=== PATIENT | male | born 1960 | race Hispanic/Latino ===

== ENCOUNTER 2016-06-16 10:34 | Outpatient (CLI) | payer MEDICARE, MEDICAID ==
[2016-06-16] MEDS ORDERED: XYLOCAINE TOPICAL 2% TP ONE ×2 (12:08→15:34)
== END 2016-06-16 10:35 | disposition home or self-care (01) ==
LOC: WOUND 10:34
PROVIDERS: ATTEND Internal Medicine
DX: I87.2 Venous insufficiency (chronic) (peripheral) (principal); L97.912 Non-pressure chronic ulcer of unspecified part of right lower leg with fat layer exposed; L97.312 Non-pressure chronic ulcer of right ankle with fat layer exposed; L89.892 Pressure ulcer of other site, stage 2; I10 Essential (primary) hypertension; D50.8 Other iron deficiency anemias; F41.9 Anxiety disorder, unspecified; L40.9 Psoriasis, unspecified
CPT/HCPCS: 11055

== ENCOUNTER 2016-06-23 10:49 | Outpatient (CLI) | payer MEDICARE, MEDICAID ==
[2016-06-23] MEDS ORDERED: XYLOCAINE TOPICAL 2% TP ONE (11:03)
== END 2016-06-23 10:50 | disposition home or self-care (01) ==
LOC: WOUND 10:49
PROVIDERS: ATTEND Podiatrist
DX: I87.311 Chronic venous hypertension (idiopathic) with ulcer of right lower extremity (principal); L97.912 Non-pressure chronic ulcer of unspecified part of right lower leg with fat layer exposed; L97.312 Non-pressure chronic ulcer of right ankle with fat layer exposed; D50.8 Other iron deficiency anemias; F41.9 Anxiety disorder, unspecified
CPT/HCPCS: 29581

== ENCOUNTER 2016-06-30 11:09 | Outpatient (CLI) | payer MEDICARE, MEDICAID ==
[2016-06-30] MEDS ORDERED: XYLOCAINE TOPICAL 2% TP ONE ×2 (11:26→14:27)
== END 2016-06-30 11:10 | disposition home or self-care (01) ==
LOC: WOUND 11:09
PROVIDERS: ATTEND Podiatrist
DX: I87.311 Chronic venous hypertension (idiopathic) with ulcer of right lower extremity (principal); L97.811 Non-pressure chronic ulcer of other part of right lower leg limited to breakdown of skin; L97.311 Non-pressure chronic ulcer of right ankle limited to breakdown of skin; D50.8 Other iron deficiency anemias; I10 Essential (primary) hypertension; F41.9 Anxiety disorder, unspecified

== ENCOUNTER 2016-07-07 11:04 | Outpatient (CLI) | payer MEDICARE, MEDICAID ==
[2016-07-07] MEDS ORDERED: XYLOCAINE TOPICAL 2% TP ONE ×2 (11:36→14:18)
== END 2016-07-07 11:05 | disposition home or self-care (01) ==
LOC: WOUND 11:04
PROVIDERS: ATTEND Podiatrist
DX: I87.311 Chronic venous hypertension (idiopathic) with ulcer of right lower extremity (principal); L97.511 Non-pressure chronic ulcer of other part of right foot limited to breakdown of skin; L97.811 Non-pressure chronic ulcer of other part of right lower leg limited to breakdown of skin; L97.311 Non-pressure chronic ulcer of right ankle limited to breakdown of skin; D50.8 Other iron deficiency anemias; I10 Essential (primary) hypertension; F41.9 Anxiety disorder, unspecified

== ENCOUNTER 2016-07-14 10:53 | Outpatient (CLI) | payer MEDICARE, MEDICAID ==
[2016-07-14] MEDS ORDERED: XYLOCAINE TOPICAL 4% TP ONE ×2 (11:40→12:32)
== END 2016-07-14 10:54 | disposition home or self-care (01) ==
LOC: WOUND 10:53
PROVIDERS: ATTEND Podiatrist
DX: I87.311 Chronic venous hypertension (idiopathic) with ulcer of right lower extremity (principal); L97.912 Non-pressure chronic ulcer of unspecified part of right lower leg with fat layer exposed; L97.312 Non-pressure chronic ulcer of right ankle with fat layer exposed; L97.512 Non-pressure chronic ulcer of other part of right foot with fat layer exposed; F41.9 Anxiety disorder, unspecified; D50.8 Other iron deficiency anemias

== ENCOUNTER 2016-07-28 10:37 | Outpatient (CLI) | payer MEDICARE, MEDICAID ==
[2016-07-28] MEDS ORDERED: XYLOCAINE TOPICAL 4% TP ONE (11:18)
[2016-07-28] MEDS ORDERED: SILVER NITRATE TP ONE ×2 (12:12→16:06)
== END 2016-07-28 10:38 | disposition home or self-care (01) ==
LOC: WOUND 10:37
PROVIDERS: ATTEND Podiatrist
DX: I87.311 Chronic venous hypertension (idiopathic) with ulcer of right lower extremity (principal); L97.811 Non-pressure chronic ulcer of other part of right lower leg limited to breakdown of skin; L97.311 Non-pressure chronic ulcer of right ankle limited to breakdown of skin; L97.511 Non-pressure chronic ulcer of other part of right foot limited to breakdown of skin; L84 Corns and callosities; M79.671 Pain in right foot; D50.8 Other iron deficiency anemias; I10 Essential (primary) hypertension; F41.9 Anxiety disorder, unspecified
CPT/HCPCS: 11055

== ENCOUNTER 2016-08-11 10:05 | Outpatient (CLI) | payer MEDICARE, MEDICAID ==
[2016-08-11] MEDS ORDERED: XYLOCAINE TOPICAL 4% TP ONE ×2 (12:28→13:53)
== END 2016-08-11 10:06 | disposition home or self-care (01) ==
LOC: WOUND 10:05
PROVIDERS: ATTEND Podiatrist
DX: I87.311 Chronic venous hypertension (idiopathic) with ulcer of right lower extremity (principal); L97.812 Non-pressure chronic ulcer of other part of right lower leg with fat layer exposed; L97.312 Non-pressure chronic ulcer of right ankle with fat layer exposed; L97.512 Non-pressure chronic ulcer of other part of right foot with fat layer exposed; D50.8 Other iron deficiency anemias; F41.9 Anxiety disorder, unspecified; L40.9 Psoriasis, unspecified

== ENCOUNTER 2016-09-01 11:08 | Outpatient (CLI) | payer MEDICARE, MEDICAID ==
[2016-09-01] MEDS ORDERED: XYLOCAINE TOPICAL 2% TP ONE ×2 (11:40→12:10)
== END 2016-09-01 11:09 | disposition home or self-care (01) ==
LOC: WOUND 11:08
PROVIDERS: ATTEND Podiatrist
DX: I87.313 Chronic venous hypertension (idiopathic) with ulcer of bilateral lower extremity (principal); L97.812 Non-pressure chronic ulcer of other part of right lower leg with fat layer exposed; L97.312 Non-pressure chronic ulcer of right ankle with fat layer exposed; L97.512 Non-pressure chronic ulcer of other part of right foot with fat layer exposed; L97.522 Non-pressure chronic ulcer of other part of left foot with fat layer exposed; D50.8 Other iron deficiency anemias; F41.9 Anxiety disorder, unspecified
CPT/HCPCS: 87075; 87076; 87116; 87186

== ENCOUNTER 2016-09-22 10:12 | Outpatient (CLI) | payer MEDICARE ==
[2016-09-22] MEDS ORDERED: XYLOCAINE TOPICAL 4% TP ONE ×2 (11:10→11:25)
== END 2016-09-22 10:13 | disposition home or self-care (01) ==
LOC: WOUND 10:12
PROVIDERS: ATTEND Podiatrist
DX: I87.313 Chronic venous hypertension (idiopathic) with ulcer of bilateral lower extremity (principal); L97.811 Non-pressure chronic ulcer of other part of right lower leg limited to breakdown of skin; L97.821 Non-pressure chronic ulcer of other part of left lower leg limited to breakdown of skin; L97.311 Non-pressure chronic ulcer of right ankle limited to breakdown of skin; L97.511 Non-pressure chronic ulcer of other part of right foot limited to breakdown of skin; L97.521 Non-pressure chronic ulcer of other part of left foot limited to breakdown of skin; D50.8 Other iron deficiency anemias; F41.9 Anxiety disorder, unspecified

== ENCOUNTER 2016-09-29 10:42 | Outpatient (CLI) | payer MEDICARE ==
[2016-09-29] MEDS ORDERED: XYLOCAINE TOPICAL 4% TP ONE ×2 (10:54→10:59)
== END 2016-09-29 10:43 | disposition home or self-care (01) ==
LOC: WOUND 10:42
PROVIDERS: ATTEND Podiatrist
DX: I87.313 Chronic venous hypertension (idiopathic) with ulcer of bilateral lower extremity (principal); L97.522 Non-pressure chronic ulcer of other part of left foot with fat layer exposed; L97.312 Non-pressure chronic ulcer of right ankle with fat layer exposed; L97.812 Non-pressure chronic ulcer of other part of right lower leg with fat layer exposed; L89.892 Pressure ulcer of other site, stage 2; D50.8 Other iron deficiency anemias; F41.9 Anxiety disorder, unspecified; L84 Corns and callosities; M79.672 Pain in left foot
CPT/HCPCS: 11055; 29581

== ENCOUNTER 2016-10-03 10:38 | Outpatient (CLI) | payer MEDICARE | END 2016-10-03 10:39 | disposition home or self-care (01) | LOC: WOUND 10:38 | PROVIDERS: ATTEND Surgery | DX: I87.313 Chronic venous hypertension (idiopathic) with ulcer of bilateral lower extremity (principal); L97.812 Non-pressure chronic ulcer of other part of right lower leg with fat layer exposed; L97.312 Non-pressure chronic ulcer of right ankle with fat layer exposed; L97.522 Non-pressure chronic ulcer of other part of left foot with fat layer exposed; D50.8 Other iron deficiency anemias; F41.9 Anxiety disorder, unspecified; L40.9 Psoriasis, unspecified | CPT/HCPCS: 29581 ==

== ENCOUNTER 2016-10-10 12:51 | Outpatient (CLI) | payer MEDICARE ==
[2016-10-10] MEDS ORDERED: XYLOCAINE TOPICAL 4% TP ONE (13:41)
[2016-10-10] MEDS ORDERED: SILVER NITRATE TP ONE ×2 (14:10→15:01)
== END 2016-10-10 12:52 | disposition home or self-care (01) ==
LOC: WOUND 12:51
PROVIDERS: ATTEND Surgery
DX: I87.313 Chronic venous hypertension (idiopathic) with ulcer of bilateral lower extremity (principal); L97.312 Non-pressure chronic ulcer of right ankle with fat layer exposed; L97.522 Non-pressure chronic ulcer of other part of left foot with fat layer exposed; D50.8 Other iron deficiency anemias; F41.9 Anxiety disorder, unspecified
CPT/HCPCS: 97597; 97598

== ENCOUNTER 2016-10-13 11:47 | Outpatient (CLI) | payer MEDICARE | END 2016-10-13 11:48 | disposition home or self-care (01) | LOC: WOUND 11:47 | PROVIDERS: ATTEND Podiatrist | DX: I87.313 Chronic venous hypertension (idiopathic) with ulcer of bilateral lower extremity (principal); L97.812 Non-pressure chronic ulcer of other part of right lower leg with fat layer exposed; L97.312 Non-pressure chronic ulcer of right ankle with fat layer exposed; L97.522 Non-pressure chronic ulcer of other part of left foot with fat layer exposed; I10 Essential (primary) hypertension; F41.9 Anxiety disorder, unspecified; L40.9 Psoriasis, unspecified | CPT/HCPCS: 29581 ==

== ENCOUNTER 2016-10-17 10:41 | Outpatient (CLI) | payer MEDICARE ==
[2016-10-17] MEDS ORDERED: XYLOCAINE TOPICAL 4% TP ONE ×2 (11:09→13:00)
[2016-10-17] MEDS ORDERED: DAKIN'S FULL STRENGTH TP ONE (12:00)
== END 2016-10-17 10:42 | disposition home or self-care (01) ==
LOC: WOUND 10:41
PROVIDERS: ATTEND Surgery
DX: I87.313 Chronic venous hypertension (idiopathic) with ulcer of bilateral lower extremity (principal); L97.812 Non-pressure chronic ulcer of other part of right lower leg with fat layer exposed; L97.312 Non-pressure chronic ulcer of right ankle with fat layer exposed; L97.522 Non-pressure chronic ulcer of other part of left foot with fat layer exposed; D50.8 Other iron deficiency anemias; F41.9 Anxiety disorder, unspecified; L40.9 Psoriasis, unspecified

== ENCOUNTER 2016-11-03 10:38 | Outpatient (CLI) | payer MEDICARE ==
[2016-11-03] MEDS ORDERED: XYLOCAINE TOPICAL 4% TP ONE ×2 (11:05→11:33)
[2016-11-03] MEDS ORDERED: SANTYL TP ONE ×2 (12:05→15:30)
== END 2016-11-03 10:39 | disposition home or self-care (01) ==
LOC: WOUND 10:38
PROVIDERS: ATTEND Podiatrist
DX: I87.313 Chronic venous hypertension (idiopathic) with ulcer of bilateral lower extremity (principal); L97.512 Non-pressure chronic ulcer of other part of right foot with fat layer exposed; L97.522 Non-pressure chronic ulcer of other part of left foot with fat layer exposed; L97.312 Non-pressure chronic ulcer of right ankle with fat layer exposed; L97.812 Non-pressure chronic ulcer of other part of right lower leg with fat layer exposed; D50.8 Other iron deficiency anemias; F41.9 Anxiety disorder, unspecified

== ENCOUNTER 2016-11-10 10:45 | Outpatient (CLI) | payer MEDICARE ==
[2016-11-10] MEDS ORDERED: XYLOCAINE TOPICAL 4% TP ONE (11:21)
[2016-11-10] MEDS ORDERED: XYLOCAINE 2%/ EPI 1:200,000 INFILTRATI ONE (11:56)
[2016-11-10] MEDS ORDERED: XYLOCAINE 2%/EPI 1:100,000 INFILTRATI ONE (15:46)
== END 2016-11-10 10:46 | disposition home or self-care (01) ==
LOC: WOUND 10:45
PROVIDERS: ATTEND Podiatrist
DX: I87.313 Chronic venous hypertension (idiopathic) with ulcer of bilateral lower extremity (principal); L97.312 Non-pressure chronic ulcer of right ankle with fat layer exposed; L97.822 Non-pressure chronic ulcer of other part of left lower leg with fat layer exposed; L97.512 Non-pressure chronic ulcer of other part of right foot with fat layer exposed; L97.522 Non-pressure chronic ulcer of other part of left foot with fat layer exposed; D50.8 Other iron deficiency anemias; F41.9 Anxiety disorder, unspecified; L40.9 Psoriasis, unspecified
CPT/HCPCS: 88305

== ENCOUNTER 2016-11-24 10:16 | Outpatient (CLI) | payer MEDICARE ==
[2016-11-24] MEDS ORDERED: XYLOCAINE TOPICAL 4% TP ONE (10:45)
[2016-11-24] MEDS ORDERED: NACL 0.9% IR PRN (10:46)
== END 2016-11-24 10:17 | disposition home or self-care (01) ==
LOC: WOUND 10:16
PROVIDERS: ATTEND Podiatrist
DX: I87.313 Chronic venous hypertension (idiopathic) with ulcer of bilateral lower extremity (principal); L97.812 Non-pressure chronic ulcer of other part of right lower leg with fat layer exposed; L97.312 Non-pressure chronic ulcer of right ankle with fat layer exposed; L97.522 Non-pressure chronic ulcer of other part of left foot with fat layer exposed; D50.8 Other iron deficiency anemias; F41.9 Anxiety disorder, unspecified
CPT/HCPCS: 29581

== ENCOUNTER 2016-12-01 11:11 | Outpatient (CLI) | payer MEDICARE ==
[2016-12-01] MEDS ORDERED: XYLOCAINE TOPICAL 4% TP ONE ×2 (11:44→12:05)
[2016-12-01] MEDS ORDERED: AD OINTMENT TP ONE (13:07)
[2016-12-01] MEDS ORDERED: AD OINTMENT TP PRN (14:13)
== END 2016-12-01 11:12 | disposition home or self-care (01) ==
LOC: WOUND 11:11
PROVIDERS: ATTEND Podiatrist
DX: I87.313 Chronic venous hypertension (idiopathic) with ulcer of bilateral lower extremity (principal); L97.812 Non-pressure chronic ulcer of other part of right lower leg with fat layer exposed; L97.312 Non-pressure chronic ulcer of right ankle with fat layer exposed; L97.522 Non-pressure chronic ulcer of other part of left foot with fat layer exposed; F41.9 Anxiety disorder, unspecified
CPT/HCPCS: A6250

== ENCOUNTER 2016-12-22 10:44 | Outpatient (CLI) | payer MEDICARE ==
[2016-12-22] MEDS ORDERED: XYLOCAINE TOPICAL 4% TP ONE (11:33)
== END 2016-12-22 10:45 | disposition home or self-care (01) ==
LOC: WOUND 10:44
PROVIDERS: ATTEND Podiatrist
DX: I87.313 Chronic venous hypertension (idiopathic) with ulcer of bilateral lower extremity (principal); L97.812 Non-pressure chronic ulcer of other part of right lower leg with fat layer exposed; L97.312 Non-pressure chronic ulcer of right ankle with fat layer exposed; L97.512 Non-pressure chronic ulcer of other part of right foot with fat layer exposed; L97.522 Non-pressure chronic ulcer of other part of left foot with fat layer exposed; F41.9 Anxiety disorder, unspecified

== ENCOUNTER 2017-01-05 10:53 | Outpatient (CLI) | payer MEDICARE ==
[2017-01-05] MEDS ORDERED: XYLOCAINE TOPICAL 4% TP ONE (11:49)
== END 2017-01-05 10:54 | disposition home or self-care (01) ==
LOC: WOUND 10:53
PROVIDERS: ATTEND Podiatrist
DX: I87.313 Chronic venous hypertension (idiopathic) with ulcer of bilateral lower extremity (principal); L97.812 Non-pressure chronic ulcer of other part of right lower leg with fat layer exposed; L97.312 Non-pressure chronic ulcer of right ankle with fat layer exposed; L97.522 Non-pressure chronic ulcer of other part of left foot with fat layer exposed; L97.512 Non-pressure chronic ulcer of other part of right foot with fat layer exposed; L84 Corns and callosities; F41.9 Anxiety disorder, unspecified
CPT/HCPCS: 97597

== ENCOUNTER 2017-01-12 10:48 | Outpatient (CLI) | payer MEDICARE ==
[2017-01-12] MEDS ORDERED: XYLOCAINE TOPICAL 4% TP ONE (11:28)
== END 2017-01-12 10:49 | disposition home or self-care (01) ==
LOC: WOUND 10:48
PROVIDERS: ATTEND Podiatrist
DX: I87.313 Chronic venous hypertension (idiopathic) with ulcer of bilateral lower extremity (principal); L97.812 Non-pressure chronic ulcer of other part of right lower leg with fat layer exposed; L97.312 Non-pressure chronic ulcer of right ankle with fat layer exposed; L97.522 Non-pressure chronic ulcer of other part of left foot with fat layer exposed; D50.8 Other iron deficiency anemias; F41.9 Anxiety disorder, unspecified

== ENCOUNTER 2017-01-19 10:38 | Outpatient (CLI) | payer MEDICARE ==
[2017-01-19] MEDS ORDERED: XYLOCAINE TOPICAL 4% TP ONE ×2 (11:21→16:00)
== END 2017-01-19 10:39 | disposition home or self-care (01) ==
LOC: WOUND 10:38
PROVIDERS: ATTEND Podiatrist
DX: I87.313 Chronic venous hypertension (idiopathic) with ulcer of bilateral lower extremity (principal); L97.812 Non-pressure chronic ulcer of other part of right lower leg with fat layer exposed; L97.312 Non-pressure chronic ulcer of right ankle with fat layer exposed; L97.522 Non-pressure chronic ulcer of other part of left foot with fat layer exposed; D50.8 Other iron deficiency anemias; F41.9 Anxiety disorder, unspecified

== ENCOUNTER 2017-01-21 20:25 | Inpatient (IN) | payer MEDICARE ==
[2017-01-21] MEDS ORDERED: NACL 0.9% 1000 ML 1,000 ML ONE ×2 (20:49→21:05)
[2017-01-21] MEDS ORDERED: TYLENOL PO STA (21:04)
[2017-01-21] MEDS ORDERED: NACL 0.9% 500 ML 500 ML IV ONE (21:04)
[2017-01-21] MEDS ORDERED: NACL 0.9% 1000 ML 1,000 ML IV ONE ×2 (21:20→21:22)
[2017-01-21] MEDS ORDERED: VANCOMYCIN/NS 1 GM/250 ML 1 GM/250 ML BAG IV ONE (21:20)
[2017-01-21 21:47] LABS: Basophils % (Auto) 0.2 % (0.0-1.8); Eosinophils % (Auto) 0.1 % (0.0-4.3); Hemoglobin 9.6 gm/dl (11.8-15.2); Mean Corpuscular HGB Conc 33 % (32-34); Mean Corpuscular Hemoglobin 29 pg (28-32); Mean Corpuscular Volume 87 fl (84-94); Platelet Count 193 K/mm3 (140-440); Red Blood Count 3.35 M/mm3 (3.65-5.03); Red Cell Distribution Width 14.7 % (13.2-15.2); White Blood Count 10.2 K/mm3 (4.5-11.0)
[2017-01-21 21:49] LABS: Albumin 3.4 g/dL (3.9-5); Albumin/Globulin Ratio 0.8 %; BUN/Creatinine Ratio 13.75; Bilirubin,Total 0.5 mg/dL (0.1-1.2); Calcium 8.4 mg/dL (8.4-10.2); Chloride 102.1 mmol/L (98-107); Potassium 3.5 mmol/L (3.6-5.0); Total Protein 7.9 g/dL (6.3-8.2)
--- NOTE | 2017-01-21 21:57 | XRay Report ---
FINAL REPORT PROCEDURE: XR CHEST 1V AP TECHNIQUE: Chest radiograph anteroposterior view. CPT 60844 HISTORY: possible Sepsis COMPARISON: No prior studies are available for comparison. FINDINGS: Heart: Normal. Mediastinum/Vessels: Normal. Lungs/Pleural space: Study is limited due to suboptimal positioning. Bilateral lungs and pleural spaces appear clear without any obvious infiltrates or mass lesions.. Bony thorax: No acute osseous abnormality. Life support devices: None. IMPRESSION: No obvious acute abnormality.
[2017-01-21] MEDS ORDERED: NACL 0.9% 1000 ML 1,000 ML IV SCH (22:00)
[2017-01-21 22:04] LABS: INR 1.24 (0.87-1.13)
--- NOTE | 2017-01-21 23:10 | Emergency Department Report ---
HPI - General Chief Complaint: Extremity Problem,Nontraumatic Time Seen by Provider: 01/21/17 21:20 - HPI HPI: Patient brought to the er, with fever 101 at home, diarrhea consisting of 10 bowel movements, liquid stools, which was helpful with Lomotil. Patient also complaining of increased drainage over right lower leg cellulitis, warm and ulcers. Patient returns warned care and does have an appointment tomorrow. He started to feel progressively weaker, his blood pressure was lower than usual so he decided to come to the ED. ED Past Medical Hx - Past Medical History Previous Medical History?: Yes Hx Hypertension: Yes Hx Diabetes: No Additional medical history: Vascular problems in both lower ext,high cholesterol - Surgical History Additional Surgical History: Vascular surgery on 10/25/16 R lower ext. - Family History Family history: hypertension - Social History Smoking Status: Never Smoker Substance Use Type: None - Medications Home Medications: Home Medications Medication Instructions Recorded Confirmed Last Taken Type Fenofibrate Nanocrystallized 1 tab PO DAILY 11/13/16 01/21/17 01/21/17 History [Fenofibrate] Lisinopril/Hydrochlorothiazide 10 - 12.5 tab PO QDAY 11/13/16 01/21/17 01/21/17 History [Zestoretic 20-12.5 mg] Sertraline [Zoloft] 100 mg PO QDAY #30 tablet 11/17/16 01/21/17 01/21/17 Rx ED Review of Systems ROS: Stated complaint: LEFT LEG PAIN Other details as noted in HPI Comment: All other systems reviewed and negative Gastrointestinal: abdominal pain, nausea, vomiting, diarrhea Skin: lesions Physical Exam - Physical Exam Vital Signs: Vital Signs 01/21/17 01/21/17 01/21/17 20:55 21:44 22:30 Temperature 100.6 F H Pulse Rate 110 H 97 H 104 H Respiratory 24 20 20 Rate Blood Pressure 82/48 96/48 93/47 [Right] O2 Sat by Pulse 90 96 100 Oximetry Physical Exam: - General Limitations: No Limitations General appearance: alert, in no apparent distress - Head Head exam: Present: atraumatic, normocephalic - Eye Eye exam: Present: normal appearance, EOMI. Absent: nystagmus - ENT ENT exam: Present: normal exam, normal orophraynx, mucous membranes moist, normal external ear exam - Neck Neck exam: Present: normal inspection, full ROM. Absent: tenderness, meningismus - Respiratory Respiratory exam: Present: normal lung sounds bilaterally. Absent: respiratory distress, wheezes, rales, rhonchi, stridor, chest wall tenderness, accessory muscle use, decreased breath sounds, prolonged expiratory - Cardiovascular Cardiovascular Exam: Present: regular rate, normal rhythm, normal heart sounds. Absent: bradycardia, tachycardia, irregular rhythm, systolic murmur, diastolic murmur, rubs, gallop - GI/Abdominal GI/Abdominal exam: Present: soft, normal bowel sounds. Absent: distended, tenderness, guarding, rebound, rigid, pulsatile mass - Rectal Rectal exam: Present: deferred - Extremities Exam Extremities exam: Present: Right lower leg cellulitis, which ulcers draining purulent material. - Back Exam Back exam: Present: normal inspection, full ROM. Absent: tenderness, CVA tenderness (R), CVA tenderness (L), muscle spasm, paraspinal tenderness, vertebral tenderness - Neurological Exam Neurological exam: Present: alert, oriented X3, normal gait, other (Extraocular movements intact. Tongue midline. No facial droop. Facial sensation intact to light touch in the V1, V2, V3 distribution bilaterally. 5 and 5 strength in 4 extremities.. Sensation is intact to light touch in 4 extremities.). Absent : motor sensory deficit - Psychiatric Psychiatric exam: Present: Normal affect - Skin Skin exam: Present: warm, dry, intact, normal color. Absent: rash ED Course Vital Signs 01/21/17 01/21/17 01/21/17 20:55 21:44 22:30 Temperature 100.6 F H Pulse Rate 110 H 97 H 104 H Respiratory 24 20 20 Rate Blood Pressure 82/48 96/48 93/47 [Right] O2 Sat by Pulse 90 96 100 Oximetry ED Medical Decision Making - Lab Data Result diagrams: 01/21/17 21:10 01/21/17 21:10 Critical care attestation.: If time is entered above; I have spent that time in minutes in the direct care of this critically ill patient, excluding procedure time. ED Disposition Clinical Impression: Cellulitis, Severe diarrhea, Severe dehydration Disposition: OP ADMIT IP TO THIS HOSP Is pt being admited?: Yes Does the pt Need Aspirin: No Condition: Stable Referrals: PRIMARY CARE, [Primary Care Provider] - 3-5 Days
--- NOTE | 2017-01-21 23:37 | History and Physical Report ---
History of Present Illness Date of examination: 01/21/17 Chief complaint: right leg ulcer History of present illness: Patient is a 56-year-old morbid obese man with a BMI 49.3 with a history of hypertension, dyslipidemia, prior osteomyelitis, peripheral vascular disease, chronic venous stasis ulcers and recent MRSA RLE cellulitis who presents with worsening drainage, mild constant pain, of his right leg leg with cellulitis. He is under our wound care clinic. He has not obtained his recommended wound VAC has of yet. He was just discharged 12/31/16 after mrsa rle cellulilits. Past Medical History: hypertension, hyperlipidemia, PVD, other (venous stasis ulcers) Past Surgical History: Other (Right leg surgery) Social history: single, hedenies smoking tobacco, alcohol abuse or illegal drugs Family history: CAD ROS: Constitutional: no weight loss, no weight gain, no chills, no sweats, no fatigue , no weakness, no poor appetite Ears, nose, mouth and throat: no deferred, no ear pain, no decreased hearing, no sinus pressure, no bleeding gums, no dental pain, no mouth pain, no hoarseness, no sore throat, no swelling in mouth, no post-nasal drip, no headache, no vertigo, no pain front of neck, no neck lump Cardiovascular: chest pain, lightheadedness, decreased exercise tolerance, no orthopnea, no palpitations, no rapid/irregular heart beat, no edema, no syncope , no shortness of breath, no dyspnea on exertion, no paroxysmal nocturnal dyspnea, no claudication, no phlebitis, no high blood pressure, no leg edema Respiratory: no cough with sputum, no excessive sputum, no hemoptysis, no pleurisy, no pain, no pain on inspiration, no respiratory infections, no other Gastrointestinal: no nausea, no diarrhea, no constipation, no hematemesis, no hematochezia, no loss of appetite, no early satiety, no indigestion, no dyspepsia/bloating Genitourinary Male: no flank pain, no discharge, no urinary hesitancy, no nocturia Rectal: no incontinence, no bleeding, no itching, no discharge Musculoskeletal: no neck stiffness, no shooting arm pain, no arm numbness/ tingling, no shooting leg pain, no leg numbness/tingling, no atrophy, no limitation of motion, no fractures, no loss of height, no prior amputations, no arthritis Integumentary: See HPI Neurological: no weakness, no tingling, no syncope, no vertigo, no migraines, no aphasia, no change in mentation, no changes in smell/taste, no balance difficulties, no double vision, no burning pain, no paralysis Psychiatric: hypersomnia, change in libido, irritability, no anxiety, no memory loss, no sleep disturbances, no change in appetite, no disorientation, no hallucinations, no paranoia, no hopelessness, no anxiety attacks, no confusion Endocrine: no cold intolerance, no polyphagia, no polydipsia, no polyuria, no nocturia, no proptosis, no palpatations, no high blood sugars, no low blood sugars, no fatigue Hematologic/Lymphatic: no easy bruising, no lymphedema Allergic/Immunologic: no urticaria, no allergic rhinitis, no anaphylaxis Medications and Allergies Allergies Allergy/AdvReac Type Severity Reaction Status Date / Time No Known Allergies Allergy Verified 01/21/17 22:29 Home Medications Medication Instructions Recorded Confirmed Last Taken Type Fenofibrate Nanocrystallized 1 tab PO DAILY 11/13/16 01/21/17 01/21/17 History [Fenofibrate] Lisinopril/Hydrochlorothiazide 10 - 12.5 tab PO QDAY 11/13/16 01/21/17 01/21/17 History [Zestoretic 20-12.5 mg] Sertraline [Zoloft] 100 mg PO QDAY #30 tablet 11/17/16 01/21/17 01/21/17 Rx Active Meds: Active Medications Sodium Chloride (Nacl 0.9% 1000 Ml) 1,000 mls @ 150 mls/hr IV DIRECT SOFIYA Last Admin: 01/21/17 21:44 Dose: 150 mls/hr Exam - Physical Exam Narrative exam: GEN: WDWN, NAD, AWAKE, ALERT, ORIENTATED x 3 HEENT: NCAT, PERRL, EOMI, OP CLEAR NECK: SUPPLE, NO THYROMEGALY, NO JVD, NO LAD CVS: reg Tachycardia NORMAL S1S2 LUNGS/CHEST: CTA B, NORMAL CHEST EXPANSION B, GOOD AIR ENTRY B ABD: SOFT, NTND, GBS, NO REBOUND OR GUARDING EXT/SKIN: Significant right lower leg ulcer with bleeding and drainage MSK: FROM X 4 EXTREMITIES NEURO: CN 2-12 GROSSLY INTACT, NO NEW FOCAL DEFICITS PSY: CALM - Constitutional Vitals: Temp Pulse Resp BP Pulse Ox 100.6 F H 104 H 20 93/47 100 01/21/17 20:55 01/21/17 22:30 01/21/17 22:30 01/21/17 22:30 01/21/17 22:30 Results - Labs CBC & Chem 7: 01/21/17 21:10 01/21/17 21:10 Labs: Abnormal lab results 01/21/17 01/21/17 01/21/17 Range/Units 21:10 21:10 21:10 RBC 3.35 L (3.65-5.03) M/mm3 Hgb 9.6 L (11.8-15.2) gm/dl Hct 29.0 L (35.5-45.6) % Lymph % (Auto) 6.6 L (13.4-35.0) % Lymph # 0.7 L (1.2-5.4) K/mm3 Seg Neutrophils % 87.0 H (40.0-70.0) % Seg Neutrophils # 8.9 H (1.8-7.7) K/mm3 PT 16.2 H (12.2-14.9) Sec. INR 1.24 H (0.87-1.13) Potassium 3.5 L (3.6-5.0) mmol/L Carbon Dioxide 20 L (22-30) mmol/L BUN 33 H (9-20) mg/dL Creatinine 2.4 H (0.8-1.5) mg/dL Glucose 138 H (75-100) mg/dL Albumin 3.4 L (3.9-5) g/dL Assessment and Plan Patient is a 56-year-old morbid obese man with a BMI 49.3 with a history of hypertension, dyslipidemia, prior osteomyelitis, peripheral vascular disease, chronic venous stasis ulcers and recent MRSA RLE cellulitis who presents with worsening drainage, mild constant pain, of his right leg leg with cellulitis. He is under our wound care clinic. He has not obtained his recommended wound VAC has of yet. He was just discharged 12/31/16 after mrsa rle cellulilits. -Right leg cellulitis with sepsis: treat with IV antibiotics, Follow cultures, consult wound care team and ID -ARF, vasomotor nephropathy: consult Nephrology, get renal u/s and treat with ivf, used Clindamycin instead of iv vanc b/c ARF -Recent MRSA cellulitis in wound: contact isolation and consult ID -Hypokalemia, mild: replace and monitor closely -Unstageable pressure ulcers on legs, poa: Wound care -DVT prophylaxis: Stop SCDs due to the leg ulcers and added subcutaneous heparin -Anemia appears to be chronic: Repeat CBC morning -Morbid obesity, BMI 49.3: Consult Dietitian
[2017-01-22 00:30] LABS: Bilirubin,Urine NEG (Negative); Blood,Urine NEG (Negative); Ketones,Urine NEG (Negative); Leukocyte Esterase,Urine NEG (Negative); Nitrite,Urine NEG (Negative); Urobilinogen,Urine < 2.0 mg/dL (<2.0)
[2017-01-22] MEDS ORDERED: ZOFRAN IV PRN (00:30)
[2017-01-22] MEDS ORDERED: K-DUR PO ONE (00:30)
[2017-01-22 00:31] LABS: Bacteria,Urine 1+ /HPF (Negative); Mucus,Urine FEW /HPF
[2017-01-22] MEDS: CLEOCIN 300 MG/50 mL 300 MG/50 ML BAG IV SCH ×2 (01:41→05:48)
[2017-01-22] MEDS: NACL 0.9% 1000 ML 1,000 ML IV SCH (01:42)
--- NOTE | 2017-01-22 05:27 | Admit Criteria Form ---
Admission Criteria Documentation: CELLULITIS Clinical Indications for Admission to Inpatient Care (lo[place]ock/check or initial the applicable condition/criteria) Admission is indicated for ANY ONE of the following(1)(2)(3)(4)(5): [ ]I. Limb-threatening infection [ ]II. High-risk comorbid condition as indicated by ANY ONE of the following: [ ]a) Uncontrolled diabetes (eg, HbA1c greater than 10% (0.1)) [ ]b) Cirrhosis [ ]c) Neutropenia [ ]d) Asplenia(12) [ ]e) Immunosuppression [ ]f) Symptomatic heart failure [ ]III. Failure of outpatient therapy as indicated by ALL of the following(6): [ ]a) Progression or no improvement after adequate trial (minimum of 48 hours, with longer period for stable lower extremity infection) [ ]b) Adequate antibiotic regimen as indicated by use of ANY ONE of the following: [ ]i) First-generation cephalosporin (e.g., cephalexin) [ ]ii) Antistaphylococcal penicillin (e.g., dicloxacillin) [ ]iii) Penicillin-allergic patient regimen (clindamycin, extended-spectrum fluoroquinolone, or doxycycline) [ ]iv) Resistant organism (eg, methicillin-resistant Staphylococcus aureus) regimen (7)(8) [ ]c) Outpatient intravenous therapy regimen is not appropriate due to ANY ONE of the following. (9)(10) [ ]i) It was tried and was not successful (eg, progression of infection). [ ]ii) It is not available or cannot be arranged in a clinically appropriate time frame (e.g., the next day). [ ]iii) Clinical presentation (eg, acuity of infection, rapidity of progression, confirmed or suspected bacteremia) is judged to require ALL of the following: [ ]1) Immediate initiation of intravenous therapy ( eg, cannot wait for next day) [ ]2) Intensity of patient monitoring and observation (eg, vital sign measurement, checks for infection progression) that cannot be provided at other than inpatient level of care [ ]IV. Altered Mental status that is severe or persistent [ ]V. Bacteremia [ ]. Hemodynamic instability [ ]VII. Suspected necrotizing soft tissue infection (e.g., gas in tissue)(13)( 14)(15) [ ]VIII. Orbital infection (16)(17) [ ]XI. Associated surgical procedure (e.g., abscess drainage, debridement) not amenable to outpatient, emergency department, or observation care [ ]X. Cutaneous gangrene(19) [ ]XII. High fever (temperature greater than 39.5 degrees C (103.1 degrees F) (oral)) not responsive to outpatient, emergency department, or observation care therapy(20)(21) [X ]XIII. Inpatient admission required [A]rather than observation care (Also use Cellulitis: Observation Care as appropriate) because of ANY ONE of the following(22)(23): [ ]a) Periorbital or perineal infection that is severe or worsening [ ]b) Severe pain requiring acute inpatient management [ ]b) IV fluid to replace significant ongoing (e.g., for over 24 hours) losses (greater than 3 L/m2 per day) [ ]b) Compartment syndrome monitoring (24) [ ]b) Strict or protective (eg, laminar flow) isolation) [ ]b) Urgent debridement or skin grafting [ ]b) Bone or joint debridement [ ]b) Immediate inpatient surgery [ X]b) Other condition, treatment, or monitoring requiring inpatient admission Extended stay beyond goal length of stay may be needed for(18)(36)(37)(38)(39)( 40)(41) [ ]a) Necrotizing soft tissue infection or fasciitis(13)(42) [ ]b) Gram-negative infection [ ]c) Methicillin-resistant Staphylococcal aureus (MRSA) infection(7)(43) [ ]d) Peripheral venous insufficiency with cellulitis [ ]e) Extensive edema [ ]f) Sepsis or continued Hemodynamic instability [ ]g) Continued high fever or mental status change [ ]h) Bacteremia(43) [ ]i) Active serious comorbid conditions ( eg, heart failure, renal insufficiency) The original [employer] content created by [employer] has been revised. The portions of the content which have been revised are identified through the use of italic text or in bold, and [facility] has neither reviewed nor approved the modified material. All other unmodified content is copyright [facility] [employer] Please see references footnoted in the original [facility] edition 2017 Admission Criteria Met: Yes
[2017-01-22] MEDS: TYLENOL PO PRN ×2 (05:48→17:16)
--- NOTE | 2017-01-22 08:47 | Progress Note ---
Assessment and Plan Assessment and plan: Right leg cellulitis with sepsis Continue on empiric treatment of IV antibiotics Clindamycin Follow cultures Infectious disease Consulted Wound care team consulted Acute renal failure /vasomotor nephropathy IV fluid hydration Nephrology consulted Recent MRSA cellulitis in wound Continue on Clindamycin contact isolation Infectious diseases consulted Mild Hypokalemia Replaced Closely monitor Electrolytes Unstageable pressure ulcers Wound care Anemia appears to be chronic Stable at this time. Repeat CBC morning Morbid obesity, BMI 49.3 Consult Dietitian DVT prophylaxis Stop SCDs due to the leg ulcers and started heparin History Interval history: Patient complaining right leg pain and rated his pain level 7/10. Hospitalist Physical - Constitutional Vitals: Temp Pulse Resp BP Pulse Ox 98.2 F 75 22 96/58 97 01/22/17 07:42 01/22/17 07:42 01/22/17 07:42 01/22/17 07:42 01/22/17 07:42 General appearance: Present: no acute distress - EENT Eyes: Present: PERRL ENT: hearing intact - Neck Neck: Present: supple - Respiratory Respiratory effort: normal Respiratory: bilateral: CTA - Cardiovascular Heart rate: 75 Rhythm: regular Heart Sounds: Present: S1 & S2 - Extremities Extremities: no ischemia Extremity abnormal: other (Right leg Cellulitis ) Peripheral Pulses: within normal limits - Abdominal General gastrointestinal: soft, non-tender - Integumentary Integumentary: Present: clear, warm, dry - Psychiatric Psychiatric: appropriate mood/affect - Neurologic Neurologic: CNII-XII intact - Allied Health Allied health notes reviewed: nursing Results - Labs CBC & Chem 7: 01/21/17 21:10 01/21/17 21:10 Labs: Laboratory Last Values WBC 10.2 K/mm3 (4.5-11.0) 01/21/17 21:10 RBC 3.35 M/mm3 (3.65-5.03) L 01/21/17 21:10 Hgb 9.6 gm/dl (11.8-15.2) L 01/21/17 21:10 Hct 29.0 % (35.5-45.6) L 01/21/17 21:10 MCV 87 fl (84-94) 01/21/17 21:10 MCH 29 pg (28-32) 01/21/17 21:10 MCHC 33 % (32-34) 01/21/17 21:10 RDW 14.7 % (13.2-15.2) 01/21/17 21:10 Plt Count 193 K/mm3 (140-440) 01/21/17 21:10 Lymph % (Auto) 6.6 % (13.4-35.0) L 01/21/17 21:10 [place] % (Auto) 6.1 % (0.0-7.3) 01/21/17 21:10 Eos % (Auto) 0.1 % (0.0-4.3) 01/21/17 21:10 Baso % (Auto) 0.2 % (0.0-1.8) 01/21/17 21:10 Lymph # 0.7 K/mm3 (1.2-5.4) L 01/21/17 21:10 [place] # 0.6 K/mm3 (0.0-0.8) 01/21/17 21:10 Eos # 0.0 K/mm3 (0.0-0.4) 01/21/17 21:10 Baso # 0.0 K/mm3 (0.0-0.1) 01/21/17 21:10 Seg Neutrophils % 87.0 % (40.0-70.0) H 01/21/17 21:10 Seg Neutrophils # 8.9 K/mm3 (1.8-7.7) H 01/21/17 21:10 PT 16.2 Sec. (12.2-14.9) H 01/21/17 21:10 INR 1.24 (0.87-1.13) H 01/21/17 21:10 VBG pH 7.388 (7.320-7.420) 01/21/17 21:22 Sodium 140 mmol/L (137-145) 01/21/17 21:10 Potassium 3.5 mmol/L (3.6-5.0) L 01/21/17 21:10 Chloride 102.1 mmol/L (98-107) 01/21/17 21:10 Carbon Dioxide 20 mmol/L (22-30) L 01/21/17 21:10 Anion Gap 21 mmol/L 01/21/17 21:10 BUN 33 mg/dL (9-20) H 01/21/17 21:10 Creatinine 2.4 mg/dL (0.8-1.5) H 01/21/17 21:10 Estimated GFR 28 ml/min 01/21/17 21:10 BUN/Creatinine Ratio 13.75 % 01/21/17 21:10 Glucose 138 mg/dL (75-100) H 01/21/17 21:10 Lactic Acid 0.80 mmol/L (0.7-2.0) 01/22/17 00:01 Calcium 8.4 mg/dL (8.4-10.2) 01/21/17 21:10 Total Bilirubin 0.50 mg/dL (0.1-1.2) 01/21/17 21:10 AST 27 units/L (5-40) 01/21/17 21:10 ALT 18 units/L (7-56) 01/21/17 21:10 Alkaline Phosphatase 42 units/L (35-129) 01/21/17 21:10 Total Protein 7.9 g/dL (6.3-8.2) 01/21/17 21:10 Albumin 3.4 g/dL (3.9-5) L 01/21/17 21:10 Albumin/Globulin Ratio 0.8 % 01/21/17 21:10 Urine Color Yellow (Yellow) 01/21/17 23:10 Urine Turbidity Clear (Clear) 01/21/17 23:10 Urine pH 5.0 (5.0-7.0) 01/21/17 23:10 Ur Specific [place] 1.016 (1.003-1.030) 01/21/17 23:10 Urine Protein 30 mg/dl mg/dL (Negative) 01/21/17 23:10 Urine Glucose (UA) Neg mg/dL (Negative) 01/21/17 23:10 Urine Ketones Neg mg/dL (Negative) 01/21/17 23:10 Urine Blood Neg (Negative) 01/21/17 23:10 Urine Nitrite Neg (Negative) 01/21/17 23:10 Urine Bilirubin Neg (Negative) 01/21/17 23:10 Urine Urobilinogen < 2.0 mg/dL (<2.0) 01/21/17 23:10 Ur Leukocyte Esterase Neg (Negative) 01/21/17 23:10 Urine WBC (Auto) 6.0 /HPF (0.0-6.0) 01/21/17 23:10 Urine RBC (Auto) 5.0 /HPF (0.0-6.0) 01/21/17 23:10 U Epithel Cells (Auto) < 1.0 /HPF (0-13.0) 01/21/17 23:10 Urine Bacteria (Auto) 1+ /HPF (Negative) 01/21/17 23:10 Urine Mucus Few /HPF 01/21/17 23:10
[2017-01-22] MEDS: PROTONIX PO SCH (10:57)
[2017-01-22] MEDS ORDERED: Fluarix Quad 2017-2018(36 MOS+) IM ONE (12:00)
--- NOTE | 2017-01-22 12:04 | Consultation ---
History of Present Illness - Reason for Consult Consult date: 01/22/17 acute renal failure - History of Present Illness patient with h/o morbid obesity and PVD, also was recently treated for RLE cellulites came to the ED yesterday for worsening pain at the infection site, he also noted worsening of drainage and spiked a fever. in the ED he was noted to have worsening kidney function and renal consult was requested Past History Past Medical History: hyperlipidemia, other (obesity) Medications and Allergies Allergies Allergy/AdvReac Type Severity Reaction Status Date / Time No Known Allergies Allergy Verified 01/21/17 22:29 Home Medications Medication Instructions Recorded Confirmed Last Taken Type Fenofibrate Nanocrystallized 1 tab PO DAILY 11/13/16 01/21/17 01/21/17 History [Fenofibrate] Lisinopril/Hydrochlorothiazide 10 - 12.5 tab PO QDAY 11/13/16 01/21/17 01/21/17 History [Zestoretic 20-12.5 mg] Sertraline [Zoloft] 100 mg PO QDAY #30 tablet 11/17/16 01/21/17 01/21/17 Rx Active Meds: Active Medications Acetaminophen (Tylenol) 650 mg PO Q6H PRN PRN Reason: Non Cardiac Pain or Temp>100.5 Last Admin: 01/22/17 05:48 Dose: 650 mg Heparin Sodium (Porcine) (Heparin) 5,000 unit SUB-Q Q12HR [facility] Sodium Chloride (Nacl 0.9% 1000 Ml) 1,000 mls @ 125 mls/hr IV DIRECT SOFIYA Last Admin: 01/22/17 01:42 Dose: 125 mls/hr Clindamycin HCl (Cleocin 300 Mg/50 Ml) 300 mg in 50 mls @ 100 mls/hr IV Q6HR SOFIYA PRN Reason: Protocol Last Admin: 01/22/17 05:48 Dose: 100 mls/hr Influenza Virus Vaccine Quadrival (Fluarix Quad [id number](36 Mos+)) 0.5 ml IM .ONCE ONE Stop: 01/22/17 12:01 Morphine Sulfate (Morphine) 2 mg IV Q4H PRN PRN Reason: Pain, Moderate (4-6) Ondansetron HCl (Zofran) 4 mg IV Q4H PRN PRN Reason: Nausea And Vomiting Pantoprazole Sodium (Protonix) 40 mg PO QDAY [facility] Last Admin: 01/22/17 10:57 Dose: 40 mg Review of Systems All systems: negative (pain in RLE) Exam - Vital Signs Vital signs: Vital Signs Temp Pulse Resp BP Pulse Ox 100.6 F H 110 H 24 82/48 90 01/21/17 20:55 01/21/17 20:55 01/21/17 20:55 01/21/17 20:55 01/21/17 20:55 - General Appearance General appearance: well-developed, well-nourished, obese EENT: ATNC, PERRL, mucous membranes moist Neck: Present: neck supple Respiratory: Clear to Ascultation Heart: regular, S1S2 Gastrointestinal: Present: normoactive bowel sounds, obese. Absent: tenderness , distended Integumentary: erythema Neurologic: no focal deficit, no asterixis, alert and oriented x3 Musculoskeletal: Present: other (trace pitting edema in BLE) Psychiatric: mood/affect appropriate, cooperative Results - Lab Results 01/21/17 21:10 01/21/17 21:10 Most recent lab results Calcium 8.4 mg/dL (8.4-10.2) 01/21/17 21:10 Assessment and Plan - Patient Problems (1) Acute renal failure (ARF) Current Visit: Yes Status: Acute Qualifiers: Acute renal failure type: A Plan to address problem: etiology possible due to prerenal azotemia vs AIN from recent antibiotics use cont to hold Lisinopril/HCTZ cont IVF will check urine lytes and eos renal US is pending renally dose meds strict I&O renal diet daily weights (2) Cellulitis Current Visit: Yes Status: Acute Qualifiers: Site of cellulitis: S Site of cellulitis of extremity: S Site of cellulitis of trunk: S Laterality: L Plan to address problem: blood cultures ordered on Clindamycin (3) HTN (hypertension) Current Visit: No Status: Acute Qualifiers: Hypertension type: H Plan to address problem: noted to have low BP hold MIGUEL meds
--- NOTE | 2017-01-22 12:16 | Ultrasound Report ---
ULTRASOUND RENAL BILATERAL HISTORY: Acute renal failure. TECHNIQUE: transabdominal ultrasound with color Doppler interrogation. FINDINGS: The right kidney measures 12.4 x 7.3 x 7.1cm. Right renal cortex: 1.7cm. The left kidney measures 15.0 x 6.4 x 7.7cm. Left renal cortex: 2.0cm. Both kidneys are normal size, contour and position. The kidneys may be slightly echogenic consistent with nonspecific renal parenchymal disease. There is minimal separation of the echogenic complex in the right kidney which could represent minimal right hydronephrosis or urinary stasis. No calyceal dilatation is detected. No evidence for cyst, mass, calculus or perinephric fluid. The bladder is empty. Large gallstone measuring 1.5 cm is noted within the gallbladder. IMPRESSION: Slightly echogenic kidneys consistent with nonspecific renal parenchymal disease. Minimal right hydronephrosis versus urinary stasis in the right renal pelvis. I favor urinary stasis. Cholelithiasis.
--- NOTE | 2017-01-22 13:18 | Consultation ---
History of Present Illness - Reason for Consult Consult date: 01/22/17 infected wounds - History of Present Illness This is a 56 year-old male with history of morbid obesity, hypertension, hyperlipidemia, PVD and chronic venous insuficiency with bilateral venous stasis ulcers mainly to the right leg for 2 years, non-healing despite wound care and oral antibiotics; admitted on 01/21/2017 due to worsening right leg pain for 48h. Pain is 10/10 on his right calf and foot. He also noted increasing edema and erythema. He has had on / off chills and fever. Also, he reports diarrhea several times a day for 2 days. Denies N/V/abdominal pain. Of note, pt was admitted in December 2016 for MRSA right leg cellulitis. In the ED, temperature was 100.6, HR 110, BP 82/48, WBC 10.2, creat 2.4, , UA neg, CXR neg. Current Antimicrobials: Clindamycin 01/22 Previous Antimicrobials: Microbiology: Blood cultures: 01/21 NGTD Urine cultures: 11/13 neg Respiratory cultures: Wound cultures: 11/13 right leg cultures +MRSA sens to vanco and Pseudomonas sens to levaquin/ cipro Stool cultures: Other: Past History Past Medical History: hyperlipidemia, other (obesity) Social history: no significant social history Family history: no significant family history Medications and Allergies Allergies Allergy/AdvReac Type Severity Reaction Status Date / Time No Known Allergies Allergy Verified 01/21/17 22:29 Home Medications Medication Instructions Recorded Confirmed Last Taken Type Fenofibrate Nanocrystallized 1 tab PO DAILY 11/13/16 01/21/17 01/21/17 History [Fenofibrate] Lisinopril/Hydrochlorothiazide 10 - 12.5 tab PO QDAY 11/13/16 01/21/17 01/21/17 History [Zestoretic 20-12.5 mg] Sertraline [Zoloft] 100 mg PO QDAY #30 tablet 11/17/16 01/21/17 01/21/17 Rx Active Meds: Active Medications Acetaminophen (Tylenol) 650 mg PO Q6H PRN PRN Reason: Non Cardiac Pain or Temp>100.5 Last Admin: 01/22/17 05:48 Dose: 650 mg Heparin Sodium (Porcine) (Heparin) 5,000 unit SUB-Q Q12HR [facility] Sodium Chloride (Nacl 0.9% 1000 Ml) 1,000 mls @ 125 mls/hr IV DIRECT [facility] Last Admin: 01/22/17 01:42 Dose: 125 mls/hr Clindamycin HCl (Cleocin 300 Mg/50 Ml) 300 mg in 50 mls @ 100 mls/hr IV Q6HR SOFIYA PRN Reason: Protocol Last Admin: 01/22/17 05:48 Dose: 100 mls/hr Morphine Sulfate (Morphine) 2 mg IV Q4H PRN PRN Reason: Pain, Moderate (4-6) Ondansetron HCl (Zofran) 4 mg IV Q4H PRN PRN Reason: Nausea And Vomiting Pantoprazole Sodium (Protonix) 40 mg PO QDAY [facility] Last Admin: 01/22/17 10:57 Dose: 40 mg Review of Systems Constitutional: weight gain Ears, nose, mouth and throat: no ear discharge, no nasal discharge Cardiovascular: edema, no chest pain, no palpitations Respiratory: no cough, no shortness of breath Gastrointestinal: diarrhea, no nausea, no vomiting Integumentary: wounds Neurological: no head injury, no seizures, no syncope Psychiatric: no anxiety Endocrine: no cold intolerance, no heat intolerance Physical Examination - Physical Exam Narrative exam: General appearance: Alert in NAD, conversant Eyes: anicteric sclerae, PERRLA HENT: Atraumatic; oropharynx clear with moist mucous membranes and no mucosal ulcerations/no oral thrush; normal hard and soft palate. Normal external ears. Neck: Trachea midline; supple, no thyromegaly or lymphadenopathy Lungs: CTA, with normal respiratory effort and no intercostal retractions CV: RRR, no murmurs Abdomen: Soft, obese, non-tender; no masses or hepatosplenomegaly Extremities: radha leg edema with multiple right leg ulcerations with jennifer wound erythema no drainage Skin: Normal temperature, turgor and texture; no rash, ulcers or subcutaneous nodules Psych: Appropriate affect, alert and oriented to person, place and time. Neuro: alert and oriented x 3. Moving all extermities Lines: No CVL / PICC - Constitutional Vitals: Vital Signs Temp Pulse Resp BP Pulse Ox 98.2 F 75 22 96/58 97 01/22/17 07:42 01/22/17 07:42 01/22/17 07:42 01/22/17 07:42 01/22/17 07:42 Temperature -Last 24 Hours Temperature 98.2 F Temperature 99.1 F Temperature 98.6 F Results - Labs CBC & Chem 7: 01/21/17 21:10 01/21/17 21:10 - Imaging and Cardiology Chest x-ray: report reviewed Assessment and Plan Assessment: 1) Sepsis: Present on admission, manifested by fever, tachycardia. Etiology- right leg venous stasis wound infection +/- diarrhea. 2) Right leg venous stasis wound infection - chronic non healing for several months. Recent wound cultures grew MSSA and Pseudomonas. He has been on wound care for several months. 3) Diarrhea: should r/o Clostridium difficile colitis 4) Morbid obesity 5) TEREAS 6) PVD Plan: -follow-up blood cultures -obtain C-reactive protein (CRP) -obtain arterial legs US -check stools for C diff -start vancomycin at 15 mg/kg IV- renally dosed to cover MRSA -start cefepime IV reanlly dosed to cover Pseudomonas -stop clindamycin -start IV metronidazole to cover empirically C diff -wound care consultation -contact isolation Thank you for your consultation, will follow up with you. Julia Figueroa MD Infectious Diseases Specialist [facility] ([facility]) M [phone] O [phone]
[2017-01-22] MEDS ORDERED: VANCOMYCIN PHARMACY TO DOSE IV SCH (14:00)
[2017-01-22] MEDS ORDERED: VANCOMYCIN/NS 1 GM/250 ML 1 GM/250 ML BAG IV SCH (14:00)
[2017-01-22] MEDS ORDERED: MAXIPIME/NS 2 GM/100 ML 2 GM/100 ML BAG IV SCH (15:00)
[2017-01-22] MEDS: FLAGYL 500 MG/100 ML 500 MG/100 ML BAG IV SCH ×2 (15:53→21:56)
[2017-01-22] MEDS ORDERED: VANCOMYCIN 2,000 MG in NACL 0.9% 500 ML 500 ML IV ONE (16:00)
[2017-01-23] MEDS: MORPHINE IV PRN ×2 (01:19→18:04)
[2017-01-23 05:33] LABS: Bilirubin,Urine NEG (Negative); Blood,Urine NEG (Negative); Ketones,Urine NEG (Negative); Leukocyte Esterase,Urine NEG (Negative); Mucus,Urine FEW /HPF; Nitrite,Urine NEG (Negative); Protein,Urine <15 mg/dL mg/dL (Negative); RBC,Urine < 1.0 /HPF (0.0-6.0); Urobilinogen,Urine < 2.0 mg/dL (<2.0)
[2017-01-23 06:23] LABS: Basophils % (Auto) 0.6 % (0.0-1.8); Eosinophils % (Auto) 3.7 % (0.0-4.3); Hematocrit 30.5 % (35.5-45.6); Hemoglobin 10.2 gm/dl (11.8-15.2); Mean Corpuscular HGB Conc 33 % (32-34); Mean Corpuscular Hemoglobin 29 pg (28-32); Mean Corpuscular Volume 87 fl (84-94); Platelet Count 217 K/mm3 (140-440); Red Blood Count 3.52 M/mm3 (3.65-5.03); Red Cell Distribution Width 15.3 % (13.2-15.2); White Blood Count 7.6 K/mm3 (4.5-11.0)
[2017-01-23 06:33] LABS: BUN/Creatinine Ratio 23.07; Calcium 8.7 mg/dL (8.4-10.2); Phosphorous 3.1 mg/dL (2.5-4.5)
[2017-01-23 06:34] LABS: Chloride 102.2 mmol/L (98-107); Potassium 3.6 mmol/L (3.6-5.0)
[2017-01-23] MEDS: FLAGYL 500 MG/100 ML 500 MG/100 ML BAG IV SCH ×3 (07:44→22:08)
[2017-01-23] MEDS: NACL 0.9% 1000 ML 1,000 ML IV SCH (07:47)
--- NOTE | 2017-01-23 09:01 | Progress Note ---
Assessment and Plan - Patient Problems (1) Acute renal failure (ARF) Current Visit: Yes Status: Acute Qualifiers: Acute renal failure type: A Plan to address problem: imporved Cr with IVF and holding lisinopril/HCTZ cont NS renal US showed possible minimal R hydro, may need urology consult in the future renally dose meds strict I&O renal diet daily weights (2) Cellulitis Current Visit: Yes Status: Acute Qualifiers: Site of cellulitis: S Site of cellulitis of extremity: S Site of cellulitis of trunk: S Laterality: L Plan to address problem: blood cultures ordered followed by ID (3) HTN (hypertension) Current Visit: No Status: Acute Qualifiers: Hypertension type: H Plan to address problem: cont to hold BP meds Subjective Date of service: 01/23/17 Principal diagnosis: acute renal failure Interval history: feels better, mild R foot pain Objective - Vital Signs Vital signs: Vital Signs - 12hr 01/22/17 01/22/17 22:00 23:00 Temperature 98.3 F Pulse Rate 84 79 Respiratory 18 Rate Blood Pressure 105/69 O2 Sat by Pulse 98 Oximetry - General Appearance General appearance: well-developed, well-nourished, obese EENT: ATNC, PERRL, mucous membranes moist Neck: no JVD, no carotid bruit Respiratory: Present: Clear to Ascultation. Absent: Rales, Ronchi Cardiology: regular, S1S2 Gastrointestinal: normoactive bowel sounds, no tenderness, no distended, no guarding, obese Integumentary: warm and dry Neurologic: no focal deficit, no asterixis, alert and oriented x3 Musculoskeletal: other (trace pitting edema in BLE) Psychiatric: mood/affect appropriate, cooperative - Lab 01/23/17 04:46 01/23/17 04:46 Most recent lab results Calcium 8.7 mg/dL (8.4-10.2) 01/23/17 04:46 Phosphorus 3.10 mg/dL (2.5-4.5) 01/23/17 04:46 Magnesium 2.00 mg/dL (1.7-2.3) 01/23/17 04:46 Urine Creatinine 107.3 mg/dL (0.1-20.0) H 01/23/17 04:00 Urine Sodium 53 mEq/L 01/23/17 04:00 Urine Total Protein 19 mg/dL (5-11.8) H 01/23/17 04:00
[2017-01-23] MEDS: PROTONIX PO SCH (10:02)
[2017-01-23] MEDS: MAXIPIME/NS 2 GM/100 ML 2 GM/100 ML BAG IV SCH ×2 (10:10→22:14)
--- NOTE | 2017-01-23 12:06 | Consultation ---
History of Present Illness Consult date: 01/23/17 Reason for consult: wound care Chief complaint: Right leg ulcerations Past History Past Medical History: hyperlipidemia, other (obesity) Social history: no significant social history Family history: no significant family history Medications and Allergies Allergies Allergy/AdvReac Type Severity Reaction Status Date / Time No Known Allergies Allergy Verified 01/21/17 22:29 Home Medications Medication Instructions Recorded Confirmed Last Taken Type Fenofibrate Nanocrystallized 1 tab PO DAILY 11/13/16 01/21/17 01/21/17 History [Fenofibrate] Lisinopril/Hydrochlorothiazide 10 - 12.5 tab PO QDAY 11/13/16 01/21/17 01/21/17 History [Zestoretic 20-12.5 mg] Sertraline [Zoloft] 100 mg PO QDAY #30 tablet 11/17/16 01/21/17 01/21/17 Rx Active Meds: Active Medications Acetaminophen (Tylenol) 650 mg PO Q6H PRN PRN Reason: Non Cardiac Pain or Temp>100.5 Last Admin: 01/22/17 17:16 Dose: 650 mg Heparin Sodium (Porcine) (Heparin) 5,000 unit SUB-Q Q12HR [facility] Sodium Chloride (Nacl 0.9% 1000 Ml) 1,000 mls @ 125 mls/hr IV DIRECT [facility] Last Admin: 01/23/17 07:47 Dose: 125 mls/hr Metronidazole (Flagyl 500 Mg/100 Ml) 500 mg in 100 mls @ 100 mls/hr IV Q8HR [facility] Last Admin: 01/23/17 07:44 Dose: 100 mls/hr Vancomycin HCl 1,750 mg/ (Sodium Chloride) 517.5 mls @ 333.333 mls/hr IV Q12H [facility] Cefepime HCl (Maxipime/Ns 2 Gm/100 Ml) 2 gm in 100 mls @ 200 mls/hr IV Q12HR SOFIYA PRN Reason: Protocol Last Admin: 01/23/17 10:10 Dose: 200 mls/hr Morphine Sulfate (Morphine) 2 mg IV Q4H PRN PRN Reason: Pain, Moderate (4-6) Last Admin: 01/23/17 01:19 Dose: 2 mg Ondansetron HCl (Zofran) 4 mg IV Q4H PRN PRN Reason: Nausea And Vomiting Pantoprazole Sodium (Protonix) 40 mg PO QDAY [facility] Last Admin: 01/23/17 10:02 Dose: 40 mg Vancomycin HCl (Vancomycin Pharmacy To Dose) 1 each IV PKCONSULT [facility] Review of Systems All systems: negative Exam Vital Signs Temp Pulse Resp BP Pulse Ox 100.6 F H 110 H 24 82/48 90 01/21/17 20:55 01/21/17 20:55 01/21/17 20:55 01/21/17 20:55 01/21/17 20:55 - General physical appearance Positive: well developed, well nourished, no distress - Eyes Positive: PERRL, normal occular movement - ENT Positive: normal pinna, normal nares, normal mucosa, no hearing loss, no congestion - Neck Positive: no masses, no bruits, trachea midline, no venous distension - Respiratory Positive: normal expansion, normal respiratory effort, clear to auscultation - Cardiovascular Rhythm: regular Heart Sounds: Present: S1 & S2. Absent: rub, click - Extremities Extremities: no ischemia, pulses symmetrical, No edema - Breasts Breasts: deferred - Abdomen Abdomen: Present: soft, bowel sounds normal. Absent: tender, distended Hernia: none - Genitourinary Male Genitourinary: deferred - Integumentary other (There are multiple venous stasis ulcerations of his right medial and lateral leg. These are covered with biofilm. ) - Neurologic Neurologic: alert and oriented to time, place and person, motor strength and sensation are grossly intact - Musculoskeletal normal gait, normal posture - Psychiatric Psychiatric: appropriate mood/affect, intact judgment & insight Results - Labs 01/23/17 04:46 01/23/17 04:46 Abnormal lab results 01/22/17 01/23/17 01/23/17 Range/Units 14:53 04:00 04:46 RBC 3.52 L (3.65-5.03) M/mm3 Hgb 10.2 L (11.8-15.2) gm/dl Hct 30.5 L (35.5-45.6) % RDW 15.3 H (13.2-15.2) % Lymph # 1.1 L (1.2-5.4) K/mm3 Seg Neutrophils % 75.5 H (40.0-70.0) % BUN (9-20) mg/dL Iron (49-181) ug/dL TIBC (250-450) mcg/dL Ferritin (13.0-400.0) ng/mL C-Reactive Protein 33.10 H (0.00-1.30) mg/dL Urine Creatinine 107.3 H (0.1-20.0) mg/dL Urine Total Protein 19 H (5-11.8) mg/dL 01/23/17 01/23/17 Range/Units 04:46 04:46 RBC (3.65-5.03) M/mm3 Hgb (11.8-15.2) gm/dl Hct (35.5-45.6) % RDW (13.2-15.2) % Lymph # (1.2-5.4) K/mm3 Seg Neutrophils % (40.0-70.0) % BUN 30 H (9-20) mg/dL Iron 21 L (49-181) ug/dL TIBC 178 L (250-450) mcg/dL Ferritin 712.4 H (13.0-400.0) ng/mL C-Reactive Protein (0.00-1.30) mg/dL Urine Creatinine (0.1-20.0) mg/dL Urine Total Protein (5-11.8) mg/dL Diabetes panel 01/23/17 Range/Units 04:46 Sodium 141 (137-145) mmol/L Potassium 3.6 (3.6-5.0) mmol/L Chloride 102.2 (98-107) mmol/L Carbon Dioxide 22 (22-30) mmol/L BUN 30 H (9-20) mg/dL Creatinine 1.3 (0.8-1.5) mg/dL Glucose 93 (75-100) mg/dL Calcium 8.7 (8.4-10.2) mg/dL Calcium panel 01/23/17 Range/Units 04:46 Calcium 8.7 (8.4-10.2) mg/dL Phosphorus 3.10 (2.5-4.5) mg/dL Pituitary panel 01/23/17 Range/Units 04:46 Sodium 141 (137-145) mmol/L Potassium 3.6 (3.6-5.0) mmol/L Chloride 102.2 (98-107) mmol/L Carbon Dioxide 22 (22-30) mmol/L BUN 30 H (9-20) mg/dL Creatinine 1.3 (0.8-1.5) mg/dL Glucose 93 (75-100) mg/dL Calcium 8.7 (8.4-10.2) mg/dL Adrenal panel 01/23/17 Range/Units 04:46 Sodium 141 (137-145) mmol/L Potassium 3.6 (3.6-5.0) mmol/L Chloride 102.2 (98-107) mmol/L Carbon Dioxide 22 (22-30) mmol/L BUN 30 H (9-20) mg/dL Creatinine 1.3 (0.8-1.5) mg/dL Glucose 93 (75-100) mg/dL Calcium 8.7 (8.4-10.2) mg/dL Assessment and Plan 1) Elevation of right leg with 2 pillows. 2) I will debride the biofilm tomorrow. 3) Agree with arterial dopplers as recommended by ID. - Patient Problems (1) Non-pressure ulcer of right lower extremity Current Visit: Yes Status: Chronic Qualifiers: Non-pressure ulcer stage: with fat layer exposed Qualified Code(s): L97.912 - Non-pressure chronic ulcer of unspecified part of right lower leg with fat layer exposed
--- NOTE | 2017-01-23 12:47 | Progress Note ---
Assessment and Plan Assessment: 1) Sepsis: improving. Etiology- right leg venous stasis wound infection +/- diarrhea. CRP 33. 2) Right leg venous stasis wound infection - chronic non healing for several months. Recent wound cultures grew MSSA and Pseudomonas. He has been on wound care for several months. 3) Diarrhea: should r/o Clostridium difficile colitis 4) Morbid obesity 5) TERESA 6) PVD Plan: -he is going for debridement tomorrow -leg elevation -follow-up blood cultures -obtain arterial legs US - pending -stools for C diff - pending -continue vancomycin, cefepime and metronidazole for now -appreciate wound care evaluation -contact isolation -upon discharge will do oral antibiotics as long as he has good flow - doxycycline 100 mg PO q 12 hour and ciprofloxacin 500 mg PO q 12 hour for 14 days from 01/[address] Galeana for your consultation, will follow up with you. Julia Figueroa MD Infectious Diseases Specialist [facility] ([facility]) M [phone] O [phone] Subjective Date of service: 01/23/17 Principal diagnosis: acute renal failure Interval history: Feels better, no fever overnight. He did 2 BMs last 24h. Leg pain is better. Current Antimicrobials: Clindamycin 01/22 Previous Antimicrobials: Microbiology: Blood cultures: 01/21 NGTD Urine cultures: 11/13 10-100K mixed bacteria Respiratory cultures: Wound cultures: 11/13 right leg cultures +MRSA sens to vanco and Pseudomonas sens to levaquin/ cipro Stool cultures: Other: Objective - Exam Narrative Exam: General appearance: Alert in NAD, conversant Eyes: anicteric sclerae, PERRLA HENT: Atraumatic; oropharynx clear with moist mucous membranes and no mucosal ulcerations/no oral thrush; normal hard and soft palate. Normal external ears. Neck: Trachea midline; supple, no thyromegaly or lymphadenopathy Lungs: CTA, with normal respiratory effort and no intercostal retractions CV: RRR, no murmurs Abdomen: Soft, obese, non-tender; no masses or hepatosplenomegaly Extremities: radha leg edema with multiple right leg ulcerations with jennifer wound erythema no drainage Skin: per Wound care evaluation: R MEDIAL LEG MEASURES 12.5X11.5X0.4, WITH YELLOW SLOUGH AND BLOODY DRAINAGE, NO ODOR NOTED AT THIS TIME, ULCER CLEANED WITH WOUND CLEANSER, CALCIUM ALGINATE APPLIED TO ULCER, SECURED WITH ADB PAD, AND KERLIX CHRONIC VENOUS ULCER TO R LATERAL ANKLE ULCER, MEASURES 6.4X5.7X0.4, YELLOW SLOUGH NOTED, NO ODOR, SITE CLEANED WITH WOUND CLEANSER, CALCIUM ALGINATE DRESSING APPLIED, SECURED WITH ABD PADS AND KERLIX TRAUMA WOUND TO R GREAT TOE, SITE CLEANSED WITH WOUND CLEANSER, MEASURES 1X1.2X0.2, CALCIUM ALGINATE APPLIED AND SECURED WITH FOAM DRESSING Psych: Appropriate affect, alert and oriented to person, place and time. Neuro: alert and oriented x 3. Moving all extermities Lines: No CVL / PICC - Constitutional Vitals: Vital Signs Temp Pulse Resp BP Pulse Ox 99.2 F 76 20 117/73 99 01/23/17 09:42 01/23/17 09:42 01/23/17 10:00 01/23/17 09:42 01/23/17 10:00 Temperature -Last 24 Hours Temperature 99.2 F Temperature 98.3 F Temperature 98.0 F - Labs CBC & Chem 7: 01/23/17 04:46 01/23/17 04:46 Labs: Abnormal lab results 01/22/17 01/23/17 01/23/17 Range/Units 14:53 04:00 04:46 RBC 3.52 L (3.65-5.03) M/mm3 Hgb 10.2 L (11.8-15.2) gm/dl Hct 30.5 L (35.5-45.6) % RDW 15.3 H (13.2-15.2) % Lymph # 1.1 L (1.2-5.4) K/mm3 Seg Neutrophils % 75.5 H (40.0-70.0) % BUN (9-20) mg/dL Iron (49-181) ug/dL TIBC (250-450) mcg/dL Ferritin (13.0-400.0) ng/mL C-Reactive Protein 33.10 H (0.00-1.30) mg/dL Urine Creatinine 107.3 H (0.1-20.0) mg/dL Urine Total Protein 19 H (5-11.8) mg/dL 01/23/17 01/23/17 Range/Units 04:46 04:46 RBC (3.65-5.03) M/mm3 Hgb (11.8-15.2) gm/dl Hct (35.5-45.6) % RDW (13.2-15.2) % Lymph # (1.2-5.4) K/mm3 Seg Neutrophils % (40.0-70.0) % BUN 30 H (9-20) mg/dL Iron 21 L (49-181) ug/dL TIBC 178 L (250-450) mcg/dL Ferritin 712.4 H (13.0-400.0) ng/mL C-Reactive Protein (0.00-1.30) mg/dL Urine Creatinine (0.1-20.0) mg/dL Urine Total Protein (5-11.8) mg/dL
--- NOTE | 2017-01-23 14:03 | Progress Note ---
Assessment and Plan Assessment and plan: Patient is a 56-year-old morbid obese man with a BMI 49.3 with a history of hypertension, dyslipidemia, prior osteomyelitis, peripheral vascular disease, chronic venous stasis ulcers and recent MRSA RLE cellulitis who presents with worsening drainage, mild constant pain, of his right leg leg with cellulitis. He is under our wound care clinic. He has not obtained his recommended wound VAC has of yet. He was just discharged 12/31/16 after mrsa rle cellulilits. -Right leg cellulitis with sepsis: treat with IV antibiotics with renal dosed VANCO AND cefepim, ID input noted, patient with prior noted MRSA and pseudomonas on cultures 11/13. patient with elevated CRP, no further diarrhea noted. Follow cultures, consult wound care team, Discussed with Surgery, plan for debridement in AM -Right leg venous stasis: Vascular consult -Acute Kidney Injury: Likely secondary. Nephrology input noted. Holding Lisinopril/HCTZ. Follow up with Urology outpatient, Mild Right hydronephrosis on Renal u/S -Recent MRSA cellulitis in wound: contact isolation and consult ID -Hypokalemia, mild: replace and monitor closely -PVD: vascular consulted -Unstageable pressure ulcers on legs, poa: Wound care -DVT prophylaxis: Stop SCDs due to the leg ulcers and added subcutaneous heparin -Anemia appears to be chronic: Repeat CBC morning -Morbid obesity, BMI 49.3: Nurtitionist consulted -DVT/GI prophy -Plan of care discussed with surgery and ID. History Interval history: Patient seen and examined today in no acute distress remains with pain to the right lower extremity swelling. Denies any fever. No other adverse events reported by nursing staff. Hospitalist Physical - Physical exam Narrative exam: VITAL SIGNS: Reviewed. GENERAL: The patient appeared well nourished and normally developed. Vital signs as documented. HEAD: No signs of head trauma. EYES: Pupils are equal. Extraocular motions intact. EARS: Hearing grossly intact. MOUTH: Oropharynx is normal. NECK: No adenopathy, no JVD. CHEST: Chest with clear breath sounds bilaterally. No wheezes, rales, or rhonchi. CARDIAC: Regular rate and rhythm. S1 and S2, without murmurs, gallops, or rubs. VASCULAR: 2+ Edema. Peripheral pulses normal and equal in all extremities. ABDOMEN: Soft, without detectable tenderness. No sign of distention. No rebound or guarding, and no masses palpated. Bowel Sounds normal. MUSCULOSKELETAL: Good range of motion of all major joints. Extremities without clubbing, cyanosis. 2+ pitting edema b/l lower ext. NEUROLOGIC EXAM: Alert and oriented x 3. No focal sensory or strength deficits. Speech normal. Follows commands. PSYCHIATRIC: Mood normal. SKIN: multiple venous stasis ulcerations of his right medial and lateral leg, No overt drainage, covered with biofilm. healed wound to the left leg. - Constitutional Vitals: Temp Pulse Resp BP Pulse Ox 99.2 F 76 20 117/73 99 01/23/17 09:42 01/23/17 09:42 01/23/17 10:00 01/23/17 09:42 01/23/17 10:00 General appearance: Present: no acute distress Results - Labs CBC & Chem 7: 01/23/17 04:46 01/23/17 04:46 Labs: Laboratory Last Values WBC 7.6 K/mm3 (4.5-11.0) 01/23/17 04:46 RBC 3.52 M/mm3 (3.65-5.03) L 01/23/17 04:46 Hgb 10.2 gm/dl (11.8-15.2) L 01/23/17 04:46 Hct 30.5 % (35.5-45.6) L 01/23/17 04:46 MCV 87 fl (84-94) 01/23/17 04:46 MCH 29 pg (28-32) 01/23/17 04:46 MCHC 33 % (32-34) 01/23/17 04:46 RDW 15.3 % (13.2-15.2) H 01/23/17 04:46 Plt Count 217 K/mm3 (140-440) 01/23/17 04:46 Lymph % (Auto) 14.3 % (13.4-35.0) 01/23/17 04:46 [place] % (Auto) 5.9 % (0.0-7.3) 01/23/17 04:46 Eos % (Auto) 3.7 % (0.0-4.3) 01/23/17 04:46 Baso % (Auto) 0.6 % (0.0-1.8) 01/23/17 04:46 Lymph # 1.1 K/mm3 (1.2-5.4) L 01/23/17 04:46 [place] # 0.4 K/mm3 (0.0-0.8) 01/23/17 04:46 Eos # 0.3 K/mm3 (0.0-0.4) 01/23/17 04:46 Baso # 0.0 K/mm3 (0.0-0.1) 01/23/17 04:46 Seg Neutrophils % 75.5 % (40.0-70.0) H 01/23/17 04:46 Seg Neutrophils # 5.8 K/mm3 (1.8-7.7) 01/23/17 04:46 PT 16.2 Sec. (12.2-14.9) H 01/21/17 21:10 INR 1.24 (0.87-1.13) H 01/21/17 21:10 VBG pH 7.388 (7.320-7.420) 01/21/17 21:22 Sodium 141 mmol/L (137-145) 01/23/17 04:46 Potassium 3.6 mmol/L (3.6-5.0) 01/23/17 04:46 Chloride 102.2 mmol/L (98-107) 01/23/17 04:46 Carbon Dioxide 22 mmol/L (22-30) 01/23/17 04:46 Anion Gap 20 mmol/L 01/23/17 04:46 BUN 30 mg/dL (9-20) H 01/23/17 04:46 Creatinine 1.3 mg/dL (0.8-1.5) 01/23/17 04:46 Estimated GFR 57 ml/min 01/23/17 04:46 BUN/Creatinine Ratio 23.07 % 01/23/17 04:46 Glucose 93 mg/dL (75-100) 01/23/17 04:46 Lactic Acid 0.80 mmol/L (0.7-2.0) 01/22/17 00:01 Calcium 8.7 mg/dL (8.4-10.2) 01/23/17 04:46 Phosphorus 3.10 mg/dL (2.5-4.5) 01/23/17 04:46 Magnesium 2.00 mg/dL (1.7-2.3) 01/23/17 04:46 Iron 21 ug/dL (49-181) L 01/23/17 04:46 TIBC 178 mcg/dL (250-450) L 01/23/17 04:46 Ferritin 712.4 ng/mL (13.0-400.0) H 01/23/17 04:46 Total Bilirubin 0.50 mg/dL (0.1-1.2) 01/21/17 21:10 AST 27 units/L (5-40) 01/21/17 21:10 ALT 18 units/L (7-56) 01/21/17 21:10 Alkaline Phosphatase 42 units/L (35-129) 01/21/17 21:10 C-Reactive Protein 33.10 mg/dL (0.00-1.30) H 01/22/17 14:53 Total Protein 7.9 g/dL (6.3-8.2) 01/21/17 21:10 Albumin 3.4 g/dL (3.9-5) L 01/21/17 21:10 Albumin/Globulin Ratio 0.8 % 01/21/17 21:10 Urine Color Yellow (Yellow) 01/23/17 04:00 Urine Turbidity Clear (Clear) 01/23/17 04:00 Urine pH 5.0 (5.0-7.0) 01/23/17 04:00 Ur Specific [place] 1.015 (1.003-1.030) 01/23/17 04:00 Urine Protein <15 mg/dl mg/dL (Negative) 01/23/17 04:00 Urine Glucose (UA) Neg mg/dL (Negative) 01/23/17 04:00 Urine Ketones Neg mg/dL (Negative) 01/23/17 04:00 Urine Blood Neg (Negative) 01/23/17 04:00 Urine Nitrite Neg (Negative) 01/23/17 04:00 Urine Bilirubin Neg (Negative) 01/23/17 04:00 Urine Urobilinogen < 2.0 mg/dL (<2.0) 01/23/17 04:00 Ur Leukocyte Esterase Neg (Negative) 01/23/17 04:00 Urine WBC (Auto) 4.0 /HPF (0.0-6.0) 01/23/17 04:00 Urine RBC (Auto) < 1.0 /HPF (0.0-6.0) 01/23/17 04:00 U Epithel Cells (Auto) 1.0 /HPF (0-13.0) 01/23/17 04:00 Urine Bacteria (Auto) 1+ /HPF (Negative) 01/21/17 23:10 Urine Mucus Few /HPF 01/23/17 04:00 Urine Eosinophils None seen (None Seen) 01/23/17 04:00 Urine Creatinine 107.3 mg/dL (0.1-20.0) H 01/23/17 04:00 Protein/Creatinin Ratio 0.18 01/23/17 04:00 Urine Sodium 53 mEq/L 01/23/17 04:00 Urine Total Protein 19 mg/dL (5-11.8) H 01/23/17 04:00 - Imaging and Cardiology Chest x-ray: image reviewed (No acute pathology)
[2017-01-23] MEDS: VANCOMYCIN 1,750 MG in NACL 0.9% 500 ML 500 ML IV SCH (16:32)
[2017-01-23] MEDS: HEPARIN SUB-Q SCH (22:20)
[2017-01-24] MEDS: ZOLOFT PO SCH ×2 (01:40→22:04)
[2017-01-24] MEDS: TYLENOL PO PRN ×2 (01:40→20:11)
[2017-01-24] MEDS: VANCOMYCIN 1,750 MG in NACL 0.9% 500 ML 500 ML IV SCH ×2 (04:35→16:36)
[2017-01-24 05:57] LABS: Anion Gap 20 mmol/L; BUN/Creatinine Ratio 24.54; Blood Urea Nitrogen 27 mg/dL (9-20); Calcium 8.7 mg/dL (8.4-10.2); Carbon Dioxide 21 mmol/L (22-30); Chloride 103.2 mmol/L (98-107); Glucose 109 mg/dL (75-100); Potassium 4.1 mmol/L (3.6-5.0); Sodium 140 mmol/L (137-145)
[2017-01-24 05:59] LABS: Basophils % (Auto) 0.4 % (0.0-1.8); Eosinophils % (Auto) 3.9 % (0.0-4.3); Hematocrit 29.5 % (35.5-45.6); Hemoglobin 9.6 gm/dl (11.8-15.2); Mean Corpuscular HGB Conc 33 % (32-34); Mean Corpuscular Hemoglobin 28 pg (28-32); Mean Corpuscular Volume 88 fl (84-94); Platelet Count 213 K/mm3 (140-440); Red Blood Count 3.37 M/mm3 (3.65-5.03); Red Cell Distribution Width 15.1 % (13.2-15.2)
[2017-01-24] MEDS: FLAGYL 500 MG/100 ML 500 MG/100 ML BAG IV SCH ×2 (06:47→16:01)
--- NOTE | 2017-01-24 07:45 | Vascular Lab Report ---
LOWER EXTREMITY ARTERIAL DUPLEX: REASON FOR EXAM: Nonhealing foot ulcers are. COMMENTS ON THE RIGHT: Triphasic waveforms are seen proximally. Triphasic waveforms are seen distally. No significant velocity gradients are identified. No focal significant plaque is identified. Findings are consistent with normal perfusion. Findings are consistent with the ability to heal distal wounds. COMMENTS ON THE LEFT: Triphasic waveforms are seen proximally. Triphasic waveforms are seen distally. No significant velocity gradients are identified. No focal significant plaque is identified. Findings are consistent with normal perfusion. Findings are consistent with the ability to heal distal wounds. IMPRESSION: RIGHT: Essentially normal arterial flow. LEFT:Essentially normal arterial flow.
--- NOTE | 2017-01-24 08:34 | Progress Note ---
Assessment and Plan Assessment and plan: Patient is a 56-year-old morbid obese man with a BMI 49.3 with a history of hypertension, dyslipidemia, prior osteomyelitis, peripheral vascular disease, chronic venous stasis ulcers and recent MRSA RLE cellulitis who presents with worsening drainage, mild constant pain, of his right leg leg with cellulitis. He is under our wound care clinic. He has not obtained his recommended wound VAC has of yet. He was just discharged 12/31/16 after mrsa rle cellulilits. -Right leg cellulitis with sepsis: * treat with IV antibiotics with renal dosed VANCO AND cefepim, ID input noted, patient with prior noted MRSA and pseudomonas on cultures 11/13. patient with elevated CRP, no further diarrhea noted. Follow cultures, consult wound care team, * Defer to ID if to continue flagyl considering no further diarrhea. -Acute Kidney Injury: * Resolved. Likely secondary to vasomotor nephropathy, Nephrology input noted. Holding Lisinopril/HCTZ. fluids was given. will hold further fluids. Mild Right hydronephrosis on Renal u/S * Follow up with Urology outpatient -Recent MRSA cellulitis in wound: contact isolation, ID input mnoted -Hypokalemia, mild: replaced and resolved. -PVD/-Right leg venous stasis:: vascular consulted, Doppler reviewed and negative -Anemia of chronic disease. stable -Morbid obesity, BMI 49.3: Pricing Manager consulted -Unstageable pressure ulcers on legs, poa: Wound care following, will have debridement today -DVT prophylaxis: Stop SCDs due to the leg ulcers and added subcutaneous heparin -Plan of care discussed with the patient. -Anticipate discharge in AM if ok with ID and Surgery History Interval history: Patient seen and examined today in no acute distress. No new adverse event reported by Nursing staff. Hospitalist Physical - Physical exam Narrative exam: VITAL SIGNS: Reviewed. GENERAL: The patient appeared well nourished and normally developed. Vital signs as documented. HEAD: No signs of head trauma. EYES: Pupils are equal. Extraocular motions intact. EARS: Hearing grossly intact. MOUTH: Oropharynx is normal. NECK: No adenopathy, no JVD. CHEST: Chest with clear breath sounds bilaterally. No wheezes, rales, or rhonchi. CARDIAC: Regular rate and rhythm. S1 and S2, without murmurs, gallops, or rubs. VASCULAR: 2+ Edema. Peripheral pulses normal and equal in all extremities. ABDOMEN: Soft, without detectable tenderness. No sign of distention. No rebound or guarding, and no masses palpated. Bowel Sounds normal. MUSCULOSKELETAL: Good range of motion of all major joints. Extremities without clubbing, cyanosis. 2+ pitting edema b/l lower ext. NEUROLOGIC EXAM: Alert and oriented x 3. No focal sensory or strength deficits. Speech normal. Follows commands. PSYCHIATRIC: Mood normal. SKIN: multiple venous stasis ulcerations of his right medial and lateral leg, No overt drainage, covered with biofilm. healed wound to the left leg. - Constitutional Vitals: Temp Pulse Resp BP Pulse Ox 98.4 F 82 20 114/67 96 01/24/17 05:28 01/24/17 07:00 01/24/17 05:28 01/24/17 05:28 01/24/17 05:28 General appearance: Present: no acute distress Results - Labs CBC & Chem 7: 01/24/17 04:52 01/24/17 04:52 Labs: Laboratory Last Values WBC 8.0 K/mm3 (4.5-11.0) 01/24/17 04:52 RBC 3.37 M/mm3 (3.65-5.03) L 01/24/17 04:52 Hgb 9.6 gm/dl (11.8-15.2) L 01/24/17 04:52 Hct 29.5 % (35.5-45.6) L 01/24/17 04:52 MCV 88 fl (84-94) 01/24/17 04:52 MCH 28 pg (28-32) 01/24/17 04:52 MCHC 33 % (32-34) 01/24/17 04:52 RDW 15.1 % (13.2-15.2) 01/24/17 04:52 Plt Count 213 K/mm3 (140-440) 01/24/17 04:52 Lymph % (Auto) 11.1 % (13.4-35.0) L 01/24/17 04:52 [place] % (Auto) 6.6 % (0.0-7.3) 01/24/17 04:52 Eos % (Auto) 3.9 % (0.0-4.3) 01/24/17 04:52 Baso % (Auto) 0.4 % (0.0-1.8) 01/24/17 04:52 Lymph # 0.9 K/mm3 (1.2-5.4) L 01/24/17 04:52 [place] # 0.5 K/mm3 (0.0-0.8) 01/24/17 04:52 Eos # 0.3 K/mm3 (0.0-0.4) 01/24/17 04:52 Baso # 0.0 K/mm3 (0.0-0.1) 01/24/17 04:52 Seg Neutrophils % 78.0 % (40.0-70.0) H 01/24/17 04:52 Seg Neutrophils # 6.3 K/mm3 (1.8-7.7) 01/24/17 04:52 PT 16.2 Sec. (12.2-14.9) H 01/21/17 21:10 INR 1.24 (0.87-1.13) H 01/21/17 21:10 VBG pH 7.388 (7.320-7.420) 01/21/17 21:22 Sodium 140 mmol/L (137-145) 01/24/17 04:52 Potassium 4.1 mmol/L (3.6-5.0) 01/24/17 04:52 Chloride 103.2 mmol/L (98-107) 01/24/17 04:52 Carbon Dioxide 21 mmol/L (22-30) L 01/24/17 04:52 Anion Gap 20 mmol/L 01/24/17 04:52 BUN 27 mg/dL (9-20) H 01/24/17 04:52 Creatinine 1.1 mg/dL (0.8-1.5) 01/24/17 04:52 Estimated GFR > 60 ml/min 01/24/17 04:52 BUN/Creatinine Ratio 24.54 % 01/24/17 04:52 Glucose 109 mg/dL (75-100) H 01/24/17 04:52 Lactic Acid 0.80 mmol/L (0.7-2.0) 01/22/17 00:01 Calcium 8.7 mg/dL (8.4-10.2) 01/24/17 04:52 Phosphorus 4.30 mg/dL (2.5-4.5) D 01/24/17 04:52 Magnesium 2.00 mg/dL (1.7-2.3) 01/23/17 04:46 Iron 21 ug/dL (49-181) L 01/23/17 04:46 TIBC 178 mcg/dL (250-450) L 01/23/17 04:46 Ferritin 712.4 ng/mL (13.0-400.0) H 01/23/17 04:46 Total Bilirubin 0.50 mg/dL (0.1-1.2) 01/21/17 21:10 AST 27 units/L (5-40) 01/21/17 21:10 ALT 18 units/L (7-56) 01/21/17 21:10 Alkaline Phosphatase 42 units/L (35-129) 01/21/17 21:10 C-Reactive Protein 33.10 mg/dL (0.00-1.30) H 01/22/17 14:53 Total Protein 7.9 g/dL (6.3-8.2) 01/21/17 21:10 Albumin 3.4 g/dL (3.9-5) L 01/21/17 21:10 Albumin/Globulin Ratio 0.8 % 01/21/17 21:10 Urine Color Yellow (Yellow) 01/23/17 04:00 Urine Turbidity Clear (Clear) 01/23/17 04:00 Urine pH 5.0 (5.0-7.0) 01/23/17 04:00 Ur Specific [place] 1.015 (1.003-1.030) 01/23/17 04:00 Urine Protein <15 mg/dl mg/dL (Negative) 01/23/17 04:00 Urine Glucose (UA) Neg mg/dL (Negative) 01/23/17 04:00 Urine Ketones Neg mg/dL (Negative) 01/23/17 04:00 Urine Blood Neg (Negative) 01/23/17 04:00 Urine Nitrite Neg (Negative) 01/23/17 04:00 Urine Bilirubin Neg (Negative) 01/23/17 04:00 Urine Urobilinogen < 2.0 mg/dL (<2.0) 01/23/17 04:00 Ur Leukocyte Esterase Neg (Negative) 01/23/17 04:00 Urine WBC (Auto) 4.0 /HPF (0.0-6.0) 01/23/17 04:00 Urine RBC (Auto) < 1.0 /HPF (0.0-6.0) 01/23/17 04:00 U Epithel Cells (Auto) 1.0 /HPF (0-13.0) 01/23/17 04:00 Urine Bacteria (Auto) 1+ /HPF (Negative) 01/21/17 23:10 Urine Mucus Few /HPF 01/23/17 04:00 Urine Eosinophils None seen (None Seen) 01/23/17 04:00 Urine Creatinine 107.3 mg/dL (0.1-20.0) H 01/23/17 04:00 Protein/Creatinin Ratio 0.18 01/23/17 04:00 Urine Sodium 53 mEq/L 01/23/17 04:00 Urine Total Protein 19 mg/dL (5-11.8) H 01/23/17 04:00
[2017-01-24] MEDS: HEPARIN SUB-Q SCH ×2 (09:33→22:04)
[2017-01-24] MEDS: PROTONIX PO SCH (09:34)
[2017-01-24] MEDS ORDERED: XYLOCAINE TOPICAL 4% TP ONE (10:00)
[2017-01-24] MEDS: MAXIPIME/NS 2 GM/100 ML 2 GM/100 ML BAG IV SCH ×2 (10:05→22:49)
--- NOTE | 2017-01-24 11:18 | Progress Note ---
Assessment and Plan - Patient Problems (1) Acute renal failure (ARF) Current Visit: Yes Status: Acute Qualifiers: Acute renal failure type: A Plan to address problem: Renal function reviewed. Current serum creatinine 1.1 today. On Normal Saline @ 125 ml/hr Encouarged po hydration Renally dose meds Strict I&O Renal diet Obtain daily weights (2) Cellulitis Current Visit: Yes Status: Acute Qualifiers: Site of cellulitis: S Site of cellulitis of extremity: S Site of cellulitis of trunk: S Laterality: L Plan to address problem: On IV Cefepime, Flagyl and Vancomycin (3) HTN (hypertension) Current Visit: No Status: Acute Qualifiers: Hypertension type: H Plan to address problem: Blood pressures are stable Subjective Date of service: 01/24/17 Principal diagnosis: acute renal failure Interval history: Seen sitting up at edge of bed. States doing ok but needs case management to assist him with social issues at home concerning rent Objective - Vital Signs Vital signs: Vital Signs - 12hr 01/24/17 01/24/17 01/24/17 05:28 07:00 08:37 Temperature 98.4 F 98.3 F Pulse Rate 75 82 81 Respiratory 20 20 Rate Respiratory Rate [Right Distal Leg] Blood Pressure 114/67 124/65 O2 Sat by Pulse 96 97 Oximetry 01/24/17 01/24/17 10:00 10:55 Temperature Pulse Rate 70 Respiratory 20 Rate Respiratory 20 Rate [Right Distal Leg] Blood Pressure O2 Sat by Pulse 98 Oximetry - General Appearance General appearance: well-developed, appears stated age EENT: ATNC, PERRL, hearing intact, vision intact Neck: no JVD, supple Respiratory: Present: Clear to Ascultation Cardiology: regular, S1S2 Gastrointestinal: normoactive bowel sounds Integumentary: ulcer, other (right leg has dressing) Neurologic: alert and oriented x3 Musculoskeletal: joint swelling, other (ulcer to right leg- dressing intact) Psychiatric: cooperative - Lab 01/24/17 04:52 01/24/17 04:52 Most recent lab results Calcium 8.7 mg/dL (8.4-10.2) 01/24/17 04:52 Phosphorus 4.30 mg/dL (2.5-4.5) D 01/24/17 04:52 Magnesium 2.00 mg/dL (1.7-2.3) 01/23/17 04:46 Urine Creatinine 107.3 mg/dL (0.1-20.0) H 01/23/17 04:00 Urine Sodium 53 mEq/L 01/23/17 04:00 Urine Total Protein 19 mg/dL (5-11.8) H 01/23/17 04:00
--- NOTE | 2017-01-24 15:04 | Progress Note ---
Assessment and Plan Assessment: 1) Sepsis: resolved. Etiology- right leg venous stasis wound infection +/- diarrhea. CRP 33. 2) Right leg venous stasis wound infection - chronic non healing for several months. Recent wound cultures grew MSSA and Pseudomonas. He has been on wound care for several months. 3) Diarrhea: resolved 4) Morbid obesity 5) TERESA 6) PVD - new art US no evidence of severe stenosis Plan: -stop metronidazole -leg elevation -continue vancomycin, cefepime for now -contact isolation -upon discharge will do oral antibiotics - doxycycline 100 mg PO q 12 hour and ciprofloxacin 500 mg PO q 12 hour for 14 days from 01/22 until 02/04/[address] Galeana for your consultation, will follow up with you. Julia Figueroa MD Infectious Diseases Specialist [facility] M [phone] O [phone] Subjective Date of service: 01/24/17 Principal diagnosis: acute renal failure Interval history: Feels ok, no fever overnight. No diarrhea. Leg pain is better. Current Antimicrobials: Clindamycin 01/22 Previous Antimicrobials: Microbiology: Blood cultures: 01/21 NGTD Urine cultures: 11/13 10-100K mixed bacteria Respiratory cultures: Wound cultures: 11/13 right leg cultures +MRSA sens to vanco and Pseudomonas sens to levaquin/ cipro Stool cultures: Other: Objective - Exam Narrative Exam: General appearance: Alert in NAD, conversant Eyes: anicteric sclerae, PERRLA HENT: Atraumatic; oropharynx clear with moist mucous membranes and no mucosal ulcerations/no oral thrush; normal hard and soft palate. Normal external ears. Neck: Trachea midline; supple, no thyromegaly or lymphadenopathy Lungs: CTA, with normal respiratory effort and no intercostal retractions CV: RRR, no murmurs Abdomen: Soft, obese, non-tender; no masses or hepatosplenomegaly Extremities: radha leg edema with multiple right leg ulcerations with jennifer wound erythema no drainage Skin: per Wound care evaluation: R MEDIAL LEG MEASURES 12.5X11.5X0.4, WITH YELLOW SLOUGH AND BLOODY DRAINAGE, NO ODOR NOTED AT THIS TIME, ULCER CLEANED WITH WOUND CLEANSER, CALCIUM ALGINATE APPLIED TO ULCER, SECURED WITH ADB PAD, AND KERLIX CHRONIC VENOUS ULCER TO R LATERAL ANKLE ULCER, MEASURES 6.4X5.7X0.4, YELLOW SLOUGH NOTED, NO ODOR, SITE CLEANED WITH WOUND CLEANSER, CALCIUM ALGINATE DRESSING APPLIED, SECURED WITH ABD PADS AND KERLIX TRAUMA WOUND TO R GREAT TOE, SITE CLEANSED WITH WOUND CLEANSER, MEASURES 1X1.2X0.2, CALCIUM ALGINATE APPLIED AND SECURED WITH FOAM DRESSING Psych: Appropriate affect, alert and oriented to person, place and time. Neuro: alert and oriented x 3. Moving all extermities Lines: No CVL / PICC - Constitutional Vitals: Vital Signs Temp Pulse Resp BP Pulse Ox 97.8 F 84 18 120/89 98 01/24/17 12:40 01/24/17 12:40 01/24/17 12:40 01/24/17 12:40 01/24/17 10:00 Temperature -Last 24 Hours Temperature 97.8 F Temperature 98.3 F Temperature 98.4 F Temperature 98.7 F Temperature 98.9 F - Labs CBC & Chem 7: 01/24/17 04:52 01/24/17 04:52 Labs: Abnormal lab results 01/24/17 01/24/17 Range/Units 04:52 04:52 RBC 3.37 L (3.65-5.03) M/mm3 Hgb 9.6 L (11.8-15.2) gm/dl Hct 29.5 L (35.5-45.6) % Lymph % (Auto) 11.1 L (13.4-35.0) % Lymph # 0.9 L (1.2-5.4) K/mm3 Seg Neutrophils % 78.0 H (40.0-70.0) % Carbon Dioxide 21 L (22-30) mmol/L BUN 27 H (9-20) mg/dL Glucose 109 H (75-100) mg/dL
--- NOTE | 2017-01-24 16:28 | Progress Note ---
Assessment and Plan 1) Continue wound care per wound care nurse protocol. 2) Keep RLE elevated at all times 3) Will check venous dopplers of RLE 4) Right leg wounds can be managed as an outpt with f/u in the Wound Care Clinic. - Patient Problems (1) Non-pressure ulcer of right lower extremity Current Visit: Yes Status: Chronic Qualifiers: Non-pressure ulcer stage: with fat layer exposed Qualified Code(s): L97.912 - Non-pressure chronic ulcer of unspecified part of right lower leg with fat layer exposed Subjective Date of service: 01/24/17 Patient Reports: Positive: no new complaints (Mumbling; incoherently at times) Objective Vital Signs - 12hr 01/24/17 01/24/17 01/24/17 05:28 07:00 08:37 Temperature 98.4 F 98.3 F Pulse Rate 75 82 81 Respiratory 20 20 Rate Respiratory Rate [Right Distal Leg] Blood Pressure 114/67 124/65 O2 Sat by Pulse 96 97 Oximetry 01/24/17 01/24/17 01/24/17 10:00 10:55 12:40 Temperature 97.8 F Pulse Rate 70 84 Respiratory 20 18 Rate Respiratory 20 Rate [Right Distal Leg] Blood Pressure 120/89 O2 Sat by Pulse 98 Oximetry - Integumentary other (Right medial and lateral leg ulcerations were debrided of necrotic SQ fat. Procedure was well tolerated.) - Labs 01/24/17 04:52 01/24/17 04:52 Diabetes panel 01/24/17 Range/Units 04:52 Sodium 140 (137-145) mmol/L Potassium 4.1 (3.6-5.0) mmol/L Chloride 103.2 (98-107) mmol/L Carbon Dioxide 21 L (22-30) mmol/L BUN 27 H (9-20) mg/dL Creatinine 1.1 (0.8-1.5) mg/dL Glucose 109 H (75-100) mg/dL Calcium 8.7 (8.4-10.2) mg/dL Calcium panel 01/24/17 Range/Units 04:52 Calcium 8.7 (8.4-10.2) mg/dL Phosphorus 4.30 D (2.5-4.5) mg/dL Pituitary panel 01/24/17 Range/Units 04:52 Sodium 140 (137-145) mmol/L Potassium 4.1 (3.6-5.0) mmol/L Chloride 103.2 (98-107) mmol/L Carbon Dioxide 21 L (22-30) mmol/L BUN 27 H (9-20) mg/dL Creatinine 1.1 (0.8-1.5) mg/dL Glucose 109 H (75-100) mg/dL Calcium 8.7 (8.4-10.2) mg/dL Adrenal panel 01/24/17 Range/Units 04:52 Sodium 140 (137-145) mmol/L Potassium 4.1 (3.6-5.0) mmol/L Chloride 103.2 (98-107) mmol/L Carbon Dioxide 21 L (22-30) mmol/L BUN 27 H (9-20) mg/dL Creatinine 1.1 (0.8-1.5) mg/dL Glucose 109 H (75-100) mg/dL Calcium 8.7 (8.4-10.2) mg/dL - Imaging Additional Studies: Arterial dopplers were normal.
[2017-01-24] MEDS: NACL 0.9% 1000 ML 1,000 ML IV SCH (16:38)
--- NOTE | 2017-01-24 20:35 | Event Note ---
Date: 01/24/17 This patient is a 56-year-old morbidly obese man that was admitted via the emergency room on 01/21/2017 due to right lower extremity cellulitis. He has chronic venous stasis ulcerations to his right lower extremity. He is well-known to our service and status post multiple previous venous procedures in the past in attempts to promote wound healing. He's had better success on the left than right. He is currently followed by the outpatient wound care clinic. The infectious disease service has been consulted, and antibiotics have been ordered. Given his vascular history, a vascular surgery consult has been requested to further evaluate. An arterial duplex has been repeated, again this shows essentially normal blood flow to both lower extremities. Therefore, no need for arterial revascularization. He has known venous stasis ulcerations, with an extensive history of venous interventions to both lower extremities. Additional venous interventions unlikely to offer much benefit at this time. Following admission, he was evaluated by the wound care surgeon, who has recommended debridement and follow-up with the outpatient wound care center. He also recommends progressive lower extremity elevation. We would agree with these recommendations. I had a long discussion with the patient. We have discussed the above findings and recommendations. We also discussed compressive therapy. He states understanding. We'll see again as needed.
[2017-01-24] MEDS: CLEOCIN 300 MG/50 mL 300 MG/50 ML BAG IV SCH (22:55)
[2017-01-25] MEDS: VANCOMYCIN 1,750 MG in NACL 0.9% 500 ML 500 ML IV SCH (03:46)
[2017-01-25 09:21] LABS: Basophils % (Auto) 0.4 % (0.0-1.8); Eosinophils % (Auto) 3.1 % (0.0-4.3); Hematocrit 32.1 % (35.5-45.6); Hemoglobin 10.4 gm/dl (11.8-15.2); Mean Corpuscular HGB Conc 33 % (32-34); Mean Corpuscular Hemoglobin 28 pg (28-32); Mean Corpuscular Volume 87 fl (84-94); Platelet Count 260 K/mm3 (140-440); Red Blood Count 3.68 M/mm3 (3.65-5.03); Red Cell Distribution Width 14.8 % (13.2-15.2); White Blood Count 7.7 K/mm3 (4.5-11.0)
[2017-01-25 09:41] LABS: Anion Gap 20 mmol/L; BUN/Creatinine Ratio 16.66; Blood Urea Nitrogen 15 mg/dL (9-20); Calcium 8.9 mg/dL (8.4-10.2); Carbon Dioxide 21 mmol/L (22-30); Chloride 105.2 mmol/L (98-107); Glucose 99 mg/dL (75-100); Potassium 3.9 mmol/L (3.6-5.0); Sodium 142 mmol/L (137-145)
[2017-01-25 09:57] VITALS: BP 116/68
--- NOTE | 2017-01-25 10:12 | Discharge Summary ---
Providers - Providers Date of Admission: 01/21/17 23:33 Date of discharge: 01/25/17 Attending physician: CLARISSE NAZARIO MD 01/22/17 00:31 Consult to Physician [CONS] Routine Consulting Provider: TK CASTRO Reason For Exam: ARF Place consult to:: Lg HOROWITZ Notified:: Nubia RN Phone number called:: Was contact made?: Yes If yes, spoke with:: Dr. Castro Time called:: 08:50 01/22/17 00:32 Consult to Physician [CONS] Routine Consulting Provider: JULIA ROWELL Reason For Exam: Complicated RLE cellulitis Place consult to:: Dr. Julia Figueroa Notified:: Nubia RN Phone number called:: Was contact made?: Yes If yes, spoke with:: Kourtney-answering service Time called:: 08:52 Consult to Wound/ET Nurse [CONS] Routine Reason For Exam: wound eval 01/22/17 00:36 Consult to Physician [CONS] Routine Consulting Provider: ANABELLA FERRO Reason For Exam: rle cellulitis, pt known to you Place consult to:: Dr. Anabella Ferro Notified:: Nubia RN Phone number called:: Was contact made?: Yes If yes, spoke with:: Noemi-Office Time called:: 08:55 01/23/17 11:35 Consult to Physician [CONS] Routine Consulting Provider: LUCÍA RANDOLPH Reason For Exam: venous stasis ulcers right lower ext Place consult to:: Dr. Randolph Notified:: Yany RN Phone number called:: Was contact made?: Yes If yes, spoke with:: Sydney-answering service Time called:: 12:13 Primary care physician: PROFESSIONAL [employer]DEL Hospitalization Reason for admission: cellulitis lower ext Condition: Stable Hospital course: Patient is a 56-year-old morbid obese man with a BMI 49.3 with a history of hypertension, dyslipidemia, prior osteomyelitis, peripheral vascular disease, chronic venous stasis ulcers and recent MRSA RLE cellulitis who presents with worsening drainage, mild constant pain, of his right leg leg with cellulitis. He is under our wound care clinic. He has not obtained his recommended wound VAC has of yet. He was just discharged 12/31/16 after mrsa rle cellulilits. -Right leg cellulitis with sepsis: * treated with IV antibiotics with renal dosed VANCO AND cefepim, patient with prior noted MRSA and pseudomonas on cultures 11/13. was converted to oral doxyclin and ciprogfloxacin on discharge to complete 14 days. patient understands need to follow up with woundcare and ID -Acute Kidney Injury: * Resolved. Likely secondary to vasomotor nephropathy, Nephrology input noted. initally Lisinopril/HCTZ was held and fluids was given. this will be restarted and repeat BMP recommended in 3-5 days with PCP Mild Right hydronephrosis on Renal u/S * Follow up with Urology outpatient -Recent MRSA cellulitis in wound: as noted above -Hypokalemia, mild: replaced and resolved. -PVD/-Right leg venous stasis:: vascular consulted, Doppler reviewed and negative. -Anemia of chronic disease. stable -Morbid obesity, BMI 49.3: Routing Clerk consulted -Unstageable pressure ulcers on legs, poa: Wound care following, outpatient debridement recommended by surgery Disposition: [id number] HOME UNDER HOME HL Time spent for discharge: 35 mins Core Measure Documentation - Palliative Care Palliative Care/ Comfort Measures: Not Applicable - Core Measures Any of the following diagnoses?: none - VTE Discharge Requirements Deep Vein Thrombosis/Pulmonary Embolism Present on Admission: No Exam - Physical Exam Narrative exam: VITAL SIGNS: Reviewed. GENERAL: The patient appeared well nourished and normally developed. Vital signs as documented. HEAD: No signs of head trauma. EYES: Pupils are equal. Extraocular motions intact. EARS: Hearing grossly intact. MOUTH: Oropharynx is normal. NECK: No adenopathy, no JVD. CHEST: Chest with clear breath sounds bilaterally. No wheezes, rales, or rhonchi. CARDIAC: Regular rate and rhythm. S1 and S2, without murmurs, gallops, or rubs. VASCULAR: 2+ Edema. Peripheral pulses normal and equal in all extremities. ABDOMEN: Soft, without detectable tenderness. No sign of distention. No rebound or guarding, and no masses palpated. Bowel Sounds normal. MUSCULOSKELETAL: Good range of motion of all major joints. Extremities without clubbing, cyanosis. 2+ pitting edema b/l lower ext. NEUROLOGIC EXAM: Alert and oriented x 3. No focal sensory or strength deficits. Speech normal. Follows commands. PSYCHIATRIC: Mood normal. SKIN: multiple venous stasis ulcerations of his right medial and lateral leg, No overt drainage, covered with biofilm. healed wound to the left leg. - Constitutional Vitals: Temp Pulse Resp BP Pulse Ox 98.5 F 80 18 116/68 96 01/25/17 08:00 01/25/17 08:00 01/25/17 08:00 01/25/17 08:00 01/25/17 08:00 Plan Activity: advance as tolerated, fall precautions Diet: low cholesterol, low salt Wound: per wound nurse instructions Special Instructions: physical therapy, occupational therapy, home health RN Additional Instructions: Must follow at wound care clinic. Needs repeat BMP to evaluate kidney function in 5 days with PCP Follow up with: KRISTIE AUSTIN MD [Staff Physician] - 7 Days JULIA ROWELL MD [Staff Physician] - 7 Days PRIMARY CAREMD [Primary Care Provider] - 3-5 Days PHILLIP SAVAGE MD [Staff Physician] - 7 Days Prescriptions: Ciprofloxacin HCl [Ciprofloxacin TAB] 500 mg PO Q12HR 12 Days Doxycycline Hyclate [Doxycycline Hyclate TAB] 100 mg PO Q12HR 12 Days
[2017-01-25] MEDS: PROTONIX PO SCH (10:14)
[2017-01-25] MEDS: MAXIPIME/NS 2 GM/100 ML 2 GM/100 ML BAG IV SCH (10:15)
[2017-01-25] MEDS: HEPARIN SUB-Q SCH (10:15)
--- NOTE | 2017-01-25 14:29 | Progress Note ---
Assessment and Plan - Patient Problems (1) Acute renal failure (ARF) Current Visit: Yes Status: Acute Qualifiers: Acute renal failure type: A Plan to address problem: resolved, to be followed in our office within 1-2 weeks with labs renally dose meds strict I&O renal diet daily weights (2) Cellulitis Current Visit: Yes Status: Acute Qualifiers: Site of cellulitis: S Site of cellulitis of extremity: S Site of cellulitis of trunk: S Laterality: L Plan to address problem: followed by ID (3) HTN (hypertension) Current Visit: No Status: Acute Qualifiers: Hypertension type: H Plan to address problem: cont to hold BP meds Subjective Date of service: 01/25/17 Principal diagnosis: acute renal failure Interval history: no overnight events Objective - Vital Signs Vital signs: Vital Signs - 12hr 01/25/17 01/25/17 01/25/17 04:00 06:07 08:00 Temperature 99.3 F 98.5 F Pulse Rate 86 83 80 Respiratory 18 18 Rate Blood Pressure 121/70 116/68 O2 Sat by Pulse 96 Oximetry - General Appearance General appearance: well-developed, well-nourished, obese EENT: ATNC, PERRL, mucous membranes moist Neck: no JVD, no carotid bruit Respiratory: Present: Decreased Breath Sounds Cardiology: regular, S1S2 Gastrointestinal: normoactive bowel sounds, no tenderness, no distended Integumentary: no rash, warm and dry Neurologic: no focal deficit, no asterixis, alert and oriented x3 Musculoskeletal: other (trace pitting edema in BLE) Psychiatric: mood/affect appropriate, cooperative - Lab 01/25/17 08:30 01/25/17 08:30 Most recent lab results Calcium 8.9 mg/dL (8.4-10.2) 01/25/17 08:30 Phosphorus 4.20 mg/dL (2.5-4.5) 01/25/17 08:30 Magnesium 2.00 mg/dL (1.7-2.3) 01/23/17 04:46 Urine Creatinine 107.3 mg/dL (0.1-20.0) H 01/23/17 04:00 Urine Sodium 53 mEq/L 01/23/17 04:00 Urine Total Protein 19 mg/dL (5-11.8) H 01/23/17 04:00
--- NOTE | 2017-01-25 15:48 | Progress Note ---
Assessment and Plan Assessment: 1) Sepsis: resolved. Etiology- right leg venous stasis wound infection +/- diarrhea. CRP 33. 2) Right leg venous stasis wound infection - chronic non-healing for several months. Recent wound cultures grew MSSA and Pseudomonas. Improving. 3) Diarrhea: resolved 4) Morbid obesity 5) TERESA 6) PVD - new art US no evidence of severe stenosis Plan: -leg elevation -contact isolation -upon discharge will do oral antibiotics - doxycycline 100 mg PO q 12 hour and ciprofloxacin 500 mg PO q 12 hour for 14 days from 01/22 until 02/04/17 -needs Wound Care f/u -ID f/u in 2-3 weeks - business card given to call for apt in 2-3 weeks -will sign off Thank you Dr Galeana for your consultation, will follow up with you. Julia Figueroa MD Infectious Diseases Specialist [facility] M [phone] Subjective Date of service: 01/25/17 Principal diagnosis: acute renal failure Interval history: Feels ok, leg pain resolved, no fever overnight. Had a normal BM this AM. Current Antimicrobials: vanco cefepime Previous Antimicrobials: Clindamycin 01/22 Microbiology: Blood cultures: 01/21 NGTD Urine cultures: 11/13 10-100K mixed bacteria Respiratory cultures: Wound cultures: 11/13 right leg cultures +MRSA sens to vanco and Pseudomonas sens to levaquin/ cipro Stool cultures: Other: Objective - Exam Narrative Exam: General appearance: Alert in NAD, conversant Eyes: anicteric sclerae, PERRLA HENT: Atraumatic; oropharynx clear with moist mucous membranes and no mucosal ulcerations/no oral thrush; normal hard and soft palate. Normal external ears. Neck: Trachea midline; supple, no thyromegaly or lymphadenopathy Lungs: CTA, with normal respiratory effort and no intercostal retractions CV: RRR, no murmurs Abdomen: Soft, obese, non-tender; no masses or hepatosplenomegaly Extremities: radha leg edema with multiple right leg ulcerations with jennifer wound erythema no drainage Skin: per Wound care evaluation: R MEDIAL LEG MEASURES 12.5X11.5X0.4, WITH YELLOW SLOUGH AND BLOODY DRAINAGE, NO ODOR NOTED AT THIS TIME, ULCER CLEANED WITH WOUND CLEANSER, CALCIUM ALGINATE APPLIED TO ULCER, SECURED WITH ADB PAD, AND KERLIX CHRONIC VENOUS ULCER TO R LATERAL ANKLE ULCER, MEASURES 6.4X5.7X0.4, YELLOW SLOUGH NOTED, NO ODOR, SITE CLEANED WITH WOUND CLEANSER, CALCIUM ALGINATE DRESSING APPLIED, SECURED WITH ABD PADS AND KERLIX TRAUMA WOUND TO R GREAT TOE, SITE CLEANSED WITH WOUND CLEANSER, MEASURES 1X1.2X0.2, CALCIUM ALGINATE APPLIED AND SECURED WITH FOAM DRESSING Psych: Appropriate affect, alert and oriented to person, place and time. Neuro: alert and oriented x 3. Moving all extermities Lines: No CVL / PICC - Constitutional Vitals: Vital Signs Temp Pulse Resp BP Pulse Ox 98.5 F 80 18 116/68 96 01/25/17 08:00 01/25/17 08:00 01/25/17 08:00 01/25/17 08:00 01/25/17 08:00 Temperature -Last 24 Hours Temperature 98.5 F Temperature 99.3 F Temperature 99.1 F Temperature 99.5 F - Labs CBC & Chem 7: 01/25/17 08:30 01/25/17 08:30 Labs: Abnormal lab results 01/25/17 01/25/17 Range/Units 08:30 08:30 Hgb 10.4 L (11.8-15.2) gm/dl Hct 32.1 L (35.5-45.6) % Lymph # 1.1 L (1.2-5.4) K/mm3 Seg Neutrophils % 76.3 H (40.0-70.0) % Carbon Dioxide 21 L (22-30) mmol/L
--- NOTE | 2017-01-26 07:19 | Vascular Lab Report ---
Right Lower Extremity Venous Duplex Study: Reason for Exam: Right leg ulcer/edema. Comments on the Right: All veins visualized are freely compressible without evidence of internal echogenicity. Flow is spontaneous and phasic throughout. No evidence of acute or chronic thrombus is seen in any of the vessels visualized. Comments on the Left: A limited duplex study was done of the proximal veins of the left lower extremity. All veins visualized are freely compressible without evidence of internal echogenicity. Flow is spontaneous and phasic throughout. No evidence of acute or chronic thrombus is seen in any of the vessels visualized. Impression: No evidence of acute or chronic deep venous thrombosis in the right lower extremity.
== END 2017-01-25 14:00 | disposition home health service (06) | DRG 871 ==
LOC: ED 20:25 → 4A 23:33 → 3A 01-24 12:34
PROVIDERS: ADMIT Internal Medicine; ATTEND Internal Medicine
PROC: 3E0234Z Introduction of Serum, Toxoid and Vaccine into Muscle, Percutaneous Approach (ICD-10-PCS; principal; 2017-01-21)
DX: A41.9 Sepsis, unspecified organism (principal); N17.0 Acute kidney failure with tubular necrosis; L03.115 Cellulitis of right lower limb; L97.912 Non-pressure chronic ulcer of unspecified part of right lower leg with fat layer exposed; N13.30 Unspecified hydronephrosis; Z68.42 Body mass index [BMI] 45.0-49.9, adult; M86.9 Osteomyelitis, unspecified; E87.6 Hypokalemia; E66.01 Morbid (severe) obesity due to excess calories; L89.899 Pressure ulcer of other site, unspecified stage; I10 Essential (primary) hypertension; E86.0 Dehydration; E78.5 Hyperlipidemia, unspecified; I73.9 Peripheral vascular disease, unspecified; I87.2 Venous insufficiency (chronic) (peripheral); D63.8 Anemia in other chronic diseases classified elsewhere; Z82.49 Family history of ischemic heart disease and other diseases of the circulatory system; Z86.14 Personal history of Methicillin resistant Staphylococcus aureus infection
CPT/HCPCS: 36415; 71010; 76770; 80048; 80053; 81001; 82140; 82570; 82728; 82805; 83550; 83735; 84100; 84156; 84300; 85025; 85610; 86140; 87040; 87086; 89050; 90686; 93005; 93010; 93925; J0692; J1644; J2270; J3370; J7030; J7040

== ENCOUNTER 2017-02-09 13:06 | Outpatient (CLI) | payer MEDICARE ==
[2017-02-09] MEDS ORDERED: XYLOCAINE TOPICAL 4% TP ONE (13:46)
== END 2017-02-09 13:07 | disposition home or self-care (01) ==
LOC: WOUND 13:06
PROVIDERS: ATTEND Podiatrist
DX: I87.311 Chronic venous hypertension (idiopathic) with ulcer of right lower extremity (principal); L97.312 Non-pressure chronic ulcer of right ankle with fat layer exposed; L97.512 Non-pressure chronic ulcer of other part of right foot with fat layer exposed; L97.812 Non-pressure chronic ulcer of other part of right lower leg with fat layer exposed; F41.9 Anxiety disorder, unspecified

== ENCOUNTER 2017-03-02 09:25 | Outpatient (CLI) | payer MEDICARE ==
[2017-03-02] MEDS ORDERED: XYLOCAINE TOPICAL 4% TP ONE ×2 (09:45→09:51)
== END 2017-03-02 09:26 | disposition home or self-care (01) ==
LOC: WOUND 09:25
PROVIDERS: ATTEND Podiatrist
DX: I87.311 Chronic venous hypertension (idiopathic) with ulcer of right lower extremity (principal); L97.812 Non-pressure chronic ulcer of other part of right lower leg with fat layer exposed; L97.312 Non-pressure chronic ulcer of right ankle with fat layer exposed; L97.512 Non-pressure chronic ulcer of other part of right foot with fat layer exposed; L97.522 Non-pressure chronic ulcer of other part of left foot with fat layer exposed; F41.9 Anxiety disorder, unspecified

== ENCOUNTER 2017-03-02 12:21 | Emergency (ER) | payer MEDICARE ==
[2017-03-02 13:23] LABS: Basophils % (Auto) 0.6 % (0.0-1.8); Eosinophils % (Auto) 4.8 % (0.0-4.3); Hematocrit 32.4 % (35.5-45.6); Hemoglobin 10.6 gm/dl (11.8-15.2); Mean Corpuscular HGB Conc 33 % (32-34); Mean Corpuscular Hemoglobin 28 pg (28-32); Mean Corpuscular Volume 86 fl (84-94); Platelet Count 243 K/mm3 (140-440); Red Blood Count 3.78 M/mm3 (3.65-5.03); Red Cell Distribution Width 14.4 % (13.2-15.2); White Blood Count 7.8 K/mm3 (4.5-11.0)
[2017-03-02 13:41] LABS: Alanine Aminotransferase 22 units/L (7-56); Albumin 4.2 g/dL (3.9-5); Albumin/Globulin Ratio 1.1 %; Alkaline Phosphatase 46 units/L (35-129); Anion Gap 19 mmol/L; BUN/Creatinine Ratio 31.81; Blood Urea Nitrogen 35 mg/dL (9-20); Calcium 9.4 mg/dL (8.4-10.2); Carbon Dioxide 23 mmol/L (22-30); Chloride 101.8 mmol/L (98-107); Glucose 94 mg/dL (75-100); Sodium 140 mmol/L (137-145)
[2017-03-02 16:05] LABS: Urine Drugs of Abuse Note Disclamer
[2017-03-02 16:23] LABS: Bilirubin,Urine NEG (Negative); Blood,Urine NEG (Negative); Ketones,Urine NEG (Negative); Leukocyte Esterase,Urine TR (Negative); Mucus,Urine FEW /HPF; Nitrite,Urine NEG (Negative); Protein,Urine <15 mg/dL mg/dL (Negative); Urobilinogen,Urine < 2.0 mg/dL (<2.0)
[2017-03-02] MEDS ORDERED: NEURONTIN PO ONE (17:28)
[2017-03-02] MEDS ORDERED: TYLENOL PO ONE (17:29)
--- NOTE | 2017-03-02 19:03 | Emergency Department Report ---
ED General Adult HPI - General Chief complaint: Altered Mental Status Stated complaint: FOOT PAIN /AMS Time Seen by Provider: 03/02/17 17:23 Source: patient Mode of arrival: Wheelchair Limitations: Altered Mental Status - History of Present Illness Initial comments: Patient is a 56-year-old male past medical history of hypertension who presents with leg pain and altered mental status. Patient arrived to the ER stating that he had to be "admitted due to her orders. " She states that his leg pain to 4 out 10 he says that it's constant and that it always hurts. It's an achy type of pain and it doesn't radiate anywhere. He states that he always wraps his legs up with bandages to help relieve the pain. He states that his leg pain has not changed at all since he came here. Patient does not directly answer questions of suicidal or homicidal ideation. Patient is having a flight of ideas and cannot coherently talk about any one subject for certain amount time. Severity scale (0 -10): 4 - Related Data Home Medications Medication Instructions Recorded Confirmed Last Taken Fenofibrate Nanocrystallized 1 tab PO DAILY 11/13/16 01/21/17 01/21/17 [Fenofibrate] Lisinopril/Hydrochlorothiazide 10 - 12.5 tab PO QDAY 11/13/16 01/21/17 01/21/17 [Zestoretic 20-12.5 mg] Previous Rx's Medication Instructions Recorded Last Taken Type Sertraline [Zoloft] 100 mg PO QDAY #30 tablet 11/17/16 01/21/17 Rx Ciprofloxacin HCl [Ciprofloxacin 500 mg PO Q12HR 12 Days 01/25/17 Unknown Rx TAB] Doxycycline Hyclate [Doxycycline 100 mg PO Q12HR 12 Days 01/25/17 Unknown Rx Hyclate TAB] Allergies Allergy/AdvReac Type Severity Reaction Status Date / Time No Known Allergies Allergy Verified 01/21/17 22:29 ED Review of Systems ROS: Stated complaint: FOOT PAIN /AMS Other details as noted in HPI Comment: Unobtainable due to pts medical conditions (patient's altered mental status) ED Past Medical Hx - Past Medical History Previous Medical History?: Yes Hx Hypertension: Yes Hx Congestive Heart Failure: No Hx Diabetes: No Hx Asthma: No Hx COPD: No Additional medical history: Vascular problems in both lower ext,high cholesterol - Surgical History Additional Surgical History: Vascular surgery on 10/25/16 R lower ext. - Social History Smoking Status: Never Smoker Substance Use Type: None - Medications Home Medications: Home Medications Medication Instructions Recorded Confirmed Last Taken Type Fenofibrate Nanocrystallized 1 tab PO DAILY 11/13/16 01/21/17 01/21/17 History [Fenofibrate] Lisinopril/Hydrochlorothiazide 10 - 12.5 tab PO QDAY 11/13/16 01/21/17 01/21/17 History [Zestoretic 20-12.5 mg] Sertraline [Zoloft] 100 mg PO QDAY #30 tablet 11/17/16 01/21/17 01/21/17 Rx Ciprofloxacin HCl [Ciprofloxacin 500 mg PO Q12HR 12 Days 01/25/17 Unknown Rx TAB] Doxycycline Hyclate [Doxycycline 100 mg PO Q12HR 12 Days 01/25/17 Unknown Rx Hyclate TAB] ED Physical Exam - General Limitations: Altered Mental Status General appearance: alert, in no apparent distress - Head Head exam: Present: atraumatic - Eye Eye exam: Present: normal appearance - ENT ENT exam: Present: mucous membranes moist - Neck Neck exam: Present: normal inspection - Respiratory Respiratory exam: Present: normal lung sounds bilaterally. Absent: respiratory distress - Cardiovascular Cardiovascular Exam: Present: regular rate, normal rhythm. Absent: systolic murmur, diastolic murmur, rubs, gallop - GI/Abdominal GI/Abdominal exam: Present: soft, normal bowel sounds - Rectal Rectal exam: Present: deferred - Extremities Exam Extremities exam: Present: other (Good cap refill legs bilaterally are bandaged ) - Back Exam Back exam: Present: normal inspection - Neurological Exam Neurological exam: Present: alert - Psychiatric Psychiatric exam: Present: manic, other (tangential thoughts) - Skin Skin exam: Present: warm, dry, intact, normal color. Absent: rash ED Course Vital Signs 03/02/17 03/02/17 03/02/17 12:37 15:42 17:18 Temperature 98.1 F 98.3 F Pulse Rate 87 76 82 Respiratory 18 18 18 Rate Blood Pressure 143/89 Blood Pressure 155/87 145/74 [Left] O2 Sat by Pulse 99 98 96 Oximetry ED Medical Decision Making - Lab Data Result diagrams: 03/02/17 13:06 03/02/17 13:06 Lab Results 03/02/17 03/02/17 03/02/17 Range/Units 12:31 13:06 13:06 WBC 7.8 (4.5-11.0) K/mm3 RBC 3.78 (3.65-5.03) M/mm3 Hgb 10.6 L (11.8-15.2) gm/dl Hct 32.4 L (35.5-45.6) % MCV 86 (84-94) fl MCH 28 (28-32) pg MCHC 33 (32-34) % RDW 14.4 (13.2-15.2) % Plt Count 243 (140-440) K/mm3 Lymph % (Auto) 17.9 (13.4-35.0) % Barber % (Auto) 6.1 (0.0-7.3) % Eos % (Auto) 4.8 H (0.0-4.3) % Baso % (Auto) 0.6 (0.0-1.8) % Lymph # 1.4 (1.2-5.4) K/mm3 Barber # 0.5 (0.0-0.8) K/mm3 Eos # 0.4 (0.0-0.4) K/mm3 Baso # 0.0 (0.0-0.1) K/mm3 Seg Neutrophils % 70.6 H (40.0-70.0) % Seg Neutrophils # 5.5 (1.8-7.7) K/mm3 Sodium 140 (137-145) mmol/L Potassium 4.0 (3.6-5.0) mmol/L Chloride 101.8 (98-107) mmol/L Carbon Dioxide 23 (22-30) mmol/L Anion Gap 19 mmol/L BUN 35 H (9-20) mg/dL Creatinine 1.1 (0.8-1.5) mg/dL Estimated GFR > 60 ml/min BUN/Creatinine Ratio 31.81 % Glucose 94 (75-100) mg/dL POC Glucose 96 (70-105) Lactic Acid (0.7-2.0) mmol/L Calcium 9.4 (8.4-10.2) mg/dL Magnesium 1.70 (1.7-2.3) mg/dL Total Bilirubin 0.40 (0.1-1.2) mg/dL AST 25 (5-40) units/L ALT 22 (7-56) units/L Alkaline Phosphatase 46 (35-129) units/L Total Protein 8.0 (6.3-8.2) g/dL Albumin 4.2 (3.9-5) g/dL Albumin/Globulin Ratio 1.1 % TSH (0.270-4.200) mlU/mL Urine Color (Yellow) Urine Turbidity (Clear) Urine pH (5.0-7.0) Ur Specific [place] (1.003-1.030) Urine Protein (Negative) mg/dL Urine Glucose (UA) (Negative) mg/dL Urine Ketones (Negative) mg/dL Urine Blood (Negative) Urine Nitrite (Negative) Urine Bilirubin (Negative) Urine Urobilinogen (<2.0) mg/dL Ur Leukocyte Esterase (Negative) Urine WBC (Auto) (0.0-6.0) /HPF Urine RBC (Auto) (0.0-6.0) /HPF U Epithel Cells (Auto) (0-13.0) /HPF Urine Mucus /HPF Salicylates (2.8-20.0) mg/dL Urine Opiates Screen Urine Methadone Screen Acetaminophen (10.0-30.0) ug/mL Ur Barbiturates Screen Ur Phencyclidine Scrn Ur Amphetamines Screen U Benzodiazepines Scrn Urine Cocaine Screen U Marijuana (THC) Screen Drugs of Abuse Note Plasma/Serum Alcohol (0-0.07) gm% 03/02/17 03/02/17 03/02/17 Range/Units 13:06 13:06 13:06 WBC (4.5-11.0) K/mm3 RBC (3.65-5.03) M/mm3 Hgb (11.8-15.2) gm/dl Hct (35.5-45.6) % MCV (84-94) fl MCH (28-32) pg MCHC (32-34) % RDW (13.2-15.2) % Plt Count (140-440) K/mm3 Lymph % (Auto) (13.4-35.0) % Barber % (Auto) (0.0-7.3) % Eos % (Auto) (0.0-4.3) % Baso % (Auto) (0.0-1.8) % Lymph # (1.2-5.4) K/mm3 Barber # (0.0-0.8) K/mm3 Eos # (0.0-0.4) K/mm3 Baso # (0.0-0.1) K/mm3 Seg Neutrophils % (40.0-70.0) % Seg Neutrophils # (1.8-7.7) K/mm3 Sodium (137-145) mmol/L Potassium (3.6-5.0) mmol/L Chloride (98-107) mmol/L Carbon Dioxide (22-30) mmol/L Anion Gap mmol/L BUN (9-20) mg/dL Creatinine (0.8-1.5) mg/dL Estimated GFR ml/min BUN/Creatinine Ratio % Glucose (75-100) mg/dL POC Glucose (70-105) Lactic Acid 1.10 (0.7-2.0) mmol/L Calcium (8.4-10.2) mg/dL Magnesium (1.7-2.3) mg/dL Total Bilirubin (0.1-1.2) mg/dL AST (5-40) units/L ALT (7-56) units/L Alkaline Phosphatase (35-129) units/L Total Protein (6.3-8.2) g/dL Albumin (3.9-5) g/dL Albumin/Globulin Ratio % TSH 2.490 (0.270-4.200) mlU/mL Urine Color (Yellow) Urine Turbidity (Clear) Urine pH (5.0-7.0) Ur Specific [place] (1.003-1.030) Urine Protein (Negative) mg/dL Urine Glucose (UA) (Negative) mg/dL Urine Ketones (Negative) mg/dL Urine Blood (Negative) Urine Nitrite (Negative) Urine Bilirubin (Negative) Urine Urobilinogen (<2.0) mg/dL Ur Leukocyte Esterase (Negative) Urine WBC (Auto) (0.0-6.0) /HPF Urine RBC (Auto) (0.0-6.0) /HPF U Epithel Cells (Auto) (0-13.0) /HPF Urine Mucus /HPF Salicylates < 0.3 L (2.8-20.0) mg/dL Urine Opiates Screen Urine Methadone Screen Acetaminophen (10.0-30.0) ug/mL Ur Barbiturates Screen Ur Phencyclidine Scrn Ur Amphetamines Screen U Benzodiazepines Scrn Urine Cocaine Screen U Marijuana (THC) Screen Drugs of Abuse Note Plasma/Serum Alcohol (0-0.07) gm% 03/02/17 03/02/17 03/02/17 Range/Units 13:06 13:06 15:01 WBC (4.5-11.0) K/mm3 RBC (3.65-5.03) M/mm3 Hgb (11.8-15.2) gm/dl Hct (35.5-45.6) % MCV (84-94) fl MCH (28-32) pg MCHC (32-34) % RDW (13.2-15.2) % Plt Count (140-440) K/mm3 Lymph % (Auto) (13.4-35.0) % Barber % (Auto) (0.0-7.3) % Eos % (Auto) (0.0-4.3) % Baso % (Auto) (0.0-1.8) % Lymph # (1.2-5.4) K/mm3 Barber # (0.0-0.8) K/mm3 Eos # (0.0-0.4) K/mm3 Baso # (0.0-0.1) K/mm3 Seg Neutrophils % (40.0-70.0) % Seg Neutrophils # (1.8-7.7) K/mm3 Sodium (137-145) mmol/L Potassium (3.6-5.0) mmol/L Chloride (98-107) mmol/L Carbon Dioxide (22-30) mmol/L Anion Gap mmol/L BUN (9-20) mg/dL Creatinine (0.8-1.5) mg/dL Estimated GFR ml/min BUN/Creatinine Ratio % Glucose (75-100) mg/dL POC Glucose (70-105) Lactic Acid 1.10 (0.7-2.0) mmol/L Calcium (8.4-10.2) mg/dL Magnesium (1.7-2.3) mg/dL Total Bilirubin (0.1-1.2) mg/dL AST (5-40) units/L ALT (7-56) units/L Alkaline Phosphatase (35-129) units/L Total Protein (6.3-8.2) g/dL Albumin (3.9-5) g/dL Albumin/Globulin Ratio % TSH (0.270-4.200) mlU/mL Urine Color (Yellow) Urine Turbidity (Clear) Urine pH (5.0-7.0) Ur Specific [place] (1.003-1.030) Urine Protein (Negative) mg/dL Urine Glucose (UA) (Negative) mg/dL Urine Ketones (Negative) mg/dL Urine Blood (Negative) Urine Nitrite (Negative) Urine Bilirubin (Negative) Urine Urobilinogen (<2.0) mg/dL Ur Leukocyte Esterase (Negative) Urine WBC (Auto) (0.0-6.0) /HPF Urine RBC (Auto) (0.0-6.0) /HPF U Epithel Cells (Auto) (0-13.0) /HPF Urine Mucus /HPF Salicylates (2.8-20.0) mg/dL Urine Opiates Screen Urine Methadone Screen Acetaminophen < 15.0 (10.0-30.0) ug/mL Ur Barbiturates Screen Ur Phencyclidine Scrn Ur Amphetamines Screen U Benzodiazepines Scrn Urine Cocaine Screen U Marijuana (THC) Screen Drugs of Abuse Note Plasma/Serum Alcohol < 0.01 (0-0.07) gm% 03/02/17 03/02/17 03/02/17 Range/Units 15:51 15:51 16:09 WBC (4.5-11.0) K/mm3 RBC (3.65-5.03) M/mm3 Hgb (11.8-15.2) gm/dl Hct (35.5-45.6) % MCV (84-94) fl MCH (28-32) pg MCHC (32-34) % RDW (13.2-15.2) % Plt Count (140-440) K/mm3 Lymph % (Auto) (13.4-35.0) % Barber % (Auto) (0.0-7.3) % Eos % (Auto) (0.0-4.3) % Baso % (Auto) (0.0-1.8) % Lymph # (1.2-5.4) K/mm3 Barber # (0.0-0.8) K/mm3 Eos # (0.0-0.4) K/mm3 Baso # (0.0-0.1) K/mm3 Seg Neutrophils % (40.0-70.0) % Seg Neutrophils # (1.8-7.7) K/mm3 Sodium (137-145) mmol/L Potassium (3.6-5.0) mmol/L Chloride (98-107) mmol/L Carbon Dioxide (22-30) mmol/L Anion Gap mmol/L BUN (9-20) mg/dL Creatinine (0.8-1.5) mg/dL Estimated GFR ml/min BUN/Creatinine Ratio % Glucose (75-100) mg/dL POC Glucose 100 (70-105) Lactic Acid (0.7-2.0) mmol/L Calcium (8.4-10.2) mg/dL Magnesium (1.7-2.3) mg/dL Total Bilirubin (0.1-1.2) mg/dL AST (5-40) units/L ALT (7-56) units/L Alkaline Phosphatase (35-129) units/L Total Protein (6.3-8.2) g/dL Albumin (3.9-5) g/dL Albumin/Globulin Ratio % TSH (0.270-4.200) mlU/mL Urine Color Yellow (Yellow) Urine Turbidity Clear (Clear) Urine pH 6.0 (5.0-7.0) Ur Specific [place] 1.015 (1.003-1.030) Urine Protein <15 mg/dl (Negative) mg/dL Urine Glucose (UA) Neg (Negative) mg/dL Urine Ketones Neg (Negative) mg/dL Urine Blood Neg (Negative) Urine Nitrite Neg (Negative) Urine Bilirubin Neg (Negative) Urine Urobilinogen < 2.0 (<2.0) mg/dL Ur Leukocyte Esterase Tr (Negative) Urine WBC (Auto) 2.0 (0.0-6.0) /HPF Urine RBC (Auto) 1.0 (0.0-6.0) /HPF U Epithel Cells (Auto) < 1.0 (0-13.0) /HPF Urine Mucus Few /HPF Salicylates (2.8-20.0) mg/dL Urine Opiates Screen Presumptive negative Urine Methadone Screen Presumptive negative Acetaminophen (10.0-30.0) ug/mL Ur Barbiturates Screen Presumptive negative Ur Phencyclidine Scrn Presumptive negative Ur Amphetamines Screen Presumptive negative U Benzodiazepines Scrn Presumptive negative Urine Cocaine Screen Presumptive negative U Marijuana (THC) Screen Presumptive negative Drugs of Abuse Note Disclamer Plasma/Serum Alcohol (0-0.07) gm% - Medical Decision Making Chief medical diagnosis: Substance induced mood disorder Differential medical diagnosis: Bipolar, schizophrenia, metabolic abnormality I will get CBC, CMP, urine drug screen, urinalysis and mental health worker evaluation A 1013 ON THIS PATIENT. PATIENT DOES NOT APPEAR TO BE ABLE TO TAKE CARE OF HIMSELF HE CANNOT HAVE A COHERENT CONVERSATION. AND IS NOT ANSWERING ANY QUESTIONS ABOUT WHERE HE LIVES OR WHERE HE STAYS.. Discussed with mental health worker they agree with plan. Critical care attestation.: If time is entered above; I have spent that time in minutes in the direct care of this critically ill patient, excluding procedure time. ED Disposition Clinical Impression: Psychosis Qualifiers: Psychosis type: unspecified psychosis type Qualified Code(s): F29 - Unspecified psychosis not due to a substance or known physiological condition Disposition: DC/TX-65 PSY HOSP/PSY UNIT Is pt being admited?: No Does the pt Need Aspirin: No Condition: Stable Referrals: PRIMARY CARE, [Primary Care Provider] - 3-5 Days
[2017-03-04] MEDS: KEFLEX PO SCH (18:07)
[2017-03-05] MEDS: KEFLEX PO SCH ×3 (01:48→14:02)
[2017-03-05 10:02] VITALS: BP 139/82
--- NOTE | 2017-03-05 14:16 | Consultation ---
History of Present Illness - Reason for Consult Consult date: 03/05/17 Reason for consult: Mental Health Evaluation Requesting physician: PATSY INIGUEZ - Chief Complaint Chief complaint: "I had a foot issue" - History of Present Psychiatric Illness Patient is a 56-year-old male past medical history of hypertension who presents with leg pain and altered mental status. Today patient is calm and cooperative during the assessment. He stated that he was sent to the hospital because his right lower extremity was "infected." He stated that he have no idea why he was placed on a 1013. Per the ER note patient was presenting with flights of ideas. He stated that he could not "understand" what the person was asking him during triage. Per the patient, he is hearing impaired in both his ears. He stated that he have a primary care provider (Dr Dumas) and has home health care services with [facility]. He stated that he was dx with depression a couple years ago and take Zoloft daily. He denies SI/HI's, AVH's, and depression. He denies recreational drug use and alcohol consumption (etoh). Medications and Allergies Allergies Allergy/AdvReac Type Severity Reaction Status Date / Time No Known Allergies Allergy Verified 01/21/17 22:29 Home Medications Medication Instructions Recorded Confirmed Last Taken Type Fenofibrate Nanocrystallized 1 tab PO DAILY 11/13/16 01/21/17 01/21/17 History [Fenofibrate] Lisinopril/Hydrochlorothiazide 10 - 12.5 tab PO QDAY 11/13/16 01/21/17 01/21/17 History [Zestoretic 20-12.5 mg] Sertraline [Zoloft] 100 mg PO QDAY #30 tablet 11/17/16 01/21/17 01/21/17 Rx Ciprofloxacin HCl [Ciprofloxacin 500 mg PO Q12HR 12 Days 01/25/17 Unknown Rx TAB] Doxycycline Hyclate [Doxycycline 100 mg PO Q12HR 12 Days 01/25/17 Unknown Rx Hyclate TAB] Active Meds: Active Medications Cephalexin (Keflex) 500 mg PO Q6HR SOFIYA Stop: 03/09/17 17:59 Last Admin: 03/05/17 14:02 Dose: 500 mg Past psychiatric history - Past Medical History Past Medical History: hypertension Past Surgical History: Other (Right LE) - past Psychiatric treatment and history Psych: Depression psychiatric treatment history: Patient stated that he was dx with depression in the past. Denies a fam psy hx. - Social History Social history: lives with family Mental Status Exam - Vital signs Last Vital Signs Temp 97.2 F L 03/03/17 19:36 Pulse 73 03/05/17 10:01 Resp 18 03/05/17 10:01 BP 139/82 03/05/17 10:01 Pulse Ox 99 03/05/17 10:01 - Exam Narrative exam: ROS: (-) psychosis, (-) depression MSE: Appearance: calm, cooperative Behavior: regular eye contact Speech: regular rate and tone Mood: "okay" Affect: congruent to mood Thought Process: linear Thought Content: denies SI/HI's and AVH's Motor Activity: ambulatory Cognition: A/O x3 Insight: fair Judgment: fair Results Result Diagrams: 03/02/17 13:06 03/02/17 13:06 All other labs normal. Assessment and Plan Assessment and plan: Impression: Historical Dx: Depression. Today patient is calm and cooperative during the assessment. Patient is hearing impaired. Patient is no threat to self. Recommendation/Plan: Rescind 1013. Patient is seen by his PCP Dr Dumas who manage all his medications. Home Health Care services by [facility]. Patient does not need a prescription for Zoloft. Social Service involvement, patient will need transportation back to his residence.
== END 2017-03-05 16:54 ==
LOC: ED 12:21 → EEVIPCON 12:21 → ED 03-05 16:54
DX: F29 Unspecified psychosis not due to a substance or known physiological condition (principal); I10 Essential (primary) hypertension
CPT/HCPCS: 36415; 80053; 80307; 81001; 82140; 82962; 83735; 84443; 85025; 99284; G0480; 80320

== ENCOUNTER 2017-03-11 12:33 | Inpatient (IN) | payer MEDICARE ==
[2017-03-11] MEDS ORDERED: ATIVAN IM PRN (13:12)
[2017-03-11] MEDS ORDERED: HALDOL ONE (13:12)
[2017-03-11] MEDS ORDERED: ATIVAN ONE (13:12)
[2017-03-11 13:13] LABS: Eosinophils % (Auto) 3.9 % (0.0-4.3); Hematocrit 35.6 % (35.5-45.6); Hemoglobin 11.8 gm/dl (11.8-15.2); Mean Corpuscular HGB Conc 33 % (32-34); Mean Corpuscular Hemoglobin 28 pg (28-32); Mean Corpuscular Volume 85 fl (84-94); Platelet Count 300 K/mm3 (140-440); Red Blood Count 4.21 M/mm3 (3.65-5.03); Red Cell Distribution Width 14.1 % (13.2-15.2); White Blood Count 8.5 K/mm3 (4.5-11.0)
--- NOTE | 2017-03-11 13:15 | Emergency Department Report ---
ED General Adult HPI - General Chief complaint: Psych Stated complaint: PSYCH Time Seen by Provider: 03/11/17 13:00 Source: patient, EMS (ems notes not available at time of chart dictation), RN notes reviewed Mode of arrival: Wheelchair Limitations: Altered Mental Status, Other (patient delirious, nonsensical) - History of Present Illness Initial comments: This is a 56-year-old male, the patient is previously known to this provider. Patient has a past medical history of obesity, hypertension, osteomyelitis, chronic venous stasis ulcers, right lower extremity cellulitis, MRSA cellulitis , peripheral vascular disease. Patient presents to the ER with altered mental status. Patient cannot strep exacerbating or relieving factors. As per triage nurse documentation, patient contacted police department for psychiatric evaluation. He indicated "I can't talk to anyone without clearance." The patient cannot describe exacerbating or relieving factors, there is no family available for collateral information at this time, the patient will not answer questions as to whether or not he was homicidal or suicidal. Patient recently seen at this facility for similar symptoms, and was cleared by psychiatry -: unknown Quality: other (per hpi) Consistency: other (per hpi) Improves with: other (per hpi) Worsens with: other (per hpi) Associated Symptoms: denies: chest pain, cough, loss of appetite, malaise - Related Data Home Medications Medication Instructions Recorded Confirmed Last Taken Fenofibrate Nanocrystallized 1 tab PO DAILY 11/13/16 01/21/17 01/21/17 [Fenofibrate] Lisinopril/Hydrochlorothiazide 10 - 12.5 tab PO QDAY 11/13/16 01/21/17 01/21/17 [Zestoretic 20-12.5 mg] Previous Rx's Medication Instructions Recorded Last Taken Type Sertraline [Zoloft] 100 mg PO QDAY #30 tablet 11/17/16 01/21/17 Rx Ciprofloxacin HCl [Ciprofloxacin 500 mg PO Q12HR 12 Days 01/25/17 Unknown Rx TAB] Doxycycline Hyclate [Doxycycline 100 mg PO Q12HR 12 Days 01/25/17 Unknown Rx Hyclate TAB] Allergies Allergy/AdvReac Type Severity Reaction Status Date / Time No Known Allergies Allergy Verified 01/21/17 22:29 ED Review of Systems ROS: Stated complaint: PSYCH Other details as noted in HPI Constitutional: denies: fever Eyes: denies: eye discharge ENT: denies: epistaxis Respiratory: denies: cough Cardiovascular: denies: chest pain Gastrointestinal: denies: abdominal pain Genitourinary: denies: dysuria Musculoskeletal: arthralgia, myalgia Skin: lesions Neurological: weakness, confusion Psychiatric: anxiety. denies: homicidal thoughts, suicidal thoughts ED Past Medical Hx - Past Medical History Previous Medical History?: Yes Hx Hypertension: Yes Hx Congestive Heart Failure: No Hx Diabetes: No Hx Psychiatric Treatment: Yes (schizophrenia, anxiety) Hx Asthma: No Hx COPD: No Additional medical history: Vascular problems in both lower ext,high cholesterol - Surgical History Past Surgical History?: Yes Additional Surgical History: Vascular surgery on 10/25/16 R lower ext. - Social History Smoking Status: Never Smoker Substance Use Type: None - Medications Home Medications: Home Medications Medication Instructions Recorded Confirmed Last Taken Type Fenofibrate Nanocrystallized 1 tab PO DAILY 11/13/16 01/21/17 01/21/17 History [Fenofibrate] Lisinopril/Hydrochlorothiazide 10 - 12.5 tab PO QDAY 11/13/16 01/21/17 01/21/17 History [Zestoretic 20-12.5 mg] Sertraline [Zoloft] 100 mg PO QDAY #30 tablet 11/17/16 01/21/17 01/21/17 Rx Ciprofloxacin HCl [Ciprofloxacin 500 mg PO Q12HR 12 Days 01/25/17 Unknown Rx TAB] Doxycycline Hyclate [Doxycycline 100 mg PO Q12HR 12 Days 01/25/17 Unknown Rx Hyclate TAB] ED Physical Exam - General Limitations: Other (patient was initially agitated and speaking nonsensically, however after being given Haldol, Ativan and Geodon, his mental status improved dramatically, his hyperverbal speech resolved, and more detailed history was able to be obtained.) General appearance: alert, in distress, obese - Head Head exam: Present: atraumatic, normocephalic - Eye Eye exam: Present: normal appearance, EOMI. Absent: nystagmus - ENT ENT exam: Present: normal exam, normal orophraynx, mucous membranes moist, normal external ear exam - Neck Neck exam: Present: normal inspection, full ROM. Absent: tenderness, meningismus - Respiratory Respiratory exam: Present: normal lung sounds bilaterally. Absent: respiratory distress, wheezes, rales, rhonchi, stridor, chest wall tenderness, accessory muscle use, decreased breath sounds, prolonged expiratory - Cardiovascular Cardiovascular Exam: Present: normal rhythm, tachycardia, normal heart sounds. Absent: systolic murmur, diastolic murmur, rubs, gallop - GI/Abdominal GI/Abdominal exam: Present: soft, normal bowel sounds. Absent: distended, tenderness, guarding, rebound, rigid, pulsatile mass - Rectal Rectal exam: Present: normal inspection - exam: Present: normal inspection - Extremities Exam Extremities exam: Present: full ROM, other (2+ pulses noted in the bilateral upper and lower extremities. The right lower extremity there are chronic venous stasis ulcers and chronic changes, erythema, no tenderness, pus or streaking. Chronic hyperpigmentation and discoloration of left lower extremity) . Absent: calf tenderness - Back Exam Back exam: Present: normal inspection. Absent: tenderness, paraspinal tenderness - Neurological Exam Neurological exam: Present: alert (patient is alert to name, month, location at this time), other (Extraocular movements intact. Tongue midline. No facial droop. Facial sensation intact to light touch in the V1, V2, V3 distribution bilaterally. 5 and 5 strength in 4 extremities.. Sensation is intact to light touch in 4 extremities.) - Psychiatric Psychiatric exam: Present: anxious - Skin Skin exam: Present: warm, dry, intact, normal color. Absent: rash ED Course Vital Signs 03/11/17 03/11/17 12:35 13:50 Temperature 98.9 F 99.3 F Pulse Rate 115 H Respiratory 25 H Rate Blood Pressure 132/90 O2 Sat by Pulse 100 Oximetry - Reevaluation(s) Reevaluation #1: 03/11/17 14:13 Differential diagnosis: Intracranial injury, delirium, pneumonia, urinary tract infection, deep space infection, conversion disorder, psychiatric illness Assessment and plan: 56-year-old male who initially presents with pressured speech, nonsensical thought process, hyperverbal, much improved her Haldol, Ativan and Geodon, he is somewhat sleepy after these medications, but he indicated that he was not homicidal or suicidal, and he also indicates that he is having family issues at home. Objectively speaking he is afebrile with a rectal temperature of 99.8, tachycardia and tachypnea resolved, CT scan of the brain is pending, CT scan of the low 70s pending, x-ray of the chest is pending. Given his initial presentation, patient is placed on a 1013. Neurologic examination is nonfocal at this time. Reevaluation #2: 03/11/17 14:15 Na: 144 K: 4.1 Cl: 103.4 CK: Reevaluation #3: 03/11/17 15:22 CT scan of the brain demonstrated nonspecific lesion, focal extra-axial lesion between the inferior aspect of the cerebellar hemispheres, may represent a small meningioma. No acute infarcts noted, CT scan of the right lower extremity suggestive lower extremity edema, concerning for cellulitis, with some periosteal elevation of the right distal lower extremity, with osteomyelitis not excluded. I don't believe the patient requires emergent MR of the brain, and with the CT scan findings of the right lower extremity, his delirium, lower extremity redness, inability to exclude osteomyelitis from the emergency room, patient to be admitted for further evaluation, medical management. Patient will be given clindamycin, and placed on contact isolation. Patient presented to the Hospital physician, Dr. Khalil, who will admit to the medical service ED Medical Decision Making - Lab Data Result diagrams: 03/11/17 12:52 03/11/17 12:52 Vital Signs 03/11/17 03/11/17 12:35 13:50 Temperature 98.9 F 99.3 F Pulse Rate 115 H Respiratory 25 H Rate Blood Pressure 132/90 O2 Sat by Pulse 100 Oximetry Lab Results 03/11/17 03/11/17 03/11/17 Range/Units 12:52 12:52 12:52 WBC 8.5 (4.5-11.0) K/mm3 RBC 4.21 (3.65-5.03) M/mm3 Hgb 11.8 (11.8-15.2) gm/dl Hct 35.6 (35.5-45.6) % MCV 85 (84-94) fl MCH 28 (28-32) pg MCHC 33 (32-34) % RDW 14.1 (13.2-15.2) % Plt Count 300 (140-440) K/mm3 Lymph % (Auto) 19.1 (13.4-35.0) % Evangeline % (Auto) 7.9 H (0.0-7.3) % Eos % (Auto) 3.9 (0.0-4.3) % Baso % (Auto) 1.0 (0.0-1.8) % Lymph # 1.6 (1.2-5.4) K/mm3 Evangeline # 0.7 (0.0-0.8) K/mm3 Eos # 0.3 (0.0-0.4) K/mm3 Baso # 0.1 (0.0-0.1) K/mm3 Seg Neutrophils % 68.1 (40.0-70.0) % Seg Neutrophils # 5.8 (1.8-7.7) K/mm3 ESR (0-20) mm/Hr Carbon Dioxide 24 (22-30) mmol/L BUN 29 H (9-20) mg/dL Creatinine 1.4 (0.8-1.5) mg/dL Estimated GFR 53 ml/min BUN/Creatinine Ratio 21 % Glucose 121 H (75-100) mg/dL Calcium 9.7 (8.4-10.2) mg/dL Plasma/Serum Alcohol < 0.01 (0-0.07) gm% 03/11/17 Range/Units 12:52 WBC (4.5-11.0) K/mm3 RBC (3.65-5.03) M/mm3 Hgb (11.8-15.2) gm/dl Hct (35.5-45.6) % MCV (84-94) fl MCH (28-32) pg MCHC (32-34) % RDW (13.2-15.2) % Plt Count (140-440) K/mm3 Lymph % (Auto) (13.4-35.0) % Evangeline % (Auto) (0.0-7.3) % Eos % (Auto) (0.0-4.3) % Baso % (Auto) (0.0-1.8) % Lymph # (1.2-5.4) K/mm3 Evangeline # (0.0-0.8) K/mm3 Eos # (0.0-0.4) K/mm3 Baso # (0.0-0.1) K/mm3 Seg Neutrophils % (40.0-70.0) % Seg Neutrophils # (1.8-7.7) K/mm3 ESR 83 (0-20) mm/Hr Carbon Dioxide (22-30) mmol/L BUN (9-20) mg/dL Creatinine (0.8-1.5) mg/dL Estimated GFR ml/min BUN/Creatinine Ratio % Glucose (75-100) mg/dL Calcium (8.4-10.2) mg/dL Plasma/Serum Alcohol (0-0.07) gm% - Radiology Data Radiology results: pending, report reviewed, image reviewed CT scan brain interpretation reviewed. CT scan of the right lower extremity reviewed Critical care attestation.: If time is entered above; I have spent that time in minutes in the direct care of this critically ill patient, excluding procedure time. ED Disposition Clinical Impression: Osteomyelitis, Psychosis, PVD (peripheral vascular disease) Disposition: OP ADMIT IP TO THIS HOSP Is pt being admited?: Yes Condition: Good
[2017-03-11] MEDS: HALDOL IM PRN (13:19)
[2017-03-11 13:23] LABS: Calcium 9.7 mg/dL (8.4-10.2); Chloride 103.4 mmol/L (98-107); Potassium 4.1 mmol/L (3.6-5.0)
[2017-03-11] MEDS ORDERED: GEODON IM ONE (13:29)
[2017-03-11] MEDS ORDERED: GEODON IM STA (13:40)
[2017-03-11 14:21] LABS: Urine Drugs of Abuse Note Disclamer
--- NOTE | 2017-03-11 14:29 | Cat Scan Report ---
FINAL REPORT EXAM: CT HEAD/BRAIN WO CON HISTORY: ams TECHNIQUE: CT of the head was performed without intravenous contrast. PRIORS: None. FINDINGS: The ventricles are normal in shape and position. The ventricles are nondilated. There is a focal ovoid lesion within the posterior fossa between the cerebellar hemispheres inferiorly which demonstrates partial calcification measuring 1.3 x 0.9 centimeters. No intracranial hemorrhage, mass effect, midline shift or evidence of acute ischemic infarct. The basilar cisterns are patent. Mucosal thickening of the right maxillary and ethmoid sinuses is likely congestive or inflammatory. The extracranial soft tissues demonstrate no abnormality. The calvarium is intact. The orbits are intact. The mastoid air cells are clear. IMPRESSION: 1. No acute intracranial abnormality. 2. Focal extra-axial lesion between the inferior aspect of the cerebellar hemispheres may represent a small meningioma. Recommend further evaluation with MRI of the brain with and without contrast.
[2017-03-11 14:32] LABS: Bilirubin,Urine NEG (Negative); Blood,Urine NEG (Negative); Ketones,Urine NEG (Negative); Leukocyte Esterase,Urine NEG (Negative); Nitrite,Urine NEG (Negative); RBC,Urine < 1.0 /HPF (0.0-6.0)
[2017-03-11 14:40] LABS: C-Reactive Protein 2.2 mg/dL (0.00-1.30)
--- NOTE | 2017-03-11 14:54 | Cat Scan Report ---
FINAL REPORT EXAM: CT LOWER EXTREMITY RT WO CON HISTORY: rle pain TECHNIQUE: CT of the tibias and fibulas was performed without intravenous contrast. Coronal and sagittal reconstructions were included. PRIORS: Right tibia/fibula radiographs 12/23/2016. FINDINGS: There is soft tissue edema of the lower extremities, right worse than left. No definite focal fluid collection is seen. There is mild periosteal elevation along anteromedial aspect of the right mid to distal tibia. There is periosteal elevation of the right mid to distal fibula. No acute fracture is seen on either side. No bony erosion. Normal alignment is noted. Surgical clips are seen posterior to the right mid tibia. No right knee joint effusion. There is a small left knee joint effusion with left knee Lassiter's cyst. IMPRESSION: 1. Bilateral lower extremity soft tissue edema concerning for cellulitis, right worse than left. There is some periosteal elevation along the right mid to distal tibia and fibula. Osteomyelitis cannot be completely excluded. 2. Small left knee joint effusion with Lassiter's cyst.
[2017-03-11] MEDS ORDERED: CLEOCIN 600 MG/50 mL 600 MG/50 ML BAG IV ONE (15:18)
[2017-03-11] MEDS ORDERED: NACL 0.9% 1000 ML 1,000 ML IV ONE (15:21)
--- NOTE | 2017-03-11 15:55 | XRay Report ---
FINAL REPORT PROCEDURE: XR CHEST 1V AP TECHNIQUE: Chest radiograph anteroposterior view. CPT 37018 HISTORY: ams ? pna COMPARISON: 01/21/2017 FINDINGS: Heart: Normal. Mediastinum/Vessels: Normal. Lungs/Pleural space: Normal. Bony thorax: No acute osseous abnormality. Life support devices: None. IMPRESSION: No acute cardiopulmonary abnormality.
--- NOTE | 2017-03-11 23:07 | Event Note ---
Date: 03/11/17 See H/p in reports RLE Cellulitis Rt Tibia osteomyelitis PAD Hypertryglyceridemia Psychosis-wants admission to hospital like [facility]
[2017-03-12] MEDS: TYLENOL PO PRN ×3 (01:09→16:27)
[2017-03-12] MEDS: CLEOCIN 900 MG/50 mL 900 MG/50 ML BAG IV SCH ×2 (06:55→15:53)
--- NOTE | 2017-03-12 07:44 | History and Physical Report ---
CHIEF COMPLAINT: The patient wants mental health evaluation and admission to psych facility. HISTORY OF PRESENT ILLNESS: A 56-year-old male with past medical history of hypertension, chronic venous stasis ulcers of the right lower extremity and peripheral vascular disease, comes in for altered sensorium. The patient contacted the police department for psych evaluation. He wanted clearance to be admitted to the psych facility. The patient will not answer questions whether he is homicidal or suicidal. In the ER, because of the right lower extremity chronic ulcers, the ER physician elected to be evaluate the venous stasis ulcers, which because of the CAT scan done on the right lower extremity showed changes consistent with osteomyelitis, probably chronic. It was presented to me as cellulitis of the right lower extremity with osteomyelitis since the admission. The patient had this problem for longstanding, for more than 6 months. No acute changes in the right lower extremity. PAST MEDICAL HISTORY: As mentioned, bipolar disorder, hyperlipidemia, hypertriglyceridemia, hypertension, and depression. CURRENT MEDICATIONS: Fenofibrate 145 daily, lisinopril 20 mg once a day, hydrochlorothiazide 12.5 once a day, Zoloft 100 mg once a day. The patient is also on chronic antibiotics, ciprofloxacin and doxycycline. PAST SURGICAL HISTORY: Vascular surgery on 10/25/2016 of the right lower extremity. SOCIAL HISTORY: The patient does not answer about his smoking status and alcohol status. ALLERGIES: No known drug abuse. FAMILY HISTORY: Significant for hypertension. Additional past medical history of schizophrenia and anxiety disorder. REVIEW OF SYSTEMS: Altered sensorium and the patient may be suicidal/homicidal. Does not want to talk about it and just wants a psychiatric medical clearance. HEENT: No sore throat. No postnasal drip. CARDIOVASCULAR AND RESPIRATORY: No shortness of breath, no chest pain, no palpitations. No cough. GASTROINTESTINAL: No nausea, no vomiting, no diarrhea. MUSCULOSKELETAL SYSTEM: No muscle aches. No joint pains. SKIN: Right lower extremity with multiple small ulcers present, which are chronic appearing. No surrounding erythema present. Slightly swollen right lower extremity. Pulses are not felt well. CENTRAL NERVOUS SYSTEM: Altered sensorium. The patient also was given Haldol and Geodon in the ER and the patient was very drowsy to answer questions. PHYSICAL EXAMINATION: GENERAL: Middle-aged male, obese. VITAL SIGNS: Blood pressure 132/90, temperature 98.9, pulse is 115, and respiratory rate is 25. HEENT: Unremarkable. Pupils are equal and reactive. NECK: Supple, no lymphadenopathy, no thyromegaly. LUNGS: Clear to auscultation and percussion. Good air entry. CARDIOVASCULAR: S1, S2 heard. No gallop, no murmur, no rub. Apical impulse in left fifth intercostal space and midclavicular line. ABDOMEN: Soft and benign. No hepatosplenomegaly. No guarding, no rigidity. EXTREMITIES: Right lower extremity swelling present. Four to five 1 cm x 1.5 cm ulcers present, chronic appearing for at least more than 6 months. Slight redness present. No acute changes. CENTRAL NERVOUS SYSTEM: Decreased sensorium. The patient was given Haldol and Geodon in the ER. I could not interact with the patient much. IMAGING DATA: Lower extremity CT showed bilateral lower extremity soft tissue edema, for cellulitis, right worse than left. There was some very periosteal elevation around the right mid to distal tibia, and fibular osteomyelitis cannot be completely excluded. Small left knee joint effusion and Lassiter cyst present. LABORATORY DATA: Significant for normal hemoglobin and hematocrit. Electrolytes are pending. BUN and creatinine are 29 and 1.4. Glucose is 121. C-reactive protein is 2.2. Urine is negative. Drug screen is negative. ASSESSMENT AND PLAN: 1. Osteomyelitis of right tibia, probably chronic. The patient has longstanding venous stasis ulcers. Chronic osteomyelitis expected. IV antibiotics, clindamycin 900 q.8 initiated. ID consult requested for further assistance with antibiotic coverage. Did not initiate on vancomycin. We will defer to ID. The question is how long do we treat this chronic venous stasis ulcers along with underlying osteomyelitis. The patient may have to attend wound care clinic on a regular basis, maybe he is a good candidate for hyperbaric oxygen. Wound care consult requested. 2. Hypertension. Continue lisinopril and hydrochlorothiazide. 3. Hypertriglyceridemia. Continue fenofibrate. 4. Schizophrenia. Continue his psych medicines. The patient is on only sertraline at this point. Mental health consult requested. 5. Peripheral vascular disease, workup as outpatient, not addressing this problem at this point. To treat these chronic venous ulcers and underlying osteomyelitis. 6. Deep venous thrombosis prophylaxis, Lovenox 40 mg subcutaneous daily. JOB# [id number] STEV[facility]/VANESSA
--- NOTE | 2017-03-12 07:52 | Event Note ---
56-year-old man with a past medical history of hypertension, chronic venous stasis ulcers, peripheral vascular disease. Admitted to the hospital for altered sensorium, patient's was stating that he wanted to go to a psych facility in the ER Metabolic encephalopathy -CT shows a small extra axial lesion by cerebellum, with get MR brain w/wo contrast Bilateral lower extremity cellulitis, with R fibular OM -abx, ID consult Bipolar disorder/schizophrenia mental health consult Hypertension : resume home meds TERESA: vasomotor nephropathy -improved with IV Peripheral vascular disease
--- NOTE | 2017-03-12 07:56 | Progress Note ---
Assessment and Plan Assessment and plan: Patient is a 56-year-old male with past medical history of obesity, hypertension , osteomyelitis, chronic venous stasis ulcers, right lower extremity cellulitis , MRSA cellulitis, peripheral vascular disease, who presents to the Emergency Department with altered mental status. ASSESSMENT/PLAN Metabolic encephalopathy CT of the head shows a small extra axial lesion between the inferior aspect of the cerebellar hemispheres may represent a small meningioma. No acute infarcts noted. We will obtain MR of the brain w/wo contrast Supportive care Bilateral lower extremity cellulitis, with R fibular Osteomyelitis CT scan of the right lower extremity suggestive lower extremity edema, concerning for cellulitis, with some periosteal elevation of the right distal lower extremity, with osteomyelitis not excluded. Continue on empiric treatment of IV clindamycin. Infection disease consulted Wound care consulted Placed on contact isolation. Bipolar disorder/schizophrenia Resume home antidepressant pills Mental health consulted Hypertension Resume home antihypertensive medications Closely monitor blood pressure Peripheral vascular disease Contuinue on home anticlotting agents. DVT prophylaxis Lovenox History Interval history: Patient anxious and confused unappropriated answering to my questions, asking if he can go home today, sitter at bedside. Labs and nurse notes reviewed. Hospitalist Physical - Constitutional Vitals: Temp Pulse Resp BP Pulse Ox 98.6 F 77 20 142/78 94 03/12/17 00:00 03/12/17 00:00 03/12/17 00:00 03/12/17 00:00 03/12/17 00:00 General appearance: Present: no acute distress - EENT Eyes: Present: PERRL ENT: hearing intact - Neck Neck: Present: supple - Respiratory Respiratory effort: normal Respiratory: bilateral: CTA - Cardiovascular Rhythm: regular Heart Sounds: Present: S1 & S2 - Extremities Extremity abnormal: other (The right lower extremity there are chronic venous stasis ulcers and chronic changes, erythema, no tenderness, pus or streaking. Chronic hyperpigmentation and discoloration of left lower extremity. Absent: calf tendernes) - Abdominal General gastrointestinal: soft, non-tender - Integumentary Integumentary: Present: clear ( Right lower extremity there are chronic venous stasis ulcers and chronic changes, erythema, no tenderness, pus or streaking. Chronic hyperpigmentation and discoloration of left lower extremity.), warm - Psychiatric Psychiatric: appropriate mood/affect - Neurologic Neurologic: CNII-XII intact - Allied Health Allied health notes reviewed: nursing Results - Labs CBC & Chem 7: 03/11/17 12:52 03/11/17 12:52 Labs: Laboratory Last Values WBC 8.5 K/mm3 (4.5-11.0) 03/11/17 12:52 RBC 4.21 M/mm3 (3.65-5.03) 03/11/17 12:52 Hgb 11.8 gm/dl (11.8-15.2) 03/11/17 12:52 Hct 35.6 % (35.5-45.6) 03/11/17 12:52 MCV 85 fl (84-94) 03/11/17 12:52 MCH 28 pg (28-32) 03/11/17 12:52 MCHC 33 % (32-34) 03/11/17 12:52 RDW 14.1 % (13.2-15.2) 03/11/17 12:52 Plt Count 300 K/mm3 (140-440) 03/11/17 12:52 Lymph % (Auto) 19.1 % (13.4-35.0) 03/11/17 12:52 [place]uming % (Auto) 7.9 % (0.0-7.3) H 03/11/17 12:52 Eos % (Auto) 3.9 % (0.0-4.3) 03/11/17 12:52 Baso % (Auto) 1.0 % (0.0-1.8) 03/11/17 12:52 Lymph # 1.6 K/mm3 (1.2-5.4) 03/11/17 12:52 Cuming # 0.7 K/mm3 (0.0-0.8) 03/11/17 12:52 Eos # 0.3 K/mm3 (0.0-0.4) 03/11/17 12:52 Baso # 0.1 K/mm3 (0.0-0.1) 03/11/17 12:52 Seg Neutrophils % 68.1 % (40.0-70.0) 03/11/17 12:52 Seg Neutrophils # 5.8 K/mm3 (1.8-7.7) 03/11/17 12:52 ESR 83 mm/Hr (0-20) 03/11/17 12:52 Carbon Dioxide 24 mmol/L (22-30) 03/11/17 12:52 BUN 29 mg/dL (9-20) H 03/11/17 12:52 Creatinine 1.4 mg/dL (0.8-1.5) 03/11/17 12:52 Estimated GFR 53 ml/min 03/11/17 12:52 BUN/Creatinine Ratio 21 % 03/11/17 12:52 Glucose 121 mg/dL (75-100) H 03/11/17 12:52 Lactic Acid 0.80 mmol/L (0.7-2.0) 03/11/17 15:39 Calcium 9.7 mg/dL (8.4-10.2) 03/11/17 12:52 Total Creatine Kinase 56 units/L (55-170) 03/11/17 12:52 C-Reactive Protein 2.20 mg/dL (0.00-1.30) H 03/11/17 12:52 Urine Color Yellow (Yellow) 03/11/17 14:12 Urine Turbidity Clear (Clear) 03/11/17 14:12 Urine pH 6.0 (5.0-7.0) 03/11/17 14:12 Ur Specific [place] 1.017 (1.003-1.030) 03/11/17 14:12 Urine Protein 30 mg/dl mg/dL (Negative) 03/11/17 14:12 Urine Glucose (UA) Neg mg/dL (Negative) 03/11/17 14:12 Urine Ketones Neg mg/dL (Negative) 03/11/17 14:12 Urine Blood Neg (Negative) 03/11/17 14:12 Urine Nitrite Neg (Negative) 03/11/17 14:12 Urine Bilirubin Neg (Negative) 03/11/17 14:12 Urine Urobilinogen 2.0 mg/dL (<2.0) 03/11/17 14:12 Ur Leukocyte Esterase Neg (Negative) 03/11/17 14:12 Urine WBC (Auto) 4.0 /HPF (0.0-6.0) 03/11/17 14:12 Urine RBC (Auto) < 1.0 /HPF (0.0-6.0) 03/11/17 14:12 U Epithel Cells (Auto) 1.0 /HPF (0-13.0) 03/11/17 14:12 Hyaline Casts 1 /LPF 03/11/17 14:12 Urine Opiates Screen Presumptive negative 03/11/17 14:12 Urine Methadone Screen Presumptive negative 03/11/17 14:12 Ur Barbiturates Screen Presumptive negative 03/11/17 14:12 Ur Phencyclidine Scrn Presumptive negative 03/11/17 14:12 Ur Amphetamines Screen Presumptive negative 03/11/17 14:12 U Benzodiazepines Scrn Presumptive negative 03/11/17 14:12 Urine Cocaine Screen Presumptive negative 03/11/17 14:12 U Marijuana (THC) Screen Presumptive negative 03/11/17 14:12 Drugs of Abuse Note Disclamer 03/11/17 14:12 Plasma/Serum Alcohol < 0.01 gm% (0-0.07) 03/11/17 12:52
[2017-03-12] MEDS ORDERED: TRICOR PO SCH (10:00)
[2017-03-12] MEDS ORDERED: ZOLOFT PO SCH (10:00)
[2017-03-12 11:42] VITALS: BP 127/83
[2017-03-12 13:03] LABS: Anion Gap 18 mmol/L; BUN/Creatinine Ratio 20; Blood Urea Nitrogen 22 mg/dL (9-20); Calcium 9.4 mg/dL (8.4-10.2); Carbon Dioxide 25 mmol/L (22-30); Chloride 103.3 mmol/L (98-107); Glucose 107 mg/dL (75-100); Potassium 4.2 mmol/L (3.6-5.0); Sodium 142 mmol/L (137-145)
--- NOTE | 2017-03-12 13:25 | Consultation ---
History of Present Illness - Reason for Consult Consult date: 03/12/17 Reason for consult: Mental Health Evaluation Requesting physician: PATSY DOSHI - Chief Complaint Chief complaint: "How are you" - History of Present Psychiatric Illness This is a 56-year-old white male presenting to [facility] for AMS. This patient is known to me. Today patient is calm and cooperative during the assessment. He stated that he came to hospital to get some help. He could not elaborate more about the "help" he needed, but stated that he knew his wounds (LE) needed to be "checked out." He recalled 2/3 numbers (3,9, 17) within 5 mins. He was able to tell me his and his current location. He stated that he has a RN that come to his residence and assess his wounds. He stated that his PCP manage his depression medication (Zoloft). He denies SI/HI's, AVH's, and depression. Patient has delayed answers when asked questions. He denies recreational drug use and alcohol consumption (etoh). Medications and Allergies Allergies Allergy/AdvReac Type Severity Reaction Status Date / Time No Known Allergies Allergy Verified 01/21/17 22:29 Home Medications Medication Instructions Recorded Confirmed Last Taken Type Fenofibrate Nanocrystallized 1 tab PO DAILY 11/13/16 01/21/17 01/21/17 History [Fenofibrate] Lisinopril/Hydrochlorothiazide 10 - 12.5 tab PO QDAY 11/13/16 03/12/17 01/21/17 History [Zestoretic 20-12.5 mg] Sertraline [Zoloft] 100 mg PO QDAY #30 tablet 11/17/16 03/12/17 01/21/17 Rx Ciprofloxacin HCl [Ciprofloxacin 500 mg PO Q12HR 12 Days 01/25/17 Unknown Rx TAB] Doxycycline Hyclate [Doxycycline 100 mg PO Q12HR 12 Days 01/25/17 Unknown Rx Hyclate TAB] Loratadine [Claritin] 10 mg PO DAILY 03/12/17 03/12/17 Unknown History diphenhydrAMINE [Benadryl CAP] 25 mg PO PRN 03/12/17 03/12/17 Unknown History Active Meds: Active Medications Acetaminophen (Tylenol) 650 mg PO Q4H PRN PRN Reason: Pain, Mild (1-3) Last Admin: 03/12/17 11:56 Dose: 650 mg Enoxaparin Sodium (Lovenox) 40 mg SUB-Q QDAY@2200 SOFIYA Fenofibrate (Tricor) 145 mg PO DAILY [facility] Last Admin: 03/12/17 11:57 Dose: 145 mg Haloperidol Lactate (Haldol) 5 mg IM Q6HR PRN PRN Reason: Agitation Last Admin: 03/11/17 13:19 Dose: 5 mg Hydrochlorothiazide (Hctz) 12.5 mg PO QDAY SOFIYA Clindamycin HCl (Cleocin 900 Mg/50 Ml) 900 mg in 50 mls @ 100 mls/hr IV Q8HR SOFIYA PRN Reason: Protocol Last Admin: 03/12/17 06:55 Dose: 100 mls/hr Lisinopril (Zestril) 10 mg PO QDAY SOFIYA Lorazepam (Ativan) 2 mg IM Q4HR PRN PRN Reason: Agitation Last Admin: 03/11/17 13:19 Dose: 2 mg Sertraline HCl (Zoloft) 100 mg PO QDAY [facility] Last Admin: 03/12/17 11:57 Dose: 100 mg Past psychiatric history - Past Medical History Past Medical History: hypertension Past Surgical History: Other (Vas Surgery Lower Extremity) - past Psychiatric treatment and history Psych: Depression psychiatric treatment history: Patient's PCP manage his depression/anxiety. Denies a fam psy hx. - Social History Social history: Lives alone Mental Status Exam - Vital signs Last Vital Signs Temp 98.7 F 03/12/17 09:16 Pulse 76 03/12/17 09:16 Resp 20 03/12/17 09:16 BP 127/83 03/12/17 09:16 Pulse Ox 94 03/12/17 00:00 - Exam Narrative exam: MSE: Appearance: calm, cooperative Behavior: regular eye contact Speech: regular rate and tone Mood: "okay" Affect: congruent to mood Thought Process: circumstantial Thought Content: denies SI/HI's and AVH's Motor Activity: sitting up in bed the bed Cognition: A/O x3 Insight: variable Judgment: variable Results Result Diagrams: 03/11/17 12:52 03/12/17 12:27 Abnormal lab results 03/12/17 Range/Units 12:27 BUN 22 H (9-20) mg/dL Glucose 107 H (75-100) mg/dL All other labs normal. Assessment and Plan Assessment and plan: Impression: Historical Dx: Depression. Medical: Metabolic Encephalopathy. Today patient is calm and cooperative during the assessment. CT (Head) - shows a small extra axial lesion between the inferior aspect of the cerebellar hemispheres may represent a small meningioma. Radiology recommend MRI of the head. Recommendation/Plan: Rescind 1013. Patient does not meet criteria. Continue Zoloft 100 mg PO Daily for depression. Sree is the patient's Home Care provider. Patient's PCP manage his depression. Delirium precautions below: 1. Frequently reorient patient and involve him/her in their care (simple explanations of procedures, tests, medications). 2. Lights on and shades open during daytime hours. 3. Try to avoid unnecessary interruptions to sleep during nighttime hours. 4. Obtain glasses, hearing aids from home if patient uses these at baseline. 5. Avoid medications that may exacerbate delirium (especially narcotics, barbiturates, ambien, lunesta, benzos and medications with excessive anticholinergic properties).
[2017-03-12] MEDS: HALDOL IM PRN (15:59)
[2017-03-12] MEDS ORDERED: LOVENOX SUB-Q SCH (22:00)
--- NOTE | 2017-03-13 08:30 | Progress Note ---
Hospitalist Physical - Constitutional Vitals: Temp Pulse Resp BP Pulse Ox 98.7 F 76 20 127/83 94 03/12/17 09:16 03/12/17 09:16 03/12/17 09:16 03/12/17 09:16 03/12/17 00:00 General appearance: Present: no acute distress Results - Labs CBC & Chem 7: 03/11/17 12:52 03/12/17 12:27 Labs: Laboratory Last Values WBC 8.5 K/mm3 (4.5-11.0) 03/11/17 12:52 RBC 4.21 M/mm3 (3.65-5.03) 03/11/17 12:52 Hgb 11.8 gm/dl (11.8-15.2) 03/11/17 12:52 Hct 35.6 % (35.5-45.6) 03/11/17 12:52 MCV 85 fl (84-94) 03/11/17 12:52 MCH 28 pg (28-32) 03/11/17 12:52 MCHC 33 % (32-34) 03/11/17 12:52 RDW 14.1 % (13.2-15.2) 03/11/17 12:52 Plt Count 300 K/mm3 (140-440) 03/11/17 12:52 Lymph % (Auto) 19.1 % (13.4-35.0) 03/11/17 12:52 [place] % (Auto) 7.9 % (0.0-7.3) H 03/11/17 12:52 Eos % (Auto) 3.9 % (0.0-4.3) 03/11/17 12:52 Baso % (Auto) 1.0 % (0.0-1.8) 03/11/17 12:52 Lymph # 1.6 K/mm3 (1.2-5.4) 03/11/17 12:52 Band[place] # 0.7 K/mm3 (0.0-0.8) 03/11/17 12:52 Eos # 0.3 K/mm3 (0.0-0.4) 03/11/17 12:52 Baso # 0.1 K/mm3 (0.0-0.1) 03/11/17 12:52 Seg Neutrophils % 68.1 % (40.0-70.0) 03/11/17 12:52 Seg Neutrophils # 5.8 K/mm3 (1.8-7.7) 03/11/17 12:52 ESR 83 mm/Hr (0-20) 03/11/17 12:52 Sodium 142 mmol/L (137-145) 03/12/17 12:27 Potassium 4.2 mmol/L (3.6-5.0) 03/12/17 12:27 Chloride 103.3 mmol/L (98-107) 03/12/17 12:27 Carbon Dioxide 25 mmol/L (22-30) 03/12/17 12:27 Anion Gap 18 mmol/L 03/12/17 12:27 BUN 22 mg/dL (9-20) H 03/12/17 12:27 Creatinine 1.1 mg/dL (0.8-1.5) 03/12/17 12:27 Estimated GFR > 60 ml/min 03/12/17 12:27 BUN/Creatinine Ratio 20 % 03/12/17 12:27 Glucose 107 mg/dL (75-100) H 03/12/17 12:27 Lactic Acid 0.80 mmol/L (0.7-2.0) 03/11/17 15:39 Calcium 9.4 mg/dL (8.4-10.2) 03/12/17 12:27 Total Creatine Kinase 56 units/L (55-170) 03/11/17 12:52 C-Reactive Protein 2.20 mg/dL (0.00-1.30) H 03/11/17 12:52 Urine Color Yellow (Yellow) 03/11/17 14:12 Urine Turbidity Clear (Clear) 03/11/17 14:12 Urine pH 6.0 (5.0-7.0) 03/11/17 14:12 Ur Specific [place] 1.017 (1.003-1.030) 03/11/17 14:12 Urine Protein 30 mg/dl mg/dL (Negative) 03/11/17 14:12 Urine Glucose (UA) Neg mg/dL (Negative) 03/11/17 14:12 Urine Ketones Neg mg/dL (Negative) 03/11/17 14:12 Urine Blood Neg (Negative) 03/11/17 14:12 Urine Nitrite Neg (Negative) 03/11/17 14:12 Urine Bilirubin Neg (Negative) 03/11/17 14:12 Urine Urobilinogen 2.0 mg/dL (<2.0) 03/11/17 14:12 Ur Leukocyte Esterase Neg (Negative) 03/11/17 14:12 Urine WBC (Auto) 4.0 /HPF (0.0-6.0) 03/11/17 14:12 Urine RBC (Auto) < 1.0 /HPF (0.0-6.0) 03/11/17 14:12 U Epithel Cells (Auto) 1.0 /HPF (0-13.0) 03/11/17 14:12 Hyaline Casts 1 /LPF 03/11/17 14:12 Urine Opiates Screen Presumptive negative 03/11/17 14:12 Urine Methadone Screen Presumptive negative 03/11/17 14:12 Ur Barbiturates Screen Presumptive negative 03/11/17 14:12 Ur Phencyclidine Scrn Presumptive negative 03/11/17 14:12 Ur Amphetamines Screen Presumptive negative 03/11/17 14:12 U Benzodiazepines Scrn Presumptive negative 03/11/17 14:12 Urine Cocaine Screen Presumptive negative 03/11/17 14:12 U Marijuana (THC) Screen Presumptive negative 03/11/17 14:12 Drugs of Abuse Note Disclamer 03/11/17 14:12 Plasma/Serum Alcohol < 0.01 gm% (0-0.07) 03/11/17 12:52
[2017-03-13] MEDS ORDERED: HYDROCHLOROTHIAZIDE PO SCH (10:00)
[2017-03-13] MEDS ORDERED: LISINOPRIL PO SCH (10:00)
[2017-03-13] MEDS ORDERED: HCTZ PO SCH (10:00)
[2017-03-13] MEDS ORDERED: ZESTRIL PO SCH (10:00)
--- NOTE | 2017-03-13 14:43 | Discharge Summary ---
Providers - Providers Date of Admission: 03/11/17 15:28 Date of discharge: 03/12/17 Attending physician: VALENTIN CLAUDIO MD 03/12/17 05:49 Consult to Physician [CONS] Routine Consulting Provider: ALBA ROWELL Reason For Exam: RLE osteomyelitis-Chronic?? 03/12/17 07:27 Consult to Wound/ET Nurse [CONS] Routine Reason For Exam: wound eval Primary care physician: STUDENT LOAN COUNSELOR Hospitalization Condition: Good Hospital course: Patient is a 56-year-old male with past medical history of obesity, hypertension , osteomyelitis, chronic venous stasis ulcers, right lower extremity cellulitis , MRSA cellulitis, peripheral vascular disease, who presents to the Emergency Department with altered mental status. Patient was diagnosed with metabolic encephalopathy, Bilateral lower extremity cellulitis, with R fibular Osteomyelitis, bipolar/schizophrenia, hypertension and peripheral vascular dizziness.CT of the head shows a small extra axial lesion between the inferior aspect of the cerebellar hemispheres may represent a small meningioma. No acute infarcts noted. CT scan of the right lower extremity suggestive lower extremity edema, concerning for cellulitis, with some periosteal elevation of the right distal lower extremity, with osteomyelitis not excluded. He was treated with IVantibiotics, antipsychotic, anticlotting agents and antihypertensive medication. Patient completed a full course of antibiotic. Patient mentastus improved, currently alert and oriented to person,place and time. Patient altered mental status possible due to psychotic disorder Vs extra axial lesion between the inferior aspect of the cerebellar hemispheres. Patient recommenced to get MR brain w/wo contrast but patient left AGAINST MEDICAL ADVICE . Discharged Diagnosed Metabolic encephalopathy Bilateral lower extremity cellulitis, with R fibular Osteomyelitis Bipolar disorder/schizophrenia Hypertension Peripheral vascular disease Disposition: DC-07 LEFT AGAINST MED ADVICE Time spent for discharge: 33 minutes Core Measure Documentation - Palliative Care Palliative Care/ Comfort Measures: Not Applicable - Core Measures Any of the following diagnoses?: none Exam - Constitutional Vitals: Temp Pulse Resp BP Pulse Ox 98.7 F 76 20 127/83 94 03/12/17 09:16 03/12/17 09:16 03/12/17 09:16 03/12/17 09:16 03/12/17 00:00 General appearance: Present: no acute distress - EENT Eyes: Present: PERRL ENT: hearing intact - Neck Neck: Present: supple - Respiratory Respiratory effort: normal Respiratory: bilateral: CTA - Cardiovascular Rhythm: regular Heart Sounds: Present: S1 & S2 - Abdominal General gastrointestinal: Present: soft, non-tender Male genitourinary: Present: deferred - Integumentary Integumentary: Present: clear (Right lower extremity there are chronic venous stasis ulcers and chronic changes, erythema, no tenderness, pus or streaking. Chronic hyperpigmentation and discoloration of left lower extremity), warm - Musculoskeletal Musculoskeletal: strength equal bilaterally - Psychiatric Psychiatric: agitated, other (uncooperative) - Neurologic Neurologic: moves all extremities - Allied Health Allied health notes reviewed: nursing Plan Diet: low fat, low cholesterol Follow up with: PRIMARY CARE, [Primary Care Provider] - 3-5 Days
== END 2017-03-12 17:40 | disposition left against medical advice (07) | DRG 539 ==
LOC: ED 12:33 → EEVIPCON 15:28 → 3A 15:28
PROVIDERS: ADMIT Internal Medicine; ATTEND Internal Medicine
DX: M86.8X8 Other osteomyelitis, other site (principal); G93.41 Metabolic encephalopathy; N17.0 Acute kidney failure with tubular necrosis; L03.116 Cellulitis of left lower limb; L03.115 Cellulitis of right lower limb; Z68.42 Body mass index [BMI] 45.0-49.9, adult; F29 Unspecified psychosis not due to a substance or known physiological condition; I10 Essential (primary) hypertension; I73.9 Peripheral vascular disease, unspecified; F31.9 Bipolar disorder, unspecified; F20.9 Schizophrenia, unspecified; E66.9 Obesity, unspecified; I83.009 Varicose veins of unspecified lower extremity with ulcer of unspecified site; D32.0 Benign neoplasm of cerebral meninges; E78.1 Pure hyperglyceridemia; F41.9 Anxiety disorder, unspecified; Z79.899 Other long term (current) drug therapy; Z82.49 Family history of ischemic heart disease and other diseases of the circulatory system
CPT/HCPCS: 36415; 70450; 71010; 80048; 80307; 80320; 81001; 82140; 82550; 85025; 85652; 86140; 87040; G0480; J1630; J2060; J3486; J7030

== ENCOUNTER 2017-03-16 10:20 | Outpatient (CLI) | payer MEDICARE ==
[2017-03-16] MEDS ORDERED: XYLOCAINE TOPICAL 4% TP ONE (11:15)
== END 2017-03-16 10:21 | disposition home or self-care (01) ==
LOC: WOUND 10:20
PROVIDERS: ATTEND Podiatrist
DX: I87.311 Chronic venous hypertension (idiopathic) with ulcer of right lower extremity (principal); L97.512 Non-pressure chronic ulcer of other part of right foot with fat layer exposed; L97.522 Non-pressure chronic ulcer of other part of left foot with fat layer exposed; L97.312 Non-pressure chronic ulcer of right ankle with fat layer exposed; L97.812 Non-pressure chronic ulcer of other part of right lower leg with fat layer exposed; F41.9 Anxiety disorder, unspecified

== ENCOUNTER 2017-04-23 09:38 | Outpatient (CLI) | payer MEDICARE ==
[~2017-04-23 09:38] MED LIST: AD OINTMENT TP ONE
[2017-04-23] MEDS ORDERED: XYLOCAINE TOPICAL 4% TP ONE ×2 (10:29→10:34)
== END 2017-04-23 09:39 | disposition home or self-care (01) ==
LOC: WOUND 09:38
PROVIDERS: ATTEND Internal Medicine
DX: I87.311 Chronic venous hypertension (idiopathic) with ulcer of right lower extremity (principal); L97.812 Non-pressure chronic ulcer of other part of right lower leg with fat layer exposed; L97.312 Non-pressure chronic ulcer of right ankle with fat layer exposed; L97.512 Non-pressure chronic ulcer of other part of right foot with fat layer exposed; L97.522 Non-pressure chronic ulcer of other part of left foot with fat layer exposed; F41.9 Anxiety disorder, unspecified
CPT/HCPCS: A6250

== ENCOUNTER 2017-05-04 10:41 | Outpatient (CLI) | payer MEDICARE ==
[2017-05-04] MEDS ORDERED: XYLOCAINE TOPICAL 4% TP ONE (11:25)
== END 2017-05-04 10:42 | disposition home or self-care (01) ==
LOC: WOUND 10:41
PROVIDERS: ATTEND Podiatrist
DX: I87.311 Chronic venous hypertension (idiopathic) with ulcer of right lower extremity (principal); L97.312 Non-pressure chronic ulcer of right ankle with fat layer exposed; L97.512 Non-pressure chronic ulcer of other part of right foot with fat layer exposed; L97.522 Non-pressure chronic ulcer of other part of left foot with fat layer exposed; L89.892 Pressure ulcer of other site, stage 2; F41.9 Anxiety disorder, unspecified; Z68.41 Body mass index [BMI] 40.0-44.9, adult

== ENCOUNTER 2017-05-11 10:50 | Outpatient (CLI) | payer MEDICARE ==
[2017-05-11] MEDS ORDERED: XYLOCAINE TOPICAL 4% TP ONE ×2 (11:16→11:26)
[2017-05-11] MEDS ORDERED: AD OINTMENT TP PRN (11:45)
[2017-05-11] MEDS ORDERED: AD OINTMENT TP ONE (11:51)
== END 2017-05-11 10:51 | disposition home or self-care (01) ==
LOC: WOUND 10:50
PROVIDERS: ATTEND Podiatrist
DX: I87.311 Chronic venous hypertension (idiopathic) with ulcer of right lower extremity (principal); L97.812 Non-pressure chronic ulcer of other part of right lower leg with fat layer exposed; L97.312 Non-pressure chronic ulcer of right ankle with fat layer exposed; L97.512 Non-pressure chronic ulcer of other part of right foot with fat layer exposed; L97.522 Non-pressure chronic ulcer of other part of left foot with fat layer exposed; L89.891 Pressure ulcer of other site, stage 1; F41.9 Anxiety disorder, unspecified
CPT/HCPCS: A6250

== ENCOUNTER 2017-05-18 11:37 | Outpatient (CLI) | payer MEDICARE ==
[2017-05-18] MEDS ORDERED: XYLOCAINE TOPICAL 4% TP ONE ×2 (11:55→12:04)
== END 2017-05-18 11:38 | disposition home or self-care (01) ==
LOC: WOUND 11:37
PROVIDERS: ATTEND Podiatrist
DX: I87.311 Chronic venous hypertension (idiopathic) with ulcer of right lower extremity (principal); L97.812 Non-pressure chronic ulcer of other part of right lower leg with fat layer exposed; L97.312 Non-pressure chronic ulcer of right ankle with fat layer exposed; L89.899 Pressure ulcer of other site, unspecified stage; S91.101D Unspecified open wound of right great toe without damage to nail, subsequent encounter; I10 Essential (primary) hypertension; F41.9 Anxiety disorder, unspecified; X58.XXXD Exposure to other specified factors, subsequent encounter
CPT/HCPCS: 87075; 87076; 87116; 87186

== ENCOUNTER 2017-05-25 10:16 | Outpatient (CLI) | payer MEDICARE ==
[2017-05-25] MEDS ORDERED: XYLOCAINE TOPICAL 4% TP ONE (10:28)
== END 2017-05-25 10:17 | disposition home or self-care (01) ==
LOC: WOUND 10:16
PROVIDERS: ATTEND Podiatrist
DX: I87.313 Chronic venous hypertension (idiopathic) with ulcer of bilateral lower extremity (principal); L97.812 Non-pressure chronic ulcer of other part of right lower leg with fat layer exposed; L97.312 Non-pressure chronic ulcer of right ankle with fat layer exposed; L89.891 Pressure ulcer of other site, stage 1; S91.101D Unspecified open wound of right great toe without damage to nail, subsequent encounter; F41.9 Anxiety disorder, unspecified; X58.XXXD Exposure to other specified factors, subsequent encounter

== ENCOUNTER 2017-06-08 11:23 | Outpatient (CLI) | payer MEDICARE ==
[2017-06-08] MEDS ORDERED: XYLOCAINE TOPICAL 4% TP ONE ×2 (11:44→12:00)
== END 2017-06-08 11:24 | disposition home or self-care (01) ==
LOC: WOUND 11:23
PROVIDERS: ATTEND Podiatrist
DX: I87.311 Chronic venous hypertension (idiopathic) with ulcer of right lower extremity (principal); L97.312 Non-pressure chronic ulcer of right ankle with fat layer exposed; L97.812 Non-pressure chronic ulcer of other part of right lower leg with fat layer exposed; S91.101D Unspecified open wound of right great toe without damage to nail, subsequent encounter; L89.892 Pressure ulcer of other site, stage 2; L84 Corns and callosities; F41.9 Anxiety disorder, unspecified; X58.XXXD Exposure to other specified factors, subsequent encounter

== ENCOUNTER 2017-06-08 13:14 | Outpatient (CLI) | payer MEDICARE ==
--- NOTE | 2017-06-08 14:04 | XRay Report ---
Left foot 3 views: History: Infected to the cervical one Findings: The tuft of distal phalanx and the distal phalanx is deformed probably related to old fracture or old infection. There is no lytic lesion or periosteal reaction noted in the present study. There appears to be partial fusion at the interphalangeal joint. Arthritic changes are noted at the first tarsometatarsal joint and the tarsal phalangeal joint. Arthritic changes also noted at the proximal interphalangeal joints of toes and distal interphalangeal joint fourth and fifth toe. There is post operative change is identified the distal second and third toes. There is a large plantar spur noted at the opinion calcaneum and the calcification in the adjacent region. There is arthritic change is noted the dorsal aspect of the intertarsal joints. Impression: Findings as detailed above. No definite evidence of acute osteomyelitis.
== END 2017-06-08 13:15 | disposition home or self-care (01) ==
LOC: XRAY 13:14
PROVIDERS: ATTEND Podiatrist
DX: L97.528 Non-pressure chronic ulcer of other part of left foot with other specified severity (principal); M19.072 Primary osteoarthritis, left ankle and foot; M77.32 Calcaneal spur, left foot; M25.872 Other specified joint disorders, left ankle and foot

== ENCOUNTER 2017-06-15 11:06 | Outpatient (CLI) | payer MEDICARE ==
[2017-06-15] MEDS ORDERED: XYLOCAINE TOPICAL 4% TP ONE (11:36)
== END 2017-06-15 11:07 | disposition home or self-care (01) ==
LOC: WOUND 11:06
PROVIDERS: ATTEND Podiatrist
DX: I87.311 Chronic venous hypertension (idiopathic) with ulcer of right lower extremity (principal); L97.312 Non-pressure chronic ulcer of right ankle with fat layer exposed; L97.812 Non-pressure chronic ulcer of other part of right lower leg with fat layer exposed; S91.101D Unspecified open wound of right great toe without damage to nail, subsequent encounter; L89.891 Pressure ulcer of other site, stage 1; L89.892 Pressure ulcer of other site, stage 2; L97.512 Non-pressure chronic ulcer of other part of right foot with fat layer exposed; L97.522 Non-pressure chronic ulcer of other part of left foot with fat layer exposed; F41.9 Anxiety disorder, unspecified; X58.XXXD Exposure to other specified factors, subsequent encounter

== ENCOUNTER 2017-06-29 11:07 | Outpatient (CLI) | payer MEDICARE ==
[2017-06-29] MEDS ORDERED: XYLOCAINE TOPICAL 4% TP ONE (11:49)
== END 2017-06-29 11:08 | disposition home or self-care (01) ==
LOC: WOUND 11:07
PROVIDERS: ATTEND Podiatrist
DX: I87.311 Chronic venous hypertension (idiopathic) with ulcer of right lower extremity (principal); L97.312 Non-pressure chronic ulcer of right ankle with fat layer exposed; L97.512 Non-pressure chronic ulcer of other part of right foot with fat layer exposed; L97.522 Non-pressure chronic ulcer of other part of left foot with fat layer exposed; F41.9 Anxiety disorder, unspecified

== ENCOUNTER 2017-07-06 10:44 | Outpatient (CLI) | payer MEDICARE ==
[2017-07-06] MEDS ORDERED: XYLOCAINE TOPICAL 4% TP ONE ×2 (11:20→11:29)
== END 2017-07-06 10:45 | disposition home or self-care (01) ==
LOC: WOUND 10:44
PROVIDERS: ATTEND Internal Medicine
DX: I87.311 Chronic venous hypertension (idiopathic) with ulcer of right lower extremity (principal); L97.312 Non-pressure chronic ulcer of right ankle with fat layer exposed; L97.512 Non-pressure chronic ulcer of other part of right foot with fat layer exposed; L97.522 Non-pressure chronic ulcer of other part of left foot with fat layer exposed; L89.891 Pressure ulcer of other site, stage 1; F41.9 Anxiety disorder, unspecified

== ENCOUNTER 2017-07-20 10:40 | Outpatient (CLI) | payer MEDICARE ==
[2017-07-20] MEDS ORDERED: XYLOCAINE TOPICAL 4% TP ONE ×2 (11:22→11:25)
== END 2017-07-20 10:41 | disposition home or self-care (01) ==
LOC: WOUND 10:40
PROVIDERS: ATTEND Podiatrist
DX: I87.311 Chronic venous hypertension (idiopathic) with ulcer of right lower extremity (principal); L97.312 Non-pressure chronic ulcer of right ankle with fat layer exposed; L97.512 Non-pressure chronic ulcer of other part of right foot with fat layer exposed; L97.522 Non-pressure chronic ulcer of other part of left foot with fat layer exposed; F41.9 Anxiety disorder, unspecified

== ENCOUNTER 2017-07-27 10:54 | Outpatient (CLI) | payer MEDICARE ==
[2017-07-27] MEDS ORDERED: XYLOCAINE TOPICAL 4% TP ONE ×2 (11:34→11:35)
== END 2017-07-27 10:55 | disposition home or self-care (01) ==
LOC: WOUND 10:54
PROVIDERS: ATTEND Podiatrist
DX: L97.812 Non-pressure chronic ulcer of other part of right lower leg with fat layer exposed (principal); L97.312 Non-pressure chronic ulcer of right ankle with fat layer exposed; L97.512 Non-pressure chronic ulcer of other part of right foot with fat layer exposed; L97.522 Non-pressure chronic ulcer of other part of left foot with fat layer exposed; I87.311 Chronic venous hypertension (idiopathic) with ulcer of right lower extremity; F41.9 Anxiety disorder, unspecified
CPT/HCPCS: 87075; 87116; 87186

== ENCOUNTER 2017-08-31 10:07 | Outpatient (CLI) | payer MEDICARE ==
[2017-08-31] MEDS ORDERED: XYLOCAINE TOPICAL 4% TP ONE ×2 (10:56→13:00)
== END 2017-08-31 10:08 | disposition home or self-care (01) ==
LOC: WOUND 10:07
PROVIDERS: ATTEND Podiatrist
DX: I87.311 Chronic venous hypertension (idiopathic) with ulcer of right lower extremity (principal); L97.312 Non-pressure chronic ulcer of right ankle with fat layer exposed; L97.512 Non-pressure chronic ulcer of other part of right foot with fat layer exposed; L97.812 Non-pressure chronic ulcer of other part of right lower leg with fat layer exposed; L97.522 Non-pressure chronic ulcer of other part of left foot with fat layer exposed; L84 Corns and callosities; I10 Essential (primary) hypertension; F41.9 Anxiety disorder, unspecified
CPT/HCPCS: 11056

== ENCOUNTER 2017-09-21 12:09 | Outpatient (CLI) | payer MEDICARE ==
[2017-09-21] MEDS ORDERED: XYLOCAINE TOPICAL 4% TP ONE ×2 (13:00)
== END 2017-09-21 12:10 | disposition home or self-care (01) ==
LOC: WOUND 12:09
PROVIDERS: ATTEND Podiatrist
DX: I87.311 Chronic venous hypertension (idiopathic) with ulcer of right lower extremity (principal); L97.312 Non-pressure chronic ulcer of right ankle with fat layer exposed; L97.522 Non-pressure chronic ulcer of other part of left foot with fat layer exposed; L97.512 Non-pressure chronic ulcer of other part of right foot with fat layer exposed; L97.812 Non-pressure chronic ulcer of other part of right lower leg with fat layer exposed; L40.9 Psoriasis, unspecified; L84 Corns and callosities; F41.9 Anxiety disorder, unspecified
CPT/HCPCS: 11056

== ENCOUNTER 2017-09-28 10:11 | Outpatient (CLI) | payer MEDICARE ==
[2017-09-28] MEDS ORDERED: XYLOCAINE TOPICAL 4% TP ONE (10:51)
== END 2017-09-28 10:12 | disposition home or self-care (01) ==
LOC: WOUND 10:11
PROVIDERS: ATTEND Podiatrist
DX: I87.311 Chronic venous hypertension (idiopathic) with ulcer of right lower extremity (principal); L97.312 Non-pressure chronic ulcer of right ankle with fat layer exposed; L97.512 Non-pressure chronic ulcer of other part of right foot with fat layer exposed; L97.522 Non-pressure chronic ulcer of other part of left foot with fat layer exposed; L40.9 Psoriasis, unspecified; L84 Corns and callosities; F41.9 Anxiety disorder, unspecified

== ENCOUNTER 2017-10-19 10:15 | Outpatient (CLI) | payer MEDICARE ==
[2017-10-19] MEDS ORDERED: XYLOCAINE TOPICAL 4% TP ONE ×2 (11:00→11:24)
[2017-10-19] MEDS ORDERED: SILVER NITRATE TP ONE ×2 (11:57→13:00)
== END 2017-10-19 10:16 | disposition home or self-care (01) ==
LOC: WOUND 10:15
PROVIDERS: ATTEND Surgery
DX: I87.311 Chronic venous hypertension (idiopathic) with ulcer of right lower extremity (principal); L97.312 Non-pressure chronic ulcer of right ankle with fat layer exposed; L97.512 Non-pressure chronic ulcer of other part of right foot with fat layer exposed; L97.812 Non-pressure chronic ulcer of other part of right lower leg with fat layer exposed; L40.9 Psoriasis, unspecified; F41.9 Anxiety disorder, unspecified
CPT/HCPCS: 87075; 87076; 87116; 87186

== ENCOUNTER 2017-10-26 10:46 | Outpatient (CLI) | payer MEDICARE ==
[2017-10-26] MEDS ORDERED: XYLOCAINE TOPICAL 4% TP ONE (11:15)
[2017-10-26] MEDS ORDERED: SILVER NITRATE TP ONE (11:55)
== END 2017-10-26 10:47 | disposition home or self-care (01) ==
LOC: WOUND 10:46
PROVIDERS: ATTEND Surgery
DX: I87.311 Chronic venous hypertension (idiopathic) with ulcer of right lower extremity (principal); L97.312 Non-pressure chronic ulcer of right ankle with fat layer exposed; L97.512 Non-pressure chronic ulcer of other part of right foot with fat layer exposed; S91.302A Unspecified open wound, left foot, initial encounter; I10 Essential (primary) hypertension; L40.9 Psoriasis, unspecified; F41.9 Anxiety disorder, unspecified; X58.XXXA Exposure to other specified factors, initial encounter; Y93.89 Activity, other specified; Y92.89 Other specified places as the place of occurrence of the external cause; Y99.8 Other external cause status

== ENCOUNTER 2017-11-16 11:18 | Outpatient (CLI) | payer MEDICARE ==
[2017-11-16] MEDS ORDERED: XYLOCAINE TOPICAL 4% TP ONE ×2 (13:33→14:08)
[2017-11-16] MEDS ORDERED: SILVER NITRATE TP ONE (14:33)
== END 2017-11-16 11:19 | disposition home or self-care (01) ==
LOC: WOUND 11:18
PROVIDERS: ATTEND Surgery
DX: I87.311 Chronic venous hypertension (idiopathic) with ulcer of right lower extremity (principal); L97.312 Non-pressure chronic ulcer of right ankle with fat layer exposed; L97.512 Non-pressure chronic ulcer of other part of right foot with fat layer exposed; L89.899 Pressure ulcer of other site, unspecified stage; S91.302D Unspecified open wound, left foot, subsequent encounter; I10 Essential (primary) hypertension; L40.9 Psoriasis, unspecified; F41.9 Anxiety disorder, unspecified; X58.XXXD Exposure to other specified factors, subsequent encounter

== ENCOUNTER 2017-11-30 11:01 | Outpatient (CLI) | payer MEDICARE ==
[2017-11-30] MEDS ORDERED: XYLOCAINE TOPICAL 4% TP ONE ×2 (12:05→12:13)
== END 2017-11-30 11:02 | disposition home or self-care (01) ==
LOC: WOUND 11:01
PROVIDERS: ATTEND Surgery
DX: I87.311 Chronic venous hypertension (idiopathic) with ulcer of right lower extremity (principal); L97.312 Non-pressure chronic ulcer of right ankle with fat layer exposed; L97.512 Non-pressure chronic ulcer of other part of right foot with fat layer exposed; I10 Essential (primary) hypertension; L40.9 Psoriasis, unspecified; F41.9 Anxiety disorder, unspecified

== ENCOUNTER 2017-12-14 09:34 | Outpatient (CLI) | payer MEDICARE ==
[2017-12-14] MEDS ORDERED: XYLOCAINE TOPICAL 4% TP ONE ×2 (09:49→12:32)
== END 2017-12-14 09:35 | disposition home or self-care (01) ==
LOC: WOUND 09:34
PROVIDERS: ATTEND Surgery
DX: I87.311 Chronic venous hypertension (idiopathic) with ulcer of right lower extremity (principal); L97.312 Non-pressure chronic ulcer of right ankle with fat layer exposed; L97.512 Non-pressure chronic ulcer of other part of right foot with fat layer exposed; L40.9 Psoriasis, unspecified; F41.9 Anxiety disorder, unspecified; Z68.41 Body mass index [BMI] 40.0-44.9, adult
CPT/HCPCS: 87075; 87076; 87116; 87186

== ENCOUNTER 2017-12-21 15:05 | Emergency (ER) | payer MEDICARE ==
[2017-12-21 20:02] VITALS: BP 148/84
--- NOTE | 2017-12-21 20:54 | Emergency Department Report ---
ED General Adult HPI - General Chief complaint: Upper Respiratory Infection Stated complaint: SICK Time Seen by Provider: 12/21/17 20:33 Source: patient Mode of arrival: Ambulatory Limitations: No Limitations - History of Present Illness Initial comments: 57-year-old male with a past medical history of schizophrenia, anxiety , vascular problems in both lower extremities, hyperlipidemia. Patient reports in for complaints of bodyaches sneezing and coughing, runny nose sore throat. Patient is currently on doxycycline for right lower leg cellulitis. Patient reports that he did make contact with his primary care provider and she told him if he gets worse to just come to the emergency room. Patient reports that these issues started on Sunday. Patient denies any fever but does report he gets cold. -: days(s) (4) Severity scale (0 -10): 8 Associated Symptoms: cough. denies: headaches, loss of appetite, nausea/ vomiting - Related Data Home Medications Medication Instructions Recorded Confirmed Last Taken Fenofibrate Nanocrystallized 1 tab PO DAILY 11/13/16 01/21/17 01/21/17 [Fenofibrate] Lisinopril/Hydrochlorothiazide 10 - 12.5 tab PO QDAY 11/13/16 03/12/17 01/21/17 [Zestoretic 20-12.5 mg] diphenhydrAMINE [Benadryl CAP] 25 mg PO PRN 03/12/17 03/12/17 Unknown Previous Rx's Medication Instructions Recorded Last Taken Type Sertraline [Zoloft] 100 mg PO QDAY #30 tablet 11/17/16 01/21/17 Rx Ciprofloxacin HCl [Ciprofloxacin 500 mg PO Q12HR 12 Days tab 01/25/17 Unknown Rx TAB] Doxycycline Hyclate [Doxycycline 100 mg PO Q12HR 12 Days tab 01/25/17 Unknown Rx Hyclate TAB] Levocetirizine Dihydrochloride 5 mg PO QDAY #30 tablet 12/21/17 Unknown Rx Allergies Allergy/AdvReac Type Severity Reaction Status Date / Time No Known Allergies Allergy Verified 01/21/17 22:29 ED Review of Systems ROS: Stated complaint: SICK Other details as noted in HPI ED Past Medical Hx - Past Medical History Hx Hypertension: Yes Hx Congestive Heart Failure: No Hx Diabetes: No Hx Psychiatric Treatment: Yes (schizophrenia, anxiety) Hx Asthma: No Hx COPD: No Additional medical history: Vascular problems in both lower ext,high cholesterol - Surgical History Additional Surgical History: Vascular surgery on 10/25/16 R lower ext. - Social History Smoking Status: Never Smoker Substance Use Type: None - Medications Home Medications: Home Medications Medication Instructions Recorded Confirmed Last Taken Type Fenofibrate Nanocrystallized 1 tab PO DAILY 11/13/16 01/21/17 01/21/17 History [Fenofibrate] Lisinopril/Hydrochlorothiazide 10 - 12.5 tab PO QDAY 11/13/16 03/12/17 01/21/17 History [Zestoretic 20-12.5 mg] Sertraline [Zoloft] 100 mg PO QDAY #30 tablet 11/17/16 03/12/17 01/21/17 Rx Ciprofloxacin HCl [Ciprofloxacin 500 mg PO Q12HR 12 Days tab 01/25/17 Unknown Rx TAB] Doxycycline Hyclate [Doxycycline 100 mg PO Q12HR 12 Days tab 01/25/17 Unknown Rx Hyclate TAB] diphenhydrAMINE [Benadryl CAP] 25 mg PO PRN 03/12/17 03/12/17 Unknown History Levocetirizine Dihydrochloride 5 mg PO QDAY #30 tablet 12/21/17 Unknown Rx ED Physical Exam - General Limitations: No Limitations General appearance: alert, in no apparent distress - Head Head exam: Present: atraumatic, normocephalic - ENT ENT exam: Present: mucous membranes moist - Neck Neck exam: Present: normal inspection - Respiratory Respiratory exam: Present: normal lung sounds bilaterally. Absent: respiratory distress - Cardiovascular Cardiovascular Exam: Present: regular rate, normal rhythm. Absent: systolic murmur, diastolic murmur, rubs, gallop - GI/Abdominal GI/Abdominal exam: Present: soft, normal bowel sounds - Neurological Exam Neurological exam: Present: alert, oriented X3 - Psychiatric Psychiatric exam: Present: normal affect, normal mood - Skin Skin exam: Present: warm, dry, intact, normal color. Absent: rash ED Course Vital Signs 12/21/17 12/21/17 15:23 20:00 Temperature 99.1 F 97.5 F L Pulse Rate 79 64 Respiratory 16 18 Rate Blood Pressure 126/55 Blood Pressure 148/84 [Right] O2 Sat by Pulse 95 97 Oximetry Critical care attestation.: If time is entered above; I have spent that time in minutes in the direct care of this critically ill patient, excluding procedure time. ED Disposition Clinical Impression: Allergic rhinitis Qualifiers: Allergic rhinitis trigger: unspecified Allergic rhinitis seasonality: unspecified Qualified Code(s): J30.9 - Allergic rhinitis, unspecified Disposition: TO HOME OR SELFCARE Is pt being admited?: No Does the pt Need Aspirin: No Condition: Stable Instructions: Allergic Rhinitis (ED) Additional Instructions: Please take medications as prescribed. If her symptoms persist or gets worse please follow-up with your primary care provider. Prescriptions: Levocetirizine Dihydrochloride 5 mg PO QDAY #30 tablet Referrals: PRIMARY CARE,MD [Primary Care Provider] - 3-5 Days Your, provider [Other] - 3-5 Days
== END 2017-12-21 21:07 | disposition home or self-care (01) ==
LOC: ED 15:05
DX: J30.9 Allergic rhinitis, unspecified (principal); I10 Essential (primary) hypertension
CPT/HCPCS: 99283

== ENCOUNTER 2017-12-28 09:52 | Outpatient (CLI) | payer MEDICARE ==
[2017-12-28] MEDS ORDERED: XYLOCAINE TOPICAL 4% TP ONE ×2 (09:59→11:44)
== END 2017-12-28 09:53 | disposition home or self-care (01) ==
LOC: WOUND 09:52
PROVIDERS: ATTEND Surgery
DX: I87.311 Chronic venous hypertension (idiopathic) with ulcer of right lower extremity (principal); L97.312 Non-pressure chronic ulcer of right ankle with fat layer exposed; L97.512 Non-pressure chronic ulcer of other part of right foot with fat layer exposed; L40.9 Psoriasis, unspecified; F41.9 Anxiety disorder, unspecified; Z68.41 Body mass index [BMI] 40.0-44.9, adult

== ENCOUNTER 2018-01-04 10:07 | Outpatient (CLI) | payer MEDICARE ==
[2018-01-04] MEDS ORDERED: XYLOCAINE TOPICAL 4% TP ONE ×2 (10:34→10:58)
== END 2018-01-04 10:08 | disposition home or self-care (01) ==
LOC: WOUND 10:07
PROVIDERS: ATTEND Surgery
DX: I87.311 Chronic venous hypertension (idiopathic) with ulcer of right lower extremity (principal); L97.312 Non-pressure chronic ulcer of right ankle with fat layer exposed; L97.811 Non-pressure chronic ulcer of other part of right lower leg limited to breakdown of skin; L97.512 Non-pressure chronic ulcer of other part of right foot with fat layer exposed; L40.9 Psoriasis, unspecified; F41.9 Anxiety disorder, unspecified

== ENCOUNTER 2018-01-25 10:13 | Outpatient (CLI) | payer MEDICARE ==
[2018-01-25] MEDS ORDERED: XYLOCAINE TOPICAL 4% TP ONE ×2 (10:41→16:11)
== END 2018-01-25 10:14 | disposition home or self-care (01) ==
LOC: WOUND 10:13
PROVIDERS: ATTEND Surgery
DX: I87.311 Chronic venous hypertension (idiopathic) with ulcer of right lower extremity (principal); L97.312 Non-pressure chronic ulcer of right ankle with fat layer exposed; L97.811 Non-pressure chronic ulcer of other part of right lower leg limited to breakdown of skin; L97.512 Non-pressure chronic ulcer of other part of right foot with fat layer exposed; L40.9 Psoriasis, unspecified; F41.9 Anxiety disorder, unspecified
CPT/HCPCS: 29581

== ENCOUNTER 2018-02-12 13:08 | Outpatient (CLI) | payer MEDICARE | END 2018-02-12 13:09 | disposition home or self-care (01) | LOC: WOUND 13:08 | PROVIDERS: ATTEND Surgery | DX: I87.311 Chronic venous hypertension (idiopathic) with ulcer of right lower extremity (principal); L97.312 Non-pressure chronic ulcer of right ankle with fat layer exposed; L97.811 Non-pressure chronic ulcer of other part of right lower leg limited to breakdown of skin; L97.512 Non-pressure chronic ulcer of other part of right foot with fat layer exposed; L40.9 Psoriasis, unspecified; F41.9 Anxiety disorder, unspecified | CPT/HCPCS: 29580 ==

== ENCOUNTER 2018-02-15 10:13 | Outpatient (CLI) | payer MEDICARE ==
[2018-02-15] MEDS ORDERED: XYLOCAINE TOPICAL 4% TP ONE ×2 (10:41→12:59)
== END 2018-02-15 10:14 | disposition home or self-care (01) ==
LOC: WOUND 10:13
PROVIDERS: ATTEND Surgery
DX: I87.311 Chronic venous hypertension (idiopathic) with ulcer of right lower extremity (principal); L97.312 Non-pressure chronic ulcer of right ankle with fat layer exposed; L97.811 Non-pressure chronic ulcer of other part of right lower leg limited to breakdown of skin; L97.512 Non-pressure chronic ulcer of other part of right foot with fat layer exposed; L40.9 Psoriasis, unspecified; F41.9 Anxiety disorder, unspecified
CPT/HCPCS: 29580

== ENCOUNTER 2018-02-19 14:04 | Outpatient (CLI) | payer MEDICARE | END 2018-02-19 14:05 | disposition home or self-care (01) | LOC: WOUND 14:04 | PROVIDERS: ATTEND Surgery | DX: I87.311 Chronic venous hypertension (idiopathic) with ulcer of right lower extremity (principal); L97.312 Non-pressure chronic ulcer of right ankle with fat layer exposed; L97.811 Non-pressure chronic ulcer of other part of right lower leg limited to breakdown of skin; L97.512 Non-pressure chronic ulcer of other part of right foot with fat layer exposed; L40.9 Psoriasis, unspecified; F41.9 Anxiety disorder, unspecified | CPT/HCPCS: 29580 ==

== ENCOUNTER 2018-02-22 12:56 | Inpatient (IN) | payer MEDICARE ==
[2018-02-22 13:47] LABS: Basophils # (Auto) 0.1 K/mm3 (0.0-0.1); Basophils % (Auto) 1.2 % (0.0-1.8); Eosinophils # (Auto) 0.3 K/mm3 (0.0-0.4); Eosinophils % (Auto) 3.8 % (0.0-4.3); Hematocrit 33.3 % (35.5-45.6); Hemoglobin 11.5 gm/dl (11.8-15.2); Lymphocytes # (Auto) 1.6 K/mm3 (1.2-5.4); Lymphocytes % (Auto) 20.5 % (13.4-35.0); Mean Corpuscular HGB Conc 35 % (32-34); Mean Corpuscular Hemoglobin 29 pg (28-32); Mean Corpuscular Volume 85 fl (84-94); Monocytes # (Auto) 0.5 K/mm3 (0.0-0.8); Monocytes % (Auto) 6.2 % (0.0-7.3); Platelet Count 234 K/mm3 (140-440); Red Blood Count 3.92 M/mm3 (3.65-5.03); Red Cell Distribution Width 14.3 % (13.2-15.2)
[2018-02-22 14:02] LABS: Bacteria,Urine 1+ /HPF (Negative); Bilirubin,Urine NEG (Negative); Blood,Urine NEG (Negative); Color,Urine Yellow (Yellow); Hyaline Casts,Urine 4 /LPF; Mucus,Urine FEW /HPF; Urobilinogen,Urine < 2.0 mg/dL (<2.0)
[2018-02-22 14:09] LABS: Albumin 4.3 g/dL (3.9-5); Calcium 9.7 mg/dL (8.4-10.2)
[2018-02-22] MEDS ORDERED: VANCOMYCIN 2,000 MG in NACL 0.9% 500 ML 500 ML IV ONE (22:40)
[2018-02-22] MEDS ORDERED: NACL 0.9% 1000 ML 1,000 ML IV ONE (22:40)
--- NOTE | 2018-02-22 22:41 | Emergency Department Report ---
ED Lower Extremity HPI - General Chief Complaint: Extremity Problem,Nontraumatic Stated Complaint: CHEST PAIN Time Seen by Provider: 02/22/18 21:57 Source: patient, RN notes reviewed, old records reviewed Mode of arrival: Ambulatory Limitations: No Limitations - History of Present Illness Initial Comments: This is a 57-year-old gentleman whom I evaluated in the past. His past medical history includes obesity, hypertension, osteomyelitis, chronic venous stasis ulcers, MRSA cellulitis, peripheral vascular disease. He is sent to the ER by his infectious disease specialist, Dr. Yancey, for admission for presumed right great toe osteomyelitis, recently diagnosed on outpatient x-ray. The patient has no medical complaints at this time. MD Complaint: other -: unknown Injury: Toes: Right Type of Injury: unknown Place: other - Related Data Home Medications Medication Instructions Recorded Confirmed Last Taken Fenofibrate Nanocrystallized 1 tab PO DAILY 11/13/16 01/21/17 01/21/17 [Fenofibrate] Lisinopril/Hydrochlorothiazide 10 - 12.5 tab PO QDAY 11/13/16 03/12/17 01/21/17 [Zestoretic 20-12.5 mg] diphenhydrAMINE [Benadryl CAP] 25 mg PO PRN 03/12/17 03/12/17 Unknown Previous Rx's Medication Instructions Recorded Last Taken Type Sertraline [Zoloft] 100 mg PO QDAY #30 tablet 11/17/16 01/21/17 Rx Ciprofloxacin HCl [Ciprofloxacin 500 mg PO Q12HR 12 Days tab 01/25/17 Unknown Rx TAB] Doxycycline Hyclate [Doxycycline 100 mg PO Q12HR 12 Days tab 01/25/17 Unknown Rx Hyclate TAB] Levocetirizine Dihydrochloride 5 mg PO QDAY #30 tablet 12/21/17 Unknown Rx Allergies Allergy/AdvReac Type Severity Reaction Status Date / Time No Known Allergies Allergy Verified 01/21/17 22:29 ED Review of Systems ROS: Stated complaint: CHEST PAIN Other details as noted in HPI Constitutional: denies: fever Eyes: denies: eye discharge ENT: denies: epistaxis Respiratory: denies: cough Cardiovascular: denies: chest pain Gastrointestinal: denies: abdominal pain Genitourinary: denies: frequency Skin: rash (chronic discoloration, chronic lesion) Neurological: denies: weakness ED Past Medical Hx - Past Medical History Hx Hypertension: Yes Hx Congestive Heart Failure: No Hx Diabetes: No Hx Psychiatric Treatment: Yes (schizophrenia, anxiety) Hx Asthma: No Hx COPD: No Additional medical history: Vascular problems in both lower ext,high cholesterol - Surgical History Additional Surgical History: Vascular surgery on 10/25/16 R lower ext. - Social History Smoking Status: Never Smoker Substance Use Type: None - Medications Home Medications: Home Medications Medication Instructions Recorded Confirmed Last Taken Type Fenofibrate Nanocrystallized 1 tab PO DAILY 11/13/16 01/21/17 01/21/17 History [Fenofibrate] Lisinopril/Hydrochlorothiazide 10 - 12.5 tab PO QDAY 11/13/16 03/12/17 01/21/17 History [Zestoretic 20-12.5 mg] Sertraline [Zoloft] 100 mg PO QDAY #30 tablet 11/17/16 03/12/17 01/21/17 Rx Ciprofloxacin HCl [Ciprofloxacin 500 mg PO Q12HR 12 Days tab 01/25/17 Unknown Rx TAB] Doxycycline Hyclate [Doxycycline 100 mg PO Q12HR 12 Days tab 01/25/17 Unknown Rx Hyclate TAB] diphenhydrAMINE [Benadryl CAP] 25 mg PO PRN 03/12/17 03/12/17 Unknown History Levocetirizine Dihydrochloride 5 mg PO QDAY #30 tablet 12/21/17 Unknown Rx ED Physical Exam - General Limitations: No Limitations General appearance: alert, in no apparent distress - Head Head exam: Present: atraumatic, normocephalic - Eye Eye exam: Present: normal appearance, EOMI. Absent: nystagmus - ENT ENT exam: Present: normal exam, normal orophraynx, mucous membranes moist, normal external ear exam - Neck Neck exam: Present: normal inspection, full ROM. Absent: tenderness, meningismus - Respiratory Respiratory exam: Present: normal lung sounds bilaterally. Absent: respiratory distress - Cardiovascular Cardiovascular Exam: Present: regular rate, normal rhythm, normal heart sounds. Absent: bradycardia, tachycardia, irregular rhythm, systolic murmur, diastolic murmur, rubs, gallop - GI/Abdominal GI/Abdominal exam: Present: soft. Absent: distended, tenderness, guarding, rebound, rigid, pulsatile mass - Rectal Rectal exam: Present: deferred - Extremities Exam Extremities exam: Present: other (2+ pulses noted in the bilateral upper extremities. 2+ pulses noted in the right lower extremity. Chronic discoloration noted, chronic venous stasis ulcers noted. There is no lower extremity redness, warmth, pus or tenderness.). Absent: tenderness, calf tenderness - Back Exam Back exam: Present: normal inspection, full ROM. Absent: tenderness, CVA tenderness (R), paraspinal tenderness, vertebral tenderness - Neurological Exam Neurological exam: Present: alert, oriented X3, CN II-XII intact, other ( Extraocular movements intact. Tongue midline. No facial droop. Facial sensation intact to light touch in the V1, V2, V3 distribution bilaterally. 5 and 5 strength in 4 extremities.. Sensation is intact to light touch in 4 extremities.). Absent: motor sensory deficit - Psychiatric Psychiatric exam: Present: normal affect, normal mood - Skin Skin exam: Present: warm ED Course Vital Signs 02/22/18 02/22/18 13:21 17:42 Temperature 98 F 98.1 F Pulse Rate 82 67 Respiratory 16 24 Rate Blood Pressure 102/60 Blood Pressure 137/65 [Right] O2 Sat by Pulse 95 97 Oximetry ED Lower Extremity MDM - Lab Data Result diagrams: 02/22/18 13:38 02/22/18 13:38 Vital Signs 02/22/18 02/22/18 13:21 17:42 Temperature 98 F 98.1 F Pulse Rate 82 67 Respiratory 16 24 Rate Blood Pressure 102/60 Blood Pressure 137/65 [Right] O2 Sat by Pulse 95 97 Oximetry Lab Results 02/22/18 02/22/18 02/22/18 Range/Units 13:38 13:38 13:48 WBC 7.9 (4.5-11.0) K/mm3 RBC 3.92 (3.65-5.03) M/mm3 Hgb 11.5 L (11.8-15.2) gm/dl Hct 33.3 L (35.5-45.6) % MCV 85 (84-94) fl MCH 29 (28-32) pg MCHC 35 H (32-34) % RDW 14.3 (13.2-15.2) % Plt Count 234 (140-440) K/mm3 Lymph % (Auto) 20.5 (13.4-35.0) % [place] % (Auto) 6.2 (0.0-7.3) % Eos % (Auto) 3.8 (0.0-4.3) % Baso % (Auto) 1.2 (0.0-1.8) % Lymph # 1.6 (1.2-5.4) K/mm3 [place] # 0.5 (0.0-0.8) K/mm3 Eos # 0.3 (0.0-0.4) K/mm3 Baso # 0.1 (0.0-0.1) K/mm3 Seg Neutrophils % 68.3 (40.0-70.0) % Seg Neutrophils # 5.4 (1.8-7.7) K/mm3 Sodium 138 (137-145) mmol/L Potassium 4.2 (3.6-5.0) mmol/L Chloride 104.5 (98-107) mmol/L Carbon Dioxide 18 L (22-30) mmol/L Anion Gap 20 mmol/L BUN 37 H (9-20) mg/dL Creatinine 1.7 H (0.8-1.5) mg/dL Estimated GFR 42 ml/min BUN/Creatinine Ratio 22 % Glucose 131 H (75-100) mg/dL Calcium 9.7 (8.4-10.2) mg/dL Total Bilirubin 0.30 (0.1-1.2) mg/dL AST 24 (5-40) units/L ALT 19 (7-56) units/L Alkaline Phosphatase 73 (35-129) units/L Total Protein 8.5 H (6.3-8.2) g/dL Albumin 4.3 (3.9-5) g/dL Albumin/Globulin Ratio 1.0 % Urine Color Yellow (Yellow) Urine Turbidity Slightly-cloudy (Clear) Urine pH 5.0 (5.0-7.0) Ur Specific [place] 1.016 (1.003-1.030) Urine Protein 30 mg/dl (Negative) mg/dL Urine Glucose (UA) Neg (Negative) mg/dL Urine Ketones Neg (Negative) mg/dL Urine Blood Neg (Negative) Urine Nitrite Neg (Negative) Urine Bilirubin Neg (Negative) Urine Urobilinogen < 2.0 (<2.0) mg/dL Ur Leukocyte Esterase Lg (Negative) Urine WBC (Auto) 46.0 H (0.0-6.0) /HPF Urine RBC (Auto) 5.0 (0.0-6.0) /HPF U Epithel Cells (Auto) 2.0 (0-13.0) /HPF Urine Bacteria (Auto) 1+ (Negative) /HPF Hyaline Casts 4 /LPF Urine Mucus Few /HPF - Radiology Data Radiology results: report reviewed, image reviewed Recent outpatient x-ray suggested right great toe osteomyelitis - Medical Decision Making Differential diagnosis, including but not limited to: Dehydration, renal insufficiency, right great toe osteomyelitis, peripheral artery disease Assessment and plan: 57-year-old gentleman with known history of MRSA osteomyelitis and soft tissue infection symptoms the ER for admission by his infectious disease specialist, Dr. Yancey, for presumed right great toe osteomyelitis. He'll be placed on contact isolation, started empirically on vancomycin. An infectious disease consult has been placed in the computer by myself, but they do not require an emergency phone call at 11:00 in the evening. In addition, the infectious disease specialist is already aware of the patient, as she has sent the patient to the ER with a handwritten note with instructions to consult and admit. I will defer to the inpatient team to further follow this up. Dr. Mims accepted the patient to the medical service quite graciously. He will be given IV fluids for his mild renal insufficiency. He endorses no urinary symptoms to this provider. Critical care attestation.: If time is entered above; I have spent that time in minutes in the direct care of this critically ill patient, excluding procedure time. ED Disposition Clinical Impression: Osteomyelitis, TERESA (acute kidney injury) Disposition: OP ADMIT IP TO THIS HOSP Is pt being admited?: Yes Condition: Good Referrals: GORDON BECK MD [Primary Care Provider] - 3-5 Days
--- NOTE | 2018-02-22 23:40 | History and Physical Report ---
History of Present Illness Date of examination: 02/22/18 History of present illness: 57-year-old male with a history of hypertension, hyperlipidemia, peripheral vascular disease, venous stasis, bipolar, obesity was sent to the emergency room by his infectious disease doctor for IV antibiotics for osteomyelitis of his toe. The patient has been on antibiotic for one month doubt significant improvement of his toe Review of systems Constitutional: no weight loss, chills, fever Ears, eyes, nose, mouth and throat: no nasal congestion, no nasal discharge, no sinus pressure, no vision change, no red eye. Neck: No neck pain or rigidity. Cardiovascular: no chest pain, palpitations Respiratory: no cough, shortness of breath Gastrointestinal: no abdominal pain hematochezia Genitourinary : no frequency , no hematuria Musculoskeletal: no joint swelling or muscle ache Integumentary: no rash, no pruritis Neurological: no parathesias, no numbness, no focal weakness Endocrine: no cold or heat intolerance, no polyuria or polydipsia Hematologic/Lymphatic: no easy bruising, no easy bleeding, no gland swelling Allergic/Immunologic: no urticaria, no angioedema. PAST MEDICAL HISTORY: hypertension, hyperlipidemia, peripheral vascular disease , venous stasis, bipolar, obesity PAST SURGICAL HISTORY: None SOCIAL HISTORY: No alcohol, no drugs, tobacco FAMILY HISTORY: Hypertension Medications and Allergies Allergies Allergy/AdvReac Type Severity Reaction Status Date / Time No Known Allergies Allergy Verified 01/21/17 22:29 Home Medications Medication Instructions Recorded Confirmed Last Taken Type Fenofibrate Nanocrystallized 1 tab PO DAILY 11/13/16 01/21/17 01/21/17 History [Fenofibrate] Lisinopril/Hydrochlorothiazide 10 - 12.5 tab PO QDAY 11/13/16 03/12/17 01/21/17 History [Zestoretic 20-12.5 mg] Sertraline [Zoloft] 100 mg PO QDAY #30 tablet 11/17/16 03/12/17 01/21/17 Rx Ciprofloxacin HCl [Ciprofloxacin 500 mg PO Q12HR 12 Days tab 01/25/17 Unknown Rx TAB] Doxycycline Hyclate [Doxycycline 100 mg PO Q12HR 12 Days tab 01/25/17 Unknown Rx Hyclate TAB] diphenhydrAMINE [Benadryl CAP] 25 mg PO PRN 03/12/17 03/12/17 Unknown History Levocetirizine Dihydrochloride 5 mg PO QDAY #30 tablet 12/21/17 Unknown Rx Active Meds: Active Medications Vancomycin HCl 2,000 mg/ (Sodium Chloride) 520 mls @ 333 mls/hr IV ONCE ONE; Protocol Stop: 02/23/18 00:15 Exam - Physical Exam Narrative exam: Gen. appearance: Patient lying in bed, no apparent distress HEENT: Normocephalic, atraumatic, pupils equally round and reactive to light, extraocular movement intact, and no sclericterus,. No JVD or thyromegaly or nodule,neck supple, no carotid bruit ,mucous membranes moist, no exudate or erythema Heart: S1, S2, regular rate and rhythm Lungs: Clear bilaterally, breathing comfortable Abdomen: Positive bowel sounds, non-tender, nondistended, no organomegaly Extremity: Lower extremity ulcer, right great toe swelling, erythema, no edema cyanosis, clubbing Skin: no rash, dry, warm Neuro: Oriented 3, cranial nerves II-12 intact, speech is fluent, motor and sensory intact - Constitutional Vitals: Temp Pulse Resp BP Pulse Ox 98.1 F 67 24 137/65 97 02/22/18 17:42 02/22/18 17:42 02/22/18 17:42 02/22/18 17:42 02/22/18 17:42 Results - Labs CBC & Chem 7: 02/22/18 13:38 02/22/18 13:38 Labs: Abnormal lab results 02/22/18 02/22/18 02/22/18 Range/Units 13:38 13:38 13:48 Hgb 11.5 L (11.8-15.2) gm/dl Hct 33.3 L (35.5-45.6) % MCHC 35 H (32-34) % Carbon Dioxide 18 L (22-30) mmol/L BUN 37 H (9-20) mg/dL Creatinine 1.7 H (0.8-1.5) mg/dL Glucose 131 H (75-100) mg/dL Total Protein 8.5 H (6.3-8.2) g/dL Urine WBC (Auto) 46.0 H (0.0-6.0) /HPF Assessment and Plan Assessment Right great toe osteomyelitis Renal insufficiency, acute UTI Extremity ulcer Hypertension Hyperlipidemia Peripheral vascular disease Obesity Bipolar Plan Admit to medicine Start IV vancomycin, ID consult Start IV fluids, consult wound care and Continue appropriate outpatient medications DVT prophylaxis
[2018-02-23] MEDS ORDERED: SODIUM CHLORIDE FLUSH SYRINGE 10 ML IV PRN (01:00)
[2018-02-23] MEDS ORDERED: ZOFRAN IV PRN (01:00)
[2018-02-23] MEDS ORDERED: VANCOMYCIN/NS 1 GM/250 ML 1 GM/250 ML BAG IV SCH (01:00)
[2018-02-23] MEDS ORDERED: NACL 0.9% 1000 ML 1,000 ML IV SCH (04:00)
[2018-02-23 06:39] LABS: Basophils % (Auto) 0.5 % (0.0-1.8); Eosinophils # (Auto) 0.3 K/mm3 (0.0-0.4); Eosinophils % (Auto) 3.9 % (0.0-4.3); Hematocrit 31.2 % (35.5-45.6); Hemoglobin 10.8 gm/dl (11.8-15.2); Lymphocytes # (Auto) 1.4 K/mm3 (1.2-5.4); Lymphocytes % (Auto) 19.7 % (13.4-35.0); Mean Corpuscular HGB Conc 35 % (32-34); Mean Corpuscular Hemoglobin 29 pg (28-32); Mean Corpuscular Volume 85 fl (84-94); Monocytes # (Auto) 0.4 K/mm3 (0.0-0.8); Monocytes % (Auto) 5.8 % (0.0-7.3); Platelet Count 194 K/mm3 (140-440); Red Blood Count 3.68 M/mm3 (3.65-5.03); Red Cell Distribution Width 14.4 % (13.2-15.2)
[2018-02-23 06:58] LABS: Calcium 9.3 mg/dL (8.4-10.2)
[2018-02-23 07:06] LABS: C-Reactive Protein 0.5 mg/dL (0.00-1.30)
[2018-02-23] MEDS ORDERED: VANCOMYCIN PHARMACY TO DOSE IV SCH (10:00)
[2018-02-23] MEDS: ZOLOFT PO SCH (11:12)
[2018-02-23] MEDS: TRICOR PO SCH (11:12)
[2018-02-23] MEDS: LOVENOX SUB-Q SCH (11:12)
[2018-02-23] MEDS: NACL 0.9% 1000 ML 1,000 ML IV SCH (11:13)
[2018-02-23] MEDS: PERCOCET 5/325 PO PRN (11:13)
--- NOTE | 2018-02-23 11:13 | Event Note ---
Date: 02/23/18 Patient to my office treated with oral abx for right inner malleolus chronic wound, unable to approved IV abx as outpatient, now with recent XR showing right great toe osteomyelitis. Needs PICC line and arrange for IV abx for 6 weeks. Will start vancomycin and cefepime for now until all old cultures review. Pt ernie be seen on Sunday.
[2018-02-23] MEDS: MAXIPIME/NS 2 GM/100 ML 2 GM/100 ML BAG IV SCH ×2 (14:33→21:33)
[2018-02-23] MEDS: VANCOMYCIN 2,000 MG in NACL 0.9% 500 ML 500 ML IV SCH (15:26)
[2018-02-23] MEDS: SODIUM CHLORIDE FLUSH SYRINGE 10 ML IV SCH ×2 (16:32→21:34)
--- NOTE | 2018-02-23 16:53 | Progress Note ---
Assessment and Plan Assessment and plan: 57-year-old male with a history of hypertension, hyperlipidemia, peripheral vascular disease, venous stasis, bipolar, obesity was sent to the emergency room by his infectious disease doctor for IV antibiotics for osteomyelitis of his toe. The patient has been on antibiotic for one month doubt significant improvement of his toe PAST MEDICAL HISTORY: hypertension, hyperlipidemia, peripheral vascular disease , venous stasis, bipolar, obesity Right great toe osteomyelitis Renal insufficiency, acute UTI Extremity ulcer Hypertension Hyperlipidemia Peripheral vascular disease Obesity Bipolar Plan Admit to medicine Start IV vancomycin, ID consult appreciated For PICC line and will need 6 weeks of abx -refused PICC line in arm, will get tunneled leon cath, IR consulted Start IV fluids, consult wound care and Continue appropriate outpatient medications DVT prophylaxis History Interval history: c/o Left big toe swelling, pain and redness Review of systems Constitutional: No fevers, no malaise, no joint pains CVS: No chest pain, no orthopnea, no dyspnea on exertion, no pedal edema GI: No abdominal pain, no diarrhea, no vomiting, no constipation Respiratory: No shortness of breath, no wheezing, no coughing Hospitalist Physical - Physical exam Narrative exam: General.: Appears well, no distress, nontoxic HEENT: Moist mucous membranes, extraocular muscles intact, no lymphadenopathy Neck: supple Cardiac: S1-S2 heard Lungs: clear to auscultation bilaterally Abdomen: soft , nontender, nondistended, bowel sounds positive Extremities: left big toe swelling, edema, tender and redness Skin: no rash or lesions Neurologic: no gross focal deficits Psych: appropriate behavior, appropriate mood, corporative, judgment intact - Constitutional Vitals: Temp Pulse Resp BP Pulse Ox 98.1 F 84 20 101/59 97 02/23/18 11:52 02/23/18 00:00 02/23/18 11:52 02/23/18 11:52 02/23/18 10:00 Results - Labs CBC & Chem 7: 02/23/18 05:50 02/24/18 23:04 Labs: Laboratory Last Values WBC 7.0 K/mm3 (4.5-11.0) 02/23/18 05:50 RBC 3.68 M/mm3 (3.65-5.03) 02/23/18 05:50 Hgb 10.8 gm/dl (11.8-15.2) L 02/23/18 05:50 Hct 31.2 % (35.5-45.6) L 02/23/18 05:50 MCV 85 fl (84-94) 02/23/18 05:50 MCH 29 pg (28-32) 02/23/18 05:50 MCHC 35 % (32-34) H 02/23/18 05:50 RDW 14.4 % (13.2-15.2) 02/23/18 05:50 Plt Count 194 K/mm3 (140-440) 02/23/18 05:50 Lymph % (Auto) 19.7 % (13.4-35.0) 02/23/18 05:50 [place] % (Auto) 5.8 % (0.0-7.3) 02/23/18 05:50 Eos % (Auto) 3.9 % (0.0-4.3) 02/23/18 05:50 Baso % (Auto) 0.5 % (0.0-1.8) 02/23/18 05:50 Lymph # 1.4 K/mm3 (1.2-5.4) 02/23/18 05:50 [place] # 0.4 K/mm3 (0.0-0.8) 02/23/18 05:50 Eos # 0.3 K/mm3 (0.0-0.4) 02/23/18 05:50 Baso # 0.0 K/mm3 (0.0-0.1) 02/23/18 05:50 Seg Neutrophils % 70.1 % (40.0-70.0) H 02/23/18 05:50 Seg Neutrophils # 4.9 K/mm3 (1.8-7.7) 02/23/18 05:50 ESR 68 mm/Hr (0-20) 02/22/18 22:54 Sodium 143 mmol/L (137-145) 02/23/18 05:50 Potassium 3.8 mmol/L (3.6-5.0) 02/23/18 05:50 Chloride 107.3 mmol/L (98-107) H 02/23/18 05:50 Carbon Dioxide 18 mmol/L (22-30) L 02/23/18 05:50 Anion Gap 22 mmol/L 02/23/18 05:50 BUN 35 mg/dL (9-20) H 02/23/18 05:50 Creatinine 1.4 mg/dL (0.8-1.5) 02/23/18 05:50 Estimated GFR 52 ml/min 02/23/18 05:50 BUN/Creatinine Ratio 25 % 02/23/18 05:50 Glucose 103 mg/dL (75-100) H 02/23/18 05:50 Calcium 9.3 mg/dL (8.4-10.2) 02/23/18 05:50 Total Bilirubin 0.30 mg/dL (0.1-1.2) 02/22/18 13:38 AST 24 units/L (5-40) 02/22/18 13:38 ALT 19 units/L (7-56) 02/22/18 13:38 Alkaline Phosphatase 73 units/L (35-129) 02/22/18 13:38 Total Creatine Kinase 98 units/L (55-170) 02/22/18 22:54 C-Reactive Protein 0.40 mg/dL (0.00-1.30) 02/23/18 05:55 Total Protein 8.5 g/dL (6.3-8.2) H 02/22/18 13:38 Albumin 4.3 g/dL (3.9-5) 02/22/18 13:38 Albumin/Globulin Ratio 1.0 % 02/22/18 13:38 Urine Color Yellow (Yellow) 02/22/18 13:48 Urine Turbidity Slightly-cloudy (Clear) 02/22/18 13:48 Urine pH 5.0 (5.0-7.0) 02/22/18 13:48 Ur Specific [place] 1.016 (1.003-1.030) 02/22/18 13:48 Urine Protein 30 mg/dl mg/dL (Negative) 02/22/18 13:48 Urine Glucose (UA) Neg mg/dL (Negative) 02/22/18 13:48 Urine Ketones Neg mg/dL (Negative) 02/22/18 13:48 Urine Blood Neg (Negative) 02/22/18 13:48 Urine Nitrite Neg (Negative) 02/22/18 13:48 Urine Bilirubin Neg (Negative) 02/22/18 13:48 Urine Urobilinogen < 2.0 mg/dL (<2.0) 02/22/18 13:48 Ur Leukocyte Esterase Lg (Negative) 02/22/18 13:48 Urine WBC (Auto) 46.0 /HPF (0.0-6.0) H 02/22/18 13:48 Urine RBC (Auto) 5.0 /HPF (0.0-6.0) 02/22/18 13:48 U Epithel Cells (Auto) 2.0 /HPF (0-13.0) 02/22/18 13:48 Urine Bacteria (Auto) 1+ /HPF (Negative) 02/22/18 13:48 Hyaline Casts 4 /LPF 02/22/18 13:48 Urine Mucus Few /HPF 02/22/18 13:48
[2018-02-23] MEDS: TYLENOL PO PRN (21:40)
[2018-02-23] MEDS ORDERED: VANCOMYCIN 2,000 MG in NACL 0.9% 500 ML 500 ML IV SCH (22:00)
[2018-02-24] MEDS: VANCOMYCIN 2,000 MG in NACL 0.9% 500 ML 500 ML IV SCH ×2 (01:39→12:01)
[2018-02-24] MEDS: MAXIPIME/NS 2 GM/100 ML 2 GM/100 ML BAG IV SCH ×3 (05:45→21:29)
[2018-02-24] MEDS ORDERED: HYDROCHLOROTHIAZIDE PO SCH (10:00)
[2018-02-24] MEDS ORDERED: LISINOPRIL PO SCH (10:00)
--- NOTE | 2018-02-24 10:04 | Progress Note ---
Assessment and Plan Assessment and plan: 57-year-old male with a history of hypertension, hyperlipidemia, peripheral vascular disease, venous stasis, bipolar, obesity was sent to the emergency room by his infectious disease doctor for IV antibiotics for osteomyelitis of his toe. The patient has been on antibiotic for one month doubt significant improvement of his toe PAST MEDICAL HISTORY: hypertension, hyperlipidemia, peripheral vascular disease , venous stasis, bipolar, obesity Right great toe osteomyelitis Renal insufficiency, acute UTI Extremity ulcer Hypertension Hyperlipidemia Peripheral vascular disease Obesity Bipolar Plan Admit to medicine Start IV vancomycin, ID consult appreciated For PICC line and will need 6 weeks of abx Start IV fluids, consult wound care and Continue appropriate outpatient medications DVT prophylaxis History Interval history: c/o Left big toe swelling, pain and redness Review of systems Constitutional: No fevers, no malaise, no joint pains CVS: No chest pain, no orthopnea, no dyspnea on exertion, no pedal edema GI: No abdominal pain, no diarrhea, no vomiting, no constipation Respiratory: No shortness of breath, no wheezing, no coughing Hospitalist Physical - Physical exam Narrative exam: General.: Appears well, no distress, nontoxic HEENT: Moist mucous membranes, extraocular muscles intact, no lymphadenopathy Neck: supple Cardiac: S1-S2 heard Lungs: clear to auscultation bilaterally Abdomen: soft , nontender, nondistended, bowel sounds positive Extremities: left big toe swelling, edema, tender and redness Skin: no rash or lesions Neurologic: no gross focal deficits Psych: appropriate behavior, appropriate mood, corporative, judgment intact - Constitutional Vitals: Temp Pulse Resp BP Pulse Ox 97.4 F L 73 20 142/83 96 02/24/18 06:14 02/24/18 06:14 02/24/18 06:14 02/24/18 06:14 02/24/18 06:14 Results - Labs CBC & Chem 7: 02/23/18 05:50 02/23/18 05:50 Labs: Laboratory Last Values WBC 7.0 K/mm3 (4.5-11.0) 02/23/18 05:50 RBC 3.68 M/mm3 (3.65-5.03) 02/23/18 05:50 Hgb 10.8 gm/dl (11.8-15.2) L 02/23/18 05:50 Hct 31.2 % (35.5-45.6) L 02/23/18 05:50 MCV 85 fl (84-94) 02/23/18 05:50 MCH 29 pg (28-32) 02/23/18 05:50 MCHC 35 % (32-34) H 02/23/18 05:50 RDW 14.4 % (13.2-15.2) 02/23/18 05:50 Plt Count 194 K/mm3 (140-440) 02/23/18 05:50 Lymph % (Auto) 19.7 % (13.4-35.0) 02/23/18 05:50 [place] % (Auto) 5.8 % (0.0-7.3) 02/23/18 05:50 Eos % (Auto) 3.9 % (0.0-4.3) 02/23/18 05:50 Baso % (Auto) 0.5 % (0.0-1.8) 02/23/18 05:50 Lymph # 1.4 K/mm3 (1.2-5.4) 02/23/18 05:50 [place] # 0.4 K/mm3 (0.0-0.8) 02/23/18 05:50 Eos # 0.3 K/mm3 (0.0-0.4) 02/23/18 05:50 Baso # 0.0 K/mm3 (0.0-0.1) 02/23/18 05:50 Seg Neutrophils % 70.1 % (40.0-70.0) H 02/23/18 05:50 Seg Neutrophils # 4.9 K/mm3 (1.8-7.7) 02/23/18 05:50 ESR 68 mm/Hr (0-20) 02/22/18 22:54 Sodium 143 mmol/L (137-145) 02/23/18 05:50 Potassium 3.8 mmol/L (3.6-5.0) 02/23/18 05:50 Chloride 107.3 mmol/L (98-107) H 02/23/18 05:50 Carbon Dioxide 18 mmol/L (22-30) L 02/23/18 05:50 Anion Gap 22 mmol/L 02/23/18 05:50 BUN 35 mg/dL (9-20) H 02/23/18 05:50 Creatinine 1.4 mg/dL (0.8-1.5) 02/23/18 05:50 Estimated GFR 52 ml/min 02/23/18 05:50 BUN/Creatinine Ratio 25 % 02/23/18 05:50 Glucose 103 mg/dL (75-100) H 02/23/18 05:50 Calcium 9.3 mg/dL (8.4-10.2) 02/23/18 05:50 Total Bilirubin 0.30 mg/dL (0.1-1.2) 02/22/18 13:38 AST 24 units/L (5-40) 02/22/18 13:38 ALT 19 units/L (7-56) 02/22/18 13:38 Alkaline Phosphatase 73 units/L (35-129) 02/22/18 13:38 Total Creatine Kinase 98 units/L (55-170) 02/22/18 22:54 C-Reactive Protein 0.40 mg/dL (0.00-1.30) 02/23/18 05:55 Total Protein 8.5 g/dL (6.3-8.2) H 02/22/18 13:38 Albumin 4.3 g/dL (3.9-5) 02/22/18 13:38 Albumin/Globulin Ratio 1.0 % 02/22/18 13:38 Urine Color Yellow (Yellow) 02/22/18 13:48 Urine Turbidity Slightly-cloudy (Clear) 02/22/18 13:48 Urine pH 5.0 (5.0-7.0) 02/22/18 13:[address] [place] [address] 1.016 (1.003-1.030) 02/22/18 13:48 Urine Protein 30 mg/dl mg/dL (Negative) 02/22/18 13:48 Urine Glucose (UA) Neg mg/dL (Negative) 02/22/18 13:48 Urine Ketones Neg mg/dL (Negative) 02/22/18 13:48 Urine Blood Neg (Negative) 02/22/18 13:48 Urine Nitrite Neg (Negative) 02/22/18 13:48 Urine Bilirubin Neg (Negative) 02/22/18 13:48 Urine Urobilinogen < 2.0 mg/dL (<2.0) 02/22/18 13:48 Ur Leukocyte Esterase Lg (Negative) 02/22/18 13:48 Urine WBC (Auto) 46.0 /HPF (0.0-6.0) H 02/22/18 13:48 Urine RBC (Auto) 5.0 /HPF (0.0-6.0) 02/22/18 13:48 U Epithel Cells (Auto) 2.0 /HPF (0-13.0) 02/22/18 13:48 Urine Bacteria (Auto) 1+ /HPF (Negative) 02/22/18 13:48 Hyaline Casts 4 /LPF 02/22/18 13:48 Urine Mucus Few /HPF 02/22/18 13:48
[2018-02-24] MEDS: ZESTRIL PO SCH (11:54)
[2018-02-24] MEDS: LOVENOX SUB-Q SCH (12:00)
[2018-02-24] MEDS: ZOLOFT PO SCH (12:00)
[2018-02-24] MEDS: HCTZ PO SCH (12:00)
[2018-02-24] MEDS: TRICOR PO SCH (12:01)
[2018-02-24] MEDS: TYLENOL PO PRN (12:01)
[2018-02-24] MEDS: SODIUM CHLORIDE FLUSH SYRINGE 10 ML IV SCH ×2 (12:02→21:29)
[2018-02-24 23:54] LABS: BUN/Creatinine Ratio 17; Blood Urea Nitrogen 20 mg/dL (9-20); Calcium 8.5 mg/dL (8.4-10.2); Hemolysis Index 7
[2018-02-25] MEDS: VANCOMYCIN 2,000 MG in NACL 0.9% 500 ML 500 ML IV SCH (00:36)
[2018-02-25] MEDS: NACL 0.9% 1000 ML 1,000 ML IV SCH (00:39)
[2018-02-25] MEDS: MAXIPIME/NS 2 GM/100 ML 2 GM/100 ML BAG IV SCH ×3 (06:07→21:13)
[2018-02-25] MEDS ORDERED: HEPARIN/NS 5000 UNIT/500ML(CATH LAB) 500 ML IR ONE (08:35)
[2018-02-25] MEDS ORDERED: XYLOCAINE 2% INFILTRATI ONE (08:36)
[2018-02-25] MEDS ORDERED: SUBLIMAZE ONE (08:36)
[2018-02-25] MEDS ORDERED: VERSED ONE (08:36)
[2018-02-25] MEDS ORDERED: XYLOCAINE 1%/ EPI 1:100,000 INFILTRATI ONE (08:42)
[2018-02-25] MEDS: SODIUM CHLORIDE FLUSH SYRINGE 10 ML IV SCH ×2 (09:05→21:16)
[2018-02-25] MEDS ORDERED: NACL 0.9% 500 ML 500 ML ONE (09:34)
[2018-02-25] MEDS ORDERED: HEPARIN 10,000 UNITS/10 ML ONE (09:58)
--- NOTE | 2018-02-25 10:24 | Operative Report ---
Operative Report Operative Report: Exam: Ultrasound and fluoroscopic guided placement of Acuna catheter Clinical indication: Patient requiring IV access for long-term antibiotics Date: 02/25/2018 Procedure: Following an explanation of the risks, benefits and alternatives; written informed consent was obtained. The patient was brought the angiographic suite and placed in supine position on the examination table. Initial ultrasound evaluation of the neck demonstrated a patent right internal jugular vein. The patient's right neck and chest wall were prepped and draped in usual sterile fashion. 1% lidocaine was used for anesthesia. Under ultrasound guidance, the right internal jugular vein was cannulated with a 7 cm 18-gauge needle. A 0.035 guidewire was advanced into the IVC under fluoroscopy to document intravenous positioning. The needle was removed. An appropriate catheter exit site was chosen along the lateral right chest wall. 1% lidocaine was used for anesthesia at the catheter exit site and along the tunnel tract. A Bard single-lumen Acuna catheter was then tunneled antegrade from the catheter exit site to the venotomy site. Following standard guidewire measurements, the catheter was cut to length and inserted through the peel-away sheath. Peel-away sheath was removed and the catheter tip positioned in the proximal right atrium. The Acuna flushed and aspirated easily and was then locked with appropriate volumes of heparin. The venotomy was closed using 3-0 Vicryl suture. Throughout Vicryl suture was also applied to the catheter exit site. Sterile dressings were then applied. The patient tolerated the procedure well. There were no immediate post procedure complications. Conscious sedation was performed under the guidance of radiologic nursing. Continuous cardiopulmonary monitoring was utilized. Impression: Ultrasound and fluoroscopic guided placement of Acuna catheter via the right internal jugular vein.
[2018-02-25] MEDS: VANCOMYCIN 1,250 MG in NACL 0.9% 250ML 250 ML IV SCH (12:47)
[2018-02-25] MEDS: LOVENOX SUB-Q SCH (12:48)
[2018-02-25] MEDS: ZOLOFT PO SCH (12:48)
[2018-02-25] MEDS: TRICOR PO SCH (12:57)
[2018-02-25] MEDS: HCTZ PO SCH (12:57)
[2018-02-25] MEDS: ZESTRIL PO SCH (12:58)
--- NOTE | 2018-02-25 15:08 | Consultation ---
History of Present Illness - Reason for Consult Consult date: 02/25/18 right great to osteomyelitis Requesting physician: PATSY DOSHI - History of Present Illness 57 y/o male with history of morbid obesity, hypertension, hyperlipidemia, PVD and chronic venous insuficiency with bilateral venous stasis ulcers mainly to the right leg for 3 years, non-healing despite wound care and oral antibiotics seen by ID in January 2017, wound cx grew MSSA and Pseudomonas. Patient was treated with doxycycline 100 mg PO q 12 hour and ciprofloxacin 500 mg PO q 12 hour for 14 days from 01/22 until 02/04/17. Patient seen in the ID office in November 2017 with same right inner malleolus wound with wound cx on 10/2017 + E coli and MRSA. I attempted to approve IV abx at the office but it was denied. he was treated with PO abx for 2 weeks. Unfortunately, he presented to my office on c/o right great toe edema and tenderness with a recent right great toe XR on 02/08/18 which showed findings suggestive of osteomyelitis right distal phalanx great toe. Recent wound cx grew E coli, MRSA, Enterobacter and Proteus. Pt sent for admission for further evaluation. In the ED, initial temperature 90.8, heart rate 82, respirations 16, O2 sat 95, blood pressure 102/60. Initial white count 7.9. Hemoglobin 11.5. Platelets 234. Creatinine 1.7. UA showed large leukocyte esterase is 46 white blood cells. Microbiology: Wound cultures: 12/14/17 right leg E coli, MRSA, Enterobacter and Proteus. Current Antimicrobials: Vancomycin 02/23 Cefepime 02/23 Previous Antimicrobials: Past History Past Medical History: other (as per HPI) Medications and Allergies Allergies Allergy/AdvReac Type Severity Reaction Status Date / Time No Known Allergies Allergy Verified 01/21/17 22:29 Home Medications Medication Instructions Recorded Confirmed Last Taken Type Lisinopril/Hydrochlorothiazide 10 - 12.5 tab PO QDAY 11/13/16 02/23/18 02/22/18 08:00 History [Zestoretic 20-12.5 mg] Sertraline [Zoloft] 100 mg PO QDAY #30 tablet 11/17/16 02/23/18 02/22/18 08:00 Rx diphenhydrAMINE [Benadryl CAP] 25 mg PO PRN 03/12/17 02/23/18 Unknown History Active Meds: Active Medications Acetaminophen (Tylenol) 650 mg PO Q4H PRN PRN Reason: Pain MILD(1-3)/Fever >100.5/CASTILLO Last Admin: 02/24/18 12:01 Dose: 650 mg Enoxaparin Sodium (Lovenox) 40 mg SUB-Q QDAY [facility] Last Admin: 02/25/18 12:48 Dose: 40 mg Fenofibrate (Tricor) 145 mg PO DAILY [facility] Last Admin: 02/25/18 12:57 Dose: 145 mg Hydrochlorothiazide (Hctz) 12.5 mg PO QDAY [facility] Last Admin: 02/25/18 12:57 Dose: 12.5 mg Sodium Chloride (Nacl 0.9% 1000 Ml) 1,000 mls @ 75 mls/hr IV DIRECT [facility] Last Infusion: 02/25/18 12:57 Dose: 75 mls/hr Cefepime HCl (Maxipime/Ns 2 Gm/100 Ml) 2 gm in 100 mls @ 200 mls/hr IV Q8H [facility] ; Protocol Last Admin: 02/25/18 14:52 Dose: 200 mls/hr Vancomycin HCl 1,250 mg/ (Sodium Chloride) 275 mls @ 166.667 mls/hr IV Q12H [facility] Last Admin: 02/25/18 12:47 Dose: 166.667 mls/hr Lisinopril (Zestril) 20 mg PO QDAY [facility] Last Admin: 02/25/18 12:58 Dose: 20 mg Ondansetron HCl (Zofran) 4 mg IV Q8H PRN PRN Reason: Nausea And Vomiting Oxycodone/Acetaminophen (Percocet 5/325) 1 tab PO Q4H PRN PRN Reason: Pain, Moderate (4-6) Last Admin: 02/23/18 11:13 Dose: 1 tab Sertraline HCl (Zoloft) 100 mg PO QDAY [facility] Last Admin: 02/25/18 12:48 Dose: 100 mg Sodium Chloride (Sodium Chloride Flush Syringe 10 Ml) 10 ml IV BID [facility] Last Admin: 02/25/18 09:05 Dose: Not Given Sodium Chloride (Sodium Chloride Flush Syringe 10 Ml) 10 ml IV PRN PRN PRN Reason: LINE FLUSH Physical Examination - Physical Exam Narrative exam: General appearance: Alert in NAD, conversant Eyes: anicteric sclerae, moist conjunctivae; no lid-lag; PERRLA HENT: Atraumatic; oropharynx clear Neck: Trachea midline; supple, no thyromegaly or lymphadenopathy Lungs: CTA, with normal respiratory effort and no intercostal retractions CV: RRR, no murmurs Abdomen: Soft, non-tender; no masses or hepatosplenomegaly Extremities: right great toe edema and tenderness, right ankle old ucler with granulation Skin: Normal temperature, turgor and texture; no rash, ulcers or subcutaneous nodules Psych: Appropriate affect, alert and oriented to person, place and time. Neuro: alert and oriented x 3. Moving all extermities Lines: - Constitutional Vitals: Vital Signs Temp Pulse Resp BP Pulse Ox 98.1 F 70 18 120/69 98 02/25/18 12:03 02/25/18 12:58 02/25/18 12:03 02/25/18 12:58 02/25/18 12:03 Temperature -Last 24 Hours Temperature 98.1 F Temperature 98.1 F Temperature 97.3 F Temperature 98.4 F Results - Labs CBC & Chem 7: 02/23/18 05:50 02/24/18 23:04 Labs: Abnormal lab results 02/24/18 02/24/18 Range/Units 23:04 23:04 Carbon Dioxide 19 L (22-30) mmol/L Glucose 121 H (75-100) mg/dL Vancomycin Trough 29.5 H (5.0-20.0) ug/mL Assessment and Plan Assessment: 1) Right great toe osteomyelitis: right toe XR on 02/08/18 which showed findings suggestive of osteomyelitis right distal phalanx great toe 2) Chronic venous insuficiency with bilateral venous stasis ulcers mainly to the right leg for 3 years, non-healing despite wound care and oral antibiotics seen by ID in January 2017, wound cx grew MSSA and Pseudomonas. Patient was treated with doxycycline 100 mg PO q 12 hour and ciprofloxacin 500 mg PO q 12 hour for 14 days from 01/22 until 02/04/17. Patient seen in the ID office in November 2017 with same right inner malleolus wound with wound cx on 10/2017 + E coli and MRSA. Recent wound cx grew E coli, MRSA, Enterobacter and Proteus. 3) UTI 4) Hypertension 5) Hyperlipidemia 6) PVD 7) Morbid obesity 8) Previous TERESA Plan: -right ankle and foot MRI -Dr Ferro consult -Wound care consult -CRP -appreciate vascular placing Acuna -continue cefepime and vanco for now -upon discharge will arrange ceftriaxone 2 g IV qday and vancomycin 1.25 g IV q12h total 6 weeks until 04/05/18. Order sent to complex case manager. -arterial doppler radha leg Thank you for your consultation, will follow up with you. Julia Ashford MD Infectious Diseases Specialist [facility] ([facility] M [phone] O [phone]
--- NOTE | 2018-02-25 15:59 | Query- Renal Failure ---
Mamie Solano Date:____02/25/18 Shield Runner/CDS:__lakeshia Phone#: [phone]____ Exercise your independent professional judgment when responding to query. Questions asked do not imply a particular answer is desired or expected. We greatly appreciate your clarification on this issue. Clinical Documentation States: 57-year-old male with a history of hypertension, hyperlipidemia, peripheral vascular disease, venous stasis, bipolar, obesity was sent to the emergency room by his infectious disease doctor for IV antibiotics for osteomyelitis of his toe. The patient has been on antibiotic for one month doubt significant improvement of his toe Right great toe osteomyelitis Renal insufficiency, acute UTI Extremity ulcer Hypertension Hyperlipidemia Peripheral vascular disease Obesity Bipolar Clinical Findings Show: 02/22/18 02/23/18 02/24/18 Creatinine 1.7 1.4 1.2 Bun/Cr ratio 25 17 Please clarify if you mean: Acute Renal Failure with or due to: [ ] Tubular Necrosis [ ] Medullary Necrosis [ ] Vasomotor Nephropathy [ ] Shock Kidney [ ] Tubular Nephrosis [ ] Renal Tubular Stasis [ ] Cortical Necrosis [ ] Acute Renal Failure (unspecified) [ ] Lower Tubular Nephrosis [ ] Other: [ ] Not Applicable Present on Admission: [ ] Yes (Y) [ ] Clinically undeterminable (W) [ ] No (N) Please also document response in your Progress Notes and/or Discharge Summary and indicate if the condition was present on admission. JOSEPHINE
--- NOTE | 2018-02-25 17:48 | Progress Note ---
Assessment and Plan Assessment and plan: 57-year-old male with a history of hypertension, hyperlipidemia, peripheral vascular disease, venous stasis, bipolar, obesity was sent to the emergency room by his infectious disease doctor for IV antibiotics for osteomyelitis of his toe. The patient has been on antibiotic for one month doubt significant improvement of his toe PAST MEDICAL HISTORY: hypertension, hyperlipidemia, peripheral vascular disease , venous stasis, bipolar, obesity Right great toe osteomyelitis Renal insufficiency, acute UTI Extremity ulcer Hypertension Hyperlipidemia Peripheral vascular disease Obesity Bipolar Plan Admit to medicine on abx per ID sp leon line and will need 6 weeks of abx Start IV fluids, consult wound care and Continue appropriate outpatient medications DVT prophylaxis History Interval history: c/o Left big toe swelling, pain and redness Review of systems Constitutional: No fevers, no malaise, no joint pains CVS: No chest pain, no orthopnea, no dyspnea on exertion, no pedal edema GI: No abdominal pain, no diarrhea, no vomiting, no constipation Respiratory: No shortness of breath, no wheezing, no coughing Hospitalist Physical - Physical exam Narrative exam: General.: Appears well, no distress, nontoxic HEENT: Moist mucous membranes, extraocular muscles intact, no lymphadenopathy Neck: supple Cardiac: S1-S2 heard Lungs: clear to auscultation bilaterally Abdomen: soft , nontender, nondistended, bowel sounds positive Extremities: left big toe swelling, edema, tender and redness Skin: no rash or lesions Neurologic: no gross focal deficits Psych: appropriate behavior, appropriate mood, corporative, judgment intact - Constitutional Vitals: Temp Pulse Resp BP Pulse Ox 98.1 F 70 18 120/69 98 02/25/18 12:03 02/25/18 12:58 02/25/18 12:03 02/25/18 12:58 02/25/18 12:03 Results - Labs CBC & Chem 7: 02/23/18 05:50 02/24/18 23:04 Labs: Laboratory Last Values WBC 7.0 K/mm3 (4.5-11.0) 02/23/18 05:50 RBC 3.68 M/mm3 (3.65-5.03) 02/23/18 05:50 Hgb 10.8 gm/dl (11.8-15.2) L 02/23/18 05:50 Hct 31.2 % (35.5-45.6) L 02/23/18 05:50 MCV 85 fl (84-94) 02/23/18 05:50 MCH 29 pg (28-32) 02/23/18 05:50 MCHC 35 % (32-34) H 02/23/18 05:50 RDW 14.4 % (13.2-15.2) 02/23/18 05:50 Plt Count 194 K/mm3 (140-440) 02/23/18 05:50 Lymph % (Auto) 19.7 % (13.4-35.0) 02/23/18 05:50 [place] % (Auto) 5.8 % (0.0-7.3) 02/23/18 05:50 Eos % (Auto) 3.9 % (0.0-4.3) 02/23/18 05:50 Baso % (Auto) 0.5 % (0.0-1.8) 02/23/18 05:50 Lymph # 1.4 K/mm3 (1.2-5.4) 02/23/18 05:50 [place] # 0.4 K/mm3 (0.0-0.8) 02/23/18 05:50 Eos # 0.3 K/mm3 (0.0-0.4) 02/23/18 05:50 Baso # 0.0 K/mm3 (0.0-0.1) 02/23/18 05:50 Seg Neutrophils % 70.1 % (40.0-70.0) H 02/23/18 05:50 Seg Neutrophils # 4.9 K/mm3 (1.8-7.7) 02/23/18 05:50 ESR 68 mm/Hr (0-20) 02/22/18 22:54 Sodium 141 mmol/L (137-145) 02/24/18 23:04 Potassium 3.7 mmol/L (3.6-5.0) 02/24/18 23:04 Chloride 106.0 mmol/L (98-107) 02/24/18 23:04 Carbon Dioxide 19 mmol/L (22-30) L 02/24/18 23:04 Anion Gap 20 mmol/L 02/24/18 23:04 BUN 20 mg/dL (9-20) 02/24/18 23:04 Creatinine 1.2 mg/dL (0.8-1.5) 02/24/18 23:04 Estimated GFR > 60 ml/min 02/24/18 23:04 BUN/Creatinine Ratio 17 % 02/24/18 23:04 Glucose 121 mg/dL (75-100) H 02/24/18 23:04 Calcium 8.5 mg/dL (8.4-10.2) 02/24/18 23:04 Total Bilirubin 0.30 mg/dL (0.1-1.2) 02/22/18 13:38 AST 24 units/L (5-40) 02/22/18 13:38 ALT 19 units/L (7-56) 02/22/18 13:38 Alkaline Phosphatase 73 units/L (35-129) 02/22/18 13:38 Total Creatine Kinase 98 units/L (55-170) 02/22/18 22:54 C-Reactive Protein 0.40 mg/dL (0.00-1.30) 02/23/18 05:55 Total Protein 8.5 g/dL (6.3-8.2) H 02/22/18 13:38 Albumin 4.3 g/dL (3.9-5) 02/22/18 13:38 Albumin/Globulin Ratio 1.0 % 02/22/18 13:38 Urine Color Yellow (Yellow) 02/22/18 13:48 Urine Turbidity Slightly-cloudy (Clear) 02/22/18 13:48 Urine pH 5.0 (5.0-7.0) 02/22/18 13:48 Ur Specific Merrick 1.016 (1.003-1.030) 02/22/18 13:48 Urine Protein 30 mg/dl mg/dL (Negative) 02/22/18 13:48 Urine Glucose (UA) Neg mg/dL (Negative) 02/22/18 13:48 Urine Ketones Neg mg/dL (Negative) 02/22/18 13:48 Urine Blood Neg (Negative) 02/22/18 13:48 Urine Nitrite Neg (Negative) 02/22/18 13:48 Urine Bilirubin Neg (Negative) 02/22/18 13:48 Urine Urobilinogen < 2.0 mg/dL (<2.0) 02/22/18 13:48 Ur Leukocyte Esterase Lg (Negative) 02/22/18 13:48 Urine WBC (Auto) 46.0 /HPF (0.0-6.0) H 02/22/18 13:48 Urine RBC (Auto) 5.0 /HPF (0.0-6.0) 02/22/18 13:48 U Epithel Cells (Auto) 2.0 /HPF (0-13.0) 02/22/18 13:48 Urine Bacteria (Auto) 1+ /HPF (Negative) 02/22/18 13:48 Hyaline Casts 4 /LPF 02/22/18 13:48 Urine Mucus Few /HPF 02/22/18 13:48 Vancomycin Trough 29.5 ug/mL (5.0-20.0) H 02/24/18 23:04
[2018-02-25] MEDS: PERCOCET 5/325 PO PRN (21:13)
[2018-02-26] MEDS: VANCOMYCIN 1,250 MG in NACL 0.9% 250ML 250 ML IV SCH ×3 (01:28→23:20)
[2018-02-26] MEDS: NACL 0.9% 1000 ML 1,000 ML IV SCH ×2 (01:29→23:20)
[2018-02-26] MEDS: MAXIPIME/NS 2 GM/100 ML 2 GM/100 ML BAG IV SCH ×3 (05:43→21:34)
[2018-02-26] MEDS: ZOLOFT PO SCH (11:18)
[2018-02-26] MEDS: TRICOR PO SCH (11:18)
[2018-02-26] MEDS: LOVENOX SUB-Q SCH (11:19)
[2018-02-26] MEDS: SODIUM CHLORIDE FLUSH SYRINGE 10 ML IV SCH ×2 (11:19→21:34)
[2018-02-26] MEDS: HCTZ PO SCH (11:19)
[2018-02-26] MEDS: ZESTRIL PO SCH (11:19)
--- NOTE | 2018-02-26 11:55 | Progress Note ---
Assessment and Plan Assessment: 1) Right great toe osteomyelitis: right toe XR on 02/08/18 which showed findings suggestive of osteomyelitis right distal phalanx great toe. - Right Great toe noted to be callused with several DTI. No drainage observed. 2) Chronic venous insuficiency with bilateral venous stasis ulcers mainly to the right leg for 3 years, non-healing despite wound care and oral antibiotics seen by ID in January 2017, wound cx grew MSSA and Pseudomonas. Patient was treated with doxycycline 100 mg PO q 12 hour and ciprofloxacin 500 mg PO q 12 hour for 14 days from 01/22 until 02/04/17. Patient seen in the ID office in November 2017 with same right inner malleolus wound with wound cx on 10/2017 + E coli and MRSA. Recent wound cx grew E coli, MRSA, Enterobacter and Proteus -Right medial ankle wound measures 7.5X6.5X0.2. Wound is dry with moderate amount of yellow nonviablle slough noted to bed. No odor. -CRP 1.1 -Art doppler normal flow 3) UTI 4) Hypertension 5) Hyperlipidemia 6) PVD 7) Morbid obesity 8) Previous TERESA Plan: - f/u on right ankle and foot MRI - f/u on consult with Dr Ferro consult - continue cefepime, D5 -continue vancomycin, D2 -upon discharge will arrange ceftriaxone 2 g IV qday and vancomycin 1.25 g IV q12h total 6 weeks until 04/05/18. Order sent to casework supervisor. Subjective Date of service: 02/26/18 Interval history: Patient was sitting up in bed watching television. Patient stated that his leg dressing needed to be changed and that he was ready to go home. Microbiology: Wound cultures: 12/14/17 right leg E coli, MRSA, Enterobacter and Proteus. Current Antimicrobials: Vancomycin 02/23 Cefepime 02/23 Previous Antimicrobials: Objective - Exam Narrative Exam: General appearance: Alert in NAD, conversant Eyes: anicteric sclerae, moist conjunctivae; no lid-lag; PERRLA HENT: Atraumatic; oropharynx clear Neck: Trachea midline; supple, no thyromegaly or lymphadenopathy Lungs: CTA, with normal respiratory effort and no intercostal retractions CV: RRR, no murmurs Abdomen: Soft, non-tender; no masses or hepatosplenomegaly Extremities: right great toe edema and tenderness, right ankle old ucler with granulation. Dressing changed, no drainage noted. Skin: Normal temperature, turgor and texture; no rash, ulcers or subcutaneous nodules Psych: Appropriate affect, alert and oriented to person, place and time. Neuro: alert and oriented x 3. Moving all extermities Lines: - Constitutional Vitals: Vital Signs Temp Pulse Resp BP Pulse Ox 96.6 F L 60 20 122/66 99 02/26/18 04:24 02/26/18 04:24 02/26/18 04:24 02/26/18 04:24 02/26/18 04:24 Temperature -Last 24 Hours Temperature 96.6 F Temperature 97.9 F Temperature 98.1 F - Labs CBC & Chem 7: 02/23/18 05:50 02/24/18 23:04
--- NOTE | 2018-02-26 13:51 | Event Note ---
Date: 02/26/18 Pt just began right foot MRI. pyrotechnician said I could not go in during the MRI. He will be in MRI for one hour per pyrotechnician. I will therefore see pt tomorrow.
[2018-02-26] MEDS: PERCOCET 5/325 PO PRN ×2 (17:48→23:24)
--- NOTE | 2018-02-26 20:14 | Magnetic Resonance Report ---
FINAL REPORT EXAM: MR LE NONJOINT RT WO/W CON HISTORY: eval for ankle and foot osteomyelitis TECHNIQUE: MRI was performed of the right foot using the following pulse sequences: Axial: T1, fat-suppressed T2, gadolinium-enhanced fat-suppressed T1 Coronal: T1, fat-suppressed T2, STIR, gadolinium-enhanced fat-suppressed T1 Sagittal: T1, STIR, gadolinium-enhanced fat-suppressed T1 20 cc of MultiHance were used for IV contrast agent PRIORS: None. FINDINGS: Bones and bone marrow: There are no osseous or bone marrow abnormalities. Joints spaces: The joint spaces are normally aligned. Subchondral marrow signal is normal. Tendons: Examination of the tendons reveals no evidence for tendinosis or tear. Soft Tissues: There is diffuse dorsal soft tissue swelling and edema. There is no evidence of abscess IMPRESSION: 1. No evidence of abscess 2. Dorsal soft tissue swelling and edema consistent with cellulitis 3. No evidence of osteomyelitis
--- NOTE | 2018-02-26 20:24 | Magnetic Resonance Report ---
FINAL REPORT EXAM: MR LE JOINT RT WO/W CON HISTORY: OSTEO ankle/toes TECHNIQUE: MRI was performed of the right ankle using the following pulse sequences: Axial: T1, fat-suppressed T2, gadolinium-enhanced fat-suppressed T1 Coronal: T1, fat-suppressed T2, STIR, gadolinium-enhanced fat-suppressed T1 Sagittal: T1, STIR, gadolinium-enhanced fat-suppressed T1 20 cc of MultiHance were used for IV contrast agent PRIORS: None. FINDINGS: Bones and bone marrow: There are no osseous or bone marrow abnormalities. Joints spaces: The joint spaces are normally aligned. Subchondral marrow signal is normal. Ligaments: Examination of the medial and lateral ligaments reveals no abnormalities. Tendons: Examination of the tendons reveals no evidence for tendinosis or tear. Soft Tissues: There is circumferential soft tissue swelling and edema of the ankle. There is no evidence of abscess Sinus Tarsi: The sinus tarsi is intact. Plantar aponeurosis: The plantar aponeurosis is unremarkable. IMPRESSION: No evidence of osteomyelitis or abscess
--- NOTE | 2018-02-26 23:35 | Progress Note ---
Assessment and Plan Assessment and plan: 57-year-old male with a history of hypertension, hyperlipidemia, peripheral vascular disease, venous stasis, bipolar, obesity was sent to the emergency room by his infectious disease doctor for IV antibiotics for osteomyelitis of his toe. The patient has been on antibiotic for one month doubt significant improvement of his toe PAST MEDICAL HISTORY: hypertension, hyperlipidemia, peripheral vascular disease , venous stasis, bipolar, obesity Right great toe osteomyelitis Renal insufficiency, acute UTI Extremity ulcer Hypertension Hyperlipidemia Peripheral vascular disease Obesity Bipolar Plan Admit to medicine on abx per ID sp leon line and will need 6 weeks of abx awaiting consult by Anthony Ferro, surgery - LE MRI today Continue appropriate outpatient medications DVT prophylaxis History Interval history: c/o Left big toe swelling, pain and redness Review of systems Constitutional: No fevers, no malaise, no joint pains CVS: No chest pain, no orthopnea, no dyspnea on exertion, no pedal edema GI: No abdominal pain, no diarrhea, no vomiting, no constipation Respiratory: No shortness of breath, no wheezing, no coughing Hospitalist Physical - Physical exam Narrative exam: General.: Appears well, no distress, nontoxic HEENT: Moist mucous membranes, extraocular muscles intact, no lymphadenopathy Neck: supple Cardiac: S1-S2 heard Lungs: clear to auscultation bilaterally Abdomen: soft , nontender, nondistended, bowel sounds positive Extremities: left big toe swelling, edema, tender and redness Skin: no rash or lesions Neurologic: no gross focal deficits Psych: appropriate behavior, appropriate mood, corporative, judgment intact - Constitutional Vitals: Temp Pulse Resp BP Pulse Ox 96.6 F L 60 20 122/66 99 02/26/18 04:24 02/26/18 04:24 02/26/18 04:24 02/26/18 04:24 02/26/18 04:24 Results - Labs CBC & Chem 7: 02/23/18 05:50 02/24/18 23:04 Labs: Laboratory Last Values WBC 7.0 K/mm3 (4.5-11.0) 02/23/18 05:50 RBC 3.68 M/mm3 (3.65-5.03) 02/23/18 05:50 Hgb 10.8 gm/dl (11.8-15.2) L 02/23/18 05:50 Hct 31.2 % (35.5-45.6) L 02/23/18 05:50 MCV 85 fl (84-94) 02/23/18 05:50 MCH 29 pg (28-32) 02/23/18 05:50 MCHC 35 % (32-34) H 02/23/18 05:50 RDW 14.4 % (13.2-15.2) 02/23/18 05:50 Plt Count 194 K/mm3 (140-440) 02/23/18 05:50 Lymph % (Auto) 19.7 % (13.4-35.0) 02/23/18 05:50 [place] % (Auto) 5.8 % (0.0-7.3) 02/23/18 05:50 Eos % (Auto) 3.9 % (0.0-4.3) 02/23/18 05:50 Baso % (Auto) 0.5 % (0.0-1.8) 02/23/18 05:50 Lymph # 1.4 K/mm3 (1.2-5.4) 02/23/18 05:50 [place] # 0.4 K/mm3 (0.0-0.8) 02/23/18 05:50 Eos # 0.3 K/mm3 (0.0-0.4) 02/23/18 05:50 Baso # 0.0 K/mm3 (0.0-0.1) 02/23/18 05:50 Seg Neutrophils % 70.1 % (40.0-70.0) H 02/23/18 05:50 Seg Neutrophils # 4.9 K/mm3 (1.8-7.7) 02/23/18 05:50 ESR 68 mm/Hr (0-20) 02/22/18 22:54 Sodium 141 mmol/L (137-145) 02/24/18 23:04 Potassium 3.7 mmol/L (3.6-5.0) 02/24/18 23:04 Chloride 106.0 mmol/L (98-107) 02/24/18 23:04 Carbon Dioxide 19 mmol/L (22-30) L 02/24/18 23:04 Anion Gap 20 mmol/L 02/24/18 23:04 BUN 20 mg/dL (9-20) 02/24/18 23:04 Creatinine 1.2 mg/dL (0.8-1.5) 02/24/18 23:04 Estimated GFR > 60 ml/min 02/24/18 23:04 BUN/Creatinine Ratio 17 % 02/24/18 23:04 Glucose 121 mg/dL (75-100) H 02/24/18 23:04 Calcium 8.5 mg/dL (8.4-10.2) 02/24/18 23:04 Total Bilirubin 0.30 mg/dL (0.1-1.2) 02/22/18 13:38 AST 24 units/L (5-40) 02/22/18 13:38 ALT 19 units/L (7-56) 02/22/18 13:38 Alkaline Phosphatase 73 units/L (35-129) 02/22/18 13:38 Total Creatine Kinase 98 units/L (55-170) 02/22/18 22:54 C-Reactive Protein 1.10 mg/dL (0.00-1.30) 02/25/18 19:08 Total Protein 8.5 g/dL (6.3-8.2) H 02/22/18 13:38 Albumin 4.3 g/dL (3.9-5) 02/22/18 13:38 Albumin/Globulin Ratio 1.0 % 02/22/18 13:38 Urine Color Yellow (Yellow) 02/22/18 13:48 Urine Turbidity Slightly-cloudy (Clear) 02/22/18 13:48 Urine pH 5.0 (5.0-7.0) 02/22/18 13:48 Ur Specific [place] 1.016 (1.003-1.030) 02/22/18 13:48 Urine Protein 30 mg/dl mg/dL (Negative) 02/22/18 13:48 Urine Glucose (UA) Neg mg/dL (Negative) 02/22/18 13:48 Urine Ketones Neg mg/dL (Negative) 02/22/18 13:48 Urine Blood Neg (Negative) 02/22/18 13:48 Urine Nitrite Neg (Negative) 02/22/18 13:48 Urine Bilirubin Neg (Negative) 02/22/18 13:48 Urine Urobilinogen < 2.0 mg/dL (<2.0) 02/22/18 13:48 Ur Leukocyte Esterase Lg (Negative) 02/22/18 13:48 Urine WBC (Auto) 46.0 /HPF (0.0-6.0) H 02/22/18 13:48 Urine RBC (Auto) 5.0 /HPF (0.0-6.0) 02/22/18 13:48 U Epithel Cells (Auto) 2.0 /HPF (0-13.0) 02/22/18 13:48 Urine Bacteria (Auto) 1+ /HPF (Negative) 02/22/18 13:48 Hyaline Casts 4 /LPF 02/22/18 13:48 Urine Mucus Few /HPF 02/22/18 13:48 Vancomycin Trough 29.5 ug/mL (5.0-20.0) H 02/24/18 23:04
[2018-02-27] MEDS: MAXIPIME/NS 2 GM/100 ML 2 GM/100 ML BAG IV SCH ×2 (05:43→12:37)
--- NOTE | 2018-02-27 08:49 | Progress Note ---
Assessment and Plan Assessment: 1) Right great toe osteomyelitis: right toe XR on 02/08/18 which showed findings suggestive of osteomyelitis right distal phalanx great toe. -Right Great toe noted to be callused with several DTI. No drainage observed. 2) Chronic venous insuficiency with bilateral venous stasis ulcers mainly to the right leg for 3 years, non-healing despite wound care and oral antibiotics seen by ID in January 2017, wound cx grew MSSA and Pseudomonas. Patient was treated with doxycycline 100 mg PO q 12 hour and ciprofloxacin 500 mg PO q 12 hour for 14 days from 01/22 until 02/04/17. Patient seen in the ID office in November 2017 with same right inner malleolus wound with wound cx on 10/2017 + E coli and MRSA. Recent wound cx grew E coli, MRSA, Enterobacter and Proteus -Right medial ankle wound measures 7.5X6.5X0.2. Wound is dry with moderate amount of yellow nonviablle slough noted to bed. No odor. -CRP 1.1 -Art doppler normal flow -MRI 02/26- No evidence of abscess. Dorsal soft tissue swelling and edema consistent with cellulitis. No evidence of osteomyelitis. 3) UTI 4) Hypertension 5) Hyperlipidemia 6) PVD 7) Morbid obesity 8) Previous TERESA Plan: -continue cefepime, D5 -continue vancomycin, D3 -upon discharge will arrange ceftriaxone 2 g IV qday and vancomycin 1.25 g IV q12h total 2 weeks until 03/11/18 to cover cellulitis/wound infection. [employer] Consult put in. I ID is signing off [facility] M: [id number] O:[phone] Subjective Date of service: 02/27/18 Interval history: Patient was sitting up in bed. Patient stated that he was feeling better today. Microbiology: Wound cultures: 12/14/17 right leg E coli, MRSA, Enterobacter and Proteus. Current Antimicrobials: Vancomycin 02/23 Cefepime 02/23 Previous Antimicrobials: Objective - Exam Narrative Exam: General appearance: Alert in NAD, conversant Eyes: anicteric sclerae, moist conjunctivae; no lid-lag; PERRLA HENT: Atraumatic; oropharynx clear Neck: Trachea midline; supple, no thyromegaly or lymphadenopathy Lungs: CTA, with normal respiratory effort and no intercostal retractions CV: RRR, no murmurs Abdomen: Soft, non-tender; no masses or hepatosplenomegaly Extremities: right great toe edema and tenderness, right ankle old ucler with granulation. Dressing changed, no drainage noted. Skin: Normal temperature, turgor and texture; no rash, ulcers or subcutaneous nodules Psych: Appropriate affect, alert and oriented to person, place and time. Neuro: alert and oriented x 3. Moving all extermities Lines: - Constitutional Vitals: Vital Signs Temp Pulse Resp BP Pulse Ox 97.7 F 57 L 18 148/87 99 02/27/18 05:35 02/27/18 05:35 02/27/18 05:35 02/27/18 05:35 02/27/18 05:35 Temperature -Last 24 Hours Temperature 97.7 F Temperature 98.2 F Temperature 98.6 F - Labs CBC & Chem 7: 02/23/18 05:50 02/24/18 23:04
[2018-02-27] MEDS: LOVENOX SUB-Q SCH (11:16)
[2018-02-27] MEDS: TRICOR PO SCH (11:17)
[2018-02-27] MEDS: ZOLOFT PO SCH (11:17)
[2018-02-27] MEDS: HCTZ PO SCH (11:17)
[2018-02-27] MEDS: ZESTRIL PO SCH (11:17)
[2018-02-27] MEDS: SODIUM CHLORIDE FLUSH SYRINGE 10 ML IV SCH (11:18)
[2018-02-27] MEDS: PERCOCET 5/325 PO PRN ×2 (11:26→12:59)
[2018-02-27] MEDS: VANCOMYCIN 1,250 MG in NACL 0.9% 250ML 250 ML IV SCH (12:37)
--- NOTE | 2018-02-27 14:45 | Vascular Lab Report ---
LOWER EXTREMITY ARTERIAL DUPLEX: REASON FOR EXAM: Peripheral arterial disease. COMMENTS ON THE RIGHT: Triphasic waveforms are seen proximally. Triphasic waveforms are seen distally. No significant velocity gradients are identified. No significant plaque is identified. Findings are consistent with normal perfusion. Findings are consistent with the ability to heal distal wounds. COMMENTS ON THE LEFT: Triphasic waveforms are seen proximally. Triphasic waveforms are seen distally. No significant velocity gradients are identified. No significant plaque is identified. Findings are consistent with normal perfusion. Findings are consistent with the ability to heal distal wounds. IMPRESSION: RIGHT: Essentially normal arterial flow. LEFT:Essentially normal arterial flow. The
--- NOTE | 2018-02-27 15:32 | Progress Note ---
Assessment and Plan Assessment and plan: Patient is a 57-year-old man with a history of hypertension, hyperlipidemia, peripheral vascular disease, venous stasis, bipolar, obesity was sent to the emergency room by his infectious disease doctor for IV antibiotics for osteomyelitis of his toe. The patient has been on antibiotic for one month doubt significant improvement of his right toe * MRI right lower extermity with and without contrast IMPRESSION: 1. No evidence of abscess 2. Dorsal soft tissue swelling and edema consistent with cellulitis 3. No evidence of osteomyelitis Right great toe osteomyelitis Renal insufficiency, acute UTI Extremity ulcer Hypertension Hyperlipidemia Peripheral vascular disease Obesity Bipolar Plan Admit to medicine on abx per ID sp leon line and will need 6 weeks of abx awaiting consult by Anthony Ferro, surgery Continue appropriate outpatient medications DVT prophylaxis History Interval history: Patient was seen and examined. Follow-up on current diagnosis of right foot/toe infection. Overnight uneventful. Patient denies any chest pain, shortness breath , nausea/vomiting or severe headaches. Imaging, nursing note, chart, labs and old chart reviewed. Discussed with patient. Hospitalist Physical - Physical exam Narrative exam: GEN: WDWN, NAD, Awake, Alert, Orientated x 3 HEENT: NCAT, EOMI, PERRL, OP Clear NECK: supple, no adenopathy, no thyromegaly, no JVD CVS/HEART: RRR, normal S1S2, pulses present bilaterally CHEST/LUNGS: CTA B, Symmetrical chest expansion, good air entry bilaterally GI/Abdomen: soft, NTND, good bowel sounds, no guarding or rebound /Bladder: no suprapubic tenderness, no CVA or paraspinal tenderness EXT/Skin: right toe dsg intact MSK: FROM x 4 Neuro: CN 2-12 grossly intact, no new focal deficits Psych: calm - Constitutional Vitals: Temp Pulse Resp BP Pulse Ox 97.6 F 57 L 20 126/73 99 02/27/18 12:02 02/27/18 05:35 02/27/18 12:02 02/27/18 12:02 02/27/18 05:35 Results - Labs CBC & Chem 7: 02/23/18 05:50 02/24/18 23:04 Labs: Laboratory Last Values WBC 7.0 K/mm3 (4.5-11.0) 02/23/18 05:50 RBC 3.68 M/mm3 (3.65-5.03) 02/23/18 05:50 Hgb 10.8 gm/dl (11.8-15.2) L 02/23/18 05:50 Hct 31.2 % (35.5-45.6) L 02/23/18 05:50 MCV 85 fl (84-94) 02/23/18 05:50 MCH 29 pg (28-32) 02/23/18 05:50 MCHC 35 % (32-34) H 02/23/18 05:50 RDW 14.4 % (13.2-15.2) 02/23/18 05:50 Plt Count 194 K/mm3 (140-440) 02/23/18 05:50 Lymph % (Auto) 19.7 % (13.4-35.0) 02/23/18 05:50 [place] % (Auto) 5.8 % (0.0-7.3) 02/23/18 05:50 Eos % (Auto) 3.9 % (0.0-4.3) 02/23/18 05:50 Baso % (Auto) 0.5 % (0.0-1.8) 02/23/18 05:50 Lymph # 1.4 K/mm3 (1.2-5.4) 02/23/18 05:50 [place] # 0.4 K/mm3 (0.0-0.8) 02/23/18 05:50 Eos # 0.3 K/mm3 (0.0-0.4) 02/23/18 05:50 Baso # 0.0 K/mm3 (0.0-0.1) 02/23/18 05:50 Seg Neutrophils % 70.1 % (40.0-70.0) H 02/23/18 05:50 Seg Neutrophils # 4.9 K/mm3 (1.8-7.7) 02/23/18 05:50 ESR 68 mm/Hr (0-20) 02/22/18 22:54 Sodium 141 mmol/L (137-145) 02/24/18 23:04 Potassium 3.7 mmol/L (3.6-5.0) 02/24/18 23:04 Chloride 106.0 mmol/L (98-107) 02/24/18 23:04 Carbon Dioxide 19 mmol/L (22-30) L 02/24/18 23:04 Anion Gap 20 mmol/L 02/24/18 23:04 BUN 20 mg/dL (9-20) 02/24/18 23:04 Creatinine 1.2 mg/dL (0.8-1.5) 02/24/18 23:04 Estimated GFR > 60 ml/min 02/24/18 23:04 BUN/Creatinine Ratio 17 % 02/24/18 23:04 Glucose 121 mg/dL (75-100) H 02/24/18 23:04 Calcium 8.5 mg/dL (8.4-10.2) 02/24/18 23:04 Total Bilirubin 0.30 mg/dL (0.1-1.2) 02/22/18 13:38 AST 24 units/L (5-40) 02/22/18 13:38 ALT 19 units/L (7-56) 02/22/18 13:38 Alkaline Phosphatase 73 units/L (35-129) 02/22/18 13:38 Total Creatine Kinase 98 units/L (55-170) 02/22/18 22:54 C-Reactive Protein 1.10 mg/dL (0.00-1.30) 02/25/18 19:08 Total Protein 8.5 g/dL (6.3-8.2) H 02/22/18 13:38 Albumin 4.3 g/dL (3.9-5) 02/22/18 13:38 Albumin/Globulin Ratio 1.0 % 02/22/18 13:38 Urine Color Yellow (Yellow) 02/22/18 13:48 Urine Turbidity Slightly-cloudy (Clear) 02/22/18 13:48 Urine pH 5.0 (5.0-7.0) 02/22/18 13:48 Ur Specific [place] 1.016 (1.003-1.030) 02/22/18 13:48 Urine Protein 30 mg/dl mg/dL (Negative) 02/22/18 13:48 Urine Glucose (UA) Neg mg/dL (Negative) 02/22/18 13:48 Urine Ketones Neg mg/dL (Negative) 02/22/18 13:48 Urine Blood Neg (Negative) 02/22/18 13:48 Urine Nitrite Neg (Negative) 02/22/18 13:48 Urine Bilirubin Neg (Negative) 02/22/18 13:48 Urine Urobilinogen < 2.0 mg/dL (<2.0) 02/22/18 13:48 Ur Leukocyte Esterase Lg (Negative) 02/22/18 13:48 Urine WBC (Auto) 46.0 /HPF (0.0-6.0) H 02/22/18 13:48 Urine RBC (Auto) 5.0 /HPF (0.0-6.0) 02/22/18 13:48 U Epithel Cells (Auto) 2.0 /HPF (0-13.0) 02/22/18 13:48 Urine Bacteria (Auto) 1+ /HPF (Negative) 02/22/18 13:48 Hyaline Casts 4 /LPF 02/22/18 13:48 Urine Mucus Few /HPF 02/22/18 13:48 Vancomycin Trough 25.7 ug/mL (5.0-20.0) H 02/27/18 12:01
[2018-02-28] MEDS: MAXIPIME/NS 2 GM/100 ML 2 GM/100 ML BAG IV SCH ×4 (00:07→22:16)
[2018-02-28] MEDS: NACL 0.9% 1000 ML 1,000 ML IV SCH (00:07)
[2018-02-28] MEDS: PERCOCET 5/325 PO PRN ×3 (00:08→22:17)
[2018-02-28] MEDS: SODIUM CHLORIDE FLUSH SYRINGE 10 ML IV SCH ×3 (00:39→22:16)
[2018-02-28] MEDS ORDERED: VANCOMYCIN/NS 1 GM/250 ML 1 GM/250 ML BAG IV SCH (06:00)
[2018-02-28 07:37] LABS: BUN/Creatinine Ratio 17; Blood Urea Nitrogen 15 mg/dL (9-20); Calcium 9.1 mg/dL (8.4-10.2); Hemolysis Index 88
[2018-02-28] MEDS: ZESTRIL PO SCH (10:02)
[2018-02-28] MEDS: LOVENOX SUB-Q SCH (10:02)
[2018-02-28] MEDS: HCTZ PO SCH (10:03)
[2018-02-28] MEDS: ZOLOFT PO SCH (10:03)
[2018-02-28] MEDS: TRICOR PO SCH (10:03)
--- NOTE | 2018-02-28 15:41 | Progress Note ---
Assessment and Plan Assessment and plan: Patient is a 57-year-old man with a history of hypertension, hyperlipidemia, peripheral vascular disease, venous stasis, bipolar, obesity was sent to the emergency room by his infectious disease doctor for IV antibiotics for osteomyelitis of his toe. The patient has been on oral antibiotic for one month wo significant improvement of his right toe, hence the admission * MRI right lower extermity with and without contrast IMPRESSION: 1. No evidence of abscess 2. Dorsal soft tissue swelling and edema consistent with cellulitis 3. No evidence of osteomyelitis Right great toe cellulitis with osteomyelitis ruled out (so no need for surgical intervention per ID) s/p Leon catheter insertion for home abx, Renal insufficiency, acute, vasomotor nephropathy, poa, resolved UTI: on ABX Hypertension; low salt diet Hyperlipidemia; statin Peripheral vascular disease with nonhealing left foot ulcer: wound care, asa, statin therapy Obesity, bmi 39: lifestyle modification with diet discussed Bipolar disorder, denies SI: continue home medications DVT prophylaxis: sq lovenox, check cbc Disposition: continue inpatient care, awaiting home health/infusion company to be setup, home iv abx already setup History Interval history: Patient was seen and examined. Follow-up on current diagnosis of right foot/toe infection. Overnight uneventful. Patient denies any chest pain, shortness breath , nausea/vomiting or severe headaches. Imaging, nursing note, chart, labs and old chart reviewed. Discussed with patient. Hospitalist Physical - Physical exam Narrative exam: GEN: WDWN, NAD, Awake, Alert, Orientated x 3 HEENT: NCAT, EOMI, PERRL, OP Clear NECK: supple, no adenopathy, no thyromegaly, no JVD CVS/HEART: RRR, normal S1S2, pulses present bilaterally CHEST/LUNGS: CTA B, Symmetrical chest expansion, good air entry bilaterally, right cw leon in place GI/Abdomen: soft, NTND, good bowel sounds, no guarding or rebound /Bladder: no suprapubic tenderness, no CVA or paraspinal tenderness EXT/Skin: right toe dsg intact MSK: FROM x 4 Neuro: CN 2-12 grossly intact, no new focal deficits Psych: calm - Constitutional Vitals: Temp Pulse Resp BP Pulse Ox 98.9 F 64 19 133/79 98 02/28/18 12:19 02/28/18 10:02 02/28/18 12:19 02/28/18 12:19 02/28/18 05:33 Results - Labs CBC & Chem 7: 02/23/18 05:50 02/28/18 06:23 Labs: Laboratory Last Values WBC 7.0 K/mm3 (4.5-11.0) 02/23/18 05:50 RBC 3.68 M/mm3 (3.65-5.03) 02/23/18 05:50 Hgb 10.8 gm/dl (11.8-15.2) L 02/23/18 05:50 Hct 31.2 % (35.5-45.6) L 02/23/18 05:50 MCV 85 fl (84-94) 02/23/18 05:50 MCH 29 pg (28-32) 02/23/18 05:50 MCHC 35 % (32-34) H 02/23/18 05:50 RDW 14.4 % (13.2-15.2) 02/23/18 05:50 Plt Count 194 K/mm3 (140-440) 02/23/18 05:50 Lymph % (Auto) 19.7 % (13.4-35.0) 02/23/18 05:50 [place] % (Auto) 5.8 % (0.0-7.3) 02/23/18 05:50 Eos % (Auto) 3.9 % (0.0-4.3) 02/23/18 05:50 Baso % (Auto) 0.5 % (0.0-1.8) 02/23/18 05:50 Lymph # 1.4 K/mm3 (1.2-5.4) 02/23/18 05:50 [place] # 0.4 K/mm3 (0.0-0.8) 02/23/18 05:50 Eos # 0.3 K/mm3 (0.0-0.4) 02/23/18 05:50 Baso # 0.0 K/mm3 (0.0-0.1) 02/23/18 05:50 Seg Neutrophils % 70.1 % (40.0-70.0) H 02/23/18 05:50 Seg Neutrophils # 4.9 K/mm3 (1.8-7.7) 02/23/18 05:50 ESR 68 mm/Hr (0-20) 02/22/18 22:54 Sodium 142 mmol/L (137-145) 02/28/18 06:23 Potassium 4.2 mmol/L (3.6-5.0) 02/28/18 06:23 Chloride 106.5 mmol/L (98-107) 02/28/18 06:23 Carbon Dioxide 26 mmol/L (22-30) D 02/28/18 06:23 Anion Gap 14 mmol/L 02/28/18 06:23 BUN 15 mg/dL (9-20) 02/28/18 06:23 Creatinine 0.9 mg/dL (0.8-1.5) 02/28/18 06:23 Estimated GFR > 60 ml/min 02/28/18 06:23 BUN/Creatinine Ratio 17 % 02/28/18 06:23 Glucose 93 mg/dL (75-100) 02/28/18 06:23 Calcium 9.1 mg/dL (8.4-10.2) 02/28/18 06:23 Total Bilirubin 0.30 mg/dL (0.1-1.2) 02/22/18 13:38 AST 24 units/L (5-40) 02/22/18 13:38 ALT 19 units/L (7-56) 02/22/18 13:38 Alkaline Phosphatase 73 units/L (35-129) 02/22/18 13:38 Total Creatine Kinase 98 units/L (55-170) 02/22/18 22:54 C-Reactive Protein 1.10 mg/dL (0.00-1.30) 02/25/18 19:08 Total Protein 8.5 g/dL (6.3-8.2) H 02/22/18 13:38 Albumin 4.3 g/dL (3.9-5) 02/22/18 13:38 Albumin/Globulin Ratio 1.0 % 02/22/18 13:38 Urine Color Yellow (Yellow) 02/22/18 13:48 Urine Turbidity Slightly-cloudy (Clear) 02/22/18 13:48 Urine pH 5.0 (5.0-7.0) 02/22/18 13:48 Ur Specific [place] 1.016 (1.003-1.030) 02/22/18 13:48 Urine Protein 30 mg/dl mg/dL (Negative) 02/22/18 13:48 Urine Glucose (UA) Neg mg/dL (Negative) 02/22/18 13:48 Urine Ketones Neg mg/dL (Negative) 02/22/18 13:48 Urine Blood Neg (Negative) 02/22/18 13:48 Urine Nitrite Neg (Negative) 02/22/18 13:48 Urine Bilirubin Neg (Negative) 02/22/18 13:48 Urine Urobilinogen < 2.0 mg/dL (<2.0) 02/22/18 13:48 Ur Leukocyte Esterase Lg (Negative) 02/22/18 13:48 Urine WBC (Auto) 46.0 /HPF (0.0-6.0) H 02/22/18 13:48 Urine RBC (Auto) 5.0 /HPF (0.0-6.0) 02/22/18 13:48 U Epithel Cells (Auto) 2.0 /HPF (0-13.0) 02/22/18 13:48 Urine Bacteria (Auto) 1+ /HPF (Negative) 02/22/18 13:48 Hyaline Casts 4 /LPF 02/22/18 13:48 Urine Mucus Few /HPF 02/22/18 13:48 Vancomycin Trough 25.7 ug/mL (5.0-20.0) H 02/27/18 12:01
[2018-02-28] MEDS: VANCOMYCIN/NS 1 GM/250 ML 1 GM/250 ML BAG IV SCH (16:58)
[2018-03-01] MEDS: MAXIPIME/NS 2 GM/100 ML 2 GM/100 ML BAG IV SCH (06:44)
[2018-03-01 07:03] LABS: Hematocrit 33.1 % (35.5-45.6); Hemoglobin 11.5 gm/dl (11.8-15.2); Mean Corpuscular HGB Conc 35 % (32-34); Mean Corpuscular Hemoglobin 29 pg (28-32); Mean Corpuscular Volume 84 fl (84-94); Platelet Count 168 K/mm3 (140-440); Red Blood Count 3.93 M/mm3 (3.65-5.03)
[2018-03-01] MEDS: ROCEPHIN/NS 2 GM/100 ML 2 GM/100 ML BAG IV SCH (10:06)
[2018-03-01] MEDS: ZESTRIL PO SCH (10:08)
[2018-03-01] MEDS: HCTZ PO SCH (10:08)
[2018-03-01] MEDS: ZOLOFT PO SCH (10:08)
[2018-03-01] MEDS: NACL 0.9% 1000 ML 1,000 ML IV SCH ×2 (10:11→23:08)
[2018-03-01] MEDS: VANCOMYCIN/NS 1 GM/250 ML 1 GM/250 ML BAG IV SCH ×3 (10:19→23:08)
[2018-03-01] MEDS: SODIUM CHLORIDE FLUSH SYRINGE 10 ML IV SCH ×2 (10:20→23:10)
[2018-03-01] MEDS: LOVENOX SUB-Q SCH (10:20)
[2018-03-01] MEDS: TRICOR PO SCH (10:21)
[2018-03-01] MEDS: PERCOCET 5/325 PO PRN ×2 (12:08→23:10)
--- NOTE | 2018-03-01 12:57 | Progress Note ---
Assessment and Plan Assessment and plan: Patient is a 57-year-old man with a history of hypertension, hyperlipidemia, peripheral vascular disease, venous stasis, bipolar, obesity was sent to the emergency room by his infectious disease doctor for IV antibiotics for osteomyelitis of his toe. The patient has been on oral antibiotic for one month wo significant improvement of his right toe, hence the admission * MRI right lower extermity with and without contrast IMPRESSION: 1. No evidence of abscess 2. Dorsal soft tissue swelling and edema consistent with cellulitis 3. No evidence of osteomyelitis Right great toe cellulitis with osteomyelitis ruled out (so no need for surgical intervention per ID) s/p Leon catheter insertion for home abx, Renal insufficiency, acute, vasomotor nephropathy, poa, resolved UTI: on ABX Hypertension; low salt diet Hyperlipidemia; statin Peripheral vascular disease with nonhealing left foot ulcer: wound care, asa, statin therapy Obesity, bmi 39: lifestyle modification with diet discussed Bipolar disorder, denies SI: continue home medications DVT prophylaxis: sq lovenox, check cbc Disposition: continue inpatient care, awaiting home health/infusion company to be setup, home iv abx already setup History Interval history: Patient was seen and examined. Follow-up on current diagnosis of right foot/toe infection. Overnight uneventful. Patient denies any chest pain, shortness breath , nausea/vomiting or severe headaches. Imaging, nursing note, chart, labs and old chart reviewed. Discussed with patient. He c/o right finger pain, swelling and redness, he has history of arthritis and gout. Hospitalist Physical - Physical exam Narrative exam: GEN: WDWN, NAD, Awake, Alert, Orientated x 3 HEENT: NCAT, EOMI, PERRL, OP Clear NECK: supple, no adenopathy, no thyromegaly, no JVD CVS/HEART: RRR, normal S1S2, pulses present bilaterally CHEST/LUNGS: CTA B, Symmetrical chest expansion, good air entry bilaterally, right cw loen in place GI/Abdomen: soft, NTND, good bowel sounds, no guarding or rebound /Bladder: no suprapubic tenderness, no CVA or paraspinal tenderness EXT/Skin: right toe dsg intact MSK: FROM x 4 Neuro: CN 2-12 grossly intact, no new focal deficits Psych: calm - Constitutional Vitals: Temp Pulse Resp BP Pulse Ox 97.7 F 59 L 20 148/78 96 03/01/18 06:31 03/01/18 10:08 03/01/18 12:08 03/01/18 10:08 03/01/18 06:31 Results - Labs CBC & Chem 7: 03/01/18 06:05 02/28/18 06:23 Labs: Laboratory Last Values WBC 5.1 K/mm3 (4.5-11.0) 03/01/18 06:05 RBC 3.93 M/mm3 (3.65-5.03) 03/01/18 06:05 Hgb 11.5 gm/dl (11.8-15.2) L 03/01/18 06:05 Hct 33.1 % (35.5-45.6) L 03/01/18 06:05 MCV 84 fl (84-94) 03/01/18 06:05 MCH 29 pg (28-32) 03/01/18 06:05 MCHC 35 % (32-34) H 03/01/18 06:05 RDW 14.0 % (13.2-15.2) 03/01/18 06:05 Plt Count 168 K/mm3 (140-440) 03/01/18 06:05 Lymph % (Auto) 19.7 % (13.4-35.0) 02/23/18 05:50 [place] % (Auto) 5.8 % (0.0-7.3) 02/23/18 05:50 Eos % (Auto) 3.9 % (0.0-4.3) 02/23/18 05:50 Baso % (Auto) 0.5 % (0.0-1.8) 02/23/18 05:50 Lymph # 1.4 K/mm3 (1.2-5.4) 02/23/18 05:50 [place] # 0.4 K/mm3 (0.0-0.8) 02/23/18 05:50 Eos # 0.3 K/mm3 (0.0-0.4) 02/23/18 05:50 Baso # 0.0 K/mm3 (0.0-0.1) 02/23/18 05:50 Seg Neutrophils % 70.1 % (40.0-70.0) H 02/23/18 05:50 Seg Neutrophils # 4.9 K/mm3 (1.8-7.7) 02/23/18 05:50 ESR 68 mm/Hr (0-20) 02/22/18 22:54 Sodium 142 mmol/L (137-145) 02/28/18 06:23 Potassium 4.2 mmol/L (3.6-5.0) 02/28/18 06:23 Chloride 106.5 mmol/L (98-107) 02/28/18 06:23 Carbon Dioxide 26 mmol/L (22-30) D 02/28/18 06:23 Anion Gap 14 mmol/L 02/28/18 06:23 BUN 15 mg/dL (9-20) 02/28/18 06:23 Creatinine 0.9 mg/dL (0.8-1.5) 02/28/18 06:23 Estimated GFR > 60 ml/min 02/28/18 06:23 BUN/Creatinine Ratio 17 % 02/28/18 06:23 Glucose 93 mg/dL (75-100) 02/28/18 06:23 Calcium 9.1 mg/dL (8.4-10.2) 02/28/18 06:23 Total Bilirubin 0.30 mg/dL (0.1-1.2) 02/22/18 13:38 AST 24 units/L (5-40) 02/22/18 13:38 ALT 19 units/L (7-56) 02/22/18 13:38 Alkaline Phosphatase 73 units/L (35-129) 02/22/18 13:38 Total Creatine Kinase 98 units/L (55-170) 02/22/18 22:54 C-Reactive Protein 1.10 mg/dL (0.00-1.30) 02/25/18 19:08 Total Protein 8.5 g/dL (6.3-8.2) H 02/22/18 13:38 Albumin 4.3 g/dL (3.9-5) 02/22/18 13:38 Albumin/Globulin Ratio 1.0 % 02/22/18 13:38 Urine Color Yellow (Yellow) 02/22/18 13:48 Urine Turbidity Slightly-cloudy (Clear) 02/22/18 13:48 Urine pH 5.0 (5.0-7.0) 02/22/18 13:48 Ur Specific [place] 1.016 (1.003-1.030) 02/22/18 13:48 Urine Protein 30 mg/dl mg/dL (Negative) 02/22/18 13:48 Urine Glucose (UA) Neg mg/dL (Negative) 02/22/18 13:48 Urine Ketones Neg mg/dL (Negative) 02/22/18 13:48 Urine Blood Neg (Negative) 02/22/18 13:48 Urine Nitrite Neg (Negative) 02/22/18 13:48 Urine Bilirubin Neg (Negative) 02/22/18 13:48 Urine Urobilinogen < 2.0 mg/dL (<2.0) 02/22/18 13:48 Ur Leukocyte Esterase Lg (Negative) 02/22/18 13:48 Urine WBC (Auto) 46.0 /HPF (0.0-6.0) H 02/22/18 13:48 Urine RBC (Auto) 5.0 /HPF (0.0-6.0) 02/22/18 13:48 U Epithel Cells (Auto) 2.0 /HPF (0-13.0) 02/22/18 13:48 Urine Bacteria (Auto) 1+ /HPF (Negative) 02/22/18 13:48 Hyaline Casts 4 /LPF 02/22/18 13:48 Urine Mucus Few /HPF 02/22/18 13:48 Vancomycin Trough 25.7 ug/mL (5.0-20.0) H 02/27/18 12:01
--- NOTE | 2018-03-01 14:25 | XRay Report ---
RIGHT HAND, 2 views: History: Pain and swelling. The bony architecture is intact. Bony alignment is normal. No soft tissue abnormalities are seen. The joint spaces appear preserved. IMPRESSION: Unremarkable right hand.
[2018-03-01] MEDS ORDERED: AMBIEN PO ONE (21:26)
[2018-03-02] MEDS: LOVENOX SUB-Q SCH (10:22)
[2018-03-02] MEDS: ZOLOFT PO SCH (10:22)
[2018-03-02] MEDS: ZESTRIL PO SCH (10:22)
[2018-03-02] MEDS: TRICOR PO SCH (10:22)
[2018-03-02] MEDS: SODIUM CHLORIDE FLUSH SYRINGE 10 ML IV SCH ×2 (10:23→22:25)
[2018-03-02] MEDS: HCTZ PO SCH (10:23)
[2018-03-02] MEDS: ROCEPHIN/NS 2 GM/100 ML 2 GM/100 ML BAG IV SCH (10:23)
[2018-03-02] MEDS: VANCOMYCIN/NS 1 GM/250 ML 1 GM/250 ML BAG IV SCH ×2 (12:01→22:25)
--- NOTE | 2018-03-02 17:14 | Progress Note ---
Assessment and Plan Assessment and plan: Patient is a 57-year-old man with a history of hypertension, hyperlipidemia, peripheral vascular disease, venous stasis, bipolar, obesity was sent to the emergency room by his infectious disease doctor for IV antibiotics for osteomyelitis of his toe. The patient has been on oral antibiotic for one month wo significant improvement of his right toe, hence the admission * MRI right lower extermity with and without contrast IMPRESSION: 1. No evidence of abscess 2. Dorsal soft tissue swelling and edema consistent with cellulitis 3. No evidence of osteomyelitis Right great toe cellulitis with osteomyelitis ruled out (so no need for surgical intervention per ID) s/p Leon catheter insertion for home abx, Renal insufficiency, acute, vasomotor nephropathy, poa, resolved UTI: on ABX Hypertension; low salt diet Hyperlipidemia; statin Peripheral vascular disease with nonhealing left foot ulcer: wound care, asa, statin therapy Obesity, bmi 39: lifestyle modification with diet discussed Bipolar disorder, denies SI: continue home medications DVT prophylaxis: sq lovenox, check cbc Disposition: continue inpatient care, awaiting home health/infusion company to be setup, home iv abx already setup History Interval history: Patient was seen and examined. Follow-up on current diagnosis of right foot/toe infection. Overnight uneventful. Patient denies any chest pain, shortness breath , nausea/vomiting or severe headaches. Imaging, nursing note, chart, labs and old chart reviewed. Discussed with patient. He c/o right finger pain, swelling and redness, he has history of arthritis and gout. Hospitalist Physical - Physical exam Narrative exam: GEN: WDWN, NAD, Awake, Alert, Orientated x 3 HEENT: NCAT, EOMI, PERRL, OP Clear NECK: supple, no adenopathy, no thyromegaly, no JVD CVS/HEART: RRR, normal S1S2, pulses present bilaterally CHEST/LUNGS: CTA B, Symmetrical chest expansion, good air entry bilaterally, right cw leon in place GI/Abdomen: soft, NTND, good bowel sounds, no guarding or rebound /Bladder: no suprapubic tenderness, no CVA or paraspinal tenderness EXT/Skin: right toe dsg intact MSK: FROM x 4 Neuro: CN 2-12 grossly intact, no new focal deficits Psych: calm - Constitutional Vitals: Temp Pulse Resp BP Pulse Ox 98.3 F 65 20 134/80 96 03/02/18 12:22 03/02/18 12:22 03/02/18 12:22 03/02/18 12:22 03/02/18 12:22 Results - Labs CBC & Chem 7: 03/01/18 06:05 02/28/18 06:23 Labs: Laboratory Last Values WBC 5.1 K/mm3 (4.5-11.0) 03/01/18 06:05 RBC 3.93 M/mm3 (3.65-5.03) 03/01/18 06:05 Hgb 11.5 gm/dl (11.8-15.2) L 03/01/18 06:05 Hct 33.1 % (35.5-45.6) L 03/01/18 06:05 MCV 84 fl (84-94) 03/01/18 06:05 MCH 29 pg (28-32) 03/01/18 06:05 MCHC 35 % (32-34) H 03/01/18 06:05 RDW 14.0 % (13.2-15.2) 03/01/18 06:05 Plt Count 168 K/mm3 (140-440) 03/01/18 06:05 Lymph % (Auto) 19.7 % (13.4-35.0) 02/23/18 05:50 [place] % (Auto) 5.8 % (0.0-7.3) 02/23/18 05:50 Eos % (Auto) 3.9 % (0.0-4.3) 02/23/18 05:50 Baso % (Auto) 0.5 % (0.0-1.8) 02/23/18 05:50 Lymph # 1.4 K/mm3 (1.2-5.4) 02/23/18 05:50 [place] # 0.4 K/mm3 (0.0-0.8) 02/23/18 05:50 Eos # 0.3 K/mm3 (0.0-0.4) 02/23/18 05:50 Baso # 0.0 K/mm3 (0.0-0.1) 02/23/18 05:50 Seg Neutrophils % 70.1 % (40.0-70.0) H 02/23/18 05:50 Seg Neutrophils # 4.9 K/mm3 (1.8-7.7) 02/23/18 05:50 ESR 68 mm/Hr (0-20) 02/22/18 22:54 Sodium 142 mmol/L (137-145) 02/28/18 06:23 Potassium 4.2 mmol/L (3.6-5.0) 02/28/18 06:23 Chloride 106.5 mmol/L (98-107) 02/28/18 06:23 Carbon Dioxide 26 mmol/L (22-30) D 02/28/18 06:23 Anion Gap 14 mmol/L 02/28/18 06:23 BUN 15 mg/dL (9-20) 02/28/18 06:23 Creatinine 0.9 mg/dL (0.8-1.5) 02/28/18 06:23 Estimated GFR > 60 ml/min 02/28/18 06:23 BUN/Creatinine Ratio 17 % 02/28/18 06:23 Glucose 93 mg/dL (75-100) 02/28/18 06:23 Uric Acid 5.9 mg/dL (3.5-7.6) 03/01/18 13:21 Calcium 9.1 mg/dL (8.4-10.2) 02/28/18 06:23 Total Bilirubin 0.30 mg/dL (0.1-1.2) 02/22/18 13:38 AST 24 units/L (5-40) 02/22/18 13:38 ALT 19 units/L (7-56) 02/22/18 13:38 Alkaline Phosphatase 73 units/L (35-129) 02/22/18 13:38 Total Creatine Kinase 98 units/L (55-170) 02/22/18 22:54 C-Reactive Protein 1.10 mg/dL (0.00-1.30) 02/25/18 19:08 Total Protein 8.5 g/dL (6.3-8.2) H 02/22/18 13:38 Albumin 4.3 g/dL (3.9-5) 02/22/18 13:38 Albumin/Globulin Ratio 1.0 % 02/22/18 13:38 Urine Color Yellow (Yellow) 02/22/18 13:48 Urine Turbidity Slightly-cloudy (Clear) 02/22/18 13:48 Urine pH 5.0 (5.0-7.0) 02/22/18 13:48 Ur Specific [place] 1.016 (1.003-1.030) 02/22/18 13:48 Urine Protein 30 mg/dl mg/dL (Negative) 02/22/18 13:48 Urine Glucose (UA) Neg mg/dL (Negative) 02/22/18 13:48 Urine Ketones Neg mg/dL (Negative) 02/22/18 13:48 Urine Blood Neg (Negative) 02/22/18 13:48 Urine Nitrite Neg (Negative) 02/22/18 13:48 Urine Bilirubin Neg (Negative) 02/22/18 13:48 Urine Urobilinogen < 2.0 mg/dL (<2.0) 02/22/18 13:48 Ur Leukocyte Esterase Lg (Negative) 02/22/18 13:48 Urine WBC (Auto) 46.0 /HPF (0.0-6.0) H 02/22/18 13:48 Urine RBC (Auto) 5.0 /HPF (0.0-6.0) 02/22/18 13:48 U Epithel Cells (Auto) 2.0 /HPF (0-13.0) 02/22/18 13:48 Urine Bacteria (Auto) 1+ /HPF (Negative) 02/22/18 13:48 Hyaline Casts 4 /LPF 02/22/18 13:48 Urine Mucus Few /HPF 02/22/18 13:48 Vancomycin Trough 25.7 ug/mL (5.0-20.0) H 02/27/18 12:01
[2018-03-02] MEDS: NACL 0.9% 1000 ML 1,000 ML IV SCH (22:24)
[2018-03-03] MEDS: PERCOCET 5/325 PO PRN ×2 (03:11→21:10)
[2018-03-03] MEDS: ZOLOFT PO SCH (09:56)
[2018-03-03] MEDS: HCTZ PO SCH (09:56)
[2018-03-03] MEDS: ZESTRIL PO SCH (09:57)
[2018-03-03] MEDS: TRICOR PO SCH (09:57)
[2018-03-03] MEDS: LOVENOX SUB-Q SCH (09:57)
[2018-03-03] MEDS: SODIUM CHLORIDE FLUSH SYRINGE 10 ML IV SCH ×2 (10:01→21:11)
[2018-03-03] MEDS: ROCEPHIN/NS 2 GM/100 ML 2 GM/100 ML BAG IV SCH (10:35)
[2018-03-03] MEDS: VANCOMYCIN/NS 1 GM/250 ML 1 GM/250 ML BAG IV SCH ×2 (10:39→21:09)
--- NOTE | 2018-03-03 11:50 | Progress Note ---
Assessment and Plan Assessment and plan: Patient is a 57-year-old man with a history of hypertension, hyperlipidemia, peripheral vascular disease, venous stasis, bipolar, obesity was sent to the emergency room by his infectious disease doctor for IV antibiotics for osteomyelitis of his toe. The patient has been on oral antibiotic for one month wo significant improvement of his right toe, hence the admission * MRI right lower extermity with and without contrast IMPRESSION: 1. No evidence of abscess 2. Dorsal soft tissue swelling and edema consistent with cellulitis 3. No evidence of osteomyelitis Right great toe cellulitis with osteomyelitis ruled out (so no need for surgical intervention per ID) s/p Leon catheter insertion for home abx, Renal insufficiency, acute, vasomotor nephropathy, poa, resolved UTI: on ABX Hypertension; low salt diet Hyperlipidemia; statin Peripheral vascular disease with nonhealing left foot ulcer: wound care, asa, statin therapy Obesity, bmi 39: lifestyle modification with diet discussed Bipolar disorder, denies SI: continue home medications DVT prophylaxis: sq lovenox, check cbc Disposition: continue inpatient care, awaiting home health/infusion company to be setup, home iv abx already setup Patient needs to be home by Sunday to pay his rent History Interval history: Patient was seen and examined. Follow-up on current diagnosis of right foot/toe infection. Overnight uneventful. Patient denies any chest pain, shortness breath , nausea/vomiting or severe headaches. Imaging, nursing note, chart, labs and old chart reviewed. Discussed with patient. He c/o right finger pain, swelling and redness, he has history of arthritis and gout. Hospitalist Physical - Physical exam Narrative exam: GEN: WDWN, NAD, Awake, Alert, Orientated x 3 HEENT: NCAT, EOMI, PERRL, OP Clear NECK: supple, no adenopathy, no thyromegaly, no JVD CVS/HEART: RRR, normal S1S2, pulses present bilaterally CHEST/LUNGS: CTA B, Symmetrical chest expansion, good air entry bilaterally, right cw leon in place GI/Abdomen: soft, NTND, good bowel sounds, no guarding or rebound /Bladder: no suprapubic tenderness, no CVA or paraspinal tenderness EXT/Skin: right toe dsg intact MSK: FROM x 4 Neuro: CN 2-12 grossly intact, no new focal deficits Psych: calm - Constitutional Vitals: Temp Pulse Resp BP Pulse Ox 98.2 F 67 20 159/87 96 03/03/18 05:24 03/03/18 09:57 03/03/18 05:24 03/03/18 09:57 03/03/18 05:24 Results - Labs CBC & Chem 7: 03/01/18 06:05 02/28/18 06:23 Labs: Laboratory Last Values WBC 5.1 K/mm3 (4.5-11.0) 03/01/18 06:05 RBC 3.93 M/mm3 (3.65-5.03) 03/01/18 06:05 Hgb 11.5 gm/dl (11.8-15.2) L 03/01/18 06:05 Hct 33.1 % (35.5-45.6) L 03/01/18 06:05 MCV 84 fl (84-94) 03/01/18 06:05 MCH 29 pg (28-32) 03/01/18 06:05 MCHC 35 % (32-34) H 03/01/18 06:05 RDW 14.0 % (13.2-15.2) 03/01/18 06:05 Plt Count 168 K/mm3 (140-440) 03/01/18 06:05 Lymph % (Auto) 19.7 % (13.4-35.0) 02/23/18 05:50 [place] % (Auto) 5.8 % (0.0-7.3) 02/23/18 05:50 Eos % (Auto) 3.9 % (0.0-4.3) 02/23/18 05:50 Baso % (Auto) 0.5 % (0.0-1.8) 02/23/18 05:50 Lymph # 1.4 K/mm3 (1.2-5.4) 02/23/18 05:50 [place] # 0.4 K/mm3 (0.0-0.8) 02/23/18 05:50 Eos # 0.3 K/mm3 (0.0-0.4) 02/23/18 05:50 Baso # 0.0 K/mm3 (0.0-0.1) 02/23/18 05:50 Seg Neutrophils % 70.1 % (40.0-70.0) H 02/23/18 05:50 Seg Neutrophils # 4.9 K/mm3 (1.8-7.7) 02/23/18 05:50 ESR 68 mm/Hr (0-20) 02/22/18 22:54 Sodium 142 mmol/L (137-145) 02/28/18 06:23 Potassium 4.2 mmol/L (3.6-5.0) 02/28/18 06:23 Chloride 106.5 mmol/L (98-107) 02/28/18 06:23 Carbon Dioxide 26 mmol/L (22-30) D 02/28/18 06:23 Anion Gap 14 mmol/L 02/28/18 06:23 BUN 15 mg/dL (9-20) 02/28/18 06:23 Creatinine 0.9 mg/dL (0.8-1.5) 02/28/18 06:23 Estimated GFR > 60 ml/min 02/28/18 06:23 BUN/Creatinine Ratio 17 % 02/28/18 06:23 Glucose 93 mg/dL (75-100) 02/28/18 06:23 Uric Acid 5.9 mg/dL (3.5-7.6) 03/01/18 13:21 Calcium 9.1 mg/dL (8.4-10.2) 02/28/18 06:23 Total Bilirubin 0.30 mg/dL (0.1-1.2) 02/22/18 13:38 AST 24 units/L (5-40) 02/22/18 13:38 ALT 19 units/L (7-56) 02/22/18 13:38 Alkaline Phosphatase 73 units/L (35-129) 02/22/18 13:38 Total Creatine Kinase 98 units/L (55-170) 02/22/18 22:54 C-Reactive Protein 1.10 mg/dL (0.00-1.30) 02/25/18 19:08 Total Protein 8.5 g/dL (6.3-8.2) H 02/22/18 13:38 Albumin 4.3 g/dL (3.9-5) 02/22/18 13:38 Albumin/Globulin Ratio 1.0 % 02/22/18 13:38 Urine Color Yellow (Yellow) 02/22/18 13:48 Urine Turbidity Slightly-cloudy (Clear) 02/22/18 13:48 Urine pH 5.0 (5.0-7.0) 02/22/18 13:48 Ur Specific [place] 1.016 (1.003-1.030) 02/22/18 13:48 Urine Protein 30 mg/dl mg/dL (Negative) 02/22/18 13:48 Urine Glucose (UA) Neg mg/dL (Negative) 02/22/18 13:48 Urine Ketones Neg mg/dL (Negative) 02/22/18 13:48 Urine Blood Neg (Negative) 02/22/18 13:48 Urine Nitrite Neg (Negative) 02/22/18 13:48 Urine Bilirubin Neg (Negative) 02/22/18 13:48 Urine Urobilinogen < 2.0 mg/dL (<2.0) 02/22/18 13:48 Ur Leukocyte Esterase Lg (Negative) 02/22/18 13:48 Urine WBC (Auto) 46.0 /HPF (0.0-6.0) H 02/22/18 13:48 Urine RBC (Auto) 5.0 /HPF (0.0-6.0) 02/22/18 13:48 U Epithel Cells (Auto) 2.0 /HPF (0-13.0) 02/22/18 13:48 Urine Bacteria (Auto) 1+ /HPF (Negative) 02/22/18 13:48 Hyaline Casts 4 /LPF 02/22/18 13:48 Urine Mucus Few /HPF 02/22/18 13:48 Vancomycin Trough 25.7 ug/mL (5.0-20.0) H 02/27/18 12:01
[2018-03-03] MEDS: NACL 0.9% 1000 ML 1,000 ML IV SCH (16:28)
[2018-03-03] MEDS ORDERED: AMBIEN PO PRN (22:00)
[2018-03-04] MEDS: TRICOR PO SCH (09:38)
[2018-03-04] MEDS: SODIUM CHLORIDE FLUSH SYRINGE 10 ML IV SCH (09:38)
[2018-03-04] MEDS: ZESTRIL PO SCH (09:38)
[2018-03-04] MEDS: HCTZ PO SCH (09:38)
[2018-03-04] MEDS: LOVENOX SUB-Q SCH (09:38)
[2018-03-04] MEDS: ROCEPHIN/NS 2 GM/100 ML 2 GM/100 ML BAG IV SCH (09:38)
[2018-03-04] MEDS: ZOLOFT PO SCH (09:38)
[2018-03-04] MEDS: NACL 0.9% 1000 ML 1,000 ML IV SCH (09:39)
[2018-03-04] MEDS: PERCOCET 5/325 PO PRN (11:13)
--- NOTE | 2018-03-04 11:44 | Discharge Summary ---
Providers - Providers Date of Admission: 02/22/18 23:39 Date of discharge: 03/04/18 Attending physician: ALBIN OROZCO 02/22/18 22:39 Consult to Physician [CONS] Urgent Comment: Consulting Provider: JULIA MELENDEZ Physician Instructions: Reason For Exam: osteomyelitis 02/23/18 10:08 Consult to Wound/ET Nurse [CONS] Routine Reason For Exam: wound eval 02/24/18 07:35 Consult to Physician [CONS] Routine Comment: CONSULT COMPLETED Consulting Provider: KRISTIE PEREZ Physician Instructions: Reason For Exam: needs leon catheter 02/25/18 18:14 Consult to Case Management [CONS] Stat Services Needed at Discharge: Other Notified:: personal banker Additional Physician Instructions: [facility] M [phone] O [phone] F [phone] OUTPATIENT PARENTERAL ANTIBIOTIC THERAPY ORDERS Diagnoses: right foot cellulitis/wound infection due to MRSA and Ecoli/Enterobacter Antimicrobial administration: ceftriaxone 2 g IV qday and vancomycin 1.25 g IV q12h total 2 weeks until 03/11/18 Lines:Leon Lab monitoring: CBC, CMP, CRP and vancomycin trough once a week preferly on Sunday morning. Please fax results to [phone] and call [phone] for critical lab results. Julia Yancey Date: 02/27/18 02/25/18 18:17 Consult to Wound/ET Nurse [CONS] Routine Reason For Exam: wound eval Primary care physician: GORDON BECK MD Hospitalization Condition: Good Hospital course: Patient is a 57-year-old man with a history of hypertension, hyperlipidemia, peripheral vascular disease, venous stasis, bipolar, obesity was sent to the emergency room by his infectious disease doctor for IV antibiotics for osteomyelitis of his toe. The patient has been on oral antibiotic for one month wo significant improvement of his right toe, hence the admission * MRI right lower extermity with and without contrast IMPRESSION: 1. No evidence of abscess 2. Dorsal soft tissue swelling and edema consistent with cellulitis 3. No evidence of osteomyelitis Right great toe cellulitis with osteomyelitis ruled out (so no need for surgical intervention per ID) s/p Leon catheter insertion for home abx, Renal insufficiency, acute, vasomotor nephropathy, poa, resolved UTI: on ABX Hypertension; low salt diet Hyperlipidemia; statin Peripheral vascular disease with nonhealing left foot ulcer: wound care, asa, statin therapy Obesity, bmi 39: lifestyle modification with diet discussed Bipolar disorder, denies SI: continue home medications DVT prophylaxis: sq lovenox, check cbc Disposition: continue inpatient care, awaiting home health/infusion company to be setup, home iv abx already setup -upon discharge ID has arranged ceftriaxone 2 g IV qday and vancomycin 1.25 g IV q12h total 2 weeks until 03/11/18 to cover cellulitis/wound infection. Tobacco Prizer verified Disposition: DC/TX- HOME UNDER HOME [facility] Time spent for discharge: 35 minutes Core Measure Documentation - Palliative Care Palliative Care/ Comfort Measures: Not Applicable - Core Measures Any of the following diagnoses?: none - VTE Discharge Requirements Deep Vein Thrombosis/Pulmonary Embolism Present on Admission: No Has pt received <5 days of overlap therapy or INR<2.0: No Anticoagulant overlap therapy prescribed at discharge: No Contraindication No Overlap Therapy order at DC: Not Indicated Exam - Physical Exam Narrative exam: GEN: WDWN, NAD, Awake, Alert, Orientated x 3 HEENT: NCAT, EOMI, PERRL, OP Clear NECK: supple, no adenopathy, no thyromegaly, no JVD CVS/HEART: RRR, normal S1S2, pulses present bilaterally CHEST/LUNGS: CTA B, Symmetrical chest expansion, good air entry bilaterally, right cw leon in place GI/Abdomen: soft, NTND, good bowel sounds, no guarding or rebound /Bladder: no suprapubic tenderness, no CVA or paraspinal tenderness EXT/Skin: right toe dsg intact MSK: FROM x 4 Neuro: CN 2-12 grossly intact, no new focal deficits Psych: calm - Constitutional Vitals: Temp Pulse Resp BP Pulse Ox 97.8 F 57 L 24 128/74 97 03/04/18 05:27 03/04/18 05:27 03/04/18 05:27 03/04/18 05:27 03/04/18 05:27 Plan Activity: other (no strenous activity unless cleared by PCP) Diet: low salt Wound: per wound nurse instructions Special Instructions: home health RN Additional Instructions: See Dr. Perez to re-evaluate removing the Leon catether after antibiotics. Last Day of IV antibiotics is 03/11/2018 Follow up with: GORDON BECK MD [Primary Care Provider] - 3-5 Days JULIA MELENDEZ MD [Staff Physician] - 7 Days KRISTIE PEREZ MD [Staff Physician] - 14 Days Prescriptions: Zolpidem [Ambien] 5 mg PO QHS PRN #10 tablet PRN Reason: Sleep oxyCODONE /ACETAMINOPHEN [Percocet 5/325 mg] 1 tab PO Q4H PRN #10 tablet PRN Reason: Pain , Severe (7-10) Sertraline [Zoloft] 100 mg PO QDAY #30 tablet
[2018-03-04] MEDS: VANCOMYCIN/NS 1 GM/250 ML 1 GM/250 ML BAG IV SCH (11:57)
[2018-03-04 12:32] VITALS: BP 149/78
--- NOTE | 2018-03-04 14:27 | Progress Note ---
Assessment and Plan Assessment and plan: Patient is a 57-year-old man with a history of hypertension, hyperlipidemia, peripheral vascular disease, venous stasis, bipolar, obesity was sent to the emergency room by his infectious disease doctor for IV antibiotics for osteomyelitis of his toe. The patient has been on oral antibiotic for one month wo significant improvement of his right toe, hence the admission * MRI right lower extermity with and without contrast IMPRESSION: 1. No evidence of abscess 2. Dorsal soft tissue swelling and edema consistent with cellulitis 3. No evidence of osteomyelitis Right great toe cellulitis with osteomyelitis ruled out (so no need for surgical intervention per ID) s/p Leon catheter insertion for home abx, Renal insufficiency, acute, vasomotor nephropathy, poa, resolved UTI: on ABX Hypertension; low salt diet Hyperlipidemia; statin Peripheral vascular disease with nonhealing left foot ulcer: wound care, asa, statin therapy Obesity, bmi 39: lifestyle modification with diet discussed Bipolar disorder, denies SI: continue home medications DVT prophylaxis: sq lovenox, check cbc Disposition: continue inpatient care, awaiting home health/infusion company to be setup, home iv abx already setup Patient needs to be home by Sunday to pay his rent History Interval history: Patient was seen and examined. Follow-up on current diagnosis of right foot/toe infection. Overnight uneventful. Patient denies any chest pain, shortness breath , nausea/vomiting or severe headaches. Imaging, nursing note, chart, labs and old chart reviewed. Discussed with patient. He c/o right finger pain, swelling and redness, he has history of arthritis and gout. Hospitalist Physical - Physical exam Narrative exam: GEN: WDWN, NAD, Awake, Alert, Orientated x 3 HEENT: NCAT, EOMI, PERRL, OP Clear NECK: supple, no adenopathy, no thyromegaly, no JVD CVS/HEART: RRR, normal S1S2, pulses present bilaterally CHEST/LUNGS: CTA B, Symmetrical chest expansion, good air entry bilaterally, right cw leon in place GI/Abdomen: soft, NTND, good bowel sounds, no guarding or rebound /Bladder: no suprapubic tenderness, no CVA or paraspinal tenderness EXT/Skin: right toe dsg intact MSK: FROM x 4 Neuro: CN 2-12 grossly intact, no new focal deficits Psych: calm - Constitutional Vitals: Temp Pulse Resp BP Pulse Ox 98.1 F 52 L 20 149/78 97 03/04/18 11:35 03/04/18 11:35 03/04/18 11:35 03/04/18 11:35 03/04/18 11:35 Results - Labs CBC & Chem 7: 03/01/18 06:05 03/04/18 10:28 Labs: Laboratory Last Values WBC 5.1 K/mm3 (4.5-11.0) 03/01/18 06:05 RBC 3.93 M/mm3 (3.65-5.03) 03/01/18 06:05 Hgb 11.5 gm/dl (11.8-15.2) L 03/01/18 06:05 Hct 33.1 % (35.5-45.6) L 03/01/18 06:05 MCV 84 fl (84-94) 03/01/18 06:05 MCH 29 pg (28-32) 03/01/18 06:05 MCHC 35 % (32-34) H 03/01/18 06:05 RDW 14.0 % (13.2-15.2) 03/01/18 06:05 Plt Count 168 K/mm3 (140-440) 03/01/18 06:05 Lymph % (Auto) 19.7 % (13.4-35.0) 02/23/18 05:50 [place] % (Auto) 5.8 % (0.0-7.3) 02/23/18 05:50 Eos % (Auto) 3.9 % (0.0-4.3) 02/23/18 05:50 Baso % (Auto) 0.5 % (0.0-1.8) 02/23/18 05:50 Lymph # 1.4 K/mm3 (1.2-5.4) 02/23/18 05:50 [place] # 0.4 K/mm3 (0.0-0.8) 02/23/18 05:50 Eos # 0.3 K/mm3 (0.0-0.4) 02/23/18 05:50 Baso # 0.0 K/mm3 (0.0-0.1) 02/23/18 05:50 Seg Neutrophils % 70.1 % (40.0-70.0) H 02/23/18 05:50 Seg Neutrophils # 4.9 K/mm3 (1.8-7.7) 02/23/18 05:50 ESR 68 mm/Hr (0-20) 02/22/18 22:54 Sodium 142 mmol/L (137-145) 02/28/18 06:23 Potassium 4.2 mmol/L (3.6-5.0) 02/28/18 06:23 Chloride 106.5 mmol/L (98-107) 02/28/18 06:23 Carbon Dioxide 26 mmol/L (22-30) D 02/28/18 06:23 Anion Gap 14 mmol/L 02/28/18 06:23 BUN 15 mg/dL (9-20) 02/28/18 06:23 Creatinine 1.0 mg/dL (0.8-1.5) 03/04/18 10:28 Estimated GFR > 60 ml/min 03/04/18 10:28 BUN/Creatinine Ratio 17 % 02/28/18 06:23 Glucose 93 mg/dL (75-100) 02/28/18 06:23 Uric Acid 5.9 mg/dL (3.5-7.6) 03/01/18 13:21 Calcium 9.1 mg/dL (8.4-10.2) 02/28/18 06:23 Total Bilirubin 0.30 mg/dL (0.1-1.2) 02/22/18 13:38 AST 24 units/L (5-40) 02/22/18 13:38 ALT 19 units/L (7-56) 02/22/18 13:38 Alkaline Phosphatase 73 units/L (35-129) 02/22/18 13:38 Total Creatine Kinase 98 units/L (55-170) 02/22/18 22:54 C-Reactive Protein 1.10 mg/dL (0.00-1.30) 02/25/18 19:08 Total Protein 8.5 g/dL (6.3-8.2) H 02/22/18 13:38 Albumin 4.3 g/dL (3.9-5) 02/22/18 13:38 Albumin/Globulin Ratio 1.0 % 02/22/18 13:38 Urine Color Yellow (Yellow) 02/22/18 13:48 Urine Turbidity Slightly-cloudy (Clear) 02/22/18 13:48 Urine pH 5.0 (5.0-7.0) 02/22/18 13:48 Ur Specific [place] 1.016 (1.003-1.030) 02/22/18 13:48 Urine Protein 30 mg/dl mg/dL (Negative) 02/22/18 13:48 Urine Glucose (UA) Neg mg/dL (Negative) 02/22/18 13:48 Urine Ketones Neg mg/dL (Negative) 02/22/18 13:48 Urine Blood Neg (Negative) 02/22/18 13:48 Urine Nitrite Neg (Negative) 02/22/18 13:48 Urine Bilirubin Neg (Negative) 02/22/18 13:48 Urine Urobilinogen < 2.0 mg/dL (<2.0) 02/22/18 13:48 Ur Leukocyte Esterase Lg (Negative) 02/22/18 13:48 Urine WBC (Auto) 46.0 /HPF (0.0-6.0) H 02/22/18 13:48 Urine RBC (Auto) 5.0 /HPF (0.0-6.0) 02/22/18 13:48 U Epithel Cells (Auto) 2.0 /HPF (0-13.0) 02/22/18 13:48 Urine Bacteria (Auto) 1+ /HPF (Negative) 02/22/18 13:48 Hyaline Casts 4 /LPF 02/22/18 13:48 Urine Mucus Few /HPF 02/22/18 13:48 Vancomycin Trough 19.3 ug/mL (5.0-20.0) 03/04/18 10:28
== END 2018-03-04 16:21 | disposition home health service (06) | DRG 579 ==
LOC: ED 12:56 → 3A 23:39
PROVIDERS: ADMIT Internal Medicine; ATTEND Internal Medicine
PROC: 0JH63XZ Insertion of Tunneled Vascular Access Device into Chest Subcutaneous Tissue and Fascia, Percutaneous Approach (ICD-10-PCS; principal; 2018-02-25)
PROC: 02H633Z Insertion of Infusion Device into Right Atrium, Percutaneous Approach (ICD-10-PCS; 2018-02-25)
PROC: B2141ZZ Fluoroscopy of Right Heart using Low Osmolar Contrast (ICD-10-PCS; 2018-02-25)
DX: L03.115 Cellulitis of right lower limb (principal); N17.0 Acute kidney failure with tubular necrosis; N39.0 Urinary tract infection, site not specified; I10 Essential (primary) hypertension; I87.8 Other specified disorders of veins; I73.9 Peripheral vascular disease, unspecified; F41.9 Anxiety disorder, unspecified; F20.9 Schizophrenia, unspecified; E78.5 Hyperlipidemia, unspecified; F31.9 Bipolar disorder, unspecified; E66.01 Morbid (severe) obesity due to excess calories; M19.90 Unspecified osteoarthritis, unspecified site; M10.9 Gout, unspecified; Z68.38 Body mass index [BMI] 38.0-38.9, adult; Z82.49 Family history of ischemic heart disease and other diseases of the circulatory system; Z79.899 Other long term (current) drug therapy
CPT/HCPCS: 36415; 36558; 77001; 80048; 80053; 80202; 81001; 82550; 82565; 84550; 85025; 85027; 85652; 86140; 93925; 96374; A9577; C1752; J0692; J0696; J1644; J1650; J2250; J3010; J3370; J7030; J7040; J7050

== ENCOUNTER 2018-05-31 10:38 | Outpatient (CLI) | payer MEDICARE ==
[2018-05-31] MEDS ORDERED: XYLOCAINE TOPICAL 4% TP ONE (10:51)
[2018-05-31] MEDS ORDERED: SILVER NITRATE TP NR (11:25)
== END 2018-05-31 10:39 | disposition home or self-care (01) ==
LOC: WOUND 10:38
PROVIDERS: ATTEND Surgery
DX: I87.313 Chronic venous hypertension (idiopathic) with ulcer of bilateral lower extremity (principal); L89.892 Pressure ulcer of other site, stage 2; L97.812 Non-pressure chronic ulcer of other part of right lower leg with fat layer exposed; L97.312 Non-pressure chronic ulcer of right ankle with fat layer exposed; L84 Corns and callosities; L40.9 Psoriasis, unspecified; F41.9 Anxiety disorder, unspecified

== ENCOUNTER 2018-06-07 10:07 | Outpatient (CLI) | payer MEDICARE ==
[2018-06-07] MEDS ORDERED: XYLOCAINE TOPICAL 4% TP ONE (10:54)
[2018-06-07] MEDS ORDERED: AD OINTMENT TP PRN (10:54)
== END 2018-06-07 10:08 | disposition home or self-care (01) ==
LOC: WOUND 10:07
PROVIDERS: ATTEND Surgery
DX: I87.313 Chronic venous hypertension (idiopathic) with ulcer of bilateral lower extremity (principal); L89.892 Pressure ulcer of other site, stage 2; L97.521 Non-pressure chronic ulcer of other part of left foot limited to breakdown of skin; L97.511 Non-pressure chronic ulcer of other part of right foot limited to breakdown of skin; L97.812 Non-pressure chronic ulcer of other part of right lower leg with fat layer exposed; L97.312 Non-pressure chronic ulcer of right ankle with fat layer exposed; L84 Corns and callosities; L40.9 Psoriasis, unspecified; F41.9 Anxiety disorder, unspecified
CPT/HCPCS: A6250

== ENCOUNTER 2018-06-21 09:21 | Outpatient (CLI) | payer MEDICARE ==
[2018-06-21] MEDS ORDERED: XYLOCAINE TOPICAL 4% TP ONE (10:02)
[2018-06-21] MEDS ORDERED: AD OINTMENT TP PRN (10:02)
== END 2018-06-21 09:22 | disposition home or self-care (01) ==
LOC: WOUND 09:21
PROVIDERS: ATTEND Surgery
DX: I87.311 Chronic venous hypertension (idiopathic) with ulcer of right lower extremity (principal); L97.312 Non-pressure chronic ulcer of right ankle with fat layer exposed; L89.892 Pressure ulcer of other site, stage 2; L84 Corns and callosities; I87.8 Other specified disorders of veins; L40.9 Psoriasis, unspecified; F41.9 Anxiety disorder, unspecified
CPT/HCPCS: A6250

== ENCOUNTER 2018-07-05 09:45 | Outpatient (CLI) | payer MEDICARE ==
[2018-07-05] MEDS ORDERED: AD OINTMENT TP PRN (11:00)
[2018-07-05] MEDS ORDERED: SILVER NITRATE TP ONE (11:15)
[2018-07-05] MEDS ORDERED: XYLOCAINE TOPICAL 4% TP ONE (11:15)
== END 2018-07-05 09:46 | disposition home or self-care (01) ==
LOC: WOUND 09:45
PROVIDERS: ATTEND Surgery
DX: I87.311 Chronic venous hypertension (idiopathic) with ulcer of right lower extremity (principal); L89.892 Pressure ulcer of other site, stage 2; L97.312 Non-pressure chronic ulcer of right ankle with fat layer exposed; L97.521 Non-pressure chronic ulcer of other part of left foot limited to breakdown of skin; L84 Corns and callosities; I87.8 Other specified disorders of veins; L40.9 Psoriasis, unspecified; F41.9 Anxiety disorder, unspecified
CPT/HCPCS: A6250

== ENCOUNTER 2018-08-02 09:58 | Outpatient (CLI) | payer MEDICARE ==
[2018-08-02] MEDS ORDERED: XYLOCAINE TOPICAL 4% TP ONE (10:19)
[2018-08-03] MEDS ORDERED: AD OINTMENT TP SCH (10:00)
== END 2018-08-02 09:59 | disposition home or self-care (01) ==
LOC: WOUND 09:58
PROVIDERS: ATTEND Surgery
DX: I87.313 Chronic venous hypertension (idiopathic) with ulcer of bilateral lower extremity (principal); L89.892 Pressure ulcer of other site, stage 2; L97.512 Non-pressure chronic ulcer of other part of right foot with fat layer exposed; L97.312 Non-pressure chronic ulcer of right ankle with fat layer exposed; L97.521 Non-pressure chronic ulcer of other part of left foot limited to breakdown of skin; L84 Corns and callosities; I87.8 Other specified disorders of veins; L40.9 Psoriasis, unspecified; F41.9 Anxiety disorder, unspecified
CPT/HCPCS: 87075; 87076; 87116; 87186

== ENCOUNTER 2018-08-09 10:06 | Outpatient (CLI) | payer MEDICARE ==
[2018-08-09] MEDS ORDERED: SILVER NITRATE TP ONE (11:00)
[2018-08-09] MEDS ORDERED: XYLOCAINE TOPICAL 4% TP ONE (11:00)
[2018-08-09] MEDS ORDERED: AD OINTMENT TP PRN (11:00)
== END 2018-08-09 10:07 | disposition home or self-care (01) ==
LOC: WOUND 10:06
PROVIDERS: ATTEND Surgery
DX: I87.313 Chronic venous hypertension (idiopathic) with ulcer of bilateral lower extremity (principal); L89.892 Pressure ulcer of other site, stage 2; L97.312 Non-pressure chronic ulcer of right ankle with fat layer exposed; L97.522 Non-pressure chronic ulcer of other part of left foot with fat layer exposed; L97.512 Non-pressure chronic ulcer of other part of right foot with fat layer exposed; I87.8 Other specified disorders of veins; L40.9 Psoriasis, unspecified; F41.9 Anxiety disorder, unspecified
CPT/HCPCS: A6250

== ENCOUNTER 2018-09-06 10:05 | Outpatient (CLI) | payer MEDICARE ==
[2018-09-06] MEDS ORDERED: XYLOCAINE TOPICAL 4% TP ONE (10:48)
[2018-09-06] MEDS ORDERED: AD OINTMENT TP PRN (10:49)
== END 2018-09-06 10:06 | disposition home or self-care (01) ==
LOC: WOUND 10:05
PROVIDERS: ATTEND Surgery
DX: E11.621 Type 2 diabetes mellitus with foot ulcer (principal); L89.892 Pressure ulcer of other site, stage 2; L97.512 Non-pressure chronic ulcer of other part of right foot with fat layer exposed; E11.622 Type 2 diabetes mellitus with other skin ulcer; L97.312 Non-pressure chronic ulcer of right ankle with fat layer exposed; L97.522 Non-pressure chronic ulcer of other part of left foot with fat layer exposed; I87.313 Chronic venous hypertension (idiopathic) with ulcer of bilateral lower extremity; I87.8 Other specified disorders of veins; L84 Corns and callosities; L40.9 Psoriasis, unspecified; F41.9 Anxiety disorder, unspecified
CPT/HCPCS: A6250

== ENCOUNTER 2018-09-13 09:10 | Outpatient (CLI) | payer MEDICARE ==
[2018-09-13] MEDS ORDERED: XYLOCAINE TOPICAL 4% TP ONE (10:13)
== END 2018-09-13 09:11 | disposition home or self-care (01) ==
LOC: WOUND 09:10
PROVIDERS: ATTEND Surgery
DX: E11.621 Type 2 diabetes mellitus with foot ulcer (principal); L89.892 Pressure ulcer of other site, stage 2; L97.512 Non-pressure chronic ulcer of other part of right foot with fat layer exposed; L97.522 Non-pressure chronic ulcer of other part of left foot with fat layer exposed; I87.313 Chronic venous hypertension (idiopathic) with ulcer of bilateral lower extremity; E11.622 Type 2 diabetes mellitus with other skin ulcer; L97.312 Non-pressure chronic ulcer of right ankle with fat layer exposed; L84 Corns and callosities; I10 Essential (primary) hypertension; I87.8 Other specified disorders of veins; L40.9 Psoriasis, unspecified; F41.9 Anxiety disorder, unspecified

== ENCOUNTER 2018-10-25 09:20 | Outpatient (CLI) | payer MEDICARE ==
[2018-10-25] MEDS ORDERED: AD OINTMENT TP PRN (10:30)
== END 2018-10-25 09:21 | disposition home or self-care (01) ==
LOC: WOUND 09:20
PROVIDERS: ATTEND Surgery
DX: E11.621 Type 2 diabetes mellitus with foot ulcer (principal); L89.892 Pressure ulcer of other site, stage 2; L97.512 Non-pressure chronic ulcer of other part of right foot with fat layer exposed; L97.522 Non-pressure chronic ulcer of other part of left foot with fat layer exposed; E11.622 Type 2 diabetes mellitus with other skin ulcer; L89.512 Pressure ulcer of right ankle, stage 2; L97.312 Non-pressure chronic ulcer of right ankle with fat layer exposed; I87.8 Other specified disorders of veins; L84 Corns and callosities; I87.313 Chronic venous hypertension (idiopathic) with ulcer of bilateral lower extremity; F41.9 Anxiety disorder, unspecified; L40.9 Psoriasis, unspecified
CPT/HCPCS: A6250

== ENCOUNTER → 2018-11-15 | Outpatient (CLI) | payer MEDICARE | END | disposition home or self-care (01) | LOC: WOUND 11:00 | PROVIDERS: ATTEND Surgery | DX: E11.622 Type 2 diabetes mellitus with other skin ulcer (principal); L89.512 Pressure ulcer of right ankle, stage 2; L97.312 Non-pressure chronic ulcer of right ankle with fat layer exposed; L97.812 Non-pressure chronic ulcer of other part of right lower leg with fat layer exposed; I87.311 Chronic venous hypertension (idiopathic) with ulcer of right lower extremity; I87.8 Other specified disorders of veins; L84 Corns and callosities; F41.9 Anxiety disorder, unspecified; L40.9 Psoriasis, unspecified ==

== ENCOUNTER 2018-12-06 09:06 | Outpatient (CLI) | payer MEDICARE | END 2018-12-06 09:07 | disposition home or self-care (01) | LOC: WOUND 09:06 | PROVIDERS: ATTEND Surgery | DX: E11.622 Type 2 diabetes mellitus with other skin ulcer (principal); L89.512 Pressure ulcer of right ankle, stage 2; L97.312 Non-pressure chronic ulcer of right ankle with fat layer exposed; L97.812 Non-pressure chronic ulcer of other part of right lower leg with fat layer exposed; I87.311 Chronic venous hypertension (idiopathic) with ulcer of right lower extremity; I87.8 Other specified disorders of veins; L84 Corns and callosities; F41.9 Anxiety disorder, unspecified; L40.9 Psoriasis, unspecified ==

== ENCOUNTER 2018-12-26 09:09 | Inpatient (IN) | payer MEDICARE ==
[2018-12-26 09:57] LABS: Basophils # (Auto) 0.1 K/mm3 (0.0-0.1); Basophils % (Auto) 0.7 % (0.0-1.8); Eosinophils # (Auto) 0.1 K/mm3 (0.0-0.4); Eosinophils % (Auto) 1.7 % (0.0-4.3); Hematocrit 34.3 % (35.5-45.6); Hemoglobin 11.7 gm/dl (11.8-15.2); Lymphocytes # (Auto) 1.1 K/mm3 (1.2-5.4); Lymphocytes % (Auto) 12.6 % (13.4-35.0); Mean Corpuscular HGB Conc 34 % (32-34); Mean Corpuscular Volume 85 fl (84-94); Monocytes # (Auto) 0.6 K/mm3 (0.0-0.8); Monocytes % (Auto) 7.1 % (0.0-7.3); Platelet Count 159 K/mm3 (140-440); Red Blood Count 4.03 M/mm3 (3.65-5.03); Red Cell Distribution Width 15.3 % (13.2-15.2)
[2018-12-26 10:08] LABS: INR 1.29 (0.87-1.13); Partial Thromboplastin Time 31.7 Sec. (24.2-36.6)
[2018-12-26 10:20] LABS: BUN/Creatinine Ratio 17; Blood Urea Nitrogen 19 mg/dL (9-20); Calcium 9.5 mg/dL (8.4-10.2); Hemolysis Index 12
--- NOTE | 2018-12-26 10:33 | XRay Report ---
CHEST 1 VIEW INDICATION / CLINICAL INFORMATION: Shortness of breath. COMPARISON: None available FINDINGS: The heart is enlarged. Left hemidiaphragm and left costophrenic sulcus are clear. Right costophrenic sulcus is poorly seen. No definite airspace consolidation. Hazy bilateral airspace opacities are pres ent, but low lung volumes contribute to this appearance. IMPRESSION: Cardiomegaly. Low lung volumes with bibasilar atelectasis and accentuated pulmonary vascular and interstitial riley ngs. Small pleural effusions are not excluded. Signer Name: Erick Swift MD Signed: 12/26/2018 10:29 AM Workstation Name: [id number]
[2018-12-26] MEDS ORDERED: CARDIZEM IV ONE (10:40)
[2018-12-26] MEDS ORDERED: NACL 0.9% 1000 ML 1,000 ML IV ONE (10:41)
--- NOTE | 2018-12-26 10:47 | Emergency Department Report ---
ED Shortness of Breath HPI - General Chief Complaint: Dyspnea/Respdistress Stated Complaint: SOB Time Seen by Provider: 12/26/18 09:48 Source: EMS Mode of arrival: Stretcher Limitations: No Limitations - History of Present Illness Initial Comments: the patient is a 58 y.o c.m who presents to ER with sob, worse with exertion. Symptoms started while at rest a week ago. Symptoms have been constant since onset and he rates them as severe. Patient denies any chest pain, but c/o left knee pain, secondary to arthritis in that joint. Shortness of breath is accompanied by leg swelling and palpitations. He states his heartbeat feels irregular. He denies any past h/o irregular heartbeat. He was told once before by his vascular surgeon a few months ago that his heart rate was irregular but he didn't have any treatment for such symptoms. He has a past medical history of schizophrenia, anxiety, vascular problems in both legs. MD Complaint: shortness of breath -: Gradual - Related Data Home Medications Medication Instructions Recorded Confirmed Last Taken Lisinopril/Hydrochlorothiazide 10 - 12.5 tab PO QDAY 11/13/16 12/26/18 02/22/18 08:00 [Zestoretic 20-12.5 mg] diphenhydrAMINE [Benadryl CAP] 25 mg PO PRN 03/12/17 12/26/18 Unknown Previous Rx's Medication Instructions Recorded Last Taken Type Acetaminophen [Acetaminophen TAB] 650 mg PO Q4H PRN #15 tablet 03/04/18 Unknown Rx Sertraline [Zoloft] 100 mg PO QDAY #30 tablet 03/04/18 Unknown Rx Zolpidem [Ambien] 5 mg PO QHS PRN #10 tablet 05/01/18 Unknown Rx Loperamide HCl [Imodium A-D] 2 mg PO DAILY #20 tablet 09/19/18 Unknown Rx Ondansetron [Zofran Odt] 4 mg PO Q8HR PRN #20 tab.rapdis 09/19/18 Unknown Rx Allergies Allergy/AdvReac Type Severity Reaction Status Date / Time No Known Allergies Allergy Verified 09/19/18 15:26 ED Review of Systems ROS: Stated complaint: SOB Other details as noted in HPI Comment: All other systems reviewed and negative Eyes: denies: eye pain ENT: denies: ear pain Respiratory: cough, orthopnea, SOB with exertion, SOB at rest. denies: wheezing Cardiovascular: palpitations, dyspnea on exertion ED Past Medical Hx - Past Medical History Hx Hypertension: Yes Hx Congestive Heart Failure: No Hx Psychiatric Treatment: Yes (schizophrenia, anxiety) Hx Asthma: No Additional medical history: Vascular problems in both lower ext,high cholesterol, pressure ankle right ankle - Surgical History Additional Surgical History: Vascular surgery on 10/25/16 R lower ext. - Social History Smoking Status: Never Smoker Substance Use Type: None - Medications Home Medications: Home Medications Medication Instructions Recorded Confirmed Last Taken Type Lisinopril/Hydrochlorothiazide 10 - 12.5 tab PO QDAY 11/13/16 12/26/18 02/22/18 08:00 History [Zestoretic 20-12.5 mg] diphenhydrAMINE [Benadryl CAP] 25 mg PO PRN 03/12/17 12/26/18 Unknown History Acetaminophen [Acetaminophen TAB] 650 mg PO Q4H PRN #15 tablet 03/04/18 12/26/18 Unknown Rx Sertraline [Zoloft] 100 mg PO QDAY #30 tablet 03/04/18 12/26/18 Unknown Rx Zolpidem [Ambien] 5 mg PO QHS PRN #10 tablet 05/01/18 12/26/18 Unknown Rx Loperamide HCl [Imodium A-D] 2 mg PO DAILY #20 tablet 09/19/18 12/26/18 Unknown Rx Ondansetron [Zofran Odt] 4 mg PO Q8HR PRN #20 tab.rapdis 09/19/18 12/26/18 Unknown Rx ED Physical Exam - General Limitations: No Limitations General appearance: alert, in no apparent distress - Head Head exam: Present: atraumatic, normocephalic - Eye Eye exam: Present: normal appearance, PERRL, EOMI Pupils: Present: normal accommodation - ENT ENT exam: Present: normal exam, normal orophraynx - Neck Neck exam: Present: normal inspection - Respiratory Respiratory exam: Present: normal lung sounds bilaterally - Cardiovascular Cardiovascular Exam: Present: irregular rhythm - GI/Abdominal GI/Abdominal exam: Present: soft - Extremities Exam Extremities exam: Present: pedal edema (2 plus) ED Course Vital Signs 12/26/18 12/26/18 12/26/18 09:27 09:34 09:37 Temperature 99.4 F 99.4 F Pulse Rate 123 H 118 H Respiratory 15 16 Rate Blood Pressure 128/98 Blood Pressure 128/98 [Left] O2 Sat by Pulse 94 95 95 Oximetry 12/26/18 12/26/18 11:21 12:32 Temperature Pulse Rate 88 75 Respiratory 20 20 Rate Blood Pressure 132/83 Blood Pressure 132/83 123/85 [Left] O2 Sat by Pulse 94 95 Oximetry ED Medical Decision Making - Lab Data Result diagrams: 12/26/18 09:48 12/26/18 09:48 - EKG Data -: EKG Interpreted by Me Rate: tachycardia No standard instances Rhythm: A.Fib - EKG Data When compared to previous EKG there are: changes noted (atrial ) 12/26/18 11:11 atrial fibrillation Critical care attestation.: If time is entered above; I have spent that time in minutes in the direct care of this critically ill patient, excluding procedure time. ED Disposition Clinical Impression: Atrial fibrillation Qualifiers: Atrial fibrillation type: paroxysmal Qualified Code(s): I48.0 - Paroxysmal atrial fibrillation Disposition: DC/TX-65 PSY HOSP/PSY UNIT Is pt being admited?: Yes Does the pt Need Aspirin: Yes Condition: Stable
--- NOTE | 2018-12-26 10:54 | XRay Report ---
LEFT KNEE 2 VIEWS INDICATION / CLINICAL INFORMATION: left knee pain and swelling. COMPARISON: None available. FINDINGS: Moderate degenerative change in the patellofemoral joint with a superior patellar spur. No other sign ificant skeletal abnormality. Signer Name: Mir Guerra MD FACSheba Signed: 12/26/2018 10:50 AM Workstation Name: [id number]
--- NOTE | 2018-12-26 12:14 | History and Physical Report ---
History of Present Illness Chief complaint: I cant breathe History of present illness: 58 YO Male with Obesity, HTN, Anxiety, Schizophrenia, OA, PVD presents to ED for evaluation. Pt states that he has experienced shortness of breath over the past 1 week with worsening symptoms over the past 2 days. Pt also reports chest palpitations, dypsnea on exertion, dypsnea at rest, leg swelling, Orthopnea/PND. Pt denies chest pain , fever, chills, NVD, Trauma, BRBPR, Productive cough, skin rash, or recent ill contacts. EMS notified, and upon arrival the patient was found to be in distress and transported to [facility]. Pt seen and evaluated in ED and found to have new onset Atrial Fib as well as clinical findings consistent with CHF Decompensation. Pt admitted to telemetry. Pt treated with cardizem in ED with conversion to normal sinus rhythm. CHADS 2Vasc Score:2. Cardiology team consulted in ED. Prior admission on 04/23/18 reviewed. All listed medication reconciled at time of admission. Past History Past Medical History: hypertension, PVD, other (Schizophrenia, Anxiety) Past Surgical History: Other (Right Leg surgery') Social history: single. denies: smoking, alcohol abuse, prescription drug abuse Family history: no significant family history (reviewed) Medications and Allergies Allergies Allergy/AdvReac Type Severity Reaction Status Date / Time No Known Allergies Allergy Verified 09/19/18 15:26 Home Medications Medication Instructions Recorded Confirmed Last Taken Type Lisinopril/Hydrochlorothiazide 10 - 12.5 tab PO QDAY 11/13/16 12/26/18 02/22/18 08:00 History [Zestoretic 20-12.5 mg] diphenhydrAMINE [Benadryl CAP] 25 mg PO PRN 03/12/17 12/26/18 Unknown History Acetaminophen [Acetaminophen TAB] 650 mg PO Q4H PRN #15 tablet 03/04/18 12/26/18 Unknown Rx Sertraline [Zoloft] 100 mg PO QDAY #30 tablet 03/04/18 12/26/18 Unknown Rx Zolpidem [Ambien] 5 mg PO QHS PRN #10 tablet 05/01/18 12/26/18 Unknown Rx Loperamide HCl [Imodium A-D] 2 mg PO DAILY #20 tablet 09/19/18 12/26/18 Unknown Rx Ondansetron [Zofran Odt] 4 mg PO Q8HR PRN #20 tab.rapdis 09/19/18 12/26/18 Unknown Rx Active Meds: Active Medications Sodium Chloride (Nacl 0.9% 1000 Ml) 1,000 mls @ 250 mls/hr IV ONCE ONE Stop: 12/26/18 14:40 Last Admin: 12/26/18 11:21 Dose: 250 mls/hr Documented by: Review of Systems Constitutional: weight gain, no weight loss, no fever, no chills Ears, nose, mouth and throat: no ear pain, no ear discharge, no tinnitis, no nasal discharge Cardiovascular: orthopnea, palpitations, rapid/irregular heart beat, shortness of breath, dyspnea on exertion, paroxysmal nocturnal dyspnea, leg edema, decreased exercise tolerance, no chest pain, no syncope Respiratory: no cough, no cough with sputum, no excessive sputum, no hemoptysis Gastrointestinal: no nausea, no vomiting, no diarrhea, no constipation Genitourinary Male: no hematuria, no flank pain, no discharge Rectal: no pain, no incontinence, no bleeding Musculoskeletal: no neck pain, no shooting arm pain, no arm numbness/tingling, no low back pain, no shooting leg pain Integumentary: no rash, no pruritis, no redness, no sores, no wounds Neurological: no transient paralysis, no paralysis, no weakness, no parathesias, no numbness Psychiatric: no anxiety, no memory loss, no change in sleep habits, no sleep disturbances, no insomnia Endocrine: no cold intolerance, no heat intolerance, no polyphagia, no excessive thirst, no polydipsia, no polyuria Hematologic/Lymphatic: no easy bruising, no easy bleeding, no lymphadenopathy, no lymphedema Allergic/Immunologic: no urticaria, no allergic rhinitis, no wheezing, no persistent infections, no anaphylaxis, no angioedema Exam - Constitutional Vitals: Temp Pulse Resp BP Pulse Ox 99.4 F 88 20 132/83 94 12/26/18 09:34 12/26/18 11:21 12/26/18 11:21 12/26/18 11:21 12/26/18 11:21 General appearance: Present: mild distress, obese - EENT Eyes: Present: PERRL ENT: hearing intact, clear oral mucosa - Neck Neck: Present: supple, normal ROM - Respiratory Respiratory effort: normal Respiratory: bilateral: CTA - Cardiovascular Heart Sounds: Present: S1 & S2. Absent: rub, click - Extremities Extremities: pulses symmetrical Extremity abnormal: edema Peripheral Pulses: within normal limits - Abdominal General gastrointestinal: Present: soft, non-tender, non-distended, normal bowel sounds Male genitourinary: Present: normal - Integumentary Integumentary: Present: clear, warm, dry - Musculoskeletal Musculoskeletal: gait normal, strength equal bilaterally - Psychiatric Psychiatric: appropriate mood/affect, intact judgment & insight - Neurologic Neurologic: CNII-XII intact, moves all extremities Results - Labs CBC & Chem 7: 12/26/18 09:48 12/26/18 09:48 Labs: Abnormal lab results 12/26/18 12/26/18 12/26/18 Range/Units 09:48 09:48 09:48 Hgb 11.7 L (11.8-15.2) gm/dl Hct 34.3 L (35.5-45.6) % RDW 15.3 H (13.2-15.2) % Lymph % (Auto) 12.6 L (13.4-35.0) % Lymph # 1.1 L (1.2-5.4) K/mm3 Seg Neutrophils % 77.9 H (40.0-70.0) % PT 15.8 H (12.2-14.9) Sec. INR 1.29 H (0.87-1.13) Glucose 129 H (75-100) mg/dL NT-Pro-B Natriuret Pep (0-900) pg/mL 12/26/18 Range/Units 09:48 Hgb (11.8-15.2) gm/dl Hct (35.5-45.6) % RDW (13.2-15.2) % Lymph % (Auto) (13.4-35.0) % Lymph # (1.2-5.4) K/mm3 Seg Neutrophils % (40.0-70.0) % PT (12.2-14.9) Sec. INR (0.87-1.13) Glucose (75-100) mg/dL NT-Pro-B Natriuret Pep 3976 H (0-900) pg/mL Assessment and Plan - Patient Problems (1) CHF (congestive heart failure) Current Visit: Yes Status: Acute Qualifiers: Heart failure chronicity: acute Plan to address problem: Admit to telemetry, Echo, thyroid panel, diuresis, strict I/O, daily weight, afterload reduction, magnesium level, monitor uop q shift, cardiology consulted in ED, supplemental oxygen, ddimer, CTA Chest, chest x ray (2) HTN (hypertension) Current Visit: Yes Status: Acute Qualifiers: Hypertension type: essential hypertension Qualified Code(s): I10 - Essential (primary) hypertension Plan to address problem: Monitor bp q shift, (3) Anxiety Current Visit: Yes Status: Acute Plan to address problem: continue current therapy, supportive care. (4) Atrial fibrillation Current Visit: Yes Status: Acute Qualifiers: Atrial fibrillation type: persistent Qualified Code(s): I48.1 - Persistent atrial fibrillation Plan to address problem: CHADS 2 VAsc score:2, Therapeutic anticoagulation, rate control with beta leyda therapy, (5) Obesity Current Visit: Yes Status: Acute Qualifiers: Body mass index: BMI 33.0-33.9 Plan to address problem: Balanced diet, increased physical activity at discharge. +15minutes dietary counseling. (6) PVD (peripheral vascular disease) Current Visit: No Status: Chronic Plan to address problem: supportive care, outpatient vascular surgery f/U care (7) DVT prophylaxis Current Visit: No Status: Acute Plan to address problem: SCD to BLE while in bed, therapeutic anticoagulation.
[2018-12-26] MEDS ORDERED: PROVENTIL IH PRN (12:18)
[2018-12-26] MEDS ORDERED: ZOFRAN IV PRN (12:18)
[2018-12-26] MEDS ORDERED: TYLENOL PO PRN (12:18)
[2018-12-26] MEDS ORDERED: SODIUM CHLORIDE FLUSH SYRINGE 10 ML IV PRN (12:18)
[2018-12-26 13:19] LABS: Free T4 (Free Thyroxine) 1.37 ng/dL (0.76-1.46)
--- NOTE | 2018-12-26 15:07 | Consultation ---
History of Present Illness Consult date: 12/26/18 Consult reason: atrial fibrillation History of present illness: Patient is a 58-year old male who was brought in with shortness of breath, found with rapid atrial fibrillation. Patient reports shortness of breath has progressively worsened over the last 1-2 weeks. Patient reports 2 years ago, his planned outpatient vascular surgery was aborted due to an abnormal heart rhythm. At that time, patient was referred for cardiac evaluation but never followed up. He denies palpitations, denies chest pain and has no dizziness. TSH is within normal limits. Chest x-ray reports cardiomegaly with hazy bilateral airspace opacities present. An echocardiogram done within the last year, shows a well preserved systolic function, ejection fraction 55-60%. Cardiac consultation has been requested for further management of atrial fibrillation. Past History Past Medical History: hypertension, PVD, other (Schizophrenia, Anxiety) Past Surgical History: Other (Right Leg surgery') Social history: single. denies: smoking, alcohol abuse, prescription drug abuse Family history: no significant family history (reviewed) Medications and Allergies Allergies Allergy/AdvReac Type Severity Reaction Status Date / Time No Known Allergies Allergy Verified 09/19/18 15:26 Home Medications Medication Instructions Recorded Confirmed Last Taken Type Lisinopril/Hydrochlorothiazide 10 - 12.5 tab PO QDAY 11/13/16 12/26/18 02/22/18 08:00 History [Zestoretic 20-12.5 mg] diphenhydrAMINE [Benadryl CAP] 25 mg PO PRN 03/12/17 12/26/18 Unknown History Acetaminophen [Acetaminophen TAB] 650 mg PO Q4H PRN #15 tablet 03/04/18 12/26/18 Unknown Rx Sertraline [Zoloft] 100 mg PO QDAY #30 tablet 03/04/18 12/26/18 Unknown Rx Zolpidem [Ambien] 5 mg PO QHS PRN #10 tablet 05/01/18 12/26/18 Unknown Rx Loperamide HCl [Imodium A-D] 2 mg PO DAILY #20 tablet 09/19/18 12/26/18 Unknown Rx Ondansetron [Zofran Odt] 4 mg PO Q8HR PRN #20 tab.rapdis 09/19/18 12/26/18 Unknown Rx Active Meds: Active Medications Acetaminophen (Tylenol) 650 mg PO Q4H PRN PRN Reason: Pain MILD(1-3)/Fever >100.5/CASTILLO Albuterol (Proventil) 2.5 mg IH Q4HRT PRN PRN Reason: Shortness Of Breath Apixaban (Eliquis) 5 mg PO Q12HR SOFIYA; Protocol Furosemide (Lasix) 20 mg IV BID@0600,1800 SOFIYA Lisinopril (Zestril) 2.5 mg PO QDAY SOFIYA Metoprolol Tartrate (Lopressor) 25 mg PO BID SOFIYA Ondansetron HCl (Zofran) 4 mg IV Q8H PRN PRN Reason: Nausea And Vomiting Sodium Chloride (Sodium Chloride Flush Syringe 10 Ml) 10 ml IV BID SOFIYA Sodium Chloride (Sodium Chloride Flush Syringe 10 Ml) 10 ml IV PRN PRN PRN Reason: LINE FLUSH Physical Examination Vital Signs Temp Pulse Resp BP Pulse Ox 99.4 F 123 H 15 128/98 94 12/26/18 09:27 12/26/18 09:27 12/26/18 09:27 12/26/18 09:27 12/26/18 09:27 General appearance: no acute distress HEENT: Positive: PERRL Neck: Positive: trachea midline Cardiac: Positive: irregularly irregular Lungs: Positive: Decreased Breath Sounds Neuro: Positive: Grossly Intact Extremities: Present: Other (chronic LE ulcer/wounds) Results 12/26/18 09:48 12/26/18 09:48 Coagulation 12/26/18 Range/Units 09:48 PT 15.8 H (12.2-14.9) Sec. INR 1.29 H (0.87-1.13) APTT 31.7 (24.2-36.6) Sec. CBC 12/26/18 Range/Units 09:48 WBC 8.7 (4.5-11.0) K/mm3 RBC 4.03 (3.65-5.03) M/mm3 Hgb 11.7 L (11.8-15.2) gm/dl Hct 34.3 L (35.5-45.6) % Plt Count 159 (140-440) K/mm3 Lymph # 1.1 L (1.2-5.4) K/mm3 Moore # 0.6 (0.0-0.8) K/mm3 Eos # 0.1 (0.0-0.4) K/mm3 Baso # 0.1 (0.0-0.1) K/mm3 Comprehensive Metabolic Panel 12/26/18 Range/Units 09:48 Sodium 142 (137-145) mmol/L Potassium 3.6 (3.6-5.0) mmol/L Chloride 105.7 (98-107) mmol/L Carbon Dioxide 22 (22-30) mmol/L BUN 19 (9-20) mg/dL Creatinine 1.1 (0.8-1.5) mg/dL Glucose 129 H (75-100) mg/dL Calcium 9.5 (8.4-10.2) mg/dL Assessment and Plan Atrial fibrillation initiated on eliquis and metoprolol TSH WNL Hypertension PVD with bilateral LE ulcers Schizophrenia Echocardiogram for LVEF assessment. Continue medical management of atrial fibrillation.
[2018-12-26] MEDS: ELIQUIS PO SCH ×2 (16:34→21:49)
[2018-12-26] MEDS: LOPRESSOR PO SCH ×2 (16:35→21:49)
[2018-12-26] MEDS: LASIX IV SCH (17:55)
[2018-12-26] MEDS ORDERED: CARDIZEM PO SCH (18:00)
--- NOTE | 2018-12-26 18:19 | Cat Scan Report ---
CT angio chest INDICATION / CLINICAL INFORMATION: dypsnea. TECHNIQUE: Precontrast bolus timing images were obtained followed by postcontrast axial and reformatted images. 3-plane MIP reconstructions were performed at an independent workstation by the technologist. All CT scans at this location are performed using CT dose reduction for ALARA by means of automated exposure control. COMPARISON: Chest CT 04/24/2018 FINDINGS: Pulmonary arterial enhancement is normal bilaterally. No evidence of pulmonary embolus. There is a small right pleural effusion. Pleural-parenchymal scarring is identified in the right upper hemithorax. No acute lung disease. No mediastinal adenopathy. Degenerative changes are seen in the thoracic spine. IMPRESSION: 1. No pulmonary embolus or acute lung disease. 2. Small right pleural effusion. Signer Name: Ian Marie MD Signed: 12/26/2018 6:15 PM Workstation Name: [id number]
[2018-12-26] MEDS: SODIUM CHLORIDE FLUSH SYRINGE 10 ML IV SCH (21:49)
[2018-12-27] MEDS: LASIX IV SCH ×2 (05:48→17:41)
[2018-12-27] MEDS ORDERED: ZOFRAN ODT PO PRN (08:49)
[2018-12-27] MEDS ORDERED: BENADRYL PO SCH (09:00)
[2018-12-27] MEDS ORDERED: ZESTRIL PO SCH ×2 (10:00→14:53)
[2018-12-27] MEDS ORDERED: BENADRYL PO PRN (10:00)
[2018-12-27] MEDS: ELIQUIS PO SCH ×2 (10:13→21:14)
[2018-12-27] MEDS: LOPRESSOR PO SCH ×2 (10:13→21:15)
[2018-12-27] MEDS: ZOLOFT PO SCH (10:13)
[2018-12-27] MEDS: SODIUM CHLORIDE FLUSH SYRINGE 10 ML IV SCH ×2 (10:16→21:15)
[2018-12-27] MEDS: TYLENOL PO PRN (11:23)
--- NOTE | 2018-12-27 12:50 | Vascular Lab Report ---
BILATERAL DUPLEX DOPPLER LOWER EXTREMITY VEINS INDICATION: Bilateral ulcers TECHNIQUE: Duplex doppler imaging was performed through the veins of both lower extremities using abhilash ous compression and other maneuvers. COMPARISON: None available. FINDINGS: Right Common Femoral vein: Negative. Right Superficial Femoral vein: Negative. Right Popliteal vein: Negative. Right Calf veins: Negative. Left Common Femoral vein: Negative. Left Superficial Femoral vein: Negative. Left Popliteal vein: Negative. Left Calf veins: Negative. Additional findings: None. IMPRESSION: No sonographic evidence for DVT in either lower extremity. Signer Name: Jose Estrada MD Signed: 12/27/2018 12:46 PM Workstation Name: [id number]
--- NOTE | 2018-12-27 13:18 | Progress Note ---
Assessment and Plan Assessment and plan: 58 YO Male with Obesity, HTN, Anxiety, Schizophrenia, OA, PVD presents to ED for evaluation. Pt states that he has experienced shortness of breath over the past 1 week with worsening symptoms over the past 2 days. Pt also reports chest palpitations, dypsnea on exertion, dypsnea at rest, leg swelling, Orthopnea/PND. Pt denies chest pain , fever, chills, NVD, Trauma, BRBPR, Productive cough, skin rash, or recent ill contacts. EMS notified, and upon arrival the patient was found to be in distress and transported to [facility]. Pt seen and evaluated in ED and found to have new onset Atrial Fib as well as clinical findings consistent with CHF Decompensation. Pt admitted to telemetry. Pt treated with cardizem in ED with conversion to normal sinus rhythm. CHADS 2Vasc Score:2. Cardiology team consulted in ED. Prior admission on 04/23/18 reviewed. All listed medication reconciled at time of admission. Acute congestive heart failure presumed systolic Atrial fibrillation Noncompliance with medication Elevated d-dimer with negative CTA for pulmonary embolism and or DVT on ultrasound Doppler Hypertension PVD with bilateral LE ulcers Schizophrenia Anxiety disorder Pleural effusion-small Obesity Plan Continue Supportive care Diuresis,initiated on eliquis and metoprolol Cardiology input noted Daily weights, I/O monitoring and fluid restriction Counselling about complaince with medications Echocardiogram for LVEF assessment. Plan discussed with the patient Wound care consult noted DVT/GI PROPHY History Interval history: CHF exacerbation Patient seen and examined this morning reports improvement of symptoms with congestion just done by wound care nurse. Still with some shortness of breath with exertion. Hospitalist Physical - Physical exam Narrative exam: VITAL SIGNS: Reviewed. GENERAL: The patient appears normally developed, Vital signs as documented. HEAD: No signs of head trauma. EYES: Pupils are equal. Extraocular motions intact. EARS: Hearing grossly intact. MOUTH: Oropharynx is normal. NECK: No adenopathy, no JVD. CHEST: Chest with diminished breath sounds bilaterally. No wheezes, rales, or rhonchi. CARDIAC: Regular rate and rhythm. S1 and S2, without murmurs, gallops, or rubs. VASCULAR: +1 pitting Edema. Peripheral pulses normal and equal in all extremities. ABDOMEN: Soft, non tender and non distended. No rebound or guarding, and no masses palpated. Bowel Sounds normal. MUSCULOSKELETAL: Good range of motion of all major joints. Extremities without cyanosis. +1 pitting edema. NEUROLOGIC EXAM: Alert and oriented x 3 No focal sensory or strength deficits. Speech normal. Follows commands. PSYCHIATRIC: Mood normal. SKIN: detail exam as documented in skin assessment, bilateral lower extremity chronic ulceration of wound. - Constitutional Vitals: Temp Pulse Resp BP Pulse Ox 97.9 F 73 20 119/81 95 12/27/18 03:47 12/27/18 10:13 12/27/18 03:47 12/27/18 10:13 12/27/18 10:11 General appearance: Present: no acute distress Results - Labs CBC & Chem 7: 12/26/18 09:48 12/26/18 09:48 Labs: Laboratory Last Values WBC 8.7 K/mm3 (4.5-11.0) 12/26/18 09:48 RBC 4.03 M/mm3 (3.65-5.03) 12/26/18 09:48 Hgb 11.7 gm/dl (11.8-15.2) L 12/26/18 09:48 Hct 34.3 % (35.5-45.6) L 12/26/18 09:48 MCV 85 fl (84-94) 12/26/18 09:48 MCH 29 pg (28-32) 12/26/18 09:48 MCHC 34 % (32-34) 12/26/18 09:48 RDW 15.3 % (13.2-15.2) H 12/26/18 09:48 Plt Count 159 K/mm3 (140-440) 12/26/18 09:48 Lymph % (Auto) 12.6 % (13.4-35.0) L 12/26/18 09:48 [place] % (Auto) 7.1 % (0.0-7.3) 12/26/18 09:48 Eos % (Auto) 1.7 % (0.0-4.3) 12/26/18 09:48 Baso % (Auto) 0.7 % (0.0-1.8) 12/26/18 09:48 Lymph # 1.1 K/mm3 (1.2-5.4) L 12/26/18 09:48 [place] # 0.6 K/mm3 (0.0-0.8) 12/26/18 09:48 Eos # 0.1 K/mm3 (0.0-0.4) 12/26/18 09:48 Baso # 0.1 K/mm3 (0.0-0.1) 12/26/18 09:48 Seg Neutrophils % 77.9 % (40.0-70.0) H 12/26/18 09:48 Seg Neutrophils # 6.8 K/mm3 (1.8-7.7) 12/26/18 09:48 PT 15.8 Sec. (12.2-14.9) H 12/26/18 09:48 INR 1.29 (0.87-1.13) H 12/26/18 09:48 APTT 31.7 Sec. (24.2-36.6) 12/26/18 09:48 793.43 ng/mlDDU (0-234) H 12/26/18 09:48 Sodium 142 mmol/L (137-145) 12/26/18 09:48 Potassium 3.6 mmol/L (3.6-5.0) 12/26/18 09:48 Chloride 105.7 mmol/L (98-107) 12/26/18 09:48 Carbon Dioxide 22 mmol/L (22-30) 12/26/18 09:48 18 mmol/L 12/26/18 09:48 BUN 19 mg/dL (9-20) 12/26/18 09:48 1.1 mg/dL (0.8-1.5) 12/26/18 09:48 Estimated GFR > 60 ml/min 12/26/18 09:48 17 % 12/26/18 09:48 Glucose 129 mg/dL (75-100) H 12/26/18 09:48 Calcium 9.5 mg/dL (8.4-10.2) 12/26/18 09:48 Magnesium 1.70 mg/dL (1.7-2.3) 12/26/18 09:48 < 0.010 ng/mL (0.00-0.029) 12/26/18 09:48 NT-Pro-B Natriuret Pep 3976 pg/mL (0-900) H 12/26/18 09:48 TSH 3.310 mlU/mL (0.270-4.200) 12/26/18 12:38 Free T4 1.37 ng/dL (0.76-1.46) 12/26/18 12:38 Active Medications - Current Medications Current Medications: Generic Name Dose Route Start Last Admin Trade Name Freq PRN Reason Stop Dose Admin Acetaminophen 650 mg 12/27/18 08:49 12/27/18 11:23 Tylenol PO 650 mg Q4H PRN Administration Pain MILD(1-3)/Fever >100.5/CASTILLO Albuterol 2.5 mg 12/26/18 12:18 Proventil IH Q4HRT PRN Shortness Of Breath Apixaban 5 mg 12/26/18 14:54 12/27/18 10:13 Eliquis PO 5 mg Q12HR SOFIYA Administration Protocol Diphenhydramine HCl 25 mg 12/27/18 10:00 Benadryl PO BID PRN SINUS Furosemide 20 mg 12/26/18 18:00 12/27/18 05:48 Lasix IV 20 mg BID@0600,1800 SOFIYA Administration Lisinopril 2.5 mg 12/27/18 10:00 12/27/18 10:13 Zestril PO 2.5 mg QDAY SOFIYA Administration Metoprolol Tartrate 25 mg 12/26/18 14:59 12/27/18 10:13 Lopressor PO 25 mg BID SOFIYA Administration Ondansetron HCl 4 mg 12/26/18 12:18 Zofran IV Q8H PRN Nausea And Vomiting Ondansetron HCl 4 mg 12/27/18 08:49 Zofran Odt PO Q8H PRN Nausea And Vomiting Sertraline HCl 100 mg 12/27/18 10:00 12/27/18 10:13 Zoloft PO 100 mg QDAY SOFIYA Administration Sodium Chloride 10 ml 12/26/18 22:00 12/27/18 10:16 Sodium Chloride Flush Syringe 10 Ml IV 10 ml BID SOFIYA Administration Sodium Chloride 10 ml 12/26/18 12:18 Sodium Chloride Flush Syringe 10 Ml IV PRN PRN LINE FLUSH Zolpidem Tartrate 5 mg 12/27/18 22:00 Ambien PO QHS PRN Sleep
--- NOTE | 2018-12-27 14:54 | Progress Note ---
Assessment and Plan Acute systolic heart failure Persistent atrial fibrillation Cardiomyopathy, new onset Ascending aortic aneurysm (4.5 cm) Peripheral vascular disease Morbid obesity Recommendations: Continue guideline directed medical therapy with BB, ACEi, diuresis Once optimized from heart failure and afib standpoint, an outpatient cardiac PET scan can be arranged to evaluate for ischemic heart disease Increase lisinopril to 5 mg po daily Increase metoprolol to 50 mg po bid. Upon discharge change to toprol XL 100 mg po daily Continue eliquis Subjective Date of service: 12/27/18 Principal diagnosis: CHF, Afib Interval history: Patient continues to be in afib on tele Patient with LE edema and ulcerations Objective Vital Signs Temp Pulse Resp BP Pulse Ox 12/27/18 10:13 73 119/81 12/27/18 10:11 82 119/81 95 12/27/18 03:47 97.9 F 94 H 20 131/91 92 12/26/18 23:29 98.6 F 71 18 123/92 93 12/26/18 19:08 98.4 F 86 18 120/99 91 12/26/18 18:51 89 12/26/18 16:35 85 123/85 - Physical Examination HEENT: Positive: PERRL Neck: Positive: trachea midline Cardiac: Positive: irregularly irregular Lungs: Positive: Rales (RLL crackles) Neuro: Positive: Grossly Intact Extremities: Present: Other (chronic LE ulcer/wounds)
[2018-12-27] MEDS ORDERED: AMBIEN PO PRN (22:00)
[2018-12-28] MEDS: TYLENOL PO PRN (00:08)
[2018-12-28] MEDS: LASIX IV SCH (05:32)
[2018-12-28 08:08] LABS: BUN/Creatinine Ratio 20; Blood Urea Nitrogen 24 mg/dL (9-20); Hemolysis Index 0
--- NOTE | 2018-12-28 08:38 | Discharge Summary ---
Providers - Providers Date of Admission: 12/26/18 12:18 Attending physician: CLARISSE NAZARIO MD 12/26/18 13:52 Consult to Physician [CONS] Routine Comment: Consulting Provider: TAMMI ESPINOZA Physician Instructions: Reason For Exam: chf/ new onset atrial fib 12/26/18 16:37 Consult to Wound/ET Nurse [CONS] Routine Reason For Exam: wound eval Primary care physician: GORDON BECK MD Hospitalization Condition: Stable Hospital course: 58 YO Male with Obesity, HTN, Anxiety, Schizophrenia, OA, PVD presents to ED for evaluation. Pt states that he has experienced shortness of breath over the past 1 week with worsening symptoms over the past 2 days. Pt also reports chest palpitations, dypsnea on exertion, dypsnea at rest, leg swelling, Orthopnea/PND. Pt denies chest pain , fever, chills, NVD, Trauma, BRBPR, Productive cough, skin rash, or recent ill contacts. EMS notified, and upon arrival the patient was found to be in distress and transported to [facility]. Pt seen and evaluated in ED and found to have new onset Atrial Fib as well as clinical findings consistent with CHF Decompensation. Pt admitted to telemetry. Pt treated with cardizem in ED with conversion to normal sinus rhythm. CHADS 2Vasc Score:2. Cardiology team consulted in ED. Prior admission on 04/23/18 reviewed. All listed medication reconciled at time of admission. Acute congestive heart failure presumed systolic Atrial fibrillation Noncompliance with medication Elevated d-dimer with negative CTA for pulmonary embolism and or DVT on ultrasound Doppler Hypertension PVD with bilateral LE ulcers Schizophrenia Anxiety disorder Pleural effusion-small Obesity Plan Continue Supportive care Diuresis,initiated on eliquis and metoprolol Cardiology input noted Daily weights, I/O monitoring and fluid restriction Counselling about complaince with medications Echocardiogram for LVEF assessment. Plan discussed with the patient Wound care consult noted DVT/GI PROPHY Disposition: - TO HOME OR SELFCARE Exam - Constitutional Vitals: Temp Pulse Resp BP Pulse Ox 98.3 F 41 L 18 130/97 96 12/28/18 08:07 12/28/18 08:07 12/28/18 08:07 12/28/18 08:07 12/28/18 08:07 Plan Activity: advance as tolerated, fall precautions Diet: low fat, low salt Wound: per wound nurse instructions Special Instructions: record daily BP diary Follow up with: GORDON BECK MD [Primary Care Provider] - 3-5 Days NEHA VILLALOBOS MD [Staff Physician] - 7 Days Prescriptions: Apixaban [Eliquis] 5 mg PO Q12HR #30 tablet Furosemide [Lasix TAB] 40 mg PO QDAY #30 tablet Metoprolol Xl [Metoprolol SUCCINATE ER TAB] 100 mg PO QDAY #30 tablet Lisinopril [Zestril TAB] 5 mg PO QDAY #30 tablet
--- NOTE | 2018-12-28 09:53 | Progress Note ---
Assessment and Plan Acute systolic heart failure Persistent atrial fibrillation Cardiomyopathy, new onset Ascending aortic aneurysm (4.5 cm) Peripheral vascular disease Morbid obesity Recommendations: Continue guideline directed medical therapy with BB, ACEi, diuresis Once optimized from heart failure and afib standpoint, an outpatient cardiac PET scan can be arranged to evaluate for ischemic heart disease Patient given our contact info to schedule outpatient follow-up Case management to assist in obtaining meds Subjective Date of service: 12/28/18 Principal diagnosis: CHF, Afib Interval history: Patient is feeling better HR fluctuates between 90-120 on tele Objective Vital Signs Temp Pulse Pulse Pulse Pulse Resp BP 12/28/18 08:07 98.3 F 41 L 18 130/97 12/28/18 04:46 74 92 H 12/28/18 03:58 98.1 F 20 128/95 12/28/18 01:00 93 H 12/27/18 23:23 97.8 F 56 L 20 131/89 12/27/18 19:27 98.4 F 99 H 20 135/96 12/27/18 17:20 12/27/18 17:00 83 12/27/18 13:05 92 H 120/83 12/27/18 12:00 95 H 12/27/18 10:13 73 119/81 12/27/18 10:11 82 119/81 12/27/18 10:00 90 93 H 93 H 93 H 19 Pulse Ox 12/28/18 08:07 96 12/28/18 04:46 12/28/18 03:58 12/28/18 01:00 12/27/18 23:23 96 12/27/18 19:27 94 12/27/18 17:20 97 12/27/18 17:00 12/27/18 13:05 93 12/27/18 12:00 12/27/18 10:13 12/27/18 10:11 95 12/27/18 10:00 98 - Physical Examination HEENT: Positive: PERRL Neck: Positive: trachea midline Cardiac: Positive: irregularly irregular Lungs: Positive: Decreased Breath Sounds Neuro: Positive: Grossly Intact Extremities: Present: Other (chronic LE ulcer/wounds) - Labs and Meds Comprehensive Metabolic Panel 12/28/18 Range/Units 07:14 Sodium 143 (137-145) mmol/L Potassium 3.6 (3.6-5.0) mmol/L Chloride 105.6 (98-107) mmol/L Carbon Dioxide 24 (22-30) mmol/L BUN 24 H (9-20) mg/dL Creatinine 1.2 (0.8-1.5) mg/dL Glucose 134 H (75-100) mg/dL Calcium 9.0 (8.4-10.2) mg/dL
[2018-12-28] MEDS: LOPRESSOR PO SCH (10:42)
[2018-12-28] MEDS: ZOLOFT PO SCH (10:42)
[2018-12-28 10:43] VITALS: BP 135/93
[2018-12-28] MEDS: ELIQUIS PO SCH (10:43)
[2018-12-28] MEDS: SODIUM CHLORIDE FLUSH SYRINGE 10 ML IV SCH (10:44)
== END 2018-12-28 13:31 | disposition home or self-care (01) | DRG 308 ==
LOC: ED 09:09 → 4A 12:18
PROVIDERS: ADMIT Internal Medicine; ATTEND Internal Medicine
DX: I48.1 Persistent atrial fibrillation (principal); I50.23 Acute on chronic systolic (congestive) heart failure; L97.929 Non-pressure chronic ulcer of unspecified part of left lower leg with unspecified severity; L97.919 Non-pressure chronic ulcer of unspecified part of right lower leg with unspecified severity; I11.0 Hypertensive heart disease with heart failure; I42.9 Cardiomyopathy, unspecified; I71.2 Thoracic aortic aneurysm, without rupture; I73.9 Peripheral vascular disease, unspecified; E66.01 Morbid (severe) obesity due to excess calories; F41.9 Anxiety disorder, unspecified; M19.90 Unspecified osteoarthritis, unspecified site; F20.9 Schizophrenia, unspecified; Z68.33 Body mass index [BMI] 33.0-33.9, adult; Z91.14 Patient's other noncompliance with medication regimen; Z71.89 Other specified counseling; Z79.899 Other long term (current) drug therapy
CPT/HCPCS: 36415; 71045; 71275; 80048; 83735; 83880; 84439; 84443; 84484; 85025; 85379; 85610; 85730; 93005; 93010; 93306; 93970; 96361; 96374; G0378; J1940; J7030; Q9967

== ENCOUNTER 2019-01-10 08:39 | Outpatient (CLI) | payer MEDICARE ==
[2019-01-10] MEDS ORDERED: XYLOCAINE TOPICAL 4% TP ONE (09:00)
[2019-01-10] MEDS ORDERED: AD OINTMENT TP SCH (10:00)
== END 2019-01-10 08:40 | disposition home or self-care (01) ==
LOC: WOUND 08:39
PROVIDERS: ATTEND Surgery
DX: E11.622 Type 2 diabetes mellitus with other skin ulcer (principal); L89.512 Pressure ulcer of right ankle, stage 2; L97.312 Non-pressure chronic ulcer of right ankle with fat layer exposed; L97.812 Non-pressure chronic ulcer of other part of right lower leg with fat layer exposed; I87.311 Chronic venous hypertension (idiopathic) with ulcer of right lower extremity; I87.8 Other specified disorders of veins; L84 Corns and callosities; L40.9 Psoriasis, unspecified; F41.9 Anxiety disorder, unspecified
CPT/HCPCS: 87075; 87116

== ENCOUNTER 2019-01-20 19:49 | Inpatient (IN) | payer MEDICARE ==
--- NOTE | 2019-01-20 20:13 | Emergency Department Report ---
ED General Adult HPI - General Chief complaint: Chest Pain Stated complaint: CHEST PAIN Time Seen by Provider: 01/20/19 20:11 Source: EMS Mode of arrival: Stretcher Limitations: No Limitations - History of Present Illness Initial comments: 58-year-old male with a history of hypertension, anxiety, atrial fibrillation, and peripheral vascular disease presents with a complaint of chest pain. She complains of chest pain with exertional activity. Patient describes shortness of breath at rest as well as with exertional activity. Patient denies any fever or cough. Patient had a recent admission on December 28 where he is medically managed. Patient states he is compliant with physical therapy. Patient states he's been unable to get in contact with the cardiac monitor technician to make an appointment as an outpatient. Patient states that he still continued to have intermittent chest pain which is a squeezing type pain in the left side of his chest and substernal region. - Related Data Home Medications Medication Instructions Recorded Confirmed Last Taken diphenhydrAMINE [Benadryl CAP] 25 mg PO PRN 03/12/17 12/26/18 Unknown Previous Rx's Medication Instructions Recorded Last Taken Type Acetaminophen [Acetaminophen TAB] 650 mg PO Q4H PRN #15 tablet 03/04/18 Unknown Rx Sertraline [Zoloft] 100 mg PO QDAY #30 tablet 03/04/18 Unknown Rx Zolpidem [Ambien] 5 mg PO QHS PRN #10 tablet 05/01/18 Unknown Rx Loperamide HCl [Imodium A-D] 2 mg PO DAILY #20 tablet 09/19/18 Unknown Rx Ondansetron [Zofran ODT TAB] 4 mg PO Q8HR PRN #20 tab.rapdis 09/19/18 Unknown Rx Apixaban [Eliquis] 5 mg PO Q12HR #30 tablet 12/28/18 Unknown Rx Furosemide [Lasix TAB] 40 mg PO QDAY #30 tablet 12/28/18 Unknown Rx Lisinopril [Zestril TAB] 5 mg PO QDAY #30 tablet 12/28/18 Unknown Rx Metoprolol Xl [Metoprolol 100 mg PO QDAY #30 tablet 12/28/18 Unknown Rx SUCCINATE ER TAB] Allergies Allergy/AdvReac Type Severity Reaction Status Date / Time No Known Allergies Allergy Verified 09/19/18 15:26 ED Review of Systems ROS: Stated complaint: CHEST PAIN Other details as noted in HPI Constitutional: denies: chills, fever Eyes: denies: eye pain, eye discharge, vision change ENT: denies: ear pain, throat pain Respiratory: denies: cough, shortness of breath, wheezing Cardiovascular: chest pain Endocrine: no symptoms reported Gastrointestinal: denies: abdominal pain, nausea, diarrhea Genitourinary: denies: urgency, dysuria Musculoskeletal: denies: back pain, joint swelling, arthralgia Skin: denies: rash, lesions Neurological: denies: headache, weakness, paresthesias Psychiatric: denies: anxiety, depression Hematological/Lymphatic: denies: easy bleeding, easy bruising ED Past Medical Hx - Past Medical History Hx Hypertension: Yes Hx Congestive Heart Failure: No Hx Diabetes: No Hx Psychiatric Treatment: Yes (schizophrenia, anxiety) Hx Asthma: No Hx COPD: No Additional medical history: Vascular problems in both lower ext,high cholesterol, pressure ankle right ankle, AFIB - Surgical History Past Surgical History?: Yes Additional Surgical History: Vascular surgery on 10/25/16 R lower ext. - Social History Smoking Status: Never Smoker Substance Use Type: None - Medications Home Medications: Home Medications Medication Instructions Recorded Confirmed Last Taken Type diphenhydrAMINE [Benadryl CAP] 25 mg PO PRN 03/12/17 12/26/18 Unknown History Acetaminophen [Acetaminophen TAB] 650 mg PO Q4H PRN #15 tablet 03/04/18 12/26/18 Unknown Rx Sertraline [Zoloft] 100 mg PO QDAY #30 tablet 03/04/18 12/26/18 Unknown Rx Zolpidem [Ambien] 5 mg PO QHS PRN #10 tablet 05/01/18 12/26/18 Unknown Rx Loperamide HCl [Imodium A-D] 2 mg PO DAILY #20 tablet 09/19/18 12/26/18 Unknown Rx Ondansetron [Zofran ODT TAB] 4 mg PO Q8HR PRN #20 tab.rapdis 09/19/18 12/26/18 Unknown Rx Apixaban [Eliquis] 5 mg PO Q12HR #30 tablet 12/28/18 Unknown Rx Furosemide [Lasix TAB] 40 mg PO QDAY #30 tablet 12/28/18 Unknown Rx Lisinopril [Zestril TAB] 5 mg PO QDAY #30 tablet 12/28/18 Unknown Rx Metoprolol Xl [Metoprolol 100 mg PO QDAY #30 tablet 12/28/18 Unknown Rx SUCCINATE ER TAB] ED Physical Exam - General Limitations: No Limitations General appearance: alert, other (mildly uncomfortable;) - Head Head exam: Present: atraumatic, normocephalic - Eye Eye exam: Present: normal appearance - ENT ENT exam: Present: mucous membranes moist - Neck Neck exam: Present: normal inspection - Respiratory Respiratory exam: Present: rales (fine bibasilar rales present). Absent: respiratory distress - Cardiovascular Cardiovascular Exam: Present: regular rate, irregular rhythm. Absent: systolic murmur, diastolic murmur, rubs, gallop - GI/Abdominal GI/Abdominal exam: Present: soft, normal bowel sounds - Rectal Rectal exam: Present: deferred - Extremities Exam Extremities exam: Present: other (2+ edema bilaterally in lower extremities) - Back Exam Back exam: Present: normal inspection - Neurological Exam Neurological exam: Present: alert, oriented X3 - Psychiatric Psychiatric exam: Present: normal affect, normal mood - Skin Skin exam: Present: warm, dry, intact, normal color. Absent: rash ED Course Vital Signs 01/20/19 01/20/19 01/20/19 20:42 20:45 21:00 Pulse Rate 96 H 102 H Respiratory 31 H 25 H 24 Rate Blood Pressure 123/90 133/91 O2 Sat by Pulse 96 95 Oximetry 01/20/19 01/20/19 01/20/19 21:15 21:30 21:40 Pulse Rate 97 H 98 H Respiratory 25 H 22 18 Rate Blood Pressure 120/87 122/89 O2 Sat by Pulse 96 96 97 Oximetry ED Medical Decision Making - Lab Data Result diagrams: 01/20/19 21:11 01/20/19 21:11 - EKG Data Rate: normal - EKG Data Interpretation: other (atrial fibrillation) - Medical Decision Making patient to be admitted to the hospitalist service for continued managment and treatment. Patient received Lasix therapy while in the ER. Patient is on anticoagulation therapy and thus aspirin therapy was withheld. - Differential Diagnosis Atrial fibrillation; dehydration; pneumonia; CHF exacerbation Critical care attestation.: If time is entered above; I have spent that time in minutes in the direct care of this critically ill patient, excluding procedure time. ED Disposition Clinical Impression: CHF (congestive heart failure), Chest pain Disposition: DC-[id number] OP ADMIT IP TO THIS HOSP Is pt being admited?: Yes Condition: Stable Instructions: Chest Pain (ED) Referrals: GORDON BECK MD [Primary Care Provider] - 3-5 Days Time of Disposition: 23:28
[2019-01-20 21:24] LABS: Basophils # (Auto) 0.1 K/mm3 (0.0-0.1); Basophils % (Auto) 1.1 % (0.0-1.8); Eosinophils # (Auto) 0.2 K/mm3 (0.0-0.4); Eosinophils % (Auto) 2.2 % (0.0-4.3); Hematocrit 36.9 % (35.5-45.6); Hemoglobin 12.4 gm/dl (11.8-15.2); Lymphocytes # (Auto) 1.2 K/mm3 (1.2-5.4); Lymphocytes % (Auto) 17.1 % (13.4-35.0); Mean Corpuscular HGB Conc 34 % (32-34); Mean Corpuscular Volume 84 fl (84-94); Monocytes # (Auto) 0.5 K/mm3 (0.0-0.8); Monocytes % (Auto) 6.3 % (0.0-7.3); Platelet Count 165 K/mm3 (140-440); Red Blood Count 4.41 M/mm3 (3.65-5.03); Red Cell Distribution Width 15.4 % (13.2-15.2)
[2019-01-20 21:34] LABS: INR 1.31 (0.87-1.13)
[2019-01-20 21:35] LABS: Partial Thromboplastin Time 33.3 Sec. (24.2-36.6)
[2019-01-20 21:41] LABS: Alanine Aminotransferase 16 units/L (7-56); BUN/Creatinine Ratio 23; Blood Urea Nitrogen 28 mg/dL (9-20); Calcium 9.8 mg/dL (8.4-10.2); Hemolysis Index 4
--- NOTE | 2019-01-20 21:44 | XRay Report ---
CHEST 1 VIEW 01/20/2019 9:18 PM INDICATION / CLINICAL INFORMATION: Chest Pain. COMPARISON: 12/26/18 FINDINGS: SUPPORT DEVICES: None. HEART / MEDIASTINUM: Cardiac silhouette is enlarged but stable. LUNGS / PLEURA: No significant pulmonary or pleural abnormality. No pneumothorax. ADDITIONAL FINDINGS: No significant additional findings. IMPRESSION: 1. Cardiomegaly but no acute pulmonary or pleural findings. Signer Name: Devorah Felix MD Signed: 01/20/2019 9:39 PM Workstation Name: [id number]
[2019-01-20] MEDS ORDERED: LASIX IV ONE (22:36)
[2019-01-20] MEDS ORDERED: SODIUM CHLORIDE FLUSH SYRINGE 10 ML IV PRN (23:54)
[2019-01-20] MEDS ORDERED: ZOFRAN IV PRN (23:54)
--- NOTE | 2019-01-20 23:54 | History and Physical Report ---
History of Present Illness Date of examination: 01/20/19 History of present illness: 57-year-old male with a history of Afib, CHF,aortic aneurysm, hypertension, hyperlipidemia, peripheral vascular disease, venous stasis, bipolar, obesity comes to the emergency room for chest pain. Pain is in the epiastric area, started last Sunday. Pain is pressure/sharp, constant, no raiation, intensity 5/10, taken tylenol for the pain with some relief. Denies nausea, vomiting, diaphoresis, palpitation, + shortness of breath Review of systems Constitutional: no weight loss, chills, fever Ears, eyes, nose, mouth and throat: no nasal congestion, no nasal discharge, no sinus pressure, no vision change, no red eye. Neck: No neck pain or rigidity. Cardiovascular: no palpitations Respiratory: no cough Gastrointestinal: no abdominal pain hematochezia Genitourinary : no frequency , no hematuria Musculoskeletal: no joint swelling or muscle ache Integumentary: no rash, no pruritis Neurological: no parathesias, no numbness, no focal weakness Endocrine: no cold or heat intolerance, no polyuria or polydipsia Hematologic/Lymphatic: no easy bruising, no easy bleeding, no gland swelling Allergic/Immunologic: no urticaria, no angioedema. PAST MEDICAL HISTORY: hypertension, hyperlipidemia, peripheral vascular disease, venous stasis, bipolar, obesity PAST SURGICAL HISTORY: None SOCIAL HISTORY: No alcohol, no drugs, tobacco FAMILY HISTORY: Hypertension Medications and Allergies Allergies Allergy/AdvReac Type Severity Reaction Status Date / Time No Known Allergies Allergy Verified 09/19/18 15:26 Home Medications Medication Instructions Recorded Confirmed Last Taken Type diphenhydrAMINE [Benadryl CAP] 25 mg PO PRN 03/12/17 12/26/18 Unknown History Acetaminophen [Acetaminophen TAB] 650 mg PO Q4H PRN #15 tablet 03/04/18 12/26/18 Unknown Rx Sertraline [Zoloft] 100 mg PO QDAY #30 tablet 03/04/18 12/26/18 Unknown Rx Zolpidem [Ambien] 5 mg PO QHS PRN #10 tablet 05/01/18 12/26/18 Unknown Rx Loperamide HCl [Imodium A-D] 2 mg PO DAILY #20 tablet 09/19/18 12/26/18 Unknown Rx Ondansetron [Zofran ODT TAB] 4 mg PO Q8HR PRN #20 tab.rapdis 09/19/18 12/26/18 Unknown Rx Apixaban [Eliquis] 5 mg PO Q12HR #30 tablet 12/28/18 Unknown Rx Furosemide [Lasix TAB] 40 mg PO QDAY #30 tablet 12/28/18 Unknown Rx Lisinopril [Zestril TAB] 5 mg PO QDAY #30 tablet 12/28/18 Unknown Rx Metoprolol Xl [Metoprolol 100 mg PO QDAY #30 tablet 12/28/18 Unknown Rx SUCCINATE ER TAB] Exam - Physical Exam Narrative exam: Gen. appearance: Patient lying in bed, no apparent distress HEENT: Normocephalic, atraumatic, pupils equally round and reactive to light, extraocular movement intact, and no sclericterus,. No JVD or thyromegaly or nodule,neck supple, no carotid bruit ,mucous membranes moist, no exudate or erythema Heart: S1, S2, regular rate and rhythm Lungs: Clear bilaterally, breathing comfortable Abdomen: Positive bowel sounds, non-tender, nondistended, no organomegaly Extremity: Lower extremity ulcer no edema cyanosis, clubbing Skin: no rash, dry, warm Neuro: Oriented 3, cranial nerves II-12 intact, speech is fluent, motor and sensory intact - Constitutional Vitals: Temp Pulse Resp BP Pulse Ox 118 H 14 125/85 96 01/20/19 23:45 01/20/19 23:45 01/20/19 23:45 01/20/19 23:45 Results - Labs CBC & Chem 7: 01/20/19 21:11 01/20/19 21:11 Labs: Abnormal lab results 01/20/19 01/20/19 01/20/19 Range/Units 21:11 21:11 21:11 RDW 15.4 H (13.2-15.2) % Seg Neutrophils % 73.3 H (40.0-70.0) % PT 16.0 H (12.2-14.9) Sec. INR 1.31 H (0.87-1.13) BUN 28 H (9-20) mg/dL Glucose 106 H (75-100) mg/dL Total Creatine Kinase (55-170) units/L NT-Pro-B Natriuret Pep 4272 H (0-900) pg/mL 01/20/19 Range/Units 21:11 RDW (13.2-15.2) % Seg Neutrophils % (40.0-70.0) % PT (12.2-14.9) Sec. INR (0.87-1.13) BUN (9-20) mg/dL Glucose (75-100) mg/dL Total Creatine Kinase 40 L (55-170) units/L NT-Pro-B Natriuret Pep (0-900) pg/mL - Imaging and Cardiology EKG: image reviewed Chest x-ray: report reviewed Assessment and Plan Assessment chest pain Extremity ulcer Hypertension Hyperlipidemia Peripheral vascular disease Obesity Bipolar Plan Admit to medicine Obtain CT chest, r/o dissection Check cardiac enzymes, stress test, consult cardiology Continue appropriate outpatient medications DVT prophylaxis Addendum Ct shows large stone in neck of gallbkladder/cholecystitis consult surgery
[2019-01-21 00:39] LABS: Creatine Kinase MB 1.2 ng/mL (0.0-4.0)
--- NOTE | 2019-01-21 01:34 | Cat Scan Report ---
CT angiography of the chest with intravenous contrast and multiplanar MIP reconstructions INDICATION / CLINICAL INFORMATION: Chest pain and shortness of breath on exertion. TECHNIQUE: Axial CT images were obtained after injection of 100 cc Omnipaque 350 IV contrast using CTA protocol. 3 plane MIP / 3D reconstructions were produced. All CT scans at this location are performed using CT dose reduction for ALARA by means of automated exposure control. COMPARISON: 12/26/2018. FINDINGS: There is a mild pericardial effusion which is higher in density than water and extends into the super ior pericardial recesses. The appearance is similar to the prior study. The thoracic aorta is normal in caliber without evidence of a dissection flap. There is good opacification of the pulmonary arteri al system without intraluminal filling defect suggest acute PTE. Focal scarring in the lung apices has not changed. A trace right pleural effusion is stable. No acute osseous abnormality is seen. IMPRESSION: 1. No evidence of aortic dissection or acute PTE. 2. Small high density pericardial effusion has not changed significantly since 12/26/2018. The finding s could be related to hemopericardium or high proteinaceous pericardial effusion. 3. Trace right pleural effusion has not changed. Signer Name: Sam Celis MD Signed: 01/21/2019 1:29 AM Workstation Name: [id number]
--- NOTE | 2019-01-21 01:48 | Cat Scan Report ---
CT angiography of the abdomen and pelvis with intravenous contrast and multiplanar MIPS reconstructio ns INDICATION / CLINICAL INFORMATION: Chest and epigastric pain. Shortness of breath on exertion. TECHNIQUE: Axial CT images were obtained after injection of 100 cc Omnipaque 350 IV contrast using CTA protocol. 3 plane MIP / 3D reconstructions were produced. All CT scans at this location are performed using CT dose reduction for ALARA by means of automated exposure control. COMPARISON: None available. FINDINGS: ABDOMEN: There are atherosclerotic calcifications involving the aorta without aneurysm or dissection. There is a 2.4 cm calcified stone in the neck the gallbladder. There is adjacent inflammation in the pericholecystic fat. The gallbladder is not significantly distended. No bile duct dilatation is seen . The liver, spleen, pancreas, adrenal glands and bowel are normal. There are bilateral simple renal cy sts in the right renal pelvis and lower pole left renal cortex. No adenopathy is identified. PELVIS: The iliac vessels are unremarkable without evidence of aneurysm or dissection. There is mild pelvic ascites. I see no evidence of diverticulitis or appendicitis. I do not identify a mass. There is no evidence of hernia. There is moderate spondylosis. IMPRESSION: 1. Moderately large stone impacted in the gallbladder neck with associated pericholecystic inflammati on. The findings are consistent with acute cholecystitis. 2. No evidence of aortic dissection. Signer Name: Sam Celis MD Signed: 01/21/2019 1:44 AM Workstation Name: [email or web address]
[2019-01-21] MEDS: PERCOCET 5/325 PO PRN ×2 (03:56→21:30)
[2019-01-21 05:47] LABS: Basophils # (Auto) 0.1 K/mm3 (0.0-0.1); Basophils % (Auto) 0.8 % (0.0-1.8); Eosinophils # (Auto) 0.2 K/mm3 (0.0-0.4); Eosinophils % (Auto) 1.9 % (0.0-4.3); Hematocrit 38.4 % (35.5-45.6); Hemoglobin 12.8 gm/dl (11.8-15.2); Lymphocytes # (Auto) 1.6 K/mm3 (1.2-5.4); Lymphocytes % (Auto) 15.8 % (13.4-35.0); Mean Corpuscular HGB Conc 33 % (32-34); Mean Corpuscular Volume 85 fl (84-94); Monocytes # (Auto) 0.6 K/mm3 (0.0-0.8); Monocytes % (Auto) 5.6 % (0.0-7.3); Platelet Count 191 K/mm3 (140-440); Red Blood Count 4.54 M/mm3 (3.65-5.03); Red Cell Distribution Width 15.6 % (13.2-15.2)
[2019-01-21 05:50] LABS: Creatine Kinase MB 1.2 ng/mL (0.0-4.0)
[2019-01-21 05:53] LABS: Calcium 9.6 mg/dL (8.4-10.2)
--- NOTE | 2019-01-21 09:12 | Consultation ---
History of Present Illness Consult date: 01/21/19 Consult reason: chest pain History of present illness: Patient is a 58-year old male who was admitted to this hospital a month ago with newly diagnosed atrial fibrillation. Further evaluation with an echocardiogram revealed a severe dilated cardiomyopathy, ejection fraction 25-30%. There was also a mild dilation of the ascending aorta measuring 4.5cm. Patient was initiated on eliquis and medical management for CHF with recommendations to [facility] for an outpatient cardiac PET scan. Co-morbidities includes hypertension, PVD with chronic lower extremity ulcers and morbid obesity. Patient returns with complaints of chest pain, admitted with acute cholecystitis. Chest x-ray reports cardiomegaly but no evidence of interstitial edema. an ECG is atrial fibrillation with a well controlled ventricular rate. Medications and Allergies Allergies Allergy/AdvReac Type Severity Reaction Status Date / Time No Known Allergies Allergy Verified 09/19/18 15:26 Home Medications Medication Instructions Recorded Confirmed Last Taken Type diphenhydrAMINE [Benadryl CAP] 25 mg PO PRN 03/12/17 12/26/18 Unknown History Acetaminophen [Acetaminophen TAB] 650 mg PO Q4H PRN #15 tablet 03/04/18 12/26/18 Unknown Rx Sertraline [Zoloft] 100 mg PO QDAY #30 tablet 03/04/18 12/26/18 Unknown Rx Zolpidem [Ambien] 5 mg PO QHS PRN #10 tablet 05/01/18 12/26/18 Unknown Rx Loperamide HCl [Imodium A-D] 2 mg PO DAILY #20 tablet 09/19/18 12/26/18 Unknown Rx Ondansetron [Zofran ODT TAB] 4 mg PO Q8HR PRN #20 tab.rapdis 09/19/18 12/26/18 Unknown Rx Apixaban [Eliquis] 5 mg PO Q12HR #30 tablet 12/28/18 Unknown Rx Furosemide [Lasix TAB] 40 mg PO QDAY #30 tablet 12/28/18 Unknown Rx Lisinopril [Zestril TAB] 5 mg PO QDAY #30 tablet 12/28/18 Unknown Rx Metoprolol Xl [Metoprolol 100 mg PO QDAY #30 tablet 12/28/18 Unknown Rx SUCCINATE ER TAB] Active Meds: Active Medications Acetaminophen (Tylenol) 650 mg PO Q4H PRN PRN Reason: Pain MILD(1-3)/Fever >100.5/CASTILLO Apixaban (Eliquis) 5 mg PO Q12HR SOFIYA; Protocol Ondansetron HCl (Zofran) 4 mg IV Q4H PRN PRN Reason: Nausea And Vomiting Oxycodone/Acetaminophen (Percocet 5/325) 1 tab PO Q4H PRN PRN Reason: Pain, Moderate (4-6) Last Admin: 01/21/19 03:56 Dose: 1 tab Documented by: Sodium Chloride (Sodium Chloride Flush Syringe 10 Ml) 10 ml IV BID SOFIYA Sodium Chloride (Sodium Chloride Flush Syringe 10 Ml) 10 ml IV PRN PRN PRN Reason: LINE FLUSH Physical Examination Vital Signs Resp 31 H 01/20/19 20:42 General appearance: no acute distress, obese HEENT: Positive: PERRL Cardiac: Positive: irregularly irregular Lungs: Positive: Decreased Breath Sounds Neuro: Positive: Grossly Intact Skin: Positive: Wound (bilateral lower extremity wounds) Extremities: Present: Other (wrapped) Results 01/21/19 04:58 01/21/19 04:58 Cardiac Enzymes 01/20/19 01/21/19 01/21/19 Range/Units 21:11 00:11 04:58 AST 18 (5-40) units/L CK-MB (CK-2) 1.2 1.2 (0.0-4.0) ng/mL Coagulation 01/20/19 Range/Units 21:11 PT 16.0 H (12.2-14.9) Sec. INR 1.31 H (0.87-1.13) APTT 33.3 (24.2-36.6) Sec. CBC 01/20/19 01/21/19 Range/Units 21:11 04:58 WBC 7.3 10.4 (4.5-11.0) K/mm3 RBC 4.41 4.54 (3.65-5.03) M/mm3 Hgb 12.4 12.8 (11.8-15.2) gm/dl Hct 36.9 38.4 (35.5-45.6) % Plt Count 165 191 (140-440) K/mm3 Lymph # 1.2 1.6 (1.2-5.4) K/mm3 [place] # 0.5 0.6 (0.0-0.8) K/mm3 Eos # 0.2 0.2 (0.0-0.4) K/mm3 Baso # 0.1 0.1 (0.0-0.1) K/mm3 Comprehensive Metabolic Panel 01/20/19 01/21/19 Range/Units 21:11 04:58 Sodium 145 145 (137-145) mmol/L Potassium 4.1 3.7 (3.6-5.0) mmol/L Chloride 106.9 104.7 (98-107) mmol/L Carbon Dioxide 27 24 (22-30) mmol/L BUN 28 H 26 H (9-20) mg/dL Creatinine 1.2 1.3 (0.8-1.5) mg/dL Glucose 106 H 125 H (75-100) mg/dL Calcium 9.8 9.6 (8.4-10.2) mg/dL AST 18 (5-40) units/L ALT 16 (7-56) units/L Alkaline Phosphatase 112 (35-129) units/L Total Protein 7.9 (6.3-8.2) g/dL Albumin 4.0 (3.9-5) g/dL Assessment and Plan Acute Cholecystitis Persistent atrial fibrillation Cardiomyopathy Ascending aortic aneurysm (4.5 cm) Peripheral vascular disease Morbid obesity Resume medical therapy with BB, ACEi, diuresis for persistent atrial fibrillation and cardiomyopathy.
[2019-01-21] MEDS ORDERED: LOVENOX SUB-Q SCH ×2 (10:00)
[2019-01-21] MEDS: SODIUM CHLORIDE FLUSH SYRINGE 10 ML IV SCH ×2 (10:35→22:45)
[2019-01-21] MEDS: ELIQUIS PO SCH ×2 (10:35→21:30)
--- NOTE | 2019-01-21 11:05 | Consultation ---
History of Present Illness Consult date: 01/21/19 Reason for consult: other (possible gallbladder disease) Requesting physician: JAZMIN MORTON Chief complaint: chest pain - History of present illness History of present illness: 58yo M with multiple medical problems who is well known to us from the [facility]. He reports that he came to the emergency department due to chest pain, difficulty breathing, shortness of breath on exertion, and nearly passing out. He reports that he is feeling better now. Evaluation in the ER included CAT scan of the abdomen. Report indicated possible acute cholecystitis. General surgery was consult to evaluate and manage. Patient reports that he has no epigastric or right upper quadrant pain with meals. Recently he has had left sided pain occasionally with meals. He did not have any pain this morning. He has also had diarrhea over the last few days. This also is improving. Denies any fevers or chills. Denies back pain. Denies nausea or vomiting. He does not have a past history of difficulty with eating or intolerance to certain foods. Past History Past Medical History: atrial fib, hypertension, hyperlipidemia, PVD, other (Bipolar d/o, venous stasis, obesity) Past Surgical History: No surgical history Social history: denies: smoking, alcohol abuse Family history: hypertension Medications and Allergies Allergies Allergy/AdvReac Type Severity Reaction Status Date / Time No Known Allergies Allergy Verified 09/19/18 15:26 Home Medications Medication Instructions Recorded Confirmed Last Taken Type Acetaminophen [Acetaminophen TAB] 650 mg PO Q4H PRN #15 tablet 03/04/18 01/21/19 01/20/19 Rx Sertraline [Zoloft] 100 mg PO QDAY #30 tablet 03/04/18 12/26/18 Unknown Rx Zolpidem [Ambien] 5 mg PO QHS PRN #10 tablet 05/01/18 12/26/18 Unknown Rx Apixaban [Eliquis] 5 mg PO Q12HR #30 tablet 12/28/18 01/21/19 01/20/19 Rx Furosemide [Lasix TAB] 40 mg PO QDAY #30 tablet 12/28/18 01/21/19 01/20/19 Rx Lisinopril [Zestril TAB] 5 mg PO QDAY #30 tablet 12/28/18 01/21/19 01/20/19 Rx Metoprolol Xl [Metoprolol 100 mg PO QDAY #30 tablet 12/28/18 01/21/19 01/20/19 18:00 Rx SUCCINATE ER TAB] Active Meds: Active Medications Acetaminophen (Tylenol) 650 mg PO Q4H PRN PRN Reason: Pain MILD(1-3)/Fever >100.5/CASTILLO Apixaban (Eliquis) 5 mg PO Q12HR SOFIYA; Protocol Ondansetron HCl (Zofran) 4 mg IV Q4H PRN PRN Reason: Nausea And Vomiting Oxycodone/Acetaminophen (Percocet 5/325) 1 tab PO Q4H PRN PRN Reason: Pain, Moderate (4-6) Last Admin: 01/21/19 03:56 Dose: 1 tab Documented by: Sodium Chloride (Sodium Chloride Flush Syringe 10 Ml) 10 ml IV BID SOFIYA Sodium Chloride (Sodium Chloride Flush Syringe 10 Ml) 10 ml IV PRN PRN PRN Reason: LINE FLUSH Review of Systems - Constitutional no fever, no chills - EENT Eyes: bilateral: blurred vision - Cardiovascular chest pain, lightheadedness, shortness of breath, dyspnea on exertion, leg edema - Respiratory shortness of breath, dyspnea on exertion, no cough - Gastrointestinal abdominal pain (left sided), diarrhea, no nausea, no vomiting, no hematemesis, no coffee ground emesis, no BRBPR, no melena, no hematochezia, no loss of appetite, no dyspepsia/bloating - Genitourinary no dysuria - Muskuloskeletal no low back pain - Integumentary wounds (on feet/legs), no rash, no pruritis, no jaundice Exam Vital Signs Resp 31 H 01/20/19 20:42 - General physical appearance Positive: no distress, no pain, obese, other (appears the same as in clinic) - Respiratory Positive: normal expansion, normal respiratory effort - Abdomen Abdomen: Present: soft. Absent: tender, distended, masses, rebound, guarding, rigid, wound, surgical scars - Integumentary no rash, no growths, no abnormal pigmentation - Neurologic Neurologic: alert and oriented to time, place and person - Psychiatric Psychiatric: appropriate mood/affect, cooperative Results - Labs 01/21/19 04:58 01/21/19 04:58 Abnormal lab results 01/20/19 01/20/19 01/20/19 Range/Units 21:11 21:11 21:11 RDW 15.4 H (13.2-15.2) % Seg Neutrophils % 73.3 H (40.0-70.0) % Seg Neutrophils # (1.8-7.7) K/mm3 PT 16.0 H (12.2-14.9) Sec. INR 1.31 H (0.87-1.13) BUN 28 H (9-20) mg/dL Glucose 106 H (75-100) mg/dL Total Creatine Kinase (55-170) units/L NT-Pro-B Natriuret Pep 4272 H (0-900) pg/mL 01/20/19 01/21/19 01/21/19 Range/Units 21:11 00:11 04:58 RDW 15.6 H (13.2-15.2) % Seg Neutrophils % 75.9 H (40.0-70.0) % Seg Neutrophils # 7.9 H (1.8-7.7) K/mm3 PT (12.2-14.9) Sec. INR (0.87-1.13) BUN (9-20) mg/dL Glucose (75-100) mg/dL Total Creatine Kinase 40 L 41 L (55-170) units/L NT-Pro-B Natriuret Pep (0-900) pg/mL 01/21/19 01/21/19 Range/Units 04:58 04:58 RDW (13.2-15.2) % Seg Neutrophils % (40.0-70.0) % Seg Neutrophils # (1.8-7.7) K/mm3 PT (12.2-14.9) Sec. INR (0.87-1.13) BUN 26 H (9-20) mg/dL Glucose 125 H (75-100) mg/dL Total Creatine Kinase 36 L (55-170) units/L NT-Pro-B Natriuret Pep (0-900) pg/mL Diabetes panel 01/20/19 01/21/19 Range/Units 21:11 04:58 Sodium 145 145 (137-145) mmol/L Potassium 4.1 3.7 (3.6-5.0) mmol/L Chloride 106.9 104.7 (98-107) mmol/L Carbon Dioxide 27 24 (22-30) mmol/L BUN 28 H 26 H (9-20) mg/dL Creatinine 1.2 1.3 (0.8-1.5) mg/dL Glucose 106 H 125 H (75-100) mg/dL Calcium 9.8 9.6 (8.4-10.2) mg/dL AST 18 (5-40) units/L ALT 16 (7-56) units/L Alkaline Phosphatase 112 (35-129) units/L Total Protein 7.9 (6.3-8.2) g/dL Albumin 4.0 (3.9-5) g/dL Calcium panel 01/20/19 01/21/19 Range/Units 21:11 04:58 Calcium 9.8 9.6 (8.4-10.2) mg/dL Albumin 4.0 (3.9-5) g/dL Pituitary panel 01/20/19 01/21/19 Range/Units 21:11 04:58 Sodium 145 145 (137-145) mmol/L Potassium 4.1 3.7 (3.6-5.0) mmol/L Chloride 106.9 104.7 (98-107) mmol/L Carbon Dioxide 27 24 (22-30) mmol/L BUN 28 H 26 H (9-20) mg/dL Creatinine 1.2 1.3 (0.8-1.5) mg/dL Glucose 106 H 125 H (75-100) mg/dL Calcium 9.8 9.6 (8.4-10.2) mg/dL Adrenal panel 01/20/19 01/21/19 Range/Units 21:11 04:58 Sodium 145 145 (137-145) mmol/L Potassium 4.1 3.7 (3.6-5.0) mmol/L Chloride 106.9 104.7 (98-107) mmol/L Carbon Dioxide 27 24 (22-30) mmol/L BUN 28 H 26 H (9-20) mg/dL Creatinine 1.2 1.3 (0.8-1.5) mg/dL Glucose 106 H 125 H (75-100) mg/dL Calcium 9.8 9.6 (8.4-10.2) mg/dL Total Bilirubin 0.70 (0.1-1.2) mg/dL AST 18 (5-40) units/L ALT 16 (7-56) units/L Alkaline Phosphatase 112 (35-129) units/L Total Protein 7.9 (6.3-8.2) g/dL Albumin 4.0 (3.9-5) g/dL - Imaging CT scan - abdomen: report reviewed, image reviewed CT scan - pelvis: report reviewed, image reviewed Assessment and Plan - Patient Problems (1) Abnormal computed tomography of gallbladder Current Visit: Yes Status: Acute Plan to address problem: Pt stable. His breathing and chest pain are better. Still has some difficulty with breathing. His history is not consistent with cholecystitis. His laboratory and exam findings are not consistent with cholecystitis. CT scan is not the ideal study for the gallbladder. We'll start with an ultrasound. If it shows abnormalities, then will consider HIDA scan as patient is currently asymptomatic. Will follow along. Please call with questions. Time=30min
--- NOTE | 2019-01-21 13:15 | Progress Note ---
Assessment and Plan Assessment and plan: Acute cholecystitis. Await surgery evaluation. Persistent atrial fibrillation. Cont. Eliquis. Continue beta leyda Severe dilated cardiomyopathy. Cardiology following. Ascending aortic aneurysm (4.5 cm). Vascular surgery follow-up Peripheral vascular disease. Morbid obesity. History Interval history: No new issues overnight Hospitalist Physical - Constitutional Vitals: Temp Pulse Resp BP Pulse Ox 98.2 F 75 20 132/90 92 01/21/19 11:57 01/21/19 11:57 01/21/19 11:57 01/21/19 11:57 01/21/19 11:57 General appearance: Present: no acute distress, obese - EENT Eyes: Present: PERRL, EOM intact ENT: hearing intact, clear oral mucosa, dentition normal - Neck Neck: Present: supple, normal ROM - Respiratory Respiratory effort: normal Respiratory: bilateral: CTA - Cardiovascular Rhythm: regular Heart Sounds: Present: S1 & S2. Absent: gallop, rub - Extremities Extremities: no ischemia, No edema, Full ROM - Abdominal General gastrointestinal: soft, non-tender, non-distended, normal bowel sounds - Integumentary Integumentary: Present: clear, warm, dry - Neurologic Neurologic: CNII-XII intact, moves all extremities Results - Labs CBC & Chem 7: 01/21/19 04:58 01/21/19 04:58 Labs: Laboratory Last Values WBC 10.4 K/mm3 (4.5-11.0) 01/21/19 04:58 RBC 4.54 M/mm3 (3.65-5.03) 01/21/19 04:58 Hgb 12.8 gm/dl (11.8-15.2) 01/21/19 04:58 Hct 38.4 % (35.5-45.6) 01/21/19 04:58 MCV 85 fl (84-94) 01/21/19 04:58 MCH 28 pg (28-32) 01/21/19 04:58 MCHC 33 % (32-34) 01/21/19 04:58 RDW 15.6 % (13.2-15.2) H 01/21/19 04:58 Plt Count 191 K/mm3 (140-440) 01/21/19 04:58 Lymph % (Auto) 15.8 % (13.4-35.0) 01/21/19 04:58 Lane % (Auto) 5.6 % (0.0-7.3) 01/21/19 04:58 Eos % (Auto) 1.9 % (0.0-4.3) 01/21/19 04:58 Baso % (Auto) 0.8 % (0.0-1.8) 01/21/19 04:58 Lymph # 1.6 K/mm3 (1.2-5.4) 01/21/19 04:58 Lane # 0.6 K/mm3 (0.0-0.8) 01/21/19 04:58 Eos # 0.2 K/mm3 (0.0-0.4) 01/21/19 04:58 Baso # 0.1 K/mm3 (0.0-0.1) 01/21/19 04:58 Seg Neutrophils % 75.9 % (40.0-70.0) H 01/21/19 04:58 Seg Neutrophils # 7.9 K/mm3 (1.8-7.7) H 01/21/19 04:58 PT 16.0 Sec. (12.2-14.9) H 01/20/19 21:11 INR 1.31 (0.87-1.13) H 01/20/19 21:11 APTT 33.3 Sec. (24.2-36.6) 01/20/19 21:11 Sodium 145 mmol/L (137-145) 01/21/19 04:58 Potassium 3.7 mmol/L (3.6-5.0) 01/21/19 04:58 Chloride 104.7 mmol/L (98-107) 01/21/19 04:58 Carbon Dioxide 24 mmol/L (22-30) 01/21/19 04:58 20 mmol/L 01/21/19 04:58 BUN 26 mg/dL (9-20) H 01/21/19 04:58 1.3 mg/dL (0.8-1.5) 01/21/19 04:58 Estimated GFR 57 ml/min 01/21/19 04:58 20 % 01/21/19 04:58 Glucose 125 mg/dL (75-100) H 01/21/19 04:58 Calcium 9.6 mg/dL (8.4-10.2) 01/21/19 04:58 0.70 mg/dL (0.1-1.2) 01/20/19 21:11 AST 18 units/L (5-40) 01/20/19 21:11 ALT 16 units/L (7-56) 01/20/19 21:11 112 units/L (35-129) 01/20/19 21:11 36 units/L (55-170) L 01/21/19 04:58 CK-MB (CK-2) 1.2 ng/mL (0.0-4.0) 01/21/19 04:58 CK-MB (CK-2) Rel Index 3.3 (0-4) 01/21/19 04:58 < 0.010 ng/mL (0.00-0.029) 01/21/19 04:58 NT-Pro-B Natriuret Pep 4272 pg/mL (0-900) H 01/20/19 21:11 7.9 g/dL (6.3-8.2) 01/20/19 21:11 4.0 g/dL (3.9-5) 01/20/19 21:11 1.0 % 01/20/19 21:11 Active Medications - Current Medications Current Medications: Generic Name Dose Route Start Last Admin Trade Name Freq PRN Reason Stop Dose Admin Acetaminophen 650 mg 01/20/19 23:54 Tylenol PO Q4H PRN Pain MILD(1-3)/Fever >100.5/CASTILLO Apixaban 5 mg 01/21/19 10:00 01/21/19 10:35 Eliquis PO 5 mg Q12HR SOFIYA Administration Protocol Ondansetron HCl 4 mg 01/20/19 23:54 Zofran IV Q4H PRN Nausea And Vomiting Oxycodone/Acetaminophen 1 tab 01/20/19 23:54 01/21/19 03:56 Percocet 5/325 PO 1 tab Q4H PRN Administration Pain, Moderate (4-6) Sodium Chloride 10 ml 01/21/19 10:00 01/21/19 10:35 Sodium Chloride Flush Syringe 10 Ml IV 10 ml BID SOFIYA Administration Sodium Chloride 10 ml 01/20/19 23:54 Sodium Chloride Flush Syringe 10 Ml IV PRN PRN LINE FLUSH
--- NOTE | 2019-01-21 22:56 | Ultrasound Report ---
ULTRASOUND ABDOMEN, LIMITED (RIGHT UPPER QUADRANT) INDICATION: Evaluate gallbladder. Chest and epigastric pain. COMPARISON: None available. FINDINGS: PANCREAS: Visualized portion shows no significant abnormality. LIVER: 22.6 cm in length with a normal echo pattern compared to the right renal cortex. No focal lesi on and normal directional blood flow in the main portal vein. GALLBLADDER: 2.7 cm echogenic focus in the gallbladder neck demonstrates posterior shadowing. The gal lbladder wall is borderline thickened measuring 3 to 3.5 mm. The gallbladder is slightly distended. BILE DUCTS: No significant abnormality. Common bile duct measures 1.2 mm. FREE FLUID: None. ADDITIONAL FINDINGS: There is mild diffuse cortical thinning involving the right kidney. IMPRESSION: 1. Large stone in the gallbladder neck. The gallbladder is mildly distended with borderline wall thic [place]. Acute cholecystitis is suspected. Depending on clinical findings, hepatobiliary scintigraphy may be helpful in confirmation. 2. Hepatomegaly. Signer Name: Sam Celis MD Signed: 01/21/2019 10:52 PM Workstation Name: [id number]
[2019-01-22] MEDS: AMBIEN PO PRN ×2 (00:19→22:25)
[2019-01-22] MEDS: PERCOCET 5/325 PO PRN (05:48)
--- NOTE | 2019-01-22 09:17 | Progress Note ---
Assessment and Plan Acute Cholecystitis Persistent atrial fibrillation on [facility] as an outpatient Dilated Cardiomyopathy Ascending aortic aneurysm (4.5 cm) Peripheral vascular disease Morbid obesity Continue medical therapy for persistent atrial fibrillation and dilated cardiomyopathy. Subjective Date of service: 01/22/19 Interval history: Patient has no complaints. Afib with a well controlled ventricular rate. Objective Vital Signs Temp Pulse Resp BP Pulse Ox 01/22/19 08:11 97.3 F L 18 134/93 01/22/19 05:48 18 01/22/19 03:46 98.3 F 74 20 112/80 99 01/21/19 23:59 98.8 F 92 H 18 127/90 90 01/21/19 21:30 18 01/21/19 21:00 85 01/21/19 20:11 98.7 F 65 20 142/101 97 01/21/19 16:22 98.4 F 78 18 123/82 95 01/21/19 14:15 99 01/21/19 11:57 98.2 F 75 20 132/90 92 01/21/19 11:24 71 177/81 100 01/21/19 11:15 119/92 01/21/19 09:55 132/94 01/21/19 09:48 142 H - Physical Examination General: No Apparent Distress HEENT: Positive: PERRL Neck: Positive: trachea midline Cardiac: Positive: irregularly irregular Lungs: Positive: Decreased Breath Sounds Neuro: Positive: Grossly Intact Skin: Positive: Wound (bilateral lower extremity wounds) Extremities: Present: Other (wrapped) - Imaging and Cardiology EKG: image reviewed
[2019-01-22] MEDS: TOPROL XL PO SCH (10:06)
[2019-01-22] MEDS: LASIX PO SCH (10:06)
[2019-01-22] MEDS: ELIQUIS PO SCH ×2 (10:06→10:12)
[2019-01-22] MEDS: ZESTRIL PO SCH (10:06)
[2019-01-22] MEDS: SODIUM CHLORIDE FLUSH SYRINGE 10 ML IV SCH ×2 (10:07→22:30)
[2019-01-22] MEDS: TYLENOL PO PRN (10:19)
--- NOTE | 2019-01-22 11:59 | Progress Note ---
Assessment and Plan - Patient Problems (1) Abnormal computed tomography of gallbladder Current Visit: Yes Status: Acute Plan to address problem: Pt stable. US was impressive only for a large stone. Pt not acting like he has an obstructed gallbladder. Will proceed with HIDA scan. Will follow along. Please call with questions. Time=10min Subjective Date of service: 01/22/19 Patient Reports: Positive: no new complaints, still having pain (occasionally on left and right sides. Right hip area hurts with walking. ), tolerating a regular diet. Negative: nausea, vomiting Objective Vital Signs - 12hr 01/21/19 01/22/19 01/22/19 23:59 03:46 05:48 Temperature 98.8 F 98.3 F Pulse Rate 92 H 74 Respiratory 18 20 18 Rate Blood Pressure 127/90 112/80 O2 Sat by Pulse 90 99 Oximetry 01/22/19 01/22/19 01/22/19 08:11 10:06 10:19 Temperature 97.3 F L Pulse Rate 90 Respiratory 18 20 Rate Blood Pressure 134/93 134/93 O2 Sat by Pulse Oximetry 01/22/19 10:38 Temperature Pulse Rate Respiratory Rate Blood Pressure O2 Sat by Pulse 95 Oximetry - General physical appearance no distress, no pain, other (does not appear ill) - Respiratory normal expansion, normal respiratory effort - Abdomen soft, not tender, not distended, not guarding, not rigid - Integumentary no rash, no growths, no abnormal pigmentation - Psychiatric oriented to time, oriented to person, oriented to place, speech is normal, memory intact - Labs 01/21/19 04:58 01/21/19 04:58
--- NOTE | 2019-01-22 12:07 | Progress Note ---
Assessment and Plan Assessment and plan: Acute cholecystitis. Right upper quadrant ultrasound also illustrates gallbladder neck stone and is suggestive of cholecystitis. HIDA scan per surgery. Persistent atrial fibrillation. Cont. Eliquis. Continue beta leyda Severe dilated cardiomyopathy. Cardiology following. Ascending aortic aneurysm (4.5 cm). Vascular surgery follow-up OP Peripheral vascular disease. Morbid obesity. History Interval history: No new issues overnight Hospitalist Physical - Constitutional Vitals: Temp Pulse Resp BP Pulse Ox 97.3 F L 90 20 134/93 95 01/22/19 08:11 01/22/19 10:06 01/22/19 10:19 01/22/19 10:06 01/22/19 10:38 General appearance: Present: no acute distress, obese - EENT Eyes: Present: PERRL, EOM intact ENT: hearing intact, clear oral mucosa, dentition normal - Neck Neck: Present: supple, normal ROM - Respiratory Respiratory effort: normal Respiratory: bilateral: CTA - Cardiovascular Rhythm: regular Heart Sounds: Present: S1 & S2. Absent: gallop, rub - Extremities Extremities: no ischemia, No edema, Full ROM - Abdominal General gastrointestinal: soft, non-tender, non-distended, normal bowel sounds - Integumentary Integumentary: Present: clear, warm, dry - Neurologic Neurologic: CNII-XII intact, moves all extremities Results - Labs CBC & Chem 7: 01/21/19 04:58 01/21/19 04:58 Labs: Laboratory Last Values WBC 10.4 K/mm3 (4.5-11.0) 01/21/19 04:58 RBC 4.54 M/mm3 (3.65-5.03) 01/21/19 04:58 Hgb 12.8 gm/dl (11.8-15.2) 01/21/19 04:58 Hct 38.4 % (35.5-45.6) 01/21/19 04:58 MCV 85 fl (84-94) 01/21/19 04:58 MCH 28 pg (28-32) 01/21/19 04:58 MCHC 33 % (32-34) 01/21/19 04:58 RDW 15.6 % (13.2-15.2) H 01/21/19 04:58 Plt Count 191 K/mm3 (140-440) 01/21/19 04:58 Lymph % (Auto) 15.8 % (13.4-35.0) 01/21/19 04:58 Saunders % (Auto) 5.6 % (0.0-7.3) 01/21/19 04:58 Eos % (Auto) 1.9 % (0.0-4.3) 01/21/19 04:58 Baso % (Auto) 0.8 % (0.0-1.8) 01/21/19 04:58 Lymph # 1.6 K/mm3 (1.2-5.4) 01/21/19 04:58 Saunders # 0.6 K/mm3 (0.0-0.8) 01/21/19 04:58 Eos # 0.2 K/mm3 (0.0-0.4) 01/21/19 04:58 Baso # 0.1 K/mm3 (0.0-0.1) 01/21/19 04:58 Seg Neutrophils % 75.9 % (40.0-70.0) H 01/21/19 04:58 Seg Neutrophils # 7.9 K/mm3 (1.8-7.7) H 01/21/19 04:58 PT 16.0 Sec. (12.2-14.9) H 01/20/19 21:11 INR 1.31 (0.87-1.13) H 01/20/19 21:11 APTT 33.3 Sec. (24.2-36.6) 01/20/19 21:11 Sodium 145 mmol/L (137-145) 01/21/19 04:58 Potassium 3.7 mmol/L (3.6-5.0) 01/21/19 04:58 Chloride 104.7 mmol/L (98-107) 01/21/19 04:58 Carbon Dioxide 24 mmol/L (22-30) 01/21/19 04:58 20 mmol/L 01/21/19 04:58 BUN 26 mg/dL (9-20) H 01/21/19 04:58 1.3 mg/dL (0.8-1.5) 01/21/19 04:58 Estimated GFR 57 ml/min 01/21/19 04:58 20 % 01/21/19 04:58 Glucose 125 mg/dL (75-100) H 01/21/19 04:58 Calcium 9.6 mg/dL (8.4-10.2) 01/21/19 04:58 0.70 mg/dL (0.1-1.2) 01/20/19 21:11 AST 18 units/L (5-40) 01/20/19 21:11 ALT 16 units/L (7-56) 01/20/19 21:11 112 units/L (35-129) 01/20/19 21:11 36 units/L (55-170) L 01/21/19 04:58 CK-MB (CK-2) 1.2 ng/mL (0.0-4.0) 01/21/19 04:58 CK-MB (CK-2) Rel Index 3.3 (0-4) 01/21/19 04:58 < 0.010 ng/mL (0.00-0.029) 01/21/19 04:58 NT-Pro-B Natriuret Pep 4272 pg/mL (0-900) H 01/20/19 21:11 7.9 g/dL (6.3-8.2) 01/20/19 21:11 4.0 g/dL (3.9-5) 01/20/19 21:11 1.0 % 01/20/19 21:11 Active Medications - Current Medications Current Medications: Generic Name Dose Route Start Last Admin Trade Name Freq PRN Reason Stop Dose Admin Acetaminophen 650 mg 01/20/19 23:54 01/22/19 10:19 Tylenol PO 650 mg Q4H PRN Administration Pain MILD(1-3)/Fever >100.5/CASTILLO Furosemide 40 mg 01/22/19 10:00 01/22/19 10:06 Lasix PO 40 mg QDAY SOFIYA Administration Heparin Sodium (Porcine) 5,000 unit 01/22/19 22:00 Heparin SUB-Q Q12HR SOFIYA Lisinopril 5 mg 01/22/19 10:00 01/22/19 10:06 Zestril PO 5 mg QDAY SOFIYA Administration Metoprolol Succinate 100 mg 01/22/19 10:00 01/22/19 10:06 Toprol Xl PO 100 mg QDAY SOFIYA Administration Ondansetron HCl 4 mg 01/20/19 23:54 Zofran IV Q4H PRN Nausea And Vomiting Oxycodone/Acetaminophen 1 tab 01/20/19 23:54 01/22/19 05:48 Percocet 5/325 PO 1 tab Q4H PRN Administration Pain, Moderate (4-6) Sodium Chloride 10 ml 01/21/19 10:00 01/22/19 10:07 Sodium Chloride Flush Syringe 10 Ml IV 10 ml BID SOFIYA Administration Sodium Chloride 10 ml 01/20/19 23:54 Sodium Chloride Flush Syringe 10 Ml IV PRN PRN LINE FLUSH Spironolactone 25 mg 01/23/19 10:00 Aldactone PO QDAY SOFIYA Zolpidem Tartrate 5 mg 01/22/19 00:05 01/22/19 00:19 Ambien PO 5 mg QHS PRN Administration Sleep
[2019-01-22] MEDS: HEPARIN SUB-Q SCH (22:25)
--- NOTE | 2019-01-23 08:58 | Progress Note ---
Assessment and Plan Acute Cholecystitis Persistent atrial fibrillation on eliquis as an outpatient rate controlled with Toprol XL Dilated Cardiomyopathy Ascending aortic aneurysm (4.5 cm) Peripheral vascular disease LE ulcer Morbid obesity Recommendations: Sodium/fluid restriction. Daily weight. Continue medical therapy for persistent atrial fibrillation and dilated cardiomyopathy. Eliquis held for possible surgical intervention. Subjective Date of service: 01/23/19 Interval history: Patient has no complaints. Afib with a well controlled ventricular rate. Objective Vital Signs Temp Pulse Pulse Resp BP Pulse Ox 01/23/19 04:04 97.5 F L 80 20 124/93 96 01/22/19 23:29 97.2 F L 61 20 106/65 97 01/22/19 21:32 100 01/22/19 19:37 97.3 F L 61 19 109/82 99 01/22/19 19:34 72 01/22/19 17:13 97.3 F L 18 119/83 01/22/19 13:00 68 01/22/19 10:38 95 01/22/19 10:19 20 01/22/19 10:06 90 134/93 01/22/19 10:00 68 20 95 - Physical Examination General: No Apparent Distress HEENT: Positive: PERRL Neck: Positive: trachea midline Cardiac: Positive: irregularly irregular Neuro: Positive: Grossly Intact Skin: Positive: Wound (bilateral lower extremity wounds) Extremities: Present: Other (wrapped)
[2019-01-23] MEDS ORDERED: KINEVAC IV ONE ×2 (09:59→10:03)
[2019-01-23] MEDS ORDERED: WATER FOR INJ Sterile (PF) 10 ML ONE (10:00)
--- NOTE | 2019-01-23 10:47 | Progress Note ---
Assessment and Plan Assessment and plan: Acute cholecystitis. Right upper quadrant ultrasound also illustrates gallbladder neck stone and is suggestive of cholecystitis. HIDA scan per surgery. Persistent atrial fibrillation. Cont. Eliquis. Continue beta leyda Severe dilated cardiomyopathy. Cardiology following. Ascending aortic aneurysm (4.5 cm). Vascular surgery follow-up OP Peripheral vascular disease. Morbid obesity. History Interval history: No new issues overnight Hospitalist Physical - Constitutional Vitals: Temp Pulse Resp BP Pulse Ox 97.3 F L 81 16 138/91 95 01/23/19 07:58 01/23/19 07:58 01/23/19 07:58 01/23/19 07:58 01/23/19 08:50 General appearance: Present: no acute distress, obese - EENT Eyes: Present: PERRL, EOM intact ENT: hearing intact, clear oral mucosa, dentition normal - Neck Neck: Present: supple, normal ROM - Respiratory Respiratory effort: normal Respiratory: bilateral: CTA - Cardiovascular Rhythm: regular Heart Sounds: Present: S1 & S2. Absent: gallop, rub - Extremities Extremities: no ischemia, No edema, Full ROM - Abdominal General gastrointestinal: soft, non-tender, non-distended, normal bowel sounds - Integumentary Integumentary: Present: clear, warm, dry - Neurologic Neurologic: CNII-XII intact, moves all extremities Results - Labs CBC & Chem 7: 01/21/19 04:58 01/21/19 04:58 Labs: Laboratory Last Values WBC 10.4 K/mm3 (4.5-11.0) 01/21/19 04:58 RBC 4.54 M/mm3 (3.65-5.03) 01/21/19 04:58 Hgb 12.8 gm/dl (11.8-15.2) 01/21/19 04:58 Hct 38.4 % (35.5-45.6) 01/21/19 04:58 MCV 85 fl (84-94) 01/21/19 04:58 MCH 28 pg (28-32) 01/21/19 04:58 MCHC 33 % (32-34) 01/21/19 04:58 RDW 15.6 % (13.2-15.2) H 01/21/19 04:58 Plt Count 191 K/mm3 (140-440) 01/21/19 04:58 Lymph % (Auto) 15.8 % (13.4-35.0) 01/21/19 04:58 [place] % (Auto) 5.6 % (0.0-7.3) 01/21/19 04:58 Eos % (Auto) 1.9 % (0.0-4.3) 01/21/19 04:58 Baso % (Auto) 0.8 % (0.0-1.8) 01/21/19 04:58 Lymph # 1.6 K/mm3 (1.2-5.4) 01/21/19 04:58 [place] # 0.6 K/mm3 (0.0-0.8) 01/21/19 04:58 Eos # 0.2 K/mm3 (0.0-0.4) 01/21/19 04:58 Baso # 0.1 K/mm3 (0.0-0.1) 01/21/19 04:58 Seg Neutrophils % 75.9 % (40.0-70.0) H 01/21/19 04:58 Seg Neutrophils # 7.9 K/mm3 (1.8-7.7) H 01/21/19 04:58 PT 16.0 Sec. (12.2-14.9) H 01/20/19 21:11 INR 1.31 (0.87-1.13) H 01/20/19 21:11 APTT 33.3 Sec. (24.2-36.6) 01/20/19 21:11 Sodium 145 mmol/L (137-145) 01/21/19 04:58 Potassium 3.7 mmol/L (3.6-5.0) 01/21/19 04:58 Chloride 104.7 mmol/L (98-107) 01/21/19 04:58 Carbon Dioxide 24 mmol/L (22-30) 01/21/19 04:58 20 mmol/L 01/21/19 04:58 BUN 26 mg/dL (9-20) H 01/21/19 04:58 1.3 mg/dL (0.8-1.5) 01/21/19 04:58 Estimated GFR 57 ml/min 01/21/19 04:58 20 % 01/21/19 04:58 Glucose 125 mg/dL (75-100) H 01/21/19 04:58 Calcium 9.6 mg/dL (8.4-10.2) 01/21/19 04:58 0.70 mg/dL (0.1-1.2) 01/20/19 21:11 AST 18 units/L (5-40) 01/20/19 21:11 ALT 16 units/L (7-56) 01/20/19 21:11 112 units/L (35-129) 01/20/19 21:11 36 units/L (55-170) L 01/21/19 04:58 CK-MB (CK-2) 1.2 ng/mL (0.0-4.0) 01/21/19 04:58 CK-MB (CK-2) Rel Index 3.3 (0-4) 01/21/19 04:58 < 0.010 ng/mL (0.00-0.029) 01/21/19 04:58 NT-Pro-B Natriuret Pep 4272 pg/mL (0-900) H 01/20/19 21:11 7.9 g/dL (6.3-8.2) 01/20/19 21:11 4.0 g/dL (3.9-5) 01/20/19 21:11 1.0 % 01/20/19 21:11 Active Medications - Current Medications Current Medications: Generic Name Dose Route Start Last Admin Trade Name Freq PRN Reason Stop Dose Admin Acetaminophen 650 mg 01/20/19 23:54 01/22/19 10:19 Tylenol PO 650 mg Q4H PRN Administration Pain MILD(1-3)/Fever >100.5/CASTILLO Furosemide 40 mg 01/22/19 10:00 01/22/19 10:06 Lasix PO 40 mg QDAY SOFIYA Administration Heparin Sodium (Porcine) 5,000 unit 01/22/19 22:00 01/22/19 22:25 Heparin SUB-Q 5,000 unit Q12HR SOFIYA Administration Lisinopril 5 mg 01/22/19 10:00 01/22/19 10:06 Zestril PO 5 mg QDAY SOFIYA Administration Metoprolol Succinate 100 mg 01/22/19 10:00 01/22/19 10:06 Toprol Xl PO 100 mg QDAY SOFIYA Administration Ondansetron HCl 4 mg 01/20/19 23:54 Zofran IV Q4H PRN Nausea And Vomiting Oxycodone/Acetaminophen 1 tab 01/20/19 23:54 01/22/19 05:48 Percocet 5/325 PO 1 tab Q4H PRN Administration Pain, Moderate (4-6) Sodium Chloride 10 ml 01/21/19 10:00 01/22/19 22:30 Sodium Chloride Flush Syringe 10 Ml IV 10 ml BID SOFIYA Administration Sodium Chloride 10 ml 01/20/19 23:54 Sodium Chloride Flush Syringe 10 Ml IV PRN PRN LINE FLUSH Spironolactone 25 mg 01/23/19 10:00 Aldactone PO QDAY SOFIYA Zolpidem Tartrate 5 mg 01/22/19 00:05 01/22/19 22:25 Ambien PO 5 mg QHS PRN Administration Sleep
[2019-01-23] MEDS: SODIUM CHLORIDE FLUSH SYRINGE 10 ML IV SCH ×2 (11:25→21:51)
[2019-01-23] MEDS: ALDACTONE PO SCH (11:25)
[2019-01-23] MEDS: PERCOCET 5/325 PO PRN (11:25)
[2019-01-23] MEDS: TOPROL XL PO SCH (11:26)
[2019-01-23] MEDS: HEPARIN SUB-Q SCH ×2 (11:28→21:51)
[2019-01-23] MEDS: LASIX PO SCH (11:29)
[2019-01-23] MEDS: ZESTRIL PO SCH (11:29)
--- NOTE | 2019-01-23 11:30 | Nuclear Medicine Report ---
NUCLEAR MEDICINE HEPATOBILIARY SCAN INDICATION: Eval for gallbladder obstruction/cholecystitis. TECHNIQUE: Radiotracer: Tc-99m mebrofenin (by IV): 5 mCi. Gallbladder Stimulant: 3.37 mg of CCK IV. FINDINGS: Hepatic activity: Normal. Biliary activity: Common bile duct activity between 60 and 90 minutes. Gallbladder activity: Normal at 10 minutes. Small bowel activity: Between 60 and 90 minutes. Ejection fraction: 40% IMPRESSION: 1. No biliary obstruction. 2. Normal ejection fraction. Signer Name: Fan Gaines MD Signed: 01/23/2019 11:25 AM Workstation Name: [id number]
--- NOTE | 2019-01-23 15:03 | Progress Note ---
Assessment and Plan - Patient Problems (1) Abnormal computed tomography of gallbladder Current Visit: Yes Status: Acute Plan to address problem: Pt stable. HIDA was normal. No acute cholecystitis. No need for cholecystectomy during this admission. Ok to d/c from my standpoint. Will f/u in wound clinic. If he needs cholecystectomy in future, will need cardiac clearance. Please call with questions. Time=10min Subjective Date of service: 01/23/19 Objective Vital Signs - 12hr 01/23/19 01/23/19 01/23/19 04:04 07:58 08:50 Temperature 97.5 F L 97.3 F L Pulse Rate 80 81 Respiratory 20 16 Rate Blood Pressure 124/93 138/91 O2 Sat by Pulse 96 98 95 Oximetry 01/23/19 01/23/19 01/23/19 11:25 11:26 11:29 Temperature Pulse Rate 78 78 78 Respiratory Rate Blood Pressure 136/96 136/96 136/96 O2 Sat by Pulse Oximetry - Labs 01/21/19 04:58 01/21/19 04:58
[2019-01-24] MEDS: TYLENOL PO PRN (00:41)
[2019-01-24 06:09] LABS: Basophils # (Auto) 0.1 K/mm3 (0.0-0.1); Basophils % (Auto) 1.2 % (0.0-1.8); Eosinophils # (Auto) 0.2 K/mm3 (0.0-0.4); Hematocrit 39.7 % (35.5-45.6); Hemoglobin 13.1 gm/dl (11.8-15.2); Lymphocytes # (Auto) 1.8 K/mm3 (1.2-5.4); Lymphocytes % (Auto) 19.6 % (13.4-35.0); Mean Corpuscular HGB Conc 33 % (32-34); Mean Corpuscular Volume 85 fl (84-94); Monocytes # (Auto) 0.6 K/mm3 (0.0-0.8); Platelet Count 197 K/mm3 (140-440); Red Blood Count 4.69 M/mm3 (3.65-5.03); Red Cell Distribution Width 15.9 % (13.2-15.2)
[2019-01-24] MEDS: TOPROL XL PO SCH (09:33)
[2019-01-24] MEDS: ZESTRIL PO SCH (09:34)
[2019-01-24] MEDS: ALDACTONE PO SCH (09:34)
[2019-01-24] MEDS: SODIUM CHLORIDE FLUSH SYRINGE 10 ML IV SCH (09:34)
[2019-01-24] MEDS: LASIX PO SCH (09:35)
[2019-01-24] MEDS: HEPARIN SUB-Q SCH (09:35)
--- NOTE | 2019-01-24 10:35 | Progress Note ---
Assessment and Plan Abdominal pain abdominal CT reports acute cholecystitis HIDA scan is normal Persistent atrial fibrillation on eliquis as an outpatient rate controlled with Toprol XL Dilated Cardiomyopathy Ascending aortic aneurysm (4.5 cm) Peripheral vascular disease LE ulcer Morbid obesity Recommendations: Sodium/fluid restriction. Daily weight. Continue medical therapy for persistent atrial fibrillation and dilated cardiomyopathy. No plan for surgery. Resume Eliquis. Outpatient cardiac PET scan can be arranged to evaluate for ischemic heart disease. Follow up with [facility] as scheduled . Subjective Date of service: 01/24/19 Interval history: Patient has no cardiac complaints. No plans for surgery. Objective Vital Signs Temp Pulse Resp BP Pulse Ox 01/24/19 09:34 96 H 138/99 01/24/19 09:33 96 H 138/99 01/24/19 08:52 129 H 01/24/19 08:42 98.2 F 97 H 16 138/99 96 01/24/19 04:11 80 01/24/19 04:09 98.3 F 20 116/86 89 01/23/19 23:15 98.2 F 78 20 106/73 92 01/23/19 20:05 98.7 F 74 20 116/73 94 01/23/19 17:10 97.5 F L 76 18 104/82 95 01/23/19 12:00 20 01/23/19 11:29 78 136/96 01/23/19 11:26 78 136/96 01/23/19 11:25 78 136/96 01/23/19 11:24 97.7 F 78 18 136/96 97 - Physical Examination General: No Apparent Distress HEENT: Positive: PERRL Neck: Positive: trachea midline Cardiac: Positive: irregularly irregular Lungs: Positive: Decreased Breath Sounds Neuro: Positive: Grossly Intact Skin: Positive: Wound (bilateral lower extremity wounds) Extremities: Present: Other (wrapped) - Labs and Meds CBC 01/24/19 Range/Units 05:59 WBC 9.2 (4.5-11.0) K/mm3 RBC 4.69 (3.65-5.03) M/mm3 Hgb 13.1 (11.8-15.2) gm/dl Hct 39.7 (35.5-45.6) % Plt Count 197 (140-440) K/mm3 Lymph # 1.8 (1.2-5.4) K/mm3 [place] # 0.6 (0.0-0.8) K/mm3 Eos # 0.2 (0.0-0.4) K/mm3 Baso # 0.1 (0.0-0.1) K/mm3 Comprehensive Metabolic Panel 01/24/19 Range/Units 04:56 Sodium 137 D (137-145) mmol/L Potassium 3.8 (3.6-5.0) mmol/L Chloride 99.3 (98-107) mmol/L Carbon Dioxide 22 (22-30) mmol/L BUN 30 H (9-20) mg/dL Creatinine 1.4 (0.8-1.5) mg/dL Glucose 120 H (75-100) mg/dL Calcium 9.0 (8.4-10.2) mg/dL
--- NOTE | 2019-01-24 11:43 | Discharge Summary ---
Providers - Providers Date of Admission: 01/20/19 23:54 Date of discharge: 01/24/19 Attending physician: JAZMIN MORTON 01/20/19 23:54 Consult to Physician [CONS] Routine Comment: Consulting Provider: NEHA VILLALOBOS Physician Instructions: Reason For Exam: cp 01/21/19 02:57 Consult to Physician [CONS] Routine Comment: Consulting Provider: QUOC WALTER Physician Instructions: Reason For Exam: cholecystitis 01/21/19 06:58 Consult to Wound/ET Nurse [CONS] Stat Reason For Exam: wound eval Primary care physician: GORDON BECK MD Hospitalization Reason for admission: cp Condition: Stable Hospital course: Patient is a 58-year old male who was admitted to this hospital a month ago with newly diagnosed atrial fibrillation. Further evaluation with an echocardiogram revealed a severe dilated cardiomyopathy, ejection fraction 25-30%. There was also a mild dilation of the ascending aorta measuring 4.5cm. Patient was initiated on eliquis and medical management for CHF with recommendations to followup for an outpatient cardiac PET scan. Co-morbidities includes hypertension, PVD with chronic lower extremity ulcers and morbid obesity. Patient returned with complaints of chest pain. The patient was admitted with diagnosis of chest pain and acute cholecystitis. Chest x-ray reports cardiomegaly but no evidence of interstitial edema. The patient's ECG revealed atrial fibrillation with a well controlled ventricular rate. The patient underwent evaluation with CT scan of the abdomen and pelvis and right upper quadrant ultrasound which revealed large stone in the gallbladder neck with mildly distended borderline wall thickening suggestive of acute cholecystitis. Surgery was consulted and recommended HIDA scan for further evaluation. HIDA scan was normal therefore surgery felt that there was no acute cholecystitis or need for cholecystectomy during this admission. Cardiology saw the patient in consultation with regards to chest pain and recommended resuming eliquis since no plan for surgery and Outpatient cardiac PET scan can be arranged to evaluate for ischemic heart disease. Follow up with [facility] as scheduled . Dedicated discharge time 32 minutes. Disposition: - TO HOME OR SELFCARE Time spent for discharge: 32 - Discharge Diagnoses (1) Abnormal computed tomography of gallbladder Status: Acute (2) Chest pain Status: Acute (3) Atrial fibrillation Status: Acute Qualifiers: Atrial fibrillation type: persistent Qualified Code(s): I48.1 - Persistent atrial fibrillation (4) HLD (hyperlipidemia) Status: Acute Qualifiers: Hyperlipidemia type: mixed hyperlipidemia Qualified Code(s): E78.2 - Mixed hyperlipidemia (5) HTN (hypertension) Status: Acute Qualifiers: Hypertension type: essential hypertension Qualified Code(s): I10 - Essential (primary) hypertension (6) Obesity Status: Acute Qualifiers: Body mass index: BMI 33.0-33.9 Core Measure Documentation - Palliative Care Palliative Care/ Comfort Measures: Not Applicable - Core Measures Any of the following diagnoses?: none Exam - Constitutional Vitals: Temp Pulse Resp BP Pulse Ox 98.2 F 96 H 16 138/99 96 01/24/19 08:42 01/24/19 09:34 01/24/19 08:42 01/24/19 09:34 01/24/19 08:42 General appearance: Present: no acute distress, well-nourished - EENT Eyes: Present: PERRL ENT: hearing intact, clear oral mucosa - Neck Neck: Present: supple, normal ROM - Respiratory Respiratory effort: normal Respiratory: bilateral: CTA - Cardiovascular Heart Sounds: Present: S1 & S2. Absent: rub, click - Extremities Extremities: pulses symmetrical, No edema Peripheral Pulses: within normal limits - Abdominal General gastrointestinal: Present: soft, non-tender, non-distended, normal bowel sounds Male genitourinary: Present: normal - Integumentary Integumentary: Present: clear, warm, dry - Musculoskeletal Musculoskeletal: gait normal, strength equal bilaterally - Psychiatric Psychiatric: appropriate mood/affect, intact judgment & insight - Neurologic Neurologic: CNII-XII intact, moves all extremities Plan Activity: advance as tolerated Weight Bearing Status: Weight Bear as Tolerated Diet: low fat, low cholesterol, low salt Assessment: Follow up with [facility], Dr Sanches, on at 150pm. Follow up with: PATSY SANCHES MD [Staff Physician] - 7 Days GORDON BECK MD [Primary Care Provider] - 3-5 Days QUOC WALTER MD [Staff Physician] - 7 Days Prescriptions: Acetaminophen [Acetaminophen TAB] 650 mg PO Q4H PRN #15 tablet PRN Reason: Pain MILD(1-3)/Fever >100.5/CASTILLO Apixaban [Eliquis] 5 mg PO Q12HR #30 tablet Furosemide [Lasix TAB] 40 mg PO QDAY #30 tablet Metoprolol Xl [Metoprolol SUCCINATE ER TAB] 100 mg PO QDAY #30 tablet oxyCODONE /ACETAMINOPHEN [Percocet 5/325 mg] 1 tab PO Q4H PRN #8 tablet PRN Reason: Pain, Moderate (4-6) Lisinopril [Zestril TAB] 5 mg PO QDAY #30 tablet Sertraline [Zoloft] 100 mg PO QDAY #30 tablet
[2019-01-24 13:34] VITALS: BP 123/83
[2019-01-24] MEDS ORDERED: ELIQUIS PO SCH (22:00)
== END 2019-01-24 14:10 | disposition home or self-care (01) | DRG 445 ==
LOC: ED 19:49 → 4A 23:54
PROVIDERS: ADMIT Internal Medicine; ATTEND Hospitalist
DX: K80.20 Calculus of gallbladder without cholecystitis without obstruction (principal); I48.1 Persistent atrial fibrillation; Z68.41 Body mass index [BMI] 40.0-44.9, adult; I42.0 Dilated cardiomyopathy; L97.809 Non-pressure chronic ulcer of other part of unspecified lower leg with unspecified severity; I73.9 Peripheral vascular disease, unspecified; I71.2 Thoracic aortic aneurysm, without rupture; E66.01 Morbid (severe) obesity due to excess calories; E78.2 Mixed hyperlipidemia; F31.9 Bipolar disorder, unspecified; I11.0 Hypertensive heart disease with heart failure; I50.9 Heart failure, unspecified; F20.9 Schizophrenia, unspecified; F41.9 Anxiety disorder, unspecified; Z79.01 Long term (current) use of anticoagulants; Z82.49 Family history of ischemic heart disease and other diseases of the circulatory system; Z79.899 Other long term (current) drug therapy
CPT/HCPCS: 36415; 71045; 71275; 74174; 76705; 78227; 80048; 80053; 82550; 82553; 83880; 84484; 85025; 85610; 85730; 93005; 93010; 96374; G0378; A9537; J1644; J1940; J2805; Q9967

== ENCOUNTER 2019-02-14 10:09 | Outpatient (CLI) | payer MEDICARE ==
[2019-02-14] MEDS ORDERED: AD OINTMENT TP PRN (10:48)
[2019-02-14] MEDS ORDERED: SILVER NITRATE TP ONE (11:00)
[2019-02-14] MEDS ORDERED: XYLOCAINE TOPICAL 4% TP ONE (11:00)
== END 2019-02-14 10:10 | disposition home or self-care (01) ==
LOC: WOUND 10:09
PROVIDERS: ATTEND Surgery
DX: E11.622 Type 2 diabetes mellitus with other skin ulcer (principal); L89.512 Pressure ulcer of right ankle, stage 2; L97.312 Non-pressure chronic ulcer of right ankle with fat layer exposed; L97.812 Non-pressure chronic ulcer of other part of right lower leg with fat layer exposed; I87.311 Chronic venous hypertension (idiopathic) with ulcer of right lower extremity; I87.8 Other specified disorders of veins; L84 Corns and callosities; F41.9 Anxiety disorder, unspecified; L40.9 Psoriasis, unspecified
CPT/HCPCS: A6250

== ENCOUNTER 2019-04-17 11:29 | Emergency (ER) | payer MEDICARE ==
[2019-04-17 11:55] VITALS: BP 128/91
--- NOTE | 2019-04-17 12:05 | Emergency Department Report ---
Blank Doc - Documentation Documentation: 58-year-old male that presents with URI symptoms. This initial assessment/diagnostic orders/clinical plan/treatment(s) is/are subject to change based on patient's health status, clinical progression and re- assessment by fellow clinical providers in the ED. Further treatment and workup at subsequent clinical providers discretion. Patient/guardians urged not to elope from the ED as their condition may be serious if not clinically assessed and managed. Initial orders include: 1- Patient sent to [facility] for further evaluation and treatment 2- CXR
--- NOTE | 2019-04-17 12:39 | XRay Report ---
CHEST 2 VIEWS INDICATION: Cough for one day. COMPARISON: 01/20/2019 FINDINGS: Support devices: None. Heart: Mild cardiomegaly has decreased since the previous exam. Lungs/pleura: No acute air space or interstitial disease. No pneumothorax. Additional findings: None. IMPRESSION: Mild cardiomegaly but decreased since 03/22/2019. Lungs clear. Signer Name: Jeb Silverman Jr, MD Signed: 04/17/2019 12:35 PM Workstation Name: [id number]
--- NOTE | 2019-04-17 13:40 | Emergency Department Report ---
Minor Respiratory - HPI Chief Complaint: Upper Respiratory Infection Stated Complaint: CONGESTION/RESP INFECTION Time Seen by Provider: 04/17/19 12:04 Duration: 3 Days Severity: mild Minor Respiratory: Yes Rhinorrhea, Yes Able to Tolerate Fluids, Yes Cough, Yes Sick Contacts, No Sore Throat, No Ear Pain, No Hemoptysis, No Chest Pain, No Shortness of Breath, No Fever Other History: Mr. Paredes is 58 yo male with hx o hypertension, schizophrenia, peripheral vascular disease, dyslipidemia, chronic wounds, atrial fibrillation who presents with nasal congestion cough and constipation for several days. Mild symptoms. ED Review of Systems ROS: Stated complaint: CONGESTION/RESP INFECTION Other details as noted in HPI Constitutional: denies: fever, malaise ENT: congestion Respiratory: cough. denies: shortness of breath, wheezing Cardiovascular: denies: chest pain Gastrointestinal: denies: abdominal pain, nausea, vomiting Skin: other (chronic leg wounds followed by wound care ) ED Past Medical Hx - Past Medical History Hx Hypertension: Yes Hx Congestive Heart Failure: No Hx Diabetes: No Hx Psychiatric Treatment: Yes (schizophrenia, anxiety) Hx Asthma: No Hx COPD: No Additional medical history: Vascular problems in both lower ext,high cholesterol, pressure ankle right ankle, AFIB - Surgical History Additional Surgical History: Vascular surgery on 10/25/16 R lower ext. - Social History Smoking Status: Never Smoker Substance Use Type: None - Medications Home Medications: Home Medications Medication Instructions Recorded Confirmed Last Taken Type Acetaminophen [Acetaminophen TAB] 650 mg PO Q4H PRN #15 tablet 01/24/19 Unknown Rx Apixaban [Eliquis] 5 mg PO Q12HR tablet 01/24/19 Unknown Rx Apixaban [Eliquis] 5 mg PO Q12HR #30 tablet 01/24/19 Unknown Rx Furosemide [Lasix TAB] 40 mg PO QDAY tablet 01/24/19 Unknown Rx Furosemide [Lasix TAB] 40 mg PO QDAY #30 tablet 01/24/19 Unknown Rx Lisinopril [Zestril TAB] 5 mg PO QDAY tablet 01/24/19 Unknown Rx Lisinopril [Zestril TAB] 5 mg PO QDAY #30 tablet 01/24/19 Unknown Rx Metoprolol Xl [Metoprolol 100 mg PO QDAY tablet 01/24/19 Unknown Rx SUCCINATE ER TAB] Metoprolol Xl [Metoprolol 100 mg PO QDAY #30 tablet 01/24/19 Unknown Rx SUCCINATE ER TAB] Sertraline [Zoloft] 100 mg PO QDAY #30 tablet 01/24/19 Unknown Rx oxyCODONE /ACETAMINOPHEN [Percocet 1 tab PO Q4H PRN #8 tablet 01/24/19 Unknown Rx 5/325 mg] Minor Respiratory Exam - Exam General: Vital signs noted. No distress. Alert and acting appropriately. HEENT: Yes Moist Mucous Membranes, No Pharyngeal Erythema, No Pharyngeal Exudates, No Rhinorrhea, No Conjuctival Injection, No Frontal Tenderness, No Maxillary Tenderness Neck: Yes Supple, No Adenopathy Lungs: Yes Good Air Exchange, No Wheezes, No Ronchi, No Stridor, No Cough, No Labored Respirations, No Retractions, No Use of Accessory Muscles, No Other Abnormal Lung Sounds Heart: No Murmur Abdomen: Yes Normal Bowel Sounds, No Tenderness, No Peritoneal Signs Neurologic: Alert and oriented, no deficits. Musculoskeletal: Unremarkable. ED Course Vital Signs 04/17/19 11:54 Temperature 98.7 F Pulse Rate 94 H Respiratory 16 Rate Blood Pressure 128/91 O2 Sat by Pulse 96 Oximetry ED Medical Decision Making - Radiology Data Radiology results: report reviewed Radiology impression of chest radiograph: Mild cardiomegaly which has improved since previous exam - Medical Decision Making Mr. Paredes appears well. Diagnosed with upper respiratory infection. Chest x- ray did not show any acute findings. Recommended [id number] supportive care for both cold symptoms and constipation. Critical care attestation.: If time is entered above; I have spent that time in minutes in the direct care of this critically ill patient, excluding procedure time. ED Disposition Clinical Impression: Upper respiratory infection, Constipation Disposition: DC-01 TO HOME OR SELFCARE Is pt being admited?: No Does the pt Need Aspirin: No Condition: Stable Instructions: Upper Respiratory Infection (ED), Constipation (ED)
== END 2019-04-17 13:52 | disposition home or self-care (01) ==
LOC: ED 11:29
DX: J06.9 Acute upper respiratory infection, unspecified (principal); K59.00 Constipation, unspecified; I10 Essential (primary) hypertension; F20.9 Schizophrenia, unspecified; I73.9 Peripheral vascular disease, unspecified; E78.5 Hyperlipidemia, unspecified; I48.91 Unspecified atrial fibrillation; F41.9 Anxiety disorder, unspecified; Z79.899 Other long term (current) drug therapy
CPT/HCPCS: 71046; 99283

== ENCOUNTER 2019-04-25 10:29 | Outpatient (CLI) | payer MEDICARE ==
[2019-04-25] MEDS ORDERED: LIDOCAINE (4%) 40 MG/ML TOPICAL SOLN 50 ML BOTTLE TP ONE (11:02)
[2019-04-25] MEDS ORDERED: VITAMIN A & D OINT 56.7 GM TP SCH (12:00)
== END 2019-04-25 10:30 | disposition home or self-care (01) ==
LOC: WOUND 10:29
PROVIDERS: ATTEND Surgery
DX: E11.622 Type 2 diabetes mellitus with other skin ulcer (principal); L89.512 Pressure ulcer of right ankle, stage 2; L97.312 Non-pressure chronic ulcer of right ankle with fat layer exposed; L97.812 Non-pressure chronic ulcer of other part of right lower leg with fat layer exposed; I87.311 Chronic venous hypertension (idiopathic) with ulcer of right lower extremity; I87.8 Other specified disorders of veins; L84 Corns and callosities; F41.9 Anxiety disorder, unspecified; L40.9 Psoriasis, unspecified
CPT/HCPCS: A6250

== ENCOUNTER 2019-05-19 14:58 | Emergency (ER) | payer MEDICARE ==
--- NOTE | 2019-05-19 16:30 | Event Note ---
ED Screening Note Date of service: 05/19/19 Time: 16:28 ED Screening Note: 58 y o male presents to Ed cc of coughing,fver, chills, body aches PMH: A-fib, irregular heart rate This initial assessment/diagnostic orders/clinical plan/treatment(s) is/are subject to change based on patients health status, clinical progression and re- assessment by fellow clinical providers in the ED. Further treatment and workup at subsequent clinical providers discretion. Patient/guardian urged not to elope from the ED as their condition may be serious if not clinically assessed and managed. Initial orders include: cxr, ekg acc eval
[2019-05-19 16:31] VITALS: BP 119/80
--- NOTE | 2019-05-19 17:09 | XRay Report ---
CHEST 2 VIEWS INDICATION / CLINICAL INFORMATION: Cough. Chest pain. COMPARISON: 2 views of the chest from 04/17/2019. FINDINGS: SUPPORT DEVICES: None. HEART / MEDIASTINUM: Stable. LUNGS / PLEURA: Generalized bilateral interstitial opacities are noted without a dense area of consol idation or other significant pulmonary abnormality. No significant pleural effusion. No pneumothorax. ADDITIONAL FINDINGS: No significant additional findings. IMPRESSION: 1. Generalized pulmonary opacities may represent interstitial edema. Please correlate with the clinic al findings. 2. Stable mild cardiomegaly. Signer Name: Markos Knox MD Signed: 05/19/2019 5:04 PM Workstation Name: [id number]
[2019-05-19 18:19] LABS: Basophils # (Auto) 0.1 K/mm3 (0.0-0.1); Basophils % (Auto) 0.8 % (0.0-1.8); Eosinophils # (Auto) 0.6 K/mm3 (0.0-0.4); Eosinophils % (Auto) 6.5 % (0.0-4.3); Hematocrit 34.7 % (35.5-45.6); Hemoglobin 11.4 gm/dl (11.8-15.2); Lymphocytes # (Auto) 1.6 K/mm3 (1.2-5.4); Lymphocytes % (Auto) 16.3 % (13.4-35.0); Mean Corpuscular HGB Conc 33 % (32-34); Mean Corpuscular Volume 88 fl (84-94); Monocytes # (Auto) 0.7 K/mm3 (0.0-0.8); Platelet Count 165 K/mm3 (140-440); Red Blood Count 3.92 M/mm3 (3.65-5.03); Red Cell Distribution Width 15.8 % (13.2-15.2)
[2019-05-19 18:43] LABS: Calcium 9.4 mg/dL (8.4-10.2)
[2019-05-19] MEDS ORDERED: FUROSEMIDE 20 MG TAB PO ONE (22:48)
--- NOTE | 2019-05-19 23:06 | Emergency Department Report ---
ED General Adult HPI - General Chief complaint: Upper Respiratory Infection Stated complaint: COUGH Time Seen by Provider: 05/19/19 22:19 Source: patient, EMS Mode of arrival: Ambulatory Limitations: No Limitations - History of Present Illness Initial comments: Patient is a 58-year-old male who presents to emergency room with complaints of a cough with clear phlegm that began a week ago. He states he has associated shortness of breath. He states that shortness of breath is worse with laying flat and exertion. He denies any fever, chest pain, pleuritic chest pain, any other symptoms. He has a past medical history of A. fib and CHF. He states t hat he has not taken his eliquis, metoprolol, Lasix in one month. He states Dr. Cooper is his PCP and he has not seen in one month. Severity scale (0 -10): 6 - Related Data Previous Rx's Medication Instructions Recorded Last Taken Type Acetaminophen [Acetaminophen TAB] 650 mg PO Q4H PRN #15 tablet 01/24/19 Unknown Rx Apixaban [Eliquis] 5 mg PO Q12HR tablet 01/24/19 Unknown Rx Furosemide [Lasix TAB] 40 mg PO QDAY tablet 01/24/19 Unknown Rx Lisinopril [Zestril TAB] 5 mg PO QDAY tablet 01/24/19 Unknown Rx Lisinopril [Zestril TAB] 5 mg PO QDAY #30 tablet 01/24/19 Unknown Rx Metoprolol Xl [Metoprolol 100 mg PO QDAY tablet 01/24/19 Unknown Rx SUCCINATE ER TAB] Sertraline [Zoloft] 100 mg PO QDAY #30 tablet 01/24/19 Unknown Rx oxyCODONE /ACETAMINOPHEN [Percocet 1 tab PO Q4H PRN #8 tablet 01/24/19 Unknown Rx 5/325 mg] Apixaban [Eliquis] 5 mg PO Q12HR #60 tablet 05/19/19 Unknown Rx Furosemide [Lasix TAB] 40 mg PO QDAY #30 tablet 05/19/19 Unknown Rx Metoprolol Xl [Metoprolol 100 mg PO QDAY #30 tablet 05/19/19 Unknown Rx SUCCINATE ER TAB] Allergies Allergy/AdvReac Type Severity Reaction Status Date / Time No Known Allergies Allergy Verified 05/19/19 16:30 ED Review of Systems ROS: Stated complaint: COUGH Other details as noted in HPI Comment: All other systems reviewed and negative ED Past Medical Hx - Past Medical History Hx Hypertension: Yes Hx Congestive Heart Failure: No Hx Diabetes: No Hx Psychiatric Treatment: Yes (schizophrenia, anxiety) Hx Asthma: No Hx COPD: No Additional medical history: Vascular problems in both lower ext,high cholesterol, pressure ankle right ankle, AFIB - Surgical History Past Surgical History?: Yes Additional Surgical History: Vascular surgery on 10/25/16 R lower ext. - Social History Smoking Status: Never Smoker Substance Use Type: None - Medications Home Medications: Home Medications Medication Instructions Recorded Confirmed Last Taken Type Acetaminophen [Acetaminophen TAB] 650 mg PO Q4H PRN #15 tablet 01/24/19 Unknown Rx Apixaban [Eliquis] 5 mg PO Q12HR tablet 01/24/19 Unknown Rx Furosemide [Lasix TAB] 40 mg PO QDAY tablet 01/24/19 Unknown Rx Lisinopril [Zestril TAB] 5 mg PO QDAY tablet 01/24/19 Unknown Rx Lisinopril [Zestril TAB] 5 mg PO QDAY #30 tablet 01/24/19 Unknown Rx Metoprolol Xl [Metoprolol 100 mg PO QDAY tablet 01/24/19 Unknown Rx SUCCINATE ER TAB] Sertraline [Zoloft] 100 mg PO QDAY #30 tablet 01/24/19 Unknown Rx oxyCODONE /ACETAMINOPHEN [Percocet 1 tab PO Q4H PRN #8 tablet 01/24/19 Unknown Rx 5/325 mg] Apixaban [Eliquis] 5 mg PO Q12HR #60 tablet 05/19/19 Unknown Rx Furosemide [Lasix TAB] 40 mg PO QDAY #30 tablet 05/19/19 Unknown Rx Metoprolol Xl [Metoprolol 100 mg PO QDAY #30 tablet 05/19/19 Unknown Rx SUCCINATE ER TAB] ED Physical Exam - General Limitations: No Limitations General appearance: alert, in no apparent distress - Head Head exam: Present: atraumatic, normocephalic - Eye Eye exam: Present: normal appearance - ENT ENT exam: Present: mucous membranes moist - Respiratory Respiratory exam: Present: decreased breath sounds (slightly decreased at the bases). Absent: respiratory distress, wheezes, rales, rhonchi, stridor, chest wall tenderness, accessory muscle use, prolonged expiratory - Cardiovascular Cardiovascular Exam: Present: regular rate, irregular rhythm, normal heart sounds. Absent: systolic murmur, diastolic murmur, rubs, gallop - Extremities Exam Extremities exam: Present: other (non pitting bilateral mild edema of the BLE, pt has skin changes consistent with PVD) - Neurological Exam Neurological exam: Present: alert, oriented X3 - Psychiatric Psychiatric exam: Present: normal affect, normal mood - Skin Skin exam: Present: warm, dry ED Course Vital Signs 05/19/19 05/19/19 16:27 23:45 Temperature 98.6 F Pulse Rate 104 H 70 Respiratory 20 18 Rate Blood Pressure 119/80 [Right] O2 Sat by Pulse 95 100 Oximetry ED Medical Decision Making - Lab Data Result diagrams: 05/19/19 17:56 05/19/19 17:56 Lab Results 05/19/19 05/19/19 05/19/19 Range/Units 17:56 17:56 17:56 WBC 9.5 (4.5-11.0) K/mm3 RBC 3.92 (3.65-5.03) M/mm3 Hgb 11.4 L (11.8-15.2) gm/dl Hct 34.7 L (35.5-45.6) % MCV 88 (84-94) fl MCH 29 (28-32) pg MCHC 33 (32-34) % RDW 15.8 H (13.2-15.2) % Plt Count 165 (140-440) K/mm3 Lymph % (Auto) 16.3 (13.4-35.0) % [place] % (Auto) 7.0 (0.0-7.3) % Eos % (Auto) 6.5 H (0.0-4.3) % Baso % (Auto) 0.8 (0.0-1.8) % Lymph # 1.6 (1.2-5.4) K/mm3 [place] # 0.7 (0.0-0.8) K/mm3 Eos # 0.6 H (0.0-0.4) K/mm3 Baso # 0.1 (0.0-0.1) K/mm3 Seg Neutrophils % 69.4 (40.0-70.0) % Seg Neutrophils # 6.6 (1.8-7.7) K/mm3 Sodium 145 (137-145) mmol/L Potassium 4.1 (3.6-5.0) mmol/L Chloride 105.3 (98-107) mmol/L Carbon Dioxide 24 (22-30) mmol/L Anion Gap 20 mmol/L BUN 26 H (9-20) mg/dL Creatinine 1.3 (0.8-1.5) mg/dL Estimated GFR 57 ml/min BUN/Creatinine Ratio 20 % Glucose 112 H (75-100) mg/dL Calcium 9.4 (8.4-10.2) mg/dL Troponin T < 0.010 (0.00-0.029) ng/mL NT-Pro-B Natriuret Pep 5385 H (0-900) pg/mL - EKG Data EKG shows normal: axis, intervals, QRS complexes, ST-T waves Rate: tachycardia - EKG Data 05/19/19 23:10 Afib irregular rhythm HR is 113 No STEMI - Radiology Data Radiology results: report reviewed CHEST 2 VIEWS INDICATION / CLINICAL INFORMATION: Cough. Chest pain. COMPARISON: 2 views of the chest from 04/17/2019. FINDINGS: SUPPORT DEVICES: None. HEART / MEDIASTINUM: Stable. LUNGS / PLEURA: Generalized bilateral interstitial opacities are noted without a dense area of consolidation or other significant pulmonary abnormality. No significant pleural effusion. No pneumothorax. ADDITIONAL FINDINGS: No significant additional findings. IMPRESSION: 1. Generalized pulmonary opacities may represent interstitial edema. Please correlate with the clinical findings. 2. Stable mild cardiomegaly. Signer Name: Markos Knox MD Signed: 05/19/2019 5:04 PM Workstation Name: [id number] Transcribed By: [place] Dictated By: Markos Knox MD Electronically Authenticated By: Markos Knox MD Signed Date/Time: 05/19/191703 DD/ 01 TD/TT: - Medical Decision Making Patient is a 58-year-old male who presents to emergency room with complaints of a cough with clear phlegm that began a week ago. He states he has associated shortness of breath. He states that shortness of breath is worse with laying flat and exertion. He denies any fever, chest pain, pleuritic chest pain, any other symptoms. He has a past medical history of A. fib and CHF. He states that he has not taken his eliquis, metoprolol, Lasix in one month. He states Dr. Cooper is his PCP and he has not seen in one month. Initial vitals with mild tachycardia which improved to normal upon repeat. Labs are stable. BNP is slightly increased from prior. CXR: 1. Generalized pulmonary opacities may represent interstitial edema. Please correlate with the clinical findings. 2. Stable mild cardiomegaly. Breath sounds are slightly decreased at the bases, no crackles, no Rales, no rhonchi. No clinical signs or symptoms of pneumonia. Patient given Lasix while in the emergency department. EKG shows A. fib with elevated heart rate at 113. Patient does not appear to be in acute heart failure exacerbation. Patient has no pitting edema, no crackles or rales on lung auscultation. Discussed case with Dr. Chase who recommended refilling patient's medications and to have patient follow-up with his primary care physician. advised pt to please take medication as prescribed. Please follow-up with a primary care doctor. It is very important that you follow up with your primary care doctor for management of your chronic conditions and to prevent worsening of these conditions. Return to the emergency room for any new or worsening symptoms. Critical care attestation.: If time is entered above; I have spent that time in minutes in the direct care of this critically ill patient, excluding procedure time. ED Disposition Clinical Impression: Non compliance w medication regimen, SOB (shortness of breath), Cough CHF (congestive heart failure) Qualifiers: Heart failure type: unspecified Heart failure chronicity: chronic Qualified Code(s): I50.9 - Heart failure, unspecified Afib Qualifiers: Atrial fibrillation type: unspecified Qualified Code(s): I48.91 - Unspecified atrial fibrillation Disposition: DC- TO HOME OR SELFCARE Is pt being admited?: No Does the pt Need Aspirin: No Condition: Stable Instructions: Heart Failure (ED), Atrial Fibrillation (ED) Additional Instructions: Please take medication as prescribed. Please follow-up with a primary care doctor. It is very important that you follow up with your primary care doctor for management of your chronic conditions and to prevent worsening of these conditions. Return to the emergency room for any new or worsening symptoms. Prescriptions: Apixaban [Eliquis] 5 mg PO Q12HR #60 tablet Furosemide [Lasix TAB] 40 mg PO QDAY #30 tablet Metoprolol Xl [Metoprolol SUCCINATE ER TAB] 100 mg PO QDAY #30 tablet Referrals: Dr Cooper, your PCP [Other] - 2-3 Days Time of Disposition: 23:07 Print Language: HONDURAN
[2019-05-19] MEDS ORDERED: ACETAMINOPHEN 325 MG TAB PO ONE (23:17)
== END 2019-05-19 23:45 | disposition home or self-care (01) ==
LOC: ED 14:58
DX: R06.02 Shortness of breath (principal); R05 Cough; I11.0 Hypertensive heart disease with heart failure; I50.9 Heart failure, unspecified; I48.91 Unspecified atrial fibrillation; F20.9 Schizophrenia, unspecified; F41.9 Anxiety disorder, unspecified; Z98.890 Other specified postprocedural states; Z91.14 Patient's other noncompliance with medication regimen; Z79.899 Other long term (current) drug therapy
CPT/HCPCS: 36415; 71046; 80048; 83880; 84484; 85025; 93005; 93010

== ENCOUNTER 2019-08-25 12:39 | Emergency (ER) | payer MEDICARE ==
[2019-08-25 13:19] VITALS: BP 124/76
--- NOTE | 2019-08-25 16:38 | Emergency Department Report ---
ED General Adult HPI - General Chief complaint: Nausea/Vomiting/Diarrhea Stated complaint: DIARRHEA Time Seen by Provider: 08/25/19 16:16 Source: patient, EMS ( EMS documentation not available at time of chart dictation ), RN notes reviewed, old records reviewed Mode of arrival: Ambulatory Limitations: No Limitations, Other (The patient is somewhat of a poor historian) - History of Present Illness Initial comments: The patient is a 58-year-old gentleman. He has a past medical history of A. fib on Eliquis, dilated nonischemic cardiomyopathy, documented noncompliance with medications and COPD. He also has a history of chronic lower extremity ulcer, morbid obesity, COPD, an incidental aortic aneurysm diagnosed on echocardiogram 12/2018 He presents to the ER with multiple complaints. His first complaint is right-sided ear fullness, and subjective decrease in auditory acuity. This is atraumatic. He denies tinnitus. There is no complaint of vertigo. He is not sure how long this is been going on for, but he thinks it has been going on for "a while." His next complaint is left-sided nontraumatic knee pain. This has been going on for a while as well. He indicates his pain increases with range of motion and walking, and decreases with rest. It does not radiate anywhere. There is no indication as to whether or not he is taking any [id number] analgesics for this. His next complaint is complaint of diarrhea. He is not sure what color it is. He is not sure how many episodes he has had. He believes it is been going on for around 2 weeks. He does not know how many episodes he had today. There is no complaint of hematemesis or bright red blood per rectum. He thinks he needs his medications refilled, but he is not sure. He was following up with outpatient wound care for his lower extremity wounds, but has been lost to follow-up/indicates that his insurance has changed. -: Gradual Location: left, upper extremity Radiation: other Quality: other Consistency: other Improves with: other Worsens with: other Associated Symptoms: other - Related Data Previous Rx's Medication Instructions Recorded Last Taken Type Sertraline [Zoloft] 100 mg PO QDAY #30 tablet 01/24/19 Unknown Rx oxyCODONE /ACETAMINOPHEN [Percocet 1 tab PO Q4H PRN #8 tablet 01/24/19 Unknown Rx 5/325 mg] lisinopriL [Zestril TAB] 5 mg PO QDAY #30 tablet 06/14/19 Unknown Rx Acetaminophen [Acetaminophen TAB] 650 mg PO Q4H PRN #15 tablet 08/25/19 Unknown Rx Apixaban [Eliquis] 5 mg PO Q12HR #60 tablet 08/25/19 Unknown Rx Furosemide [Lasix TAB] 40 mg PO QDAY #30 tablet 08/25/19 Unknown Rx Loperamide [Imodium] 2 mg PO Q2HR PRN #30 capsule 08/25/19 Unknown Rx Metoprolol Xl [Metoprolol 100 mg PO QDAY #30 tablet 08/25/19 Unknown Rx SUCCINATE ER TAB] lisinopriL [Zestril TAB] 5 mg PO QDAY #30 tablet 08/25/19 Unknown Rx Allergies Allergy/AdvReac Type Severity Reaction Status Date / Time No Known Allergies Allergy Verified 05/19/19 16:30 ED Review of Systems ROS: Stated complaint: DIARRHEA Other details as noted in HPI Constitutional: denies: diaphoresis Eyes: as per HPI ENT: as per HPI Respiratory: cough. denies: wheezing Cardiovascular: edema Gastrointestinal: diarrhea. denies: abdominal pain, nausea, vomiting Genitourinary: as per HPI Musculoskeletal: as per HPI Skin: as per HPI (Chronic skin ulcer/lesion) Neurological: as per HPI Psychiatric: as per HPI Hematological/Lymphatic: as per HPI ED Past Medical Hx - Past Medical History Previous Medical History?: Yes Hx Hypertension: Yes Hx Congestive Heart Failure: Yes Hx Diabetes: No Hx Renal Disease: Yes (ARF, TERESA) Hx Psychiatric Treatment: Yes (schizophrenia, anxiety) Hx Asthma: No Hx COPD: No Additional medical history: Vascular problems in both lower ext,high cholesterol, pressure ankle right ankle, AFIB, PVD, DVT, osteomyelitis - Surgical History Past Surgical History?: Yes Additional Surgical History: Vascular surgery on 10/25/16 R lower ext. - Social History Smoking Status: Never Smoker Substance Use Type: None - Medications Home Medications: Home Medications Medication Instructions Recorded Confirmed Last Taken Type Sertraline [Zoloft] 100 mg PO QDAY #30 tablet 01/24/19 06/12/19 Unknown Rx oxyCODONE /ACETAMINOPHEN [Percocet 1 tab PO Q4H PRN #8 tablet 01/24/19 06/12/19 Unknown Rx 5/325 mg] lisinopriL [Zestril TAB] 5 mg PO QDAY #30 tablet 06/14/19 Unknown Rx Acetaminophen [Acetaminophen TAB] 650 mg PO Q4H PRN #15 tablet 08/25/19 Unknown Rx Apixaban [Eliquis] 5 mg PO Q12HR #60 tablet 08/25/19 Unknown Rx Furosemide [Lasix TAB] 40 mg PO QDAY #30 tablet 08/25/19 Unknown Rx Loperamide [Imodium] 2 mg PO Q2HR PRN #30 capsule 08/25/19 Unknown Rx Metoprolol Xl [Metoprolol 100 mg PO QDAY #30 tablet 08/25/19 Unknown Rx SUCCINATE ER TAB] lisinopriL [Zestril TAB] 5 mg PO QDAY #30 tablet 08/25/19 Unknown Rx ED Physical Exam - General Limitations: No Limitations General appearance: alert, anxious, obese - Head Head exam: Present: atraumatic, normocephalic - Eye Eye exam: Present: normal appearance, EOMI. Absent: nystagmus - ENT ENT exam: Present: normal exam, normal orophraynx, mucous membranes moist, TM's normal bilaterally, normal external ear exam - Neck Neck exam: Present: normal inspection, full ROM. Absent: tenderness, meningismus - Respiratory Respiratory exam: Present: normal lung sounds bilaterally. Absent: respiratory distress - Cardiovascular Cardiovascular Exam: Present: regular rate, irregular rhythm, normal heart sounds. Absent: systolic murmur, diastolic murmur, rubs, gallop - GI/Abdominal GI/Abdominal exam: Present: soft. Absent: distended, tenderness, guarding, rebound, rigid, pulsatile mass - Rectal Rectal exam: Present: deferred - Extremities Exam Extremities exam: Present: pedal edema, other (2+ pulses noted in the bilateral upper and lower extremities. There is no long bony tenderness. There is full active and passive range of motion in the left knee, without redness, pus or streaking.). Absent: normal inspection (Chronic appearing wounds noted on the left lower and right lower extremity. Venous stasis changes are noted. No active purulence or crepitus or discharge is noted) - Back Exam Back exam: Present: normal inspection. Absent: tenderness, CVA tenderness (R), CVA tenderness (L), paraspinal tenderness, vertebral tenderness - Neurological Exam Neurological exam: Present: alert, other (There is no facial droop. The tongue is midline. Extraocular movements are intact bilaterally. There is 5 out of 5 strength in bilateral upper and lower extremities. Sensation is intact to light touch bilateral upper and lower extremities. There is a normal gait.) - Psychiatric Psychiatric exam: Present: anxious - Skin Skin exam: Present: warm ED Course Vital Signs 08/25/19 13:18 Temperature 98.2 F Pulse Rate 76 Respiratory 18 Rate Blood Pressure 124/76 O2 Sat by Pulse 97 Oximetry - Reevaluation(s) Reevaluation #1: 08/25/19 16:46 Differential diagnosis, including not limited to: Simple diarrhea, enteritis, cerumen impaction, otitis media, left-sided knee arthritis Assessment and plan: 58-year-old gentleman with multiple complaints. In terms of his otologic examination, tympanic membrane's are clear bilaterally, hearing is grossly intact bilaterally, there is no mastoid tenderness, there is no evidence of active ear infection. He can follow-up with an outpatient primary care doctor or ENT physician for his nonspecific otologic discomfort. The neck is supple with no meningeal signs and there were no obvious cranial nerve deficits. In terms of his left knee pain, there is no redness, pus or streaking, there is full range of motion to the left knee, he is able to weight-bear, the examination is not consistent with fracture, dislocation, compartment syndrome. The patient can weight-bear as tolerated, physical activities as tolerated, and take Tylenol as needed for pain. In terms of diarrhea, oral hydration, loperamide as needed, stool bulking agents as an outpatient, he can follow-up with an outpatient primary care doctor. He is found to have chronic wounds which appear to be not superinfected. Nursing team to dress these wounds. The patient will need to follow-up with an outpatient primary care doctor. I will also refill his outpatient medications. The patient appears unkempt, with dirty clothing, nursing team to clean wounds, dressed wounds, give hospital socks, paper scrubs. ED Medical Decision Making - Lab Data Vital Signs 08/25/19 13:18 Temperature 98.2 F Pulse Rate 76 Respiratory 18 Rate Blood Pressure 124/76 O2 Sat by Pulse 97 Oximetry Critical care attestation.: If time is entered above; I have spent that time in minutes in the direct care of this critically ill patient, excluding procedure time. ED Disposition Clinical Impression: Chronic wound of extremity, History of diarrhea Ear discomfort Qualifiers: Laterality: right Qualified Code(s): H92.01 - Otalgia, right ear Disposition: DC-01 TO HOME OR SELFCARE Is pt being admited?: No Does the pt Need Aspirin: No Condition: Stable Additional Instructions: Please wash wounds with gentle soap and water once every 12-24 hours. Follow-up with outpatient wound care center within the next week. Follow-up with an outpatient primary care doctor within the next week. Do not clean ears with Q-tips. Weightbearing as tolerated in the left lower extremity, take Tylenol [id number] or prescribed as needed for pain. Recommend that patient consume plenty of fiber, and vegetables to help out with diarrhea. The patient may also take the prescribed loperamide as needed for diarrhea. Please return to the emergency room right away with new, worsened or different symptoms, or symptoms not present on the initial emergency room evaluation. Patient may follow-up with any of the listed primary care doctors or wound care center as directed. Recommend medical follow-up within the next 7 to 10 days for patient's numerous complaints. Recommend follow-up with outpatient wound care as soon as possible to continue outpatient wound care. Referrals: FREEDOM DIOP MD [Staff Physician] - 3-5 Days [facility] [Outside] - 3-5 Days [facility] [Provider Group] - 3-5 Days
== END 2019-08-25 18:18 | disposition home or self-care (01) ==
LOC: ED 12:39
DX: S81.002A Unspecified open wound, left knee, initial encounter (principal); H92.01 Otalgia, right ear; R19.7 Diarrhea, unspecified; M25.562 Pain in left knee; X58.XXXA Exposure to other specified factors, initial encounter; Y93.89 Activity, other specified; Y92.89 Other specified places as the place of occurrence of the external cause; Y99.8 Other external cause status
CPT/HCPCS: 99283